=== PATIENT | male | born 1970 | race Caucasian/White ===

== ENCOUNTER 2016-04-29 11:42 | Emergency (ER) | payer BC ==
[2016-04-29] MEDS ORDERED: NORCO, ANEXSIA 5/325MG TABLET (HYDROcodone/ACETAMINOPHEN) As Ordered ONE ×3 (12:31→17:37)
--- NOTE | 2016-04-29 12:50 | REP ---
Clinical: Cough and chest pain . Comparison: 04/16/2012 . Technique: PA and lateral. Findings: The mediastinum and cardiac silhouette are normal. The lung dawson are clear and without acute consolidation, effusion, or pneumothorax. The skeletal structures are intact and normal. Impression: 1. No acute cardiopulmonary process. Signed by Murali Hauser MD 04/29/2016 12:42 P
--- NOTE | 2016-04-29 12:52 | REP ---
Clinical: Right rib pain with cough . Technique: Multiple views of the right hemithorax. Findings: Multiple views of the right hemithorax demonstrates no obvious acute rib fracture or pathology. Impression: Normal right rib series Signed by Murali Hauser MD 04/29/2016 12:44 P
[2016-04-29 12:59] LABS: BASO % 0.5 % (0.0-1.0); EOS # 0.1 K/mm3 (0.0-0.50); EOS % 1.9 % (0.0-3.0); LARGE UNSTAINED CELL # 0.1 K/mm3 (0.0-0.4); LARGE UNSTAINED CELL % 1.7 % (0.0-4.0); LYMPH # 1.2 K/mm3 (1.5-4.5); LYMPH % 15.5 % (24.0-44.0); MEAN CORPUSCULAR HEMOGLOBIN 34.4 pg (27.0-33.0); MEAN CORPUSCULAR HGB CONC 34.3 g/dl (32.0-36.5); MEAN CORPUSCULAR VOLUME 100.4 fl (80.0-96.0); MONO # 0.6 K/mm3 (0.0-0.8); NEUTROPHILS # 5.4 K/mm3 (1.8-7.7); NEUTROPHILS % 72.3 % (36.0-66.0); PLATELET COUNT, AUTOMATED 157 k/mm3 (150-450); RED CELL DISTRIBUTION WIDTH 12.1 % (11.5-14.5); WHITE BLOOD COUNT 7.5 K/mm3 (4.0-10.0)
[2016-04-29 13:07] LABS: INR 1.95
[2016-04-29 13:19] LABS: ALBUMIN 3.4 GM/DL (3.2-5.2); ALBUMIN/GLOBULIN RATIO 0.77 (1.00-1.93); ALKALINE PHOSPHATASE 129 U/L (45-117); ALT/SGPT 53 U/L (12-78); ANION GAP 7 MEQ/L (8-16); AST/SGOT 45 U/L (15-37); BILIRUBIN,TOTAL 1.6 MG/DL (0.2-1.0); BLOOD UREA NITROGEN 6 MG/DL (7-18); CALCIUM LEVEL 8.2 MG/DL (8.5-10.1); CARBON DIOXIDE LEVEL 27 MEQ/L (21-32); CHLORIDE LEVEL 104 MEQ/L (98-107); CREATININE FOR GFR 0.68 MG/DL (0.70-1.30); GLOMERULAR FILTRATION RATE > 60.0 (>60); GLUCOSE, FASTING 217 MG/DL (70-105); POTASSIUM SERUM 4.1 MEQ/L (3.5-5.1); SODIUM LEVEL 138 MEQ/L (136-145); TOTAL PROTEIN 7.8 GM/DL (6.4-8.2)
[2016-04-29] MEDS ORDERED: ISOVUE-370 76% 100ML VIAL (Q9967) As Ordered ONE (14:21)
--- NOTE | 2016-04-29 15:04 | REP ---
Clinical: Acute chest pain. Technique: Axial contrast enhanced images from the thoracic inlet to the upper abdomen using 100 ml Isovue 370 intravenous contrast material with coronal and sagittal re-formations. Findings: Suboptimal evaluation of the pulmonary vasculature limits evaluation. No obvious main or first order pulmonary emboli are identified. The lung dawson demonstrate calcified granuloma in the posterior right upper lung zone along with trace right basilar atelectasis. No further consolidation nodule or mass lesion is appreciated. No pleural effusion or pneumothorax. Tracheobronchial tree is patent. Mediastinum demonstrates normal thoracic aorta and heart/pericardium without pericardial effusion or cardiomegaly. No obvious adenopathy is appreciated. The surrounding skeletal structures appear intact. Limited evaluation of the upper abdomen demonstrates inflammatory changes in the right upper quadrant possibly related to acute cholecystitis and correlation with physical examination is recommended. Impression: Limited evaluation for pulmonary embolus. Trace right basilar atelectasis. Mild inflammatory stranding noted in the visualized right upper quadrant possibly related to acute cholecystitis and correlation is recommended. Signed by Murali Hauser MD 04/29/2016 02:55 P
--- NOTE | 2016-04-29 17:04 | REP ---
Clinical: Right upper quadrant pain. Technique: Real time cadet scale ultrasound examination using curved array transducer. Findings: Liver demonstrates diffuse fatty infiltration without obvious focal hepatic lesion identified. Pancreas is incompletely evaluated due to interposed bowel gas and technical factors secondary to body habitus. Gallbladder is without wall thickening or pericholecystic fluid and no obvious gallstones are appreciated. A sonographic Garcia's sign was elicited. There is no evidence for biliary ductal dilatation and the common bile duct measures 4.5 mm diameter. The right kidney is normal in reniform shape with column of Nicolás and no hydronephrosis. Right kidney measures 12.9 x 7.2 x 7.0 cm. No ascites in the visualized right upper quadrant. Impression: 1. Limited examination demonstrating fatty infiltration to the liver. 2. Sonographic Garcia's sign was elicited without further sonographic evidence for acute cholecystitis and correlation is recommended. Signed by Murali Hauser MD 04/29/2016 04:55 P
[2016-04-29] MEDS ORDERED: NORCO 5/325MG TABLET (BULK) As Ordered ONE (19:32)
--- NOTE | 2016-04-29 19:42 | EDDOCDS ---
Physician Documentation [facility] Name: Hill Salmeron Age: 46 yrs Sex: Male : 1970 Arrival Date: 04/29/2016 Time: 11:42 Bed 12 Private MD: [facility] Disposition: 04/29/16 19:29 Discharged to Home/Self Care. Impression: Cholecystitis - acalculus. - Condition is Stable. - Discharge Instructions: Fat and Cholesterol Restricted Diet, Cholecystitis. - Prescriptions for Christopher 5- 325 mg Oral Tablet - take 1 tablet by ORAL route every 6 hours As needed MDD: 4 tabs; 20 tablet. - Medication Reconciliation, Local Pharmacy Hours form. - Follow up: Nawaf Denis MD; When: Call to arrange an appointment; Reason: Recheck today's complaints, Continuance of care. - Problem is new. - Symptoms have improved. - Notes: Return to the ED for worsening pain, vomiting, fever, jaundice (yellow skin/eyes) or any other concerns Historical: - Allergies: no known allergies; - Home Meds: 1. Warfarin 7.5mg Tues, Thurs, Sun. and 15mg on Mon, Wed, Fri, Sat Oral once daily 2. atenolol 50 mg Oral tab 1 tab once daily 3. lisinopril 20 mg Oral tab 1 tab once daily 4. hydrocodone-acetaminophen 7.5-325 mg Oral tab 1 tab every 4-6 hours - PMHx: Hypertension; Pulmonary Embolism; DVT; - PSHx: none; - Social history: Smoking status: Patient uses tobacco products, current some day smoker. No barriers to communication noted, The patient speaks fluent [place]. - Family history: Not pertinent. - : The pt / caregiver states he / she is on anticoagulants: coumadin. Home medication list is obtained from the patient. - Exposure Risk Screening:: None identified. Vital Signs: 04/29 11:44 BP 174 / 82; Pulse 122; Resp 24; Temp 97.4; Pulse Ox 95% on R/A; Weight 158.76 kg / elp 350.01 lbs (R); Height 6 ft. 0 in. (182.88 cm) (R); Pain 5/10; 13:58 BP 154 / 70; Pulse 104; Resp 18; Pulse Ox 98% on R/A; Pain 2/10; bcj 14:06 Pain 2/10; bcj 18:21 BP 170 / 84 LA Supine (auto/lg); Pulse 98 RA; Resp 18; Temp 99.2(O); Pulse Ox 93% on tk R/A; Pain 3/10; 19:30 BP 173 / 87 RA Sitting (auto/lg); Pulse 104; Resp 18; Temp 97.2(O); Pulse Ox 93% on rs6 R/A; Pain 3/10; 11:44 Body Mass Index 47.47 (158.76 kg, 182.88 cm) elp MDM: 12:14 Chest, 2 View (pa\E\lat) Ordered. EDMS 12:28 IV Saline Lock ordered. le 12:28 HYDROcodone-acetaminophen 5 mg-325 mg 2 tabs PO once ordered. le 12:30 Ribs-Uni Without PA Chest Ordered. EDMS 12:30 ECG WITH READING ER PHYS+CARDIAG ordered. EDMS 12:30 CBC with Diff Ordered. EDMS 12:30 Complete Comphrensive Metabolic Ordered. EDMS 12:30 INR Ordered. EDMS 12:30 D-Dimer Quant Ordered. EDMS 13:31 [facility] Payment Agreement was scanned into [employer] and attached to record. jp5 13:31 Financial registration complete. jp5 14:00 CBC with Diff Reviewed. le 14:00 Complete Comphrensive Metabolic Reviewed. le 14:00 INR Reviewed. le 14:00 D-Dimer Quant Reviewed. le 14:00 Chest, 2 View (pa\E\lat) Reviewed. le 14:00 Ribs-Uni Without PA Chest Reviewed. le 14:03 CT Chest Angio R/O PE Ordered. EDMS 16:27 US Gallbladder Ordered. EDMS 17:32 US Gallbladder Reviewed. le 17:33 HYDROcodone-acetaminophen 5 mg-325 mg 1 tabs PO once ordered. le 17:34 CT Chest Angio R/O PE Reviewed. le 17:38 CT ABD & PELVIS: No Contrast Ordered. EDMS 19:28 HYDROcodone-acetaminophen 4 pack- 5 mg-325 mg 1 packets PO Per package directions; le Dispense with patient. 1 po q4h prn for pain ordered. Administered Medications: 12:55 Drug: HYDROcodone-acetaminophen 2 tabs [hydrocodone 5 mg-acetaminophen 325 mg tablet (2 bcj tabs)] Route: PO; 14:06 Follow up: Pain 2/10 Adult; Response: Pain is decreased [facility] 17:39 Drug: HYDROcodone-acetaminophen 1 tabs [hydrocodone 5 mg-acetaminophen 325 mg tablet (1 jmb tabs)] Route: PO; 19:37 Drug: HYDROcodone-acetaminophen 4 pack- 1 packets [hydrocodone 5 mg-acetaminophen 325 jmb mg tablet (1 tabs)] {Co-Signature: af2 (Beatrice Galeano RN).} Route: PO; Signatures: Dispatcher [employer] EDEleazar Swanson RN Cary Crowley RN RN mcp Westcott, Lisa, POSTING SPECIALIST POSTING SPECIALIST Raymundo GannRN Ange Coats jp5 Beatrice Galeano RN af2 The chart was reviewed and I authenticate all verbal orders and agree with the evaluation and treatment provided.Attachments: 13:31 [facility] Payment Agreement [email or web address] MTDD
--- NOTE | 2016-04-29 19:42 | EDDOCDS ---
Nurse's Notes [facility] Name: Hill Salmeron Age: 46 yrs Sex: Male : 1970 Arrival Date: 04/29/2016 Time: 11:42 Bed 12 Private MD: [place] Diagnosis: Cholecystitis-acalculus Presentation: 04/29 11:47 Red Flag criteria, patient assessed and is suitable to finish the RCE Process. dls 11:49 Presenting complaint: Patient states: Sharp pain in right rib area, coughing, bloating. mcp Has history of PE. Adult Sepsis Screening: The patient does not have new or worsening altered mentation. Patient's respiratory rate is less than 22. Systolic blood pressure is greater than 100. Patient has a qSOFA score of 0- Negative Sepsis Screen. Suicide/Homicide risk assessment- the patient denies having any suicidal and/or homicidal ideations and does not present with any other emotional, behavioral or mental health complaints. 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 Transition of care: patient was not received from another setting of care. 11:49 Acuity: TERRELL Level 3 [facility] 11:49 Method Of Arrival: Walkin/Carried/Asstd [facility] Triage Assessment: 11:52 General: Appears uncomfortable, Behavior is cooperative. Pain: Location: lower right mcp rib area Pain currently is 5 out of 10 on a pain scale. At worst was 9 out of 10 on a pain scale. HIV screening NA for this visit Offered previously. Neurological: No deficits noted. Respiratory: Airway is patent Respiratory effort is even, unlabored. Derm: Skin is pink, warm & dry. Historical: - Allergies: no known allergies; - Home Meds: 1. Warfarin 7.5mg Tues, Thurs, Sun. and 15mg on Mon, Wed, Fri, Sat Oral once daily 2. atenolol 50 mg Oral tab 1 tab once daily 3. lisinopril 20 mg Oral tab 1 tab once daily 4. hydrocodone-acetaminophen 7.5-325 mg Oral tab 1 tab every 4-6 hours - PMHx: Hypertension; Pulmonary Embolism; DVT; - PSHx: none; - Social history: Smoking status: Patient uses tobacco products, current some day smoker. No barriers to communication noted, The patient speaks fluent [place]. - Family history: Not pertinent. - : The pt / caregiver states he / she is on anticoagulants: coumadin. Home medication list is obtained from the patient. - Exposure Risk Screening:: None identified. Screenin:04 Screening information is obtained from the patient. Fall risk: No risks identified. bcj Assistance ADL's: requires no assistance with activities of daily living. Abuse/DV Screen: The patient / caregiver reports he/she is: not in a situation that causes fear, pain or injury. Nutritional screening: No deficits noted. Advance Directives: Currently, there is no health care proxy. home support is adequate. Assessment: 12:27 General: Appears in no apparent distress, comfortable, Behavior is cooperative. Pain:. bcj 13:04 General: Appears in no apparent distress, comfortable, Behavior is cooperative. Pain: bcj Location: right lateral anterior chest and right lateral posterior chest Pain currently is 6 out of 10 on a pain scale. Respiratory: Airway is patent Respiratory effort is even, unlabored, Respiratory pattern is regular, Breath sounds are clear bilaterally. tender right lateral ribs Denies shortness of breath Parent/caregiver reports the patient having pain with respiration. Derm: Skin is pink, warm & dry. 13:58 Adult Sepsis Screening: The patient does not have new or worsening altered mentation. bcj Patient's respiratory rate is less than 22. Systolic blood pressure is greater than 100. Patient has a qSOFA score of 0- Negative Sepsis Screen. General: Appears in no apparent distress, comfortable, Behavior is cooperative. 15:04 General: Appears in no apparent distress, comfortable, Behavior is appropriate for age, jmb cooperative, Patient laying on stretcher, appears comfortable. Voices no complaints at this time. . Pain: Location: chest and right lateral posterior chest and right lateral anterior chest Pain currently is 2 out of 10 on a pain scale. Neurological: Level of Consciousness is awake, alert, obeys commands, Oriented to person, place, time, Ethnoarchaeologist are equal bilaterally Speech is normal, Facial symmetry appears normal, Facial symmetry: tongue is midline. Cardiovascular: Capillary refill < 3 seconds Heart tones S1 S2 present Pulses are all present. Rhythm is regular. Respiratory: Airway is patent Respiratory effort is even, unlabored, Respiratory pattern is regular, symmetrical, Breath sounds are clear bilaterally. GI: Abdomen is obese, Bowel sounds present X 4 quads. Abd is soft and non tender X 4 quads. Derm: Skin is pink, warm & dry. Musculoskeletal: Range of motion intact in all extremities. 15:43 General: Appears in no apparent distress, comfortable, Behavior is appropriate for age, jmb cooperative. General: Patient laying on stretcher with at bedside. NO voiced complaints at this time,. . Neurological: Level of Consciousness is awake, alert, obeys commands, Oriented to person, place, time. Respiratory: Airway is patent Respiratory effort is even, unlabored, Respiratory pattern is regular, symmetrical. 16:08 General: Appears in no apparent distress, comfortable, Behavior is appropriate for age, jmb cooperative. Neurological: Level of Consciousness is awake, alert, obeys commands, Oriented to person, place, time. Respiratory: Airway is patent Respiratory effort is even, unlabored, Respiratory pattern is regular, symmetrical. 16:52 General: Appears in no apparent distress, comfortable, Behavior is appropriate for age, jmb cooperative, Patient returned from ultrasound. Patient laying on stretcher with at bedside. NO voiced complaints at this time.. Neurological: Level of Consciousness is awake, alert, obeys commands, Oriented to person, place, time. Respiratory: Airway is patent Respiratory effort is even, unlabored, Respiratory pattern is regular, symmetrical. 17:17 General: Patient rang call light, in to see patient. Patient requested more pain jmb medication stating "that ultrasound wilmar really did a number on me". Informed Melvina Lerma MACHINE OILER that patient was in pain and requested more pain medication. . 18:11 General: Appears in no apparent distress, comfortable, Behavior is appropriate for age, jmb cooperative, Patient laying on stretcher, appears comfortable. Patient voices no complaints at this time. . Neurological: Level of Consciousness is awake, alert, obeys commands, Oriented to person, place, time. Respiratory: Airway is patent Respiratory effort is even, unlabored, Respiratory pattern is regular, symmetrical. 18:57 General: Appears in no apparent distress, comfortable, Behavior is appropriate for age, jmb cooperative. Neurological: Level of Consciousness is awake, alert, obeys commands, Oriented to person, place, time. Respiratory: Airway is patent Respiratory effort is even, unlabored, Respiratory pattern is regular, symmetrical. 19:40 General: Patient instructed on discharge instructions. Patient asked if there were any b questions regarding discharge, patient stated no. IV discontinued per hospital policy. Patient signed discharge instructions. Patient discharged in stable condition. . Vital Signs: 11:44 BP 174 / 82; Pulse 122; Resp 24; Temp 97.4; Pulse Ox 95% on R/A; Weight 158.76 kg (R); elp Height 6 ft. 0 in. (182.88 cm) (R); Pain 5/10; 13:58 BP 154 / 70; Pulse 104; Resp 18; Pulse Ox 98% on R/A; Pain 2/10; bcj 14:06 Pain 2/10; bcj 18:21 BP 170 / 84 LA Supine (auto/lg); Pulse 98 RA; Resp 18; Temp 99.2(O); Pulse Ox 93% on tk R/A; Pain 3/10; 19:30 BP 173 / 87 RA Sitting (auto/lg); Pulse 104; Resp 18; Temp 97.2(O); Pulse Ox 93% on rs6 R/A; Pain 3/10; 11:44 Body Mass Index 47.47 (158.76 kg, 182.88 cm) elp Vitals: 11:44 Log In Time: April 29, 2016 at 11:41. RN notified that patient meets Red Flag elp criteria. ED Course: 11:43 Patient visited by Katarzyna Madden PCA. elp 11:43 Patient moved to Waiting elp 11:44 [facility] is Private Physician. elp 11:46 Patient moved to Pre RCE elp 11:49 Triage Initiated mcp 11:52 Patient visited by Cary Sosa RN. [facility] 11:53 Patient moved to 12 rs3 12:13 [facility] le 12:19 Patient visited by Melvina Lerma FNP. le 12:27 Patient visited by Eleazar Mc, CHANEL. bcj 12:55 D-Dimer Quant Sent. bcj 12:55 INR Sent. bcj 12:55 Complete Comphrensive Metabolic Sent. bcj 12:55 CBC with Diff Sent. bcj 13:04 No apparent distress. Resting quietly. awaiting re-evaluation by ER physician. bcj 13:04 The patient / caregiver is instructed regarding the plan of care and ED course. Patient bcj has correct armband on for positive identification. Placed in gown. Bed in low position. Call light in reach. Side rails up X 1. Adult w/ patient. 13:04 Inserted saline lock: 20 gauge in right antecubital area. Labs drawn. (by ED staff). bcj Sent per order to lab. EKG done. (by ED staff). Reviewed by Melvina THAYER. 13:07 Patient visited by Eleazar Mc RN. bcj 13:11 Chest, 2 View (pa\\E\\lat) Returned. EDMS 13:11 Ribs-Uni Without PA Chest Returned. EDMS 13:19 EKG done. (by ED staff). Reviewed by Melvina THAYER. tk 13:20 Patient visited by Milad Carrasco. tk 13:25 Patient name changed from Hill\\S\\C\\S\\Faviola\\S\\ to Hill\\S\\Jose Jer\\S\\[place]. EDMS 13:31 [facility] Payment Agreement was scanned into [employer] and attached to record. jp5 14:07 Patient visited by Eleazar Mc RN. bcj 15:06 Patient visited by Raymundo Méndez RN. jmb 15:06 CT Chest Angio R/O PE Returned. EDMS 15:44 Patient visited by Raymundo Méndez RN. jmb 16:09 Patient visited by Raymundo Méndez RN. jmb 16:31 Patient moved to Ultrasound hgl 16:51 Patient moved to 12 hgl 16:52 Patient visited by Raymundo Méndez RN. jmb 17:09 US Gallbladder Returned. EDMS 17:18 Patient visited by Raymundo Méndez RN. jmb 18:12 Patient visited by Raymundo Méndez RN. jmb 18:22 Patient visited by Milad Carrasco. tk 18:58 Patient visited by Raymundo Méndez RN. jmb 19:29 Nawaf Denis MD is Referral Physician. le 19:31 Patient visited by Rylie Parson PCA. rs6 19:40 Discontinued lock intact, bleeding controlled, pressure dressing applied, No jmb redness/swelling at site. No procedures done that require assistance. Administered Medications: 12:55 Drug: HYDROcodone-acetaminophen 2 tabs [hydrocodone 5 mg-acetaminophen 325 mg tablet (2 bcj tabs)] Route: PO; 14:06 Follow up: Pain 2/10 Adult; Response: Pain is decreased bc 17:39 Drug: HYDROcodone-acetaminophen 1 tabs [hydrocodone 5 mg-acetaminophen 325 mg tablet (1 jmb tabs)] Route: PO; 19:37 Drug: HYDROcodone-acetaminophen 4 pack- 1 packets [hydrocodone 5 mg-acetaminophen 325 jmb mg tablet (1 tabs)] {Co-Signature: af2 (Beatrice Galeano RN).} Route: PO; Order Results: Lab Order: CBC with Diff; SPEC'M 04/29/16 12:52 Test: WHITE BLOOD COUNT; Value: 7.5; Range: 4.0-10.0; Units: K/mm3; Status: F Test: RED BLOOD COUNT; Value: 4.60; Range: 4.30-6.10; Units: M/mm3; Status: F Test: HEMOGLOBIN; Value: 15.8; Range: 14.0-18.0; Units: g/dl; Status: F Test: HEMATOCRIT; Value: 46.1; Range: 42.0-52.0; Units: %; Status: F Test: MEAN CORPUSCULAR VOLUME; Value: 100.4; Range: 80.0-96.0; Abnormal: Above high normal; Units: fl; Status: F Test: MEAN CORPUSCULAR HEMOGLOBIN; Value: 34.4; Range: 27.0-33.0; Abnormal: Above high normal; Units: pg; Status: F Test: MEAN CORPUSCULAR HGB CONC; Value: 34.3; Range: 32.0-36.5; Units: g/dl; Status: F Test: RED CELL DISTRIBUTION WIDTH; Value: 12.1; Range: 11.5-14.5; Units: %; Status: F Test: PLATELET COUNT, AUTOMATED; Value: 157; Range: 150-450; Units: k/mm3; Status: F Test: NEUTROPHILS %; Value: 72.3; Range: 36.0-66.0; Abnormal: Above high normal; Units: %; Status: F Test: LYMPH %; Value: 15.5; Range: 24.0-44.0; Abnormal: Below low normal; Units: %; Status: F Test: MONO %; Value: 8.0; Range: 0.0-5.0; Abnormal: Above high normal; Units: %; Status: F Test: EOS %; Value: 1.9; Range: 0.0-3.0; Units: %; Status: F Test: BASO %; Value: 0.5; Range: 0.0-1.0; Units: %; Status: F Test: LARGE UNSTAINED CELL %; Value: 1.7; Range: 0.0-4.0; Units: %; Status: F Test: NEUTROPHILS #; Value: 5.4; Range: 1.8-7.7; Units: K/mm3; Status: F Test: LYMPH #; Value: 1.2; Range: 1.5-4.5; Abnormal: Below low normal; Units: K/mm3; Status: F Test: MONO #; Value: 0.6; Range: 0.0-0.8; Units: K/mm3; Status: F Test: EOS #; Value: 0.1; Range: 0.0-0.50; Units: K/mm3; Status: F Test: BASO #; Value: 0.0; Range: 0.0-0.2; Units: K/mm3; Status: F Test: LARGE UNSTAINED CELL #; Value: 0.1; Range: 0.0-0.4; Units: K/mm3; Status: F Lab Order: Complete Comphrensive Metabolic; SPEC'M 04/29/16 12:52 Test: GLUCOSE, FASTING; Value: 217; Range: 70-105; Abnormal: Above high normal; Units: MG/DL; Status: F Test: BLOOD UREA NITROGEN; Value: 6; Range: 7-18; Abnormal: Below low normal; Units: MG/DL; Status: F Test: CREATININE FOR GFR; Value: 0.68; Range: 0.70-1.30; Abnormal: Below low normal; Units: MG/DL; Status: F Test: GLOMERULAR FILTRATION RATE; Value: > 60.0; Range: >60; Status: F Test: SODIUM LEVEL; Value: 138; Range: 136-145; Units: MEQ/L; Status: F Test: POTASSIUM SERUM; Value: 4.1; Range: 3.5-5.1; Units: MEQ/L; Status: F Test: CHLORIDE LEVEL; Value: 104; Range: 98-107; Units: MEQ/L; Status: F Test: CARBON DIOXIDE LEVEL; Value: 27; Range: 21-32; Units: MEQ/L; Status: F Test: ANION GAP; Value: 7; Range: 8-16; Abnormal: Below low normal; Units: MEQ/L; Status: F Test: CALCIUM LEVEL; Value: 8.2; Range: 8.5-10.1; Abnormal: Below low normal; Units: MG/DL; Status: F Test: AST/SGOT; Value: 45; Range: 15-37; Abnormal: Above high normal; Units: U/L; Status: F Test: ALT/SGPT; Value: 53; Range: 12-78; Units: U/L; Status: F Test: ALKALINE PHOSPHATASE; Value: 129; Range: 45-117; Abnormal: Above high normal; Units: U/L; Status: F Test: BILIRUBIN,TOTAL; Value: 1.6; Range: 0.2-1.0; Abnormal: Above high normal; Units: MG/DL; Status: F Test: TOTAL PROTEIN; Value: 7.8; Range: 6.4-8.2; Units: GM/DL; Status: F Test: ALBUMIN; Value: 3.4; Range: 3.2-5.2; Units: GM/DL; Status: F Test: ALBUMIN/GLOBULIN RATIO; Value: 0.77; Range: 1.00-1.93; Abnormal: Below low normal; Status: F Test Note: ; Units are mL/min/1.73 m2 Chronic Kidney Disease Staging per NKF: Stage I & II GFR >=60 Normal to Mildly Decreased Stage III GFR 30-59 Moderately Decreased Stage IV GFR 15-29 Severely Decreased Stage V GFR <15 Very Little GFR Left ESRD GFR <15 on MANAGER EMERGENCY DEPARTMENT Lab Order: INR; SPEC'M 04/29/16 12:52 Test: PROTHROMBIN TIME; Value: 22.3; Range: 12.3-14.5; Abnormal: Above high normal; Units: SECONDS; Status: F Test: INR; Value: 1.95; Status: F Test Note: ; THERAPUTIC HUMAN INR VALUES INDICATIONS NORMAL RANGES PROPHYLAXIS/TREATMENT OF: VENOUS THROMBOSIS 2.0-3.0 PULMONARY EMBOLISM 2.0-3.0 PREVENTION OF SYSTEMIC EMBOLISM FROM: TISSUE HEART VALVES 2.0-3.0 ACUTE MYOCARDIAL INFARCTION 2.0-3.0 VALVULAR HEART DISEASE 2.0-3.0 ATRIAL FIBRILLATION 2.0-3.0 MECHANICAL VALVES(HIGH RISK) 2.5-3.5 RECURRENT MYOCARDIAL INFARCTION 2.5-3.5 Lab Order: D-Dimer Quant; SPEC'M 04/29/16 12:52 Test: D-DIMER QUANT; Value: 2057.2; Range: <500; Abnormal: Above high normal; Units: ng/ml; Status: F Radiology Order: Chest, 2 View (pa\\E\\lat) Test: Chest, 2 View (pa\\E\\lat) REASON FOR EXAMINATION: rib pain, cough, hx PE; Clinical: Cough and chest pain .; ; Comparison: 04/16/2012 .; ; Technique: PA and lateral.; ; Findings:; The mediastinum and cardiac silhouette are normal. The lung dawson are clear and; without acute consolidation, effusion, or pneumothorax. The skeletal structures; are intact and normal.; ; Impression:; 1. No acute cardiopulmonary process.; ; ; Signed by; Murali Hauser MD 04/29/2016 12:42 P; Radiology Order: Ribs-Uni Without PA Chest Test: Ribs-Uni Without PA Chest REASON FOR EXAMINATION: lat rib pain, cough; Clinical: Right rib pain with cough .; ; Technique: Multiple views of the right hemithorax.; ; Findings:; Multiple views of the right hemithorax demonstrates no obvious acute rib fracture; or pathology.; ; Impression:; Normal right rib series; ; ; Signed by; Murali Hauser MD 04/29/2016 12:44 P; Radiology Order: CT Chest Angio R/O PE Test: CT Chest Angio R/O PE REASON FOR EXAMINATION: Chest Pain;Shortness of Breath; Clinical: Acute chest pain.; ; Technique: Axial contrast enhanced images from the thoracic inlet to the upper; abdomen using 100 ml Isovue 370 intravenous contrast material with coronal and; sagittal re-formations.; ; Findings: Suboptimal evaluation of the pulmonary vasculature limits evaluation.; No obvious main or first order pulmonary emboli are identified. The lung dawson; demonstrate calcified granuloma in the posterior right upper lung zone along with; trace right basilar atelectasis. No further consolidation nodule or mass lesion; is appreciated. No pleural effusion or pneumothorax. Tracheobronchial tree is; patent. Mediastinum demonstrates normal thoracic aorta and heart/pericardium; without pericardial effusion or cardiomegaly. No obvious adenopathy is; appreciated. The surrounding skeletal structures appear intact.; ; Limited evaluation of the upper abdomen demonstrates inflammatory changes in the; right upper quadrant possibly related to acute cholecystitis and correlation with; physical examination is recommended.; ; Impression:; Limited evaluation for pulmonary embolus.; Trace right basilar atelectasis.; Mild inflammatory stranding noted in the visualized right upper quadrant possibly; related to acute cholecystitis and correlation is recommended.; ; ; Signed by; Murali Hauser MD 04/29/2016 02:55 P; Radiology Order: US Gallbladder Test: US Gallbladder REASON FOR EXAMINATION: Biliary Colic; Clinical: Right upper quadrant pain.; ; Technique: Real time cadet scale ultrasound examination using curved array; transducer.; ; Findings:; Liver demonstrates diffuse fatty infiltration without obvious focal hepatic; lesion identified. Pancreas is incompletely evaluated due to interposed bowel; gas and technical factors secondary to body habitus. Gallbladder is without wall; thickening or pericholecystic fluid and no obvious gallstones are appreciated. A; sonographic Garcia's sign was elicited. There is no evidence for biliary ductal; dilatation and the common bile duct measures 4.5 mm diameter. The right kidney; is normal in reniform shape with column of Nicolás and no hydronephrosis. Right; kidney measures 12.9 x 7.2 x 7.0 cm. No ascites in the visualized right upper; quadrant.; ; Impression:; 1. Limited examination demonstrating fatty infiltration to the liver.; 2. Sonographic Garcia's sign was elicited without further sonographic evidence; for acute cholecystitis and correlation is recommended.; ; ; Signed by; Murali Hauser MD 04/29/2016 04:55 P; Outcome: 19:29 Discharge ordered by Provider. le 19:40 Discharge Assessment: Patient awake, alert and oriented x 3. No cognitive and/or jmb functional deficits noted. Patient verbalized understanding of disposition instructions. Patient awake and alert. obeys commands, Oriented to person, place and time. Patient verbalized understanding of disposition instructions. Patient has no functional deficits. patient administered narcotics - yes. Pt provided with safe discharge. The following High Risk Discharge criteria are identified: None. Discharged to home ambulatory, with significant other. Condition: stable. Discharge instructions given to patient, Instructed on discharge instructions, follow up and referral plans. medication usage, Demonstrated understanding of instructions, medications, Pt was receptive of discharge instructions/ teaching. Prescriptions given X 1. CT Study completed. Ultrasound Study completed. Property sent home with patient. 19:42 Patient left the ED. adilia Signatures: Dispatcher [employer] EDMS Eleazar Mc, RN RN Cary Burch RN Katherine Mcclendon mcp RN Melvina Sheppard, MERGERS AND ACQUISITIONS BANKER MERGERS AND ACQUISITIONS BANKER Anaya JerryRN RN rs3 Ly, Alirio hgKatarzyna Rouse, RELINER RELINER elp Raymundo MéndezRN RN jeannineb Rylie Parson, RELINER RELINER rs6 Ange Stephenson Timothy tk Amber Fulton RN af2 TIBURCIO
--- NOTE | 2016-04-30 08:32 | REP ---
Clinical: Biliary colic and right upper quadrant pain with incomplete ultrasound. Technique: Axial noncontrast images from the lung bases to the pubic symphysis with coronal and sagittal re-formations. Findings: Lung bases are relatively clear. Visualized heart and pericardium normal. The gallbladder appears mildly prominent and inflammatory changes are appreciated in the right upper quadrant adjacent to the gallbladder and right lobe of liver also somewhat inseparable from the underlying hepatic flexure of the colon which itself appears otherwise unremarkable. These findings may reflect acute cholecystitis given the patient's right upper quadrant pain and biliary colic. Hepatomegaly is suggested. Spleen, pancreas, bilateral adrenal glands and kidneys appear relatively normal contrast identified within the renal collecting system secondary to recent CT angiographic chest examination. The enteric system demonstrates scattered colonic diverticula without evidence for acute diverticulitis and no evidence for bowel obstruction or acute inflammatory process. Pelvis demonstrates contrast filled bladder and age appropriate prostate gland. No pelvic fluid or ascites. No significant adenopathy. No free air. Abdominal aorta without evidence for aneurysm. Surrounding musculoskeletal structures demonstrate age-related changes primarily involving the lower lumbar spine. Impression: 1. Mildly distended gallbladder with subtle wall prominence and adjacent inflammatory stranding suggests acute acalculous cholecystitis. Mild hepatomegaly. 2. Scattered colonic diverticula without acute diverticulitis. 3. No ascites. 4. No further acute intra-abdominal or pelvic pathology is appreciated. Signed by Murali Hauser MD 04/30/2016 08:23 A
--- NOTE | 2016-04-30 12:51 | ECGEPIP ---
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
--- NOTE | 2016-05-01 20:42 | EDDOCDS ---
Nurse's Notes [facility] Name: Faizan Manning Age: 46 yrs Sex: Male : 1970 Arrival Date: 04/29/2016 Time: 11:42 Bed 12 Private MD: MN Germán Ida Diagnosis: Cholecystitis-acalculus Presentation: 04/29 11:47 Red Flag criteria, patient assessed and is suitable to finish the RCE Process. dls 11:49 Presenting complaint: Patient states: Sharp pain in right rib area, coughing, bloating. mcp Has history of PE. Adult Sepsis Screening: The patient does not have new or worsening altered mentation. Patient's respiratory rate is less than 22. Systolic blood pressure is greater than 100. Patient has a qSOFA score of 0- Negative Sepsis Screen. Suicide/Homicide risk assessment- the patient denies having any suicidal and/or homicidal ideations and does not present with any other emotional, behavioral or mental health complaints. 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 Transition of care: patient was not received from another setting of care. 11:49 Acuity: TERRELL Level 3 [facility] [place] 11:49 Method Of Arrival: Walkin/Carried/Asstd [facility] [place] Triage Assessment: 11:52 General: Appears uncomfortable, Behavior is cooperative. Pain: Location: lower right mcp rib area Pain currently is 5 out of 10 on a pain scale. At worst was 9 out of 10 on a pain scale. HIV screening NA for this visit Offered previously. Neurological: No deficits noted. Respiratory: Airway is patent Respiratory effort is even, unlabored. Derm: Skin is pink, warm & dry. Historical: - Allergies: no known allergies; - Home Meds: 1. Warfarin 7.5mg Tues, Thurs, Sun. and 15mg on Mon, Wed, Fri, Sat Oral once daily 2. atenolol 50 mg Oral tab 1 tab once daily 3. lisinopril 20 mg Oral tab 1 tab once daily 4. hydrocodone-acetaminophen 7.5-325 mg Oral tab 1 tab every 4-6 hours - PMHx: Hypertension; Pulmonary Embolism; DVT; - PSHx: none; - Social history: Smoking status: Patient uses tobacco products, current some day smoker. No barriers to communication noted, The patient speaks fluent Paraguayan. - Family history: Not pertinent. - : The pt / caregiver states he / she is on anticoagulants: coumadin. Home medication list is obtained from the patient. - Exposure Risk Screening:: None identified. Screenin:04 Screening information is obtained from the patient. Fall risk: No risks identified. bcj Assistance ADL's: requires no assistance with activities of daily living. Abuse/DV Screen: The patient / caregiver reports he/she is: not in a situation that causes fear, pain or injury. Nutritional screening: No deficits noted. Advance Directives: Currently, there is no health care proxy. home support is adequate. Assessment: 12:27 General: Appears in no apparent distress, comfortable, Behavior is cooperative. Pain:. bcj 13:04 General: Appears in no apparent distress, comfortable, Behavior is cooperative. Pain: bcj Location: right lateral anterior chest and right lateral posterior chest Pain currently is 6 out of 10 on a pain scale. Respiratory: Airway is patent Respiratory effort is even, unlabored, Respiratory pattern is regular, Breath sounds are clear bilaterally. tender right lateral ribs Denies shortness of breath Parent/caregiver reports the patient having pain with respiration. Derm: Skin is pink, warm & dry. 13:58 Adult Sepsis Screening: The patient does not have new or worsening altered mentation. bcj Patient's respiratory rate is less than 22. Systolic blood pressure is greater than 100. Patient has a qSOFA score of 0- Negative Sepsis Screen. General: Appears in no apparent distress, comfortable, Behavior is cooperative. 15:04 General: Appears in no apparent distress, comfortable, Behavior is appropriate for age, jmb cooperative, Patient laying on stretcher, appears comfortable. Voices no complaints at this time. . Pain: Location: chest and right lateral posterior chest and right lateral anterior chest Pain currently is 2 out of 10 on a pain scale. Neurological: Level of Consciousness is awake, alert, obeys commands, Oriented to person, place, time, Mortgage Coordinator are equal bilaterally Speech is normal, Facial symmetry appears normal, Facial symmetry: tongue is midline. Cardiovascular: Capillary refill < 3 seconds Heart tones S1 S2 present Pulses are all present. Rhythm is regular. Respiratory: Airway is patent Respiratory effort is even, unlabored, Respiratory pattern is regular, symmetrical, Breath sounds are clear bilaterally. GI: Abdomen is obese, Bowel sounds present X 4 quads. Abd is soft and non tender X 4 quads. Derm: Skin is pink, warm & dry. Musculoskeletal: Range of motion intact in all extremities. 15:43 General: Appears in no apparent distress, comfortable, Behavior is appropriate for age, jmb cooperative. General: Patient laying on stretcher with at bedside. NO voiced complaints at this time,. . Neurological: Level of Consciousness is awake, alert, obeys commands, Oriented to person, place, time. Respiratory: Airway is patent Respiratory effort is even, unlabored, Respiratory pattern is regular, symmetrical. 16:08 General: Appears in no apparent distress, comfortable, Behavior is appropriate for age, jmb cooperative. Neurological: Level of Consciousness is awake, alert, obeys commands, Oriented to person, place, time. Respiratory: Airway is patent Respiratory effort is even, unlabored, Respiratory pattern is regular, symmetrical. 16:52 General: Appears in no apparent distress, comfortable, Behavior is appropriate for age, jmb cooperative, Patient returned from ultrasound. Patient laying on stretcher with at bedside. NO voiced complaints at this time.. Neurological: Level of Consciousness is awake, alert, obeys commands, Oriented to person, place, time. Respiratory: Airway is patent Respiratory effort is even, unlabored, Respiratory pattern is regular, symmetrical. 17:17 General: Patient rang call light, in to see patient. Patient requested more pain jmb medication stating "that ultrasound wilmar really did a number on me". Informed Melvina Lerma RN DIABETES EDUCATOR that patient was in pain and requested more pain medication. . 18:11 General: Appears in no apparent distress, comfortable, Behavior is appropriate for age, jmb cooperative, Patient laying on stretcher, appears comfortable. Patient voices no complaints at this time. . Neurological: Level of Consciousness is awake, alert, obeys commands, Oriented to person, place, time. Respiratory: Airway is patent Respiratory effort is even, unlabored, Respiratory pattern is regular, symmetrical. 18:57 General: Appears in no apparent distress, comfortable, Behavior is appropriate for age, jmb cooperative. Neurological: Level of Consciousness is awake, alert, obeys commands, Oriented to person, place, time. Respiratory: Airway is patent Respiratory effort is even, unlabored, Respiratory pattern is regular, symmetrical. 19:40 General: Patient instructed on discharge instructions. Patient asked if there were any b questions regarding discharge, patient stated no. IV discontinued per hospital policy. Patient signed discharge instructions. Patient discharged in stable condition. . Vital Signs: 11:44 BP 174 / 82; Pulse 122; Resp 24; Temp 97.4; Pulse Ox 95% on R/A; Weight 158.76 kg (R); elp Height 6 ft. 0 in. (182.88 cm) (R); Pain 5/10; 13:58 BP 154 / 70; Pulse 104; Resp 18; Pulse Ox 98% on R/A; Pain 2/10; bcj 14:06 Pain 2/10; bcj 18:21 BP 170 / 84 LA Supine (auto/lg); Pulse 98 RA; Resp 18; Temp 99.2(O); Pulse Ox 93% on tk R/A; Pain 3/10; 19:30 BP 173 / 87 RA Sitting (auto/lg); Pulse 104; Resp 18; Temp 97.2(O); Pulse Ox 93% on rs6 R/A; Pain 3/10; 11:44 Body Mass Index 47.47 (158.76 kg, 182.88 cm) elp Vitals: 11:44 Log In Time: April 29, 2016 at 11:41. RN notified that patient meets Red Flag elp criteria. ED Course: 11:43 Patient visited by Katarzyna Madden PCA. elp 11:43 Patient moved to Waiting elp 11:44 [facility] is Private Physician. elp 11:46 Patient moved to Pre RCE elp 11:49 Triage Initiated mcp 11:52 Patient visited by Cary Sosa RN. [facility] [place] 11:53 Patient moved to 12 rs3 12:13 [facility] le 12:19 Patient visited by Melvina Lerma FNP. le 12:27 Patient visited by Eleazar Mc, CHANEL. bcj 12:55 D-Dimer Quant Sent. bcj 12:55 INR Sent. bcj 12:55 Complete Comphrensive Metabolic Sent. bcj 12:55 CBC with Diff Sent. bcj 13:04 No apparent distress. Resting quietly. awaiting re-evaluation by ER physician. bcj 13:04 The patient / caregiver is instructed regarding the plan of care and ED course. Patient bcj has correct armband on for positive identification. Placed in gown. Bed in low position. Call light in reach. Side rails up X 1. Adult w/ patient. 13:04 Inserted saline lock: 20 gauge in right antecubital area. Labs drawn. (by ED staff). bcj Sent per order to lab. EKG done. (by ED staff). Reviewed by Melvina THAYER. 13:07 Patient visited by Eleazar Mc RN. bcj 13:11 Chest, 2 View (pa\\E\\lat) Returned. EDMS 13:11 Ribs-Uni Without PA Chest Returned. EDMS 13:19 EKG done. (by ED staff). Reviewed by Melvina THAYER. tk 13:20 Patient visited by Milad Carrasco. tk 13:25 Patient name changed from Faizan\\S\\C\\S\\Faviola\\S\\ to Faizan\\S\\Jose Jer\\S\\Hays. EDMS 13:31 [facility] Payment Agreement was scanned into [employer] and attached to record. jp5 14:07 Patient visited by Eleazar Mc RN. bcj 15:06 Patient visited by Raymundo Méndez RN. jmb 15:06 CT Chest Angio R/O PE Returned. EDMS 15:44 Patient visited by Raymundo Méndez RN. jmb 16:09 Patient visited by Raymundo Méndez RN. jmb 16:31 Patient moved to Ultrasound hgl 16:51 Patient moved to 12 hgl 16:52 Patient visited by Raymundo Méndez RN. jmb 17:09 US Gallbladder Returned. EDMS 17:18 Patient visited by Raymundo Méndez RN. jmb 18:12 Patient visited by Raymundo Méndez RN. jmb 18:22 Patient visited by Milad Carrasco. tk 18:58 Patient visited by Raymundo Méndez RN. jmb 19:29 Nawaf Denis MD is Referral Physician. le 19:31 Patient visited by Rylie Parson PCA. rs6 19:40 Discontinued lock intact, bleeding controlled, pressure dressing applied, No jmb redness/swelling at site. No procedures done that require assistance. 22:50 T-Sheet-- Draft Copy was scanned into [employer] and attached to record. klr 04/30 09:03 CT ABD & PELVIS: No Contrast Returned. EDMS 13:06 ECG/EKG was scanned into [employer] and attached to record. 13:09 EKG-ADULT Returned. EDMS Administered Medications: 04/29 12:55 Drug: HYDROcodone-acetaminophen 2 tabs [hydrocodone 5 mg-acetaminophen 325 mg tablet (2 bcj tabs)] Route: PO; 14:06 Follow up: Pain 2/10 Adult; Response: Pain is decreased bcj 17:39 Drug: HYDROcodone-acetaminophen 1 tabs [hydrocodone 5 mg-acetaminophen 325 mg tablet (1 jmb tabs)] Route: PO; 19:37 Drug: HYDROcodone-acetaminophen 4 pack- 1 packets [hydrocodone 5 mg-acetaminophen 325 jmb mg tablet (1 tabs)] {Co-Signature: af2 (Beatrice Galeano RN).} Route: PO; Order Results: Lab Order: CBC with Diff; SPEC'M 04/29/16 12:52 Test: WHITE BLOOD COUNT; Value: 7.5; Range: 4.0-10.0; Units: K/mm3; Status: F Test: RED BLOOD COUNT; Value: 4.60; Range: 4.30-6.10; Units: M/mm3; Status: F Test: HEMOGLOBIN; Value: 15.8; Range: 14.0-18.0; Units: g/dl; Status: F Test: HEMATOCRIT; Value: 46.1; Range: 42.0-52.0; Units: %; Status: F Test: MEAN CORPUSCULAR VOLUME; Value: 100.4; Range: 80.0-96.0; Abnormal: Above high normal; Units: fl; Status: F Test: MEAN CORPUSCULAR HEMOGLOBIN; Value: 34.4; Range: 27.0-33.0; Abnormal: Above high normal; Units: pg; Status: F Test: MEAN CORPUSCULAR HGB CONC; Value: 34.3; Range: 32.0-36.5; Units: g/dl; Status: F Test: RED CELL DISTRIBUTION WIDTH; Value: 12.1; Range: 11.5-14.5; Units: %; Status: F Test: PLATELET COUNT, AUTOMATED; Value: 157; Range: 150-450; Units: k/mm3; Status: F Test: NEUTROPHILS %; Value: 72.3; Range: 36.0-66.0; Abnormal: Above high normal; Units: %; Status: F Test: LYMPH %; Value: 15.5; Range: 24.0-44.0; Abnormal: Below low normal; Units: %; Status: F Test: MONO %; Value: 8.0; Range: 0.0-5.0; Abnormal: Above high normal; Units: %; Status: F Test: EOS %; Value: 1.9; Range: 0.0-3.0; Units: %; Status: F Test: BASO %; Value: 0.5; Range: 0.0-1.0; Units: %; Status: F Test: LARGE UNSTAINED CELL %; Value: 1.7; Range: 0.0-4.0; Units: %; Status: F Test: NEUTROPHILS #; Value: 5.4; Range: 1.8-7.7; Units: K/mm3; Status: F Test: LYMPH #; Value: 1.2; Range: 1.5-4.5; Abnormal: Below low normal; Units: K/mm3; Status: F Test: MONO #; Value: 0.6; Range: 0.0-0.8; Units: K/mm3; Status: F Test: EOS #; Value: 0.1; Range: 0.0-0.50; Units: K/mm3; Status: F Test: BASO #; Value: 0.0; Range: 0.0-0.2; Units: K/mm3; Status: F Test: LARGE UNSTAINED CELL #; Value: 0.1; Range: 0.0-0.4; Units: K/mm3; Status: F Lab Order: Complete Comphrensive Metabolic; SPEC'M 04/29/16 12:52 Test: GLUCOSE, FASTING; Value: 217; Range: 70-105; Abnormal: Above high normal; Units: MG/DL; Status: F Test: BLOOD UREA NITROGEN; Value: 6; Range: 7-18; Abnormal: Below low normal; Units: MG/DL; Status: F Test: CREATININE FOR GFR; Value: 0.68; Range: 0.70-1.30; Abnormal: Below low normal; Units: MG/DL; Status: F Test: GLOMERULAR FILTRATION RATE; Value: > 60.0; Range: >60; Status: F Test: SODIUM LEVEL; Value: 138; Range: 136-145; Units: MEQ/L; Status: F Test: POTASSIUM SERUM; Value: 4.1; Range: 3.5-5.1; Units: MEQ/L; Status: F Test: CHLORIDE LEVEL; Value: 104; Range: 98-107; Units: MEQ/L; Status: F Test: CARBON DIOXIDE LEVEL; Value: 27; Range: 21-32; Units: MEQ/L; Status: F Test: ANION GAP; Value: 7; Range: 8-16; Abnormal: Below low normal; Units: MEQ/L; Status: F Test: CALCIUM LEVEL; Value: 8.2; Range: 8.5-10.1; Abnormal: Below low normal; Units: MG/DL; Status: F Test: AST/SGOT; Value: 45; Range: 15-37; Abnormal: Above high normal; Units: U/L; Status: F Test: ALT/SGPT; Value: 53; Range: 12-78; Units: U/L; Status: F Test: ALKALINE PHOSPHATASE; Value: 129; Range: 45-117; Abnormal: Above high normal; Units: U/L; Status: F Test: BILIRUBIN,TOTAL; Value: 1.6; Range: 0.2-1.0; Abnormal: Above high normal; Units: MG/DL; Status: F Test: TOTAL PROTEIN; Value: 7.8; Range: 6.4-8.2; Units: GM/DL; Status: F Test: ALBUMIN; Value: 3.4; Range: 3.2-5.2; Units: GM/DL; Status: F Test: ALBUMIN/GLOBULIN RATIO; Value: 0.77; Range: 1.00-1.93; Abnormal: Below low normal; Status: F Test Note: ; Units are mL/min/1.73 m2 Chronic Kidney Disease Staging per NKF: Stage I & II GFR >=60 Normal to Mildly Decreased Stage III GFR 30-59 Moderately Decreased Stage IV GFR 15-29 Severely Decreased Stage V GFR <15 Very Little GFR Left ESRD GFR <15 on SCULLION CHIEF Lab Order: INR; SPEC'M 04/29/16 12:52 Test: PROTHROMBIN TIME; Value: 22.3; Range: 12.3-14.5; Abnormal: Above high normal; Units: SECONDS; Status: F Test: INR; Value: 1.95; Status: F Test Note: ; THERAPUTIC HUMAN INR VALUES INDICATIONS NORMAL RANGES PROPHYLAXIS/TREATMENT OF: VENOUS THROMBOSIS 2.0-3.0 PULMONARY EMBOLISM 2.0-3.0 PREVENTION OF SYSTEMIC EMBOLISM FROM: TISSUE HEART VALVES 2.0-3.0 ACUTE MYOCARDIAL INFARCTION 2.0-3.0 VALVULAR HEART DISEASE 2.0-3.0 ATRIAL FIBRILLATION 2.0-3.0 MECHANICAL VALVES(HIGH RISK) 2.5-3.5 RECURRENT MYOCARDIAL INFARCTION 2.5-3.5 Lab Order: D-Dimer Quant; SPEC'M 04/29/16 12:52 Test: D-DIMER QUANT; Value: 2057.2; Range: <500; Abnormal: Above high normal; Units: ng/ml; Status: F Radiology Order: Chest, 2 View (pa\\E\\lat) Test: Chest, 2 View (pa\\E\\lat) REASON FOR EXAMINATION: rib pain, cough, hx PE; Clinical: Cough and chest pain .; ; Comparison: 04/16/2012 .; ; Technique: PA and lateral.; ; Findings:; The mediastinum and cardiac silhouette are normal. The lung dawson are clear and; without acute consolidation, effusion, or pneumothorax. The skeletal structures; are intact and normal.; ; Impression:; 1. No acute cardiopulmonary process.; ; ; Signed by; Murali Hauser MD 04/29/2016 12:42 P; Radiology Order: Ribs-Uni Without PA Chest Test: Ribs-Uni Without PA Chest REASON FOR EXAMINATION: lat rib pain, cough; Clinical: Right rib pain with cough .; ; Technique: Multiple views of the right hemithorax.; ; Findings:; Multiple views of the right hemithorax demonstrates no obvious acute rib fracture; or pathology.; ; Impression:; Normal right rib series; ; ; Signed by; Murali Hauser MD 04/29/2016 12:44 P; Radiology Order: EKG-ADULT Test: EKG-ADULT REASON FOR EXAMINATION: tachycardia; Stationary ECG Study; [facility] - ED; ; Test Date: 2016-04-29; Pat Name: FAIZAN MANNING Department:; Room: -; Gender: 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; : 1970 Requested By: MELVINA THAYER; Order Number: [id number] Reading MD: Beth Rowell; Measurements; Intervals [place]; Rate: 109 P: 33; [place]: 161 QRS: -19; QRSD: 91 T: 42; QT: 321; QTc: 433; Interpretive Statements; SINUS TACHYCARDIA; MINIMAL VOLTAGE CRITERIA FOR LVH, CONSIDER NORMAL VARIANT; ABNORMAL RHYTHM ECG; DELAYED R PROGRESSION; INCREASED RATE 09/03/12; Electronically Signed On 04-30-2016 12:51:26 EST by Beth Rowell; Radiology Order: CT Chest Angio R/O PE Test: CT Chest Angio R/O PE REASON FOR EXAMINATION: Chest Pain;Shortness of Breath; Clinical: Acute chest pain.; ; Technique: Axial contrast enhanced images from the thoracic inlet to the upper; abdomen using 100 ml Isovue 370 intravenous contrast material with coronal and; sagittal re-formations.; ; Findings: Suboptimal evaluation of the pulmonary vasculature limits evaluation.; No obvious main or first order pulmonary emboli are identified. The lung dawson; demonstrate calcified granuloma in the posterior right upper lung zone along with; trace right basilar atelectasis. No further consolidation nodule or mass lesion; is appreciated. No pleural effusion or pneumothorax. Tracheobronchial tree is; patent. Mediastinum demonstrates normal thoracic aorta and heart/pericardium; without pericardial effusion or cardiomegaly. No obvious adenopathy is; appreciated. The surrounding skeletal structures appear intact.; ; Limited evaluation of the upper abdomen demonstrates inflammatory changes in the; right upper quadrant possibly related to acute cholecystitis and correlation with; physical examination is recommended.; ; Impression:; Limited evaluation for pulmonary embolus.; Trace right basilar atelectasis.; Mild inflammatory stranding noted in the visualized right upper quadrant possibly; related to acute cholecystitis and correlation is recommended.; ; ; Signed by; Murali Hauser MD 04/29/2016 02:55 P; Radiology Order: US Gallbladder Test: US Gallbladder REASON FOR EXAMINATION: Biliary Colic; Clinical: Right upper quadrant pain.; ; Technique: Real time cadet scale ultrasound examination using curved array; transducer.; ; Findings:; Liver demonstrates diffuse fatty infiltration without obvious focal hepatic; lesion identified. Pancreas is incompletely evaluated due to interposed bowel; gas and technical factors secondary to body habitus. Gallbladder is without wall; thickening or pericholecystic fluid and no obvious gallstones are appreciated. A; sonographic Garcia's sign was elicited. There is no evidence for biliary ductal; dilatation and the common bile duct measures 4.5 mm diameter. The right kidney; is normal in reniform shape with column of Nicolás and no hydronephrosis. Right; kidney measures 12.9 x 7.2 x 7.0 cm. No ascites in the visualized right upper; quadrant.; ; Impression:; 1. Limited examination demonstrating fatty infiltration to the liver.; 2. Sonographic Garcia's sign was elicited without further sonographic evidence; for acute cholecystitis and correlation is recommended.; ; ; Signed by; Murali Hauser MD 04/29/2016 04:55 P; Radiology Order: CT ABD & PELVIS: No Contrast Test: CT ABD & PELVIS: No Contrast REASON FOR EXAMINATION: GB poorly visualized on US;Biliary Colic/RUQ pain; Clinical: Biliary colic and right upper quadrant pain with incomplete; ultrasound.; ; Technique: Axial noncontrast images from the lung bases to the pubic symphysis; with coronal and sagittal re-formations.; ; Findings:; Lung bases are relatively clear. Visualized heart and pericardium normal.; ; The gallbladder appears mildly prominent and inflammatory changes are appreciated; in the right upper quadrant adjacent to the gallbladder and right lobe of liver; also somewhat inseparable from the underlying hepatic flexure of the colon which; itself appears otherwise unremarkable. These findings may reflect acute; cholecystitis given the patient's right upper quadrant pain and biliary colic.; Hepatomegaly is suggested. Spleen, pancreas, bilateral adrenal glands and; kidneys appear relatively normal contrast identified within the renal collecting; system secondary to recent CT angiographic chest examination. The enteric system; demonstrates scattered colonic diverticula without evidence for acute; diverticulitis and no evidence for bowel obstruction or acute inflammatory; process. Pelvis demonstrates contrast filled bladder and age appropriate; prostate gland. No pelvic fluid or ascites. No significant adenopathy. No free; air. Abdominal aorta without evidence for aneurysm. Surrounding musculoskeletal; structures demonstrate age-related changes primarily involving the lower lumbar; spine.; ; Impression:; 1. Mildly distended gallbladder with subtle wall prominence and adjacent; inflammatory stranding suggests acute acalculous cholecystitis. Mild; hepatomegaly.; 2. Scattered colonic diverticula without acute diverticulitis.; 3. No ascites.; 4. No further acute intra-abdominal or pelvic pathology is appreciated.; ; ; Signed by; Murali Hauser MD 04/30/2016 08:23 A; Outcome: 19:29 Discharge ordered by Provider. le 19:40 Discharge Assessment: Patient awake, alert and oriented x 3. No cognitive and/or jmb functional deficits noted. Patient verbalized understanding of disposition instructions. Patient awake and alert. obeys commands, Oriented to person, place and time. Patient verbalized understanding of disposition instructions. Patient has no functional deficits. patient administered narcotics - yes. Pt provided with safe discharge. The following High Risk Discharge criteria are identified: None. Discharged to home ambulatory, with significant other. Condition: stable. Discharge instructions given to patient, Instructed on discharge instructions, follow up and referral plans. medication usage, Demonstrated understanding of instructions, medications, Pt was receptive of discharge instructions/ teaching. Prescriptions given X 1. CT Study completed. Ultrasound Study completed. Property sent home with patient. 19:42 Patient left the ED. adilia Signatures: Dispatcher [employer] EDMS Eleazar Mc, RN RN Cary Burch, RN RN Katherine Ingram, RN RN dls Yi, Ivon, Reg Reg gb Maria Guadalupe, Melvina, GIS GEOGRAPHER GIS GEOGRAPHER Anaya Jerry,RN RN rs3 Dayana, Katarzyna Rodríguez, OPTICAL INSTRUMENT REPAIRER OPTICAL INSTRUMENT REPAIRER elp Raymundo Méndez RN RN jmb Schmitt, Rebecca, OPTICAL INSTRUMENT REPAIRER OPTICAL INSTRUMENT REPAIRER rs6 Ange Stephenson Timothy tk Redder, Kathie klr Amber Fulton RN af2 Chart Complete MTDD
--- NOTE | 2016-05-01 20:42 | EDDOCDS ---
Physician Documentation [facility] Name: Hill Salmeron Age: 46 yrs Sex: Male : 1970 Arrival Date: 04/29/2016 Time: 11:42 Bed 12 Private MD: [facility] Disposition: 04/29/16 19:29 Discharged to Home/Self Care. Impression: Cholecystitis - acalculus. - Condition is Stable. - Discharge Instructions: Fat and Cholesterol Restricted Diet, Cholecystitis. - Prescriptions for [place] 5- 325 mg Oral Tablet - take 1 tablet by ORAL route every 6 hours As needed MDD: 4 tabs; 20 tablet. - Medication Reconciliation, Local Pharmacy Hours form. - Follow up: Nawaf Denis MD; When: Call to arrange an appointment; Reason: Recheck today's complaints, Continuance of care. - Problem is new. - Symptoms have improved. - Notes: Return to the ED for worsening pain, vomiting, fever, jaundice (yellow skin/eyes) or any other concerns Historical: - Allergies: no known allergies; - Home Meds: 1. Warfarin 7.5mg Tues, Thurs, Sun. and 15mg on Mon, Wed, Fri, Sat Oral once daily 2. atenolol 50 mg Oral tab 1 tab once daily 3. lisinopril 20 mg Oral tab 1 tab once daily 4. hydrocodone-acetaminophen 7.5-325 mg Oral tab 1 tab every 4-6 hours - PMHx: Hypertension; Pulmonary Embolism; DVT; - PSHx: none; - Social history: Smoking status: Patient uses tobacco products, current some day smoker. No barriers to communication noted, The patient speaks fluent [place]alander. - Family history: Not pertinent. - : The pt / caregiver states he / she is on anticoagulants: coumadin. Home medication list is obtained from the patient. - Exposure Risk Screening:: None identified. Vital Signs: 04/29 11:44 BP 174 / 82; Pulse 122; Resp 24; Temp 97.4; Pulse Ox 95% on R/A; Weight 158.76 kg / elp 350.01 lbs (R); Height 6 ft. 0 in. (182.88 cm) (R); Pain 5/10; 13:58 BP 154 / 70; Pulse 104; Resp 18; Pulse Ox 98% on R/A; Pain 2/10; bcj 14:06 Pain 2/10; bcj 18:21 BP 170 / 84 LA Supine (auto/lg); Pulse 98 RA; Resp 18; Temp 99.2(O); Pulse Ox 93% on tk R/A; Pain 3/10; 19:30 BP 173 / 87 RA Sitting (auto/lg); Pulse 104; Resp 18; Temp 97.2(O); Pulse Ox 93% on rs6 R/A; Pain 3/10; 11:44 Body Mass Index 47.47 (158.76 kg, 182.88 cm) elp MDM: 12:14 Chest, 2 View (pa\E\lat) Ordered. EDMS 12:28 IV Saline Lock ordered. le 12:28 HYDROcodone-acetaminophen 5 mg-325 mg 2 tabs PO once ordered. le 12:30 Ribs-Uni Without PA Chest Ordered. EDMS 12:30 ECG WITH READING ER PHYS+CARDIAG ordered. EDMS 12:30 CBC with Diff Ordered. EDMS 12:30 Complete Comphrensive Metabolic Ordered. EDMS 12:30 INR Ordered. EDMS 12:30 D-Dimer Quant Ordered. EDMS 13:31 [facility] Payment Agreement was scanned into [email or web address] and attached to record. jp5 13:31 Financial registration complete. jp5 14:00 CBC with Diff Reviewed. le 14:00 Complete Comphrensive Metabolic Reviewed. le 14:00 INR Reviewed. le 14:00 D-Dimer Quant Reviewed. le 14:00 Chest, 2 View (pa\E\lat) Reviewed. le 14:00 Ribs-Uni Without PA Chest Reviewed. le 14:03 CT Chest Angio R/O PE Ordered. EDMS 16:27 US Gallbladder Ordered. EDMS 17:32 US Gallbladder Reviewed. le 17:33 HYDROcodone-acetaminophen 5 mg-325 mg 1 tabs PO once ordered. le 17:34 CT Chest Angio R/O PE Reviewed. le 17:38 CT ABD & PELVIS: No Contrast Ordered. EDMS 19:28 HYDROcodone-acetaminophen 4 pack- 5 mg-325 mg 1 packets PO Per package directions; le Dispense with patient. 1 po q4h prn for pain ordered. 22:50 T-Sheet-- Draft Copy was scanned into [email or web address] and attached to record. klr 04/30 13:06 ECG/EKG was scanned into [email or web address] and attached to record. gb Administered Medications: 04/29 12:55 Drug: HYDROcodone-acetaminophen 2 tabs [hydrocodone 5 mg-acetaminophen 325 mg tablet (2 bcj tabs)] Route: PO; 14:06 Follow up: Pain /10 Adult; Response: Pain is decreased [facility] 17:39 Drug: HYDROcodone-acetaminophen 1 tabs [hydrocodone 5 mg-acetaminophen 325 mg tablet (1 jmb tabs)] Route: PO; 19:37 Drug: HYDROcodone-acetaminophen 4 pack- 1 packets [hydrocodone 5 mg-acetaminophen 325 jmb mg tablet (1 tabs)] {Co-Signature: af2 (Beatrice Galeano RN).} Route: PO; Signatures: Dispatcher [employer] EDEleazar Swanson RN Cary Crowley RN RN Ivon Manrique, Reg Reg gb Melvina Lerma, WET SUIT GLUER WET SUIT GLUER Raymundo Gann RN RN jmb Price, Jennalee jp5 Tasha Mcleod RN af2 The chart was reviewed and I authenticate all verbal orders and agree with the evaluation and treatment provided.Attachments: 13:31 [facility] Payment Agreement jp5 22:50 T-Sheet-- Draft Copy r 04/30 13:06 ECG/EKG Chart Complete MTDD
--- NOTE | 2016-05-01 20:42 | EDDOCDS ---
Physician Documentation [facility] Name: Hill Salmeron Age: 46 yrs Sex: Male : 1970 Arrival Date: 04/29/2016 Time: 11:42 Bed 12 Private MD: [facility] Disposition: 04/29/16 19:29 Discharged to Home/Self Care. Impression: Cholecystitis - acalculus. - Condition is Stable. - Discharge Instructions: Fat and Cholesterol Restricted Diet, Cholecystitis. - Prescriptions for [place] 5- 325 mg Oral Tablet - take 1 tablet by ORAL route every 6 hours As needed MDD: 4 tabs; 20 tablet. - Medication Reconciliation, Local Pharmacy Hours form. - Follow up: Nawaf Denis MD; When: Call to arrange an appointment; Reason: Recheck today's complaints, Continuance of care. - Problem is new. - Symptoms have improved. - Notes: Return to the ED for worsening pain, vomiting, fever, jaundice (yellow skin/eyes) or any other concerns Historical: - Allergies: no known allergies; - Home Meds: 1. Warfarin 7.5mg Tues, Thurs, Sun. and 15mg on Mon, Wed, Fri, Sat Oral once daily 2. atenolol 50 mg Oral tab 1 tab once daily 3. lisinopril 20 mg Oral tab 1 tab once daily 4. hydrocodone-acetaminophen 7.5-325 mg Oral tab 1 tab every 4-6 hours - PMHx: Hypertension; Pulmonary Embolism; DVT; - PSHx: none; - Social history: Smoking status: Patient uses tobacco products, current some day smoker. No barriers to communication noted, The patient speaks fluent Ethiopian. - Family history: Not pertinent. - : The pt / caregiver states he / she is on anticoagulants: coumadin. Home medication list is obtained from the patient. - Exposure Risk Screening:: None identified. Vital Signs: 04/29 11:44 BP 174 / 82; Pulse 122; Resp 24; Temp 97.4; Pulse Ox 95% on R/A; Weight 158.76 kg / elp 350.01 lbs (R); Height 6 ft. 0 in. (182.88 cm) (R); Pain 5/10; 13:58 BP 154 / 70; Pulse 104; Resp 18; Pulse Ox 98% on R/A; Pain 2/10; bcj 14:06 Pain 2/10; bcj 18:21 BP 170 / 84 LA Supine (auto/lg); Pulse 98 RA; Resp 18; Temp 99.2(O); Pulse Ox 93% on tk R/A; Pain 3/10; 19:30 BP 173 / 87 RA Sitting (auto/lg); Pulse 104; Resp 18; Temp 97.2(O); Pulse Ox 93% on rs6 R/A; Pain 3/10; 11:44 Body Mass Index 47.47 (158.76 kg, 182.88 cm) elp MDM: 12:14 Chest, 2 View (pa\E\lat) Ordered. EDMS 12:28 IV Saline Lock ordered. le 12:28 HYDROcodone-acetaminophen 5 mg-325 mg 2 tabs PO once ordered. le 12:30 Ribs-Uni Without PA Chest Ordered. EDMS 12:30 ECG WITH READING ER PHYS+CARDIAG ordered. EDMS 12:30 CBC with Diff Ordered. EDMS 12:30 Complete Comphrensive Metabolic Ordered. EDMS 12:30 INR Ordered. EDMS 12:30 D-Dimer Quant Ordered. EDMS 13:31 [facility] Payment Agreement was scanned into [employer] and attached to record. jp5 13:31 Financial registration complete. jp5 14:00 CBC with Diff Reviewed. le 14:00 Complete Comphrensive Metabolic Reviewed. le 14:00 INR Reviewed. le 14:00 D-Dimer Quant Reviewed. le 14:00 Chest, 2 View (pa\E\lat) Reviewed. le 14:00 Ribs-Uni Without PA Chest Reviewed. le 14:03 CT Chest Angio R/O PE Ordered. EDMS 16:27 US Gallbladder Ordered. EDMS 17:32 US Gallbladder Reviewed. le 17:33 HYDROcodone-acetaminophen 5 mg-325 mg 1 tabs PO once ordered. le 17:34 CT Chest Angio R/O PE Reviewed. le 17:38 CT ABD & PELVIS: No Contrast Ordered. EDMS 19:28 HYDROcodone-acetaminophen 4 pack- 5 mg-325 mg 1 packets PO Per package directions; le Dispense with patient. 1 po q4h prn for pain ordered. 22:50 T-Sheet-- Draft Copy was scanned into [employer] and attached to record. klr 04/30 13:06 ECG/EKG was scanned into [employer] and attached to record. gb Administered Medications: 04/29 12:55 Drug: HYDROcodone-acetaminophen 2 tabs [hydrocodone 5 mg-acetaminophen 325 mg tablet (2 bcj tabs)] Route: PO; 14:06 Follow up: Pain /10 Adult; Response: Pain is decreased [facility] 17:39 Drug: HYDROcodone-acetaminophen 1 tabs [hydrocodone 5 mg-acetaminophen 325 mg tablet (1 jmb tabs)] Route: PO; 19:37 Drug: HYDROcodone-acetaminophen 4 pack- 1 packets [hydrocodone 5 mg-acetaminophen 325 jmb mg tablet (1 tabs)] {Co-Signature: af2 (Beatrice Galeano RN).} Route: PO; Signatures: Dispatcher [employer] EDEleazar Swanson RN Cary Crowley RN RN Ivon Manrique, Reg Reg gb Melvina Lerma, ART EDUCATOR ART EDUCATOR Raymundo Gann RN RN jmb Price, Jennalee jp5 Tasha Mcleod RN af2 The chart was reviewed and I authenticate all verbal orders and agree with the evaluation and treatment provided.Attachments: 13:31 [facility] Payment Agreement jp5 22:50 T-Sheet-- Draft Copy r 04/30 13:06 ECG/EKG Chart Complete MTDD
== END 2016-04-29 19:42 | disposition home or self-care (01) ==
LOC: M ED 11:42
DX: K80.50 Calculus of bile duct without cholangitis or cholecystitis without obstruction (principal); I10 Essential (primary) hypertension; F17.210 Nicotine dependence, cigarettes, uncomplicated; Z86.711 Personal history of pulmonary embolism; Z86.718 Personal history of other venous thrombosis and embolism; Z79.899 Other long term (current) drug therapy; Z79.01 Long term (current) use of anticoagulants
CPT/HCPCS: 36415; 71020; 71100; 71275; 74176; 76705; 80053; 85025; 85379; 85610; 93005; 99284; Q9967

== ENCOUNTER 2016-06-06 06:51 | Day surgery (SDC) | payer BC ==
[~2016-06-06] VITALS: Ht 182.9 cm; Wt 166.5 kg
[~2016-06-06 06:51] MED LIST: ATEN50TA2 PO; COUM7.5T PO; LISI-538 PO
[2016-06-06] MEDS ORDERED: AMPICILLIN SOD/SULBACTAM SOD 3 GM in D5W MINI-BAG PLUS 100 ML IV ONE (07:00)
[2016-06-06] MEDS ORDERED: LR 1,000 ML IV SCH ×3 (07:00→13:30)
[2016-06-06 07:42] LABS: INR 1.09
[2016-06-06] MEDS ORDERED: LOVE0.8I3 SC (08:44)
[2016-06-06] MEDS ORDERED: MORPHINE 2 MG/ML 1ML SYRINGE As Ordered ONE (09:14)
[2016-06-06] MEDS ORDERED: ATENOLOL 50 MG TAB As Ordered ONE (09:14)
[2016-06-06] MEDS ORDERED: fentaNYL 250 MCG/5 ML INJECTION (J3010) As Ordered ONE (09:15)
[2016-06-06] MEDS ORDERED: MORPHINE 2 MG/ML 1ML SYRINGE IV ONE (09:15)
[2016-06-06] MEDS ORDERED: MIDAZOLAM INJ 2 MG/2 ML VIAL (J2250) As Ordered ONE (09:16)
[2016-06-06] MEDS ORDERED: ATENOLOL 50 MG TAB PO ONE (09:30)
[2016-06-06] MEDS ORDERED: GLYCOPYRROLATE INJ 0.2 MG/ML 2 ML VIAL As Ordered ONE (09:39)
[2016-06-06] MEDS ORDERED: LIDOCAINE 2% INJ 100 MG/5 ML SDV (FOR ANES.) As Ordered ONE (09:39)
[2016-06-06] MEDS ORDERED: PROPOFOL 200 MG/20 ML VIAL As Ordered ONE ×2 (09:39→10:53)
[2016-06-06] MEDS ORDERED: ONDANSETRON 4MG/2ML VIAL (J2405) As Ordered ONE (09:39)
[2016-06-06] MEDS ORDERED: ROCURONIUM BROMIDE 50 MG/5 ML VIAL As Ordered ONE ×3 (09:39→11:53)
[2016-06-06] MEDS ORDERED: KETOROLAC 60 MG/2 ML VIAL (J1885) As Ordered ONE (09:40)
[2016-06-06] MEDS ORDERED: NEOSTIGMINE 1MG/ML 5 ML SYRINGE (J2710) As Ordered ONE (09:45)
[2016-06-06] MEDS ORDERED: LIDOCAINE 1% SDV INJ 30 ML VIAL As Ordered ONE (10:13)
[2016-06-06] MEDS ORDERED: BUPIVACAINE HCL 0.25% 30 ML VIAL As Ordered ONE (10:13)
[2016-06-06] MEDS ORDERED: PHENYLephrine HCL 500 MCG/5 ML (100MCG/ML) SYRINGE (J2370) As Ordered ONE (10:48)
[2016-06-06] MEDS ORDERED: LIDOCAINE 1% SDV INJ 30 ML VIAL XX ONE (11:12)
[2016-06-06] MEDS ORDERED: BUPIVACAINE HCL 0.25% 30 ML VIAL XX ONE (11:12)
[2016-06-06] MEDS: LR 1,000 ML IV SCH ×2 (12:38→20:38)
[2016-06-06] MEDS ORDERED: SIMETHICONE 80 MG CHEW TAB PO PRN (12:45)
[2016-06-06] MEDS ORDERED: ONDANSETRON 4MG/2ML VIAL (J2405) IV PRN ×2 (12:45→13:30)
[2016-06-06] MEDS ORDERED: ACETAMINOPHEN TAB 650MG DOSE (2X325MG) PO PRN (12:45)
[2016-06-06] MEDS ORDERED: MORPHINE 4 MG/ML 1ML SYRINGE IV PRN (12:45)
[2016-06-06] MEDS ORDERED: NORCO, ANEXSIA 5/325MG TABLET (HYDROcodone/ACETAMINOPHEN) PO PRN (12:45)
[2016-06-06] MEDS ORDERED: PERCOCET 5MG/325MG TAB As Ordered ONE ×2 (12:57→13:13)
[2016-06-06] MEDS ORDERED: fentaNYL 100 MCG/2 ML INJECTION (J3010) As Ordered ONE (12:57)
[2016-06-06] MEDS: fentaNYL 100 MCG/2 ML INJECTION (J3010) IV PRN ×4 (13:00→13:15)
[2016-06-06] MEDS: PERCOCET 5MG/325MG TAB PO PRN ×2 (13:00→13:20)
[2016-06-06] MEDS ORDERED: MORPHINE 2 MG/ML 1ML SYRINGE IV PRN (13:30)
[2016-06-06 14:00] VITALS: BP 136/66
[2016-06-06 14:30] VITALS: BP 122/56
[2016-06-06] MEDS: NORCO, ANEXSIA 5/325MG TABLET (HYDROcodone/ACETAMINOPHEN) PO PRN ×2 (17:10→20:56)
[2016-06-06] MEDS: LISINOPRIL 20 MG TAB PO SCH (17:10)
[2016-06-06 20:00] VITALS: BP 128/59
[2016-06-06] MEDS: SENOKOT S TAB PO SCH (20:55)
[2016-06-06 22:00] VITALS: BP 132/59
[2016-06-07 02:00] VITALS: BP 135/63
[2016-06-07 06:00] VITALS: BP 145/79
[2016-06-07 06:44] LABS: MEAN CORPUSCULAR HGB CONC 33.9 g/dl (32.0-36.5); MEAN CORPUSCULAR VOLUME 103.1 fl (80.0-96.0); RED CELL DISTRIBUTION WIDTH 12.9 % (11.5-14.5); WHITE BLOOD COUNT 7.3 K/mm3 (4.0-10.0)
[2016-06-07 06:58] LABS: ALBUMIN/GLOBULIN RATIO 0.77 (1.00-1.93); ALKALINE PHOSPHATASE 101 U/L (45-117); ALT/SGPT 53 U/L (12-78); ANION GAP 8 MEQ/L (8-16); AST/SGOT 53 U/L (15-37); BILIRUBIN,TOTAL 1.9 MG/DL (0.2-1.0); BLOOD UREA NITROGEN 11 MG/DL (7-18); CALCIUM LEVEL 8.6 MG/DL (8.5-10.1); CARBON DIOXIDE LEVEL 28 MEQ/L (21-32); CHLORIDE LEVEL 103 MEQ/L (98-107); CREATININE FOR GFR 0.74 MG/DL (0.70-1.30); GLOMERULAR FILTRATION RATE > 60.0 (>60); GLUCOSE, FASTING 161 MG/DL (70-105); POTASSIUM SERUM 4.1 MEQ/L (3.5-5.1); SODIUM LEVEL 139 MEQ/L (136-145); TOTAL PROTEIN 6.9 GM/DL (6.4-8.2)
[2016-06-07] MEDS: NORCO, ANEXSIA 5/325MG TABLET (HYDROcodone/ACETAMINOPHEN) PO PRN ×2 (07:20→12:14)
[2016-06-07] MEDS ORDERED: PRAVASTATIN 20 MG TAB PO SCH (09:00)
[2016-06-07] MEDS ORDERED: PANTOPRAZOLE 40MG INJ (PROTONIX) (C9113) IV SCH (09:00)
[2016-06-07] MEDS ORDERED: ENOXAPARIN 150 MG/ML SYR (J1650) SC SCH (09:00)
[2016-06-07] MEDS ORDERED: ATENOLOL 50 MG TAB PO SCH (09:00)
[2016-06-07 09:05] VITALS: BP 131/70
[2016-06-07] MEDS: LISINOPRIL 20 MG TAB PO SCH (09:05)
[2016-06-07] MEDS: SENOKOT S TAB PO SCH (09:05)
[2016-06-07 10:00] VITALS: BP 151/73
[2016-06-07 14:00] VITALS: BP 125/58
[2016-06-07] MEDS ORDERED: KETOROLAC 30 MG/ML VIAL (J1885) IV ONE (16:00)
== END 2016-06-07 16:20 | disposition home or self-care (01) ==
LOC: M SDC 06:51 → M MS5PR 14:00 → M SDC 06-07 16:20
PROVIDERS: ATTEND Surgery
DX: K80.18 Calculus of gallbladder with other cholecystitis without obstruction (principal); K74.69 Other cirrhosis of liver; I10 Essential (primary) hypertension; Z86.711 Personal history of pulmonary embolism; D68.2 Hereditary deficiency of other clotting factors; E11.9 Type 2 diabetes mellitus without complications; G47.30 Sleep apnea, unspecified; Z87.891 Personal history of nicotine dependence; E66.2 Morbid (severe) obesity with alveolar hypoventilation; E78.5 Hyperlipidemia, unspecified; Z79.01 Long term (current) use of anticoagulants; Z79.899 Other long term (current) drug therapy; F17.220 Nicotine dependence, chewing tobacco, uncomplicated
CPT/HCPCS: 36415; 47001; 47562; 80053; 85027; 85610; 88304; 88307; 96372; 96374; 96375; 96376; A6024; C9113; J1650; J1885; J2250; J2370; J2405; J2710; J3010

== ENCOUNTER → 2016-06-15 | Outpatient (CLI) | payer BC ==
[~2016-06-15] MED LIST changes: +LOVE0.8I3 SC
[2016-06-15 10:31] LABS: ALBUMIN 3.3 GM/DL (3.2-5.2); ALBUMIN/GLOBULIN RATIO 0.83 (1.00-1.93); BILIRUBIN,DIRECT 0.3 MG/DL (0.0-0.2); BILIRUBIN,TOTAL 1.1 MG/DL (0.2-1.0); TOTAL PROTEIN 7.3 GM/DL (6.4-8.2)
--- NOTE | 2016-06-15 12:02 | REP ---
RIGHT UPPER QUADRANT ULTRASOUND: Real-time sonographic evaluation of right upper quadrant performed. Patient has had a recent cholecystectomy 1-2 weeks ago. There is no definite evidence of intrahepatic or extrahepatic biliary dilatation. The common bile duct measures 6 mm. Echotexture of the liver is diffusely heterogeneous with possibly some degree of fibrofatty infiltration. No gross mass is seen. There is increased echogenicity in the katheryn hepatis, which may be related to postsurgical air. Visualized pancreas is grossly unremarkable but not optimally seen due to overlying bowel gas. Right kidney demonstrates no hydronephrosis or nephrolithiasis with normal size at 14.6 cm in length. No free fluid is seen. IMPRESSION: Status post cholecystectomy. No biliary dilatation or free fluid identified. There appears to be some degree of diffuse fibrofatty infiltration of the liver. Increased echogenicity in the region of the katheryn hepatis may be related to postsurgical air in the biliary system or in this region of the katheryn hepatis. Signed by Dallin Murrieta MD 06/15/2016 08:31 P
== END ==
LOC: M RAD 08:43 → M LAB 08:43
PROVIDERS: ATTEND Surgery
DX: K74.60 Unspecified cirrhosis of liver (principal)

== ENCOUNTER → 2016-07-31 | Day surgery (SDC) | payer OTHER, BC ==
[~2016-07-31] VITALS: Ht 182.9 cm; Wt 165.6 kg
[~2016-07-31] MED LIST changes: +ENOXAPARIN 150 MG/ML SYR (J1650) SC SCH; +GLYCOPYRROLATE INJ 0.2 MG/ML 2 ML VIAL As Ordered ONE; +HYDR-3716 PO; +LIDOCAINE 2% INJ 100 MG/5 ML SDV (FOR ANES.) As Ordered ONE; +LR 1,000 ML IV ONE; +LR 1,000 ML IV SCH; +MELO15TA4 PO; +METF500T PO; +MIDAZOLAM INJ 2 MG/2 ML VIAL (J2250) As Ordered ONE; +MORPHINE 4 MG/ML 1ML SYRINGE IV PRN; +NEOSTIGMINE 1MG/ML 5 ML SYRINGE (J2710) As Ordered ONE; +NORCO, ANEXSIA 5/325MG TABLET (HYDROcodone/ACETAMINOPHEN) PO PRN; +ONDANSETRON 4MG/2ML VIAL (J2405) As Ordered ONE; +ONDANSETRON 4MG/2ML VIAL (J2405) IV PRN; +PRAV40TA2 PO; +PROPOFOL 200 MG/20 ML VIAL As Ordered ONE; +ROCURONIUM BROMIDE 50 MG/5 ML VIAL As Ordered ONE; +ROPIvacaine 0.5% 30 ML INJECTION (J2795) As Ordered ONE; +SULF-216; +WARFARIN SOD 7.5 MG TAB PO ONE; +fentaNYL 100 MCG/2 ML INJECTION (J3010) As Ordered ONE
[2016-07-31 07:31] LABS: INR 1.22
[2016-07-31] MEDS: fentaNYL 100 MCG/2 ML INJECTION (J3010) IV PRN ×4 (09:38→10:03)
--- NOTE | 2016-07-31 11:12 | RO ---
DATE OF PROCEDURE: 07/31/2016 PREPROCEDURE DIAGNOSIS: Left knee medial meniscus tear with degenerative arthritis. POSTPROCEDURE DIAGNOSES: 1. Left knee medial meniscus tear. 2. Left knee lateral meniscus tear. 3. Extensive degenerative arthritis. PROCEDURES: 1. Left knee partial medial meniscectomy. 2. Left knee partial lateral meniscectomy. 3. Chondroplasty of the medial and lateral condyles and the patella and the trochlea. SURGEON: Dawn Mariano MD CREDIT COLLECTOR: Naif Rodriguez PA-C ANESTHESIA: General endotracheal anesthesia. COMPLICATIONS: None. FINDINGS: He had extensive degenerative arthritis throughout the knee but also had significant lateral and medial and meniscus tears. DESCRIPTION OF PROCEDURE: After antibiotics were given intravenously preoperatively and then a successful general endotracheal anesthetic had been established, no tourniquet was utilized because of his history of deep venous thrombosis. His left lower extremity was then prepped and draped in the usual sterile fashion. Then, after appropriate time-out, insufflation portal was established superomedially. Scope was introduced anterolaterally, and working port was anteromedial, we introduced the arthroscope and explored the joint. Upon entering the joint, the trochlea and patella were noted to be very arthritic with essentially extensive grade 3 chondromalacia with some small areas of full thickness chondral defects were noted. In the lateral compartment, he had a radial lateral meniscus tear and a full thickness chondral defect in the central portion of the lateral tibial condyle and an additional kissing lesion on the lateral femoral condyle. The anterior cruciate ligament (ACL) and posterior cruciate ligament (PCL) were intact. In the medial compartment, there was extensive grade 3 chondromalacia with a degenerative tearing of the posterior horn of the medial meniscus. All of this was photographed, and I first addressed the medial compartment by debriding the medial meniscus tear back to good stable rim with a 4.0 curved shaver. The chondroplasty of the unstable articular cartilage fragments was done along the medial femoral condyle. Then, I addressed the lateral compartment. I debrided a large chondral defect in the lateral femoral condyle down to a smooth rim. Then, the lateral meniscus tear was debrided back with a 4-0 curved shaver. I did also lightly debride and shave the unstable portion at the periphery of the lateral tibial chondral defect. Then, at this point, I did a chondroplasty of the unstable articular cartilage fragmenting from the patella and somewhat on the trochlea as much as I could do with the shaver. At this point, finding no other treatable arthroscopic pathology, I copiously irrigated out the joint and instilled approximately 30 mL of ropivacaine, and then the wounds were closed with a 3-0 nylon suture, covered by Adaptic dry sterile bulky dressing. He was then awakened from general endotracheal anesthesia after having tolerated the procedure well, transferred to the recovery room in stable condition. There were no intraoperative complications. Mr. Naif Rodriguez, my physician railways assistant, was the railways assistant for the surgery. He is a 350-pound male with a large leg. He helped to manipulate the knee, helped to close the wound, helped to prepare the patient for surgery.
[2016-07-31 12:00] VITALS: BP 126/64
== END | disposition home or self-care (01) ==
LOC: M SDC 06:59
PROVIDERS: ATTEND Orthopaedic Surgery
DX: S83.242A Other tear of medial meniscus, current injury, left knee, initial encounter (principal); M17.12 Unilateral primary osteoarthritis, left knee; I10 Essential (primary) hypertension; E11.9 Type 2 diabetes mellitus without complications; E78.5 Hyperlipidemia, unspecified; K58.8 Other irritable bowel syndrome; Z86.79 Personal history of other diseases of the circulatory system; Z86.711 Personal history of pulmonary embolism; Z79.899 Other long term (current) drug therapy; Z79.01 Long term (current) use of anticoagulants; G47.30 Sleep apnea, unspecified
CPT/HCPCS: 29880; 36415; 85610; 97116; J0690; J2250; J2405; J2710; J2795; J3010

== ENCOUNTER → 2019-04-20 | Outpatient (CLI) | payer OTHER ==
[~2019-04-20] MED LIST changes: -ENOXAPARIN 150 MG/ML SYR (J1650) SC SCH; -GLYCOPYRROLATE INJ 0.2 MG/ML 2 ML VIAL As Ordered ONE; -LIDOCAINE 2% INJ 100 MG/5 ML SDV (FOR ANES.) As Ordered ONE; -LR 1,000 ML IV ONE; -LR 1,000 ML IV SCH; +MELO15TA28 PO; -MELO15TA4 PO; -METF500T PO; +METF500T13 PO; -MIDAZOLAM INJ 2 MG/2 ML VIAL (J2250) As Ordered ONE; -MORPHINE 4 MG/ML 1ML SYRINGE IV PRN; -NEOSTIGMINE 1MG/ML 5 ML SYRINGE (J2710) As Ordered ONE; -NORCO, ANEXSIA 5/325MG TABLET (HYDROcodone/ACETAMINOPHEN) PO PRN; -ONDANSETRON 4MG/2ML VIAL (J2405) As Ordered ONE; -ONDANSETRON 4MG/2ML VIAL (J2405) IV PRN; -PROPOFOL 200 MG/20 ML VIAL As Ordered ONE; -ROCURONIUM BROMIDE 50 MG/5 ML VIAL As Ordered ONE; -ROPIvacaine 0.5% 30 ML INJECTION (J2795) As Ordered ONE; -WARFARIN SOD 7.5 MG TAB PO ONE; -fentaNYL 100 MCG/2 ML INJECTION (J3010) As Ordered ONE
--- NOTE | 2019-04-20 08:25 | REP ---
However quadrant sonography: History: Alcoholic cirrhosis. Comparison sonography June 15, 2016. Comparison CT study April 29, 2016. Findings: Scan quality is inhibited by patient body habitus. The gallbladder surgically absent. Coarse liver parenchyma is seen with increased echogenicity and decreased insonation consistent with fatty infiltration and/or cirrhosis. The common bile duct is normal post cholecystectomy at 0.7 cm. There is a 1.9 cm cyst in the right lobe of the liver. No mass lesion is seen. The pancreas is obscured by abdominal gas. There is no evidence of ascites or right renal abnormality. The right kidney measures 12.7 x 7.0 x 8.0 cm. Impression: Coarse liver texture with increased echogenicity and poor insonation of the liver consistent with fatty infiltration and/or cirrhosis. No hepatic mass lesion is seen. Small liver cyst. Post cholecystectomy. Electronically Signed by Matias Greenwood MD 04/20/2019 09:03 A
== END ==
LOC: M RAD 07:05
PROVIDERS: ATTEND Internal Medicine
DX: K70.30 Alcoholic cirrhosis of liver without ascites (principal); I82.593 Chronic embolism and thrombosis of other specified deep vein of lower extremity, bilateral; K21.9 Gastro-esophageal reflux disease without esophagitis; Z79.01 Long term (current) use of anticoagulants; E78.2 Mixed hyperlipidemia; E66.01 Morbid (severe) obesity due to excess calories; G47.33 Obstructive sleep apnea (adult) (pediatric); K80.80 Other cholelithiasis without obstruction; D68.59 Other primary thrombophilia; Z71.89 Other specified counseling; M25.562 Pain in left knee; Z86.711 Personal history of pulmonary embolism; K76.6 Portal hypertension; E11.8 Type 2 diabetes mellitus with unspecified complications

== ENCOUNTER 2019-05-22 17:02 | Inpatient (IN) | payer OTHER ==
[~2019-05-22] VITALS: Ht 182.9 cm; Wt 162.8 kg
[2019-05-22] MEDS ORDERED: CARV12.5 PO (17:16)
[2019-05-22 17:27] LABS: BASO # 0.1 10^3/uL (0.0-0.2); BASO % 0.6 % (0.0-1.0); EOS # 0.1 10^3/uL (0.0-0.5); EOS % 1.3 % (0.0-3.0); HEMATOCRIT 41.8 % (42.0-52.0); HEMOGLOBIN 13.8 g/dl (13.5-17.5); LYMPH # 1.4 10^3/uL (1.5-5.0); LYMPH % 16.5 % (24.0-44.0); MEAN CORPUSCULAR HEMOGLOBIN 33.7 pg (27.0-33.0); NEUTROPHILS # 5.8 10^3/uL (1.5-8.5); NEUTROPHILS % 69.2 % (36.0-66.0); PLATELET COUNT, AUTOMATED 133 10^3/uL (150-450); WHITE BLOOD COUNT 8.4 10^3/uL (4.0-10.0)
[2019-05-22] MEDS ORDERED: PANTOPRAZOLE 40MG INJ (PROTONIX) (C9113) IV ONE (17:30)
[2019-05-22] MEDS ORDERED: NS 1,000 ML IV ONE (17:30)
[2019-05-22] MEDS ORDERED: OCTREOTIDE ACETATE 100 MCG/ML VIAL (J2354) IV ONE (17:30)
[2019-05-22] MEDS: PANTOPRAZOLE SODIUM 40 MG in D5W 50 ML IV SCH ×2 (17:52→21:50)
[2019-05-22] MEDS: OCTREOTIDE ACETATE 1,200 MCG in NS 238.8 ML IV SCH (17:53)
[2019-05-22 17:59] LABS: ALBUMIN 3.1 GM/DL (3.2-5.2); ALT/SGPT 42 U/L (12-78); BILIRUBIN,DIRECT 0.5 MG/DL (0.0-0.2); BILIRUBIN,TOTAL 1.4 MG/DL (0.2-1.0); BLOOD UREA NITROGEN 6 MG/DL (7-18); CARBON DIOXIDE LEVEL 26 MEQ/L (21-32); CHLORIDE LEVEL 102 MEQ/L (98-107); GLOMERULAR FILTRATION RATE > 60.0 (>60); GLUCOSE, FASTING 310 MG/DL (70-100); LIPASE 373 U/L (73-393); POTASSIUM SERUM 4.3 MEQ/L (3.5-5.1); SODIUM LEVEL 136 MEQ/L (136-145)
[2019-05-22 18:15] LABS: INR 2.86; PROTHROMBIN TIME 29.9 SECONDS (11.8-14.0)
[2019-05-22] MEDS ORDERED: DEXTROSE 50% 50 ML SYRINGE IV PRN (18:15)
[2019-05-22] MEDS ORDERED: GLUCOSE 4 GM CHEW TABLET PO PRN (18:15)
[2019-05-22] MEDS ORDERED: GLUCAGON FOR INJ 1 MG VIAL (J1610) SC PRN (18:15)
[2019-05-22] MEDS ORDERED: METF-791 PO (18:18)
[2019-05-22] MEDS ORDERED: WARF-21 PO (18:18)
--- NOTE | 2019-05-22 18:19 | HPEPDOC ---
[facility] Medical History & Physical Date of Admission May 22, 2019 Date of Service: May 22, 2019 Attending Physician: ELIO PIERRE MD History and Physical CHIEF COMPLAINT: Hematemesis and hematochezia HISTORY OF PRESENT ILLNESS: 49-year-old male with past medical history of cirrhosis, factor V Leiden deficiency, (on Coumadin), DVT/PE, hypertension, hyperlipidemia and diabetes mellitus presents from home with one episode of hematemesis and one episode of hematochezia. Patient was feeling well up until earlier today when he felt nauseous and vomited bright red blood, followed shortly by having a bowel movement with bright red blood per rectum. He has not had any further bleeding since then, no prior history of hematemesis or hematochezia. Patient has had 2 EGDs in the past, last EGD was 6 months ago with banding of his esophageal varices. He had a colonoscopy a few years ago which showed multiple premalignant polyps. Patient is currently comfortable, asymptomatic, denies any shortness of breath, chest pain, nausea, vomiting, abdominal pain or diarrhea. H&H in the ER is stable, Dr. Castle has been consulted by the emergency physician and endoscopies planned later today/tomorrow. 10 point review of system is negative except for above PAST MEDICAL HISTORY: 1. Cirrhosis. 2. Factor V Leiden deficiency. 3. DVT/PE. 4. Hypertension 5. Hyperlipidemia. 6. Diabetes mellitus PAST SURGICAL HISTORY: 1. Cholecystectomy. SOCIAL HISTORY: Smokes half pack per day for the past 10 years. Drinks a sixpack every day. Occasional marijuana use FAMILY HISTORY: Mother has cirrhosis ALLERGIES: Please see below. HOME MEDICATIONS: Please see below. PHYSICAL EXAMINATION: VITAL SIGNS: Please see below. GENERAL: Morbidly obese HEENT: Normocephalic, atraumatic, moist mucous membranes NECK: Supple CARDIOVASCULAR EXAMINATION: S1, S2, no murmurs RESPIRATORY EXAMINATION: Distant, Clear to auscultation, no wheezing ABDOMINAL EXAMINATION: Soft, nontender, nondistended, positive bowel sounds EXTREMITIES: Range of motion intact SKIN: No rash NEUROLOGICAL EXAMINATION: Alert and oriented 3, no focal deficits PSYCHIATRIC EXAMINATION: Calm and cooperative LABORATORY DATA: See below. MICROBIOLOGY: Please see below. ASSESSMENT: 49-year-old male with past medical history of cirrhosis, fact 5 Leiden deficiency on Coumadin, DVT/PE, hypertension, hyperlipidemia and diabetes mellitus is being admitted for hematochezia and hematemesis. PLAN: 1. Hematochezia/hematemesis. History of esophageal varices, status post banding. 6 months ago, no prior history of upper or lower GI bleed, Dr. Castle consulted by emergency room physician, started on Protonix and octreotide, plan for endoscopy later today/tomorrow. Patient is clinically and hemodynamically stable at this time, no further signs of bleeding. Patient is on Coumadin for factor V Leiden deficiency and prior history of DVT/PE, patient has even developed a PE in the past while on Coumadin with an INR of 2.2. Current INR goal is 2.5-3.5. Attempted to contact Dr. Castle regarding Coumadin reversal, unsuccessful, will attempt to contact him again shortly, no hematology/oncology consultation available at this time. 2. Diabetes mellitus. Hold metformin, sliding scale insulin coverage every 6 hours. 3. Hypertension. Continue Coreg and lisinopril 4. Hyperlipidemia. Continue pravastatin DVT prophylaxis: TEDs/SCDs GI prophylaxis: Protonix Vital Signs Vital Signs Date Time Temp Pulse Resp B/P (MAP) Pulse Ox O2 Delivery O2 Flow Rate FiO2 05/22/19 18:00 80 149/66 (93) 93 Room Air 05/22/19 17:07 98.0 20 Laboratory Data Labs 24H Laboratory Tests 2 05/22/19 17:12: Immature Granulocyte % (Auto) 0.4, Neutrophils (%) (Auto) 69.2H, Lymphocytes (%) (Auto) 16.5L, Monocytes (%) (Auto) 12.0H, Eosinophils (%) (Auto) 1.3, Basophils (%) (Auto) 0.6, Neutrophils # (Auto) 5.8, Lymphocytes # (Auto) 1.4L, Monocytes # (Auto) 1.0H, Eosinophils # (Auto) 0.1, Basophils # (Auto) 0.1, Nucleated Red Blood Cells % (auto) 0.0, Anion Gap 8, Glomerular Filtration Rate > 60.0, Calcium Level 9.0, Total Bilirubin 1.4H, Direct Bilirubin 0.5H, Aspartate Amino Transf (AST/SGOT) 47H, Alanine Aminotransferase (ALT/SGPT) 42, Alkaline Phosphatase 142H, Total Protein 7.0, Albumin 3.1L, Albumin/Globulin Ratio 0.79L, Lipase 373 2/7/20 17:15: 05/22/19 17:29: POC Glucose (Misc Panel) 318H, POC Sodium (Misc Panel) 135L, POC Potassium (Misc Panel) 4.2, POC Chloride (Misc Panel) 99, POC Total CO2 (Misc Panel) 24.0, POC Blood Urea Nitrogen (Misc Panel 5L, POC Ionized Calcium (Misc Panel) 4.5, POC Creatinine (Misc Panel) 0.7, POC Hematocrit (Misc Panel) 43.0 CBC/BMP Laboratory Tests 05/22/19 17:12 Home Medications Scheduled Atenolol (Atenolol) 50 Mg Tab, 50 MG PO DAILY Carvedilol (Carvedilol) 12.5 Mg Tablet, 0.5 TAB PO BID Lisinopril (Lisinopril) 20 Mg Tab, 20 MG PO DAILY Metformin HCl (Metformin HCl) 500 Mg Tab, 500 MG PO TID Pravastatin Sodium (Pravastatin Sodium) 40 Mg Tab, 40 MG PO DAILY Warfarin Sodium (Coumadin) 7.5 Mg Tab, 7.5 MG PO ASDIRECTED Allergies Coded Allergies: No Known Allergies (Verified , 01/22/05) A-FIB/CHADSVASC A-FIB History Current/History of A-Fib/PAF?: No ELIO PIERRE MD May 22, 2019 18:19
[2019-05-22] MEDS: D5W/0.45% SODIUM CHLORIDE 1,000 ML IV SCH (19:50)
[2019-05-22] MEDS: HumaLOG INSULIN (NovoLOG) PER UNIT SC SCH (20:00)
[2019-05-22] MEDS ORDERED: ONDANSETRON 4MG/2ML VIAL (J2405) IV PRN (21:30)
[2019-05-22 22:00] VITALS: BP 112/68
--- NOTE | 2019-05-22 22:44 | IPNPDOC ---
Text Note Date of Service The patient was seen on 05/22/19. NOTE Per d/w RN the patient' has had at least 2more episodes of emesis since arriving on PCU desipite receiving zofran 45min ago. BP 133/58 / HR 99, T 99.9, RR 20, O2 94% #check orthostats, accucheck, f/u repeat Hg, BMP, VBG and BHB, increase IVF rate to 150ml/H, give trail of metaclopramide. VS,Fishbone, I+O VS, Fishbone, I+O Laboratory Tests 05/22/19 17:12 Vital Signs Date Time Temp Pulse Resp B/P (MAP) Pulse Ox O2 Delivery O2 Flow Rate FiO2 05/22/19 22:00 99.9 91 18 112/68 (83) 95 Room Air MELISSA PETERSEN MD May 22, 2019 22:43
[2019-05-22 22:45] VITALS: BP_SYST 118; BP_SYST 127; BP_SYST 133; BP_DIAS 57; BP_DIAS 58; BP_DIAS 60
[2019-05-22] MEDS ORDERED: METOCLOPRAMIDE INJ 10MG/2ML VIAL (J2765) IV PRN (22:45)
[2019-05-23] VITALS (20 sets, daily range): BP systolic 106–140; BP diastolic 52–79
[2019-05-23 00:17] LABS: VENOUS O2 SATURATION 98.9 % (60.0-80.0); VENOUS PARTIAL PRESSURE CO2 34.5 mmHg (38.0-50.0); VENOUS PARTIAL PRESSURE O2 163.4 mmHg (30.0-50.0); VENOUS PH 7.402 UNITS (7.330-7.430)
[2019-05-23 00:43] LABS: OSMOLALITY SERUM 301 MOSM/KG (275-295)
[2019-05-23 00:46] LABS: ACETONE/KETONE 2.32 MG/DL (<2.81); BLOOD UREA NITROGEN 11 MG/DL (7-18); CALCIUM LEVEL 8.5 MG/DL (8.5-10.1); CARBON DIOXIDE LEVEL 26 MEQ/L (21-32); CHLORIDE LEVEL 104 MEQ/L (98-107); CREATININE FOR GFR 0.61 MG/DL (0.70-1.30); GLOMERULAR FILTRATION RATE > 60.0 (>60); GLUCOSE, FASTING 267 MG/DL (70-100); POTASSIUM SERUM 4.8 MEQ/L (3.5-5.1); SODIUM LEVEL 137 MEQ/L (136-145)
[2019-05-23] MEDS: HumaLOG INSULIN (NovoLOG) PER UNIT SC SCH ×3 (00:53→14:09)
[2019-05-23] MEDS: PANTOPRAZOLE SODIUM 40 MG in D5W 50 ML IV SCH ×3 (02:56→13:48)
[2019-05-23] MEDS: D5W/0.45% SODIUM CHLORIDE 1,000 ML IV SCH ×3 (03:39→14:09)
[2019-05-23 05:30] LABS: HEMATOCRIT 34.5 % (42.0-52.0); HEMOGLOBIN 11.8 g/dl (13.5-17.5); MEAN CORPUSCULAR HEMOGLOBIN 34.4 pg (27.0-33.0); MEAN CORPUSCULAR HGB CONC 34.2 g/dl (32.0-36.5); MEAN CORPUSCULAR VOLUME 100.6 fl (80.0-96.0); PLATELET COUNT, AUTOMATED 116 10^3/uL (150-450); RED BLOOD COUNT 3.43 10^6/uL (4.30-6.10)
[2019-05-23 05:40] LABS: INR 3.16; PROTHROMBIN TIME 32.4 SECONDS (11.8-14.0)
[2019-05-23 05:58] LABS: ALBUMIN 2.7 GM/DL (3.2-5.2); ALT/SGPT 32 U/L (12-78); BILIRUBIN,TOTAL 1.7 MG/DL (0.2-1.0); BLOOD UREA NITROGEN 12 MG/DL (7-18); CALCIUM LEVEL 7.9 MG/DL (8.5-10.1); CARBON DIOXIDE LEVEL 29 MEQ/L (21-32); CHLORIDE LEVEL 107 MEQ/L (98-107); CREATININE FOR GFR 0.67 MG/DL (0.70-1.30); GLOMERULAR FILTRATION RATE > 60.0 (>60); GLUCOSE, FASTING 298 MG/DL (70-100); MAGNESIUM LEVEL 1.7 MG/DL (1.8-2.4); POTASSIUM SERUM 4.5 MEQ/L (3.5-5.1); SODIUM LEVEL 139 MEQ/L (136-145); TOTAL PROTEIN 6.2 GM/DL (6.4-8.2)
[2019-05-23] MEDS ORDERED: PHYTONADIONE INJection 5 MG in NS 50 ML IV STA ×2 (07:54→09:04)
[2019-05-23] MEDS ORDERED: DILUENT IV ONE (08:00)
[2019-05-23] MEDS ORDERED: PROTHROMBIN COMPLEX CONCEN IV ONE (08:00)
[2019-05-23] MEDS ORDERED: PHYTONADIONE 10MG/ML INJECTION (J3430) As Ordered ONE (09:07)
[2019-05-23] MEDS ORDERED: cefTRIAXone SOD 2 GM in D5W MINI-BAG PLUS 50 ML IV SCH (10:00)
[2019-05-23] MEDS: MAG SULF 1GM/100ML (MAG RUN) 1 GM in IV 1 EA IV SCH ×2 (10:07→10:58)
[2019-05-23 10:59] LABS: INR 1.53; PROTHROMBIN TIME 18.1 SECONDS (11.8-14.0)
[2019-05-23] MEDS ORDERED: dexameTHASONE 4 MG/ML 1ML VIAL (J1100) As Ordered ONE (11:34)
[2019-05-23] MEDS ORDERED: LIDOCAINE 2% INJ 100 MG/5 ML SDV (FOR ANES.) As Ordered ONE (11:34)
[2019-05-23] MEDS ORDERED: fentaNYL 100 MCG/2 ML INJECTION (J3010) As Ordered ONE (11:34)
[2019-05-23] MEDS ORDERED: SUCCINYLCHOLINE 100 MG/5 ML SYRINGE (J0330) As Ordered ONE ×2 (11:34→12:46)
[2019-05-23] MEDS ORDERED: ROCURONIUM BROMIDE 50 MG/5 ML VIAL As Ordered ONE (11:34)
[2019-05-23] MEDS ORDERED: MIDAZOLAM INJ 2 MG/2 ML VIAL (J2250) As Ordered ONE (11:34)
[2019-05-23] MEDS ORDERED: propofoL 200 MG/20 ML VIAL As Ordered ONE ×2 (11:34→12:01)
[2019-05-23] MEDS ORDERED: ONDANSETRON 4MG/2ML VIAL (J2405) As Ordered ONE (11:34)
[2019-05-23] MEDS ORDERED: SUGAMMADEX SODIUM 500 MG/5 ML VIAL (BRIDION) As Ordered ONE (12:18)
[2019-05-23] MEDS ORDERED: PHENYLephrine HCL 500 MCG/5 ML (100MCG/ML) SYRINGE (J2370) As Ordered ONE (12:20)
[2019-05-23] MEDS ORDERED: propofoL 500 MG/50 ML VIAL As Ordered ONE (12:32)
--- NOTE | 2019-05-23 12:57 | ROOR ---
Patient Name: Hill Salmeron Procedure Date: 05/23/2019 11:41 AM Date of : 1970 Age: 49 Room: Main OR Gender: Male Note Status: Finalized Procedure: Upper GI endoscopy + Banding (5 ands placed) Indications: Hematemesis, Active gastrointestinal bleeding Providers: Cedric Castle MD Referring MD: 2. Inpatient 2. Inpatient Requesting Provider: Medicines: General Anesthesia Complications: No immediate complications. Procedure: Pre-Anesthesia Assessment: - The heart rate, respiratory rate, oxygen saturations, blood pressure, adequacy of pulmonary ventilation, and response to care were monitored throughout the procedure. The Endoscope was introduced through the mouth, and advanced to the second part of duodenum. Findings: Grade II varices were found in the entire esophagus. They were medium in size. Five bands were successfully placed with incomplete eradication of varices. Bleeding had stopped at the end of the procedure. The exam of the stomach was otherwise normal. The exam of the duodenum was otherwise normal. Impression: - Grade II esophageal varices. Incompletely eradicated. Banded. - No specimens collected. - The examination was otherwise normal. Recommendation: - Patient has a contact number available for emergencies. The signs and symptoms of potential delayed complications were discussed with the patient. Return to normal activities tomorrow. Written discharge instructions were provided to the patient. - NPO. - Return patient to ICU for ongoing care. - Continue present medications. - Refer to an interventional radiologist. - The findings and recommendations were discussed with the patient's family. Cedric Castle MD Cedric Castle MD 05/23/2019 12:56:39 PM Electronically signed by Cedric Castle MD Number of Addenda: 0 Note Initiated On: 05/23/2019 11:41 AM Estimated Blood Loss: Estimated blood loss: none.
[2019-05-23] MEDS ORDERED: LR 1,000 ML IV SCH (13:15)
[2019-05-23] MEDS ORDERED: ONDANSETRON 4MG/2ML VIAL (J2405) IV PRN (13:15)
[2019-05-23] MEDS ORDERED: oxyCODONE 5MG TAB PO PRN (13:15)
[2019-05-23 15:29] LABS: CK-MB VALUE MASS 2.3 NG/ML (<3.6); CPK CREATINE PHOSPHOKINASE 125 U/L (39-308); MB/CK RELATIVE INDEX 1.84 (< OR =4); TROPONIN I < 0.02 NG/ML (< 0.10)
--- NOTE | 2019-05-23 15:43 | DS.PDOC ---
Discharge Summary General Date of Admission May 22, 2019 at 18:06 Date of Discharge 05/23/19 Attending Physician: ELIO PIERRE MD Discharge Summary PROCEDURES PERFORMED DURING STAY: None. ADMITTING DIAGNOSES: 1. GI bleed. DISCHARGE DIAGNOSES: 1. GI bleed. COMPLICATIONS/CHIEF COMPLAINT: Cirrhosis,Diabetes Mellitus,Esophageal Varices Wit. HISTORY OF PRESENT ILLNESS: 49-year-old male with past medical history of cirrhosis, factor V Leiden deficiency, (on Coumadin), DVT/PE, diabetes mellitus, hypertension and hyperlipidemia was admitted for multiple episodes of hematemesis and hematochezia. Upon initial presentation, patient had had one episode of hematochezia and hematemesis at home, was hemodynamically stable with a hemoglobin of 13.8, without further episodes in the emergency department. Patient's INR at that time was not reversed given strong history of factor V Lei den deficiency and multiple DVT/PEs, patient has a history of developing PE while being treated with Coumadin with an INR of 2.2. For that reason, patient's target INR was 2.5-3.5. Patient had multiple episodes of hematemesis and hematochezia overnight and in the morning, Coumadin effect was reversed using KCentra and IV vitamin K with improvement of INR to 1.5 prior to EGD which showed esophageal varices which were banded. Patient has not had any bleeding since EGD, has received 1 unit of packed blood cells so far, repeat H&H pending and second unit to be given shortly. Given patient's history and inability to get anticoagulation due to GI bleed. Patient will require an IVC filter at the very least, Dr. Castle also reports that patient will benefit from a TIPS procedure. [facility] in [place], was contacted regarding transfer and patient was accepted by Dr. De La Garza. Patient is currently clinically and hemodynamically stable for discharge and transfer to [facility]. HOSPITAL COURSE: As above. DISCHARGE MEDICATIONS: Please see below. ALLERGIES: Please see below. PHYSICAL EXAMINATION: VITAL SIGNS: Please see below. GENERAL: Morbidly obese HEENT: Normocephalic, atraumatic, moist mucous membranes NECK: Supple CARDIOVASCULAR EXAMINATION: S1, S2, no murmurs RESPIRATORY EXAMINATION: Clear to auscultation, no wheezing ABDOMINAL EXAMINATION: Soft, nontender, nondistended, positive bowel sounds EXTREMITIES: Slight lower extremity edema SKIN: No rash NEUROLOGICAL EXAMINATION: Alert and oriented 3, no focal deficits PSYCHIATRIC EXAMINATION: Calm and cooperative LABORATORY DATA: Please see below. PROGNOSIS: Fair ACTIVITY: As tolerated. DIET: Nothing by mouth DISCHARGE PLAN: Follow-up with hospitalist, interventional radiologist, and after school caregiver at [facility] DISPOSITION: [facility]. DISCHARGE INSTRUCTIONS: 1. As above. DISCHARGE CONDITION: Stable. TIME SPENT ON DISCHARGE: Greater than 35 minutes. Vital Signs/I&Os Vital Signs Date Time Temp Pulse Resp B/P (MAP) Pulse Ox O2 Delivery O2 Flow Rate FiO2 05/23/19 13:25 78 20 144/63 (90) 98 Nasal Cannula 4 05/23/19 12:50 97.7 I&O- Last 24 Hours up to 6 AM 05/23/19 06:00 Intake Total 290 ml Output Total 1950 ml Balance -1660 ml Laboratory Data Labs 24H Laboratory Tests 2 05/22/19 17:12: Immature Granulocyte % (Auto) 0.4, Neutrophils (%) (Auto) 69.2H, Lymphocytes (%) (Auto) 16.5L, Monocytes (%) (Auto) 12.0H, Eosinophils (%) (Auto) 1.3, Basophils (%) (Auto) 0.6, Neutrophils # (Auto) 5.8, Lymphocytes # (Auto) 1.4L, Monocytes # (Auto) 1.0H, Eosinophils # (Auto) 0.1, Basophils # (Auto) 0.1, Nucleated Red Blo od Cells % (auto) 0.0, Anion Gap 8, Glomerular Filtration Rate > 60.0, Calcium Level 9.0, Total Bilirubin 1.4H, Direct Bilirubin 0.5H, Aspartate Amino Transf (AST/SGOT) 47H, Alanine Aminotransferase (ALT/SGPT) 42, Alkaline Phosphatase 142H, Total Protein 7.0, Albumin 3.1L, Albumin/Globulin Ratio 0.79L, Lipase 373 05/22/19 17:15: Prothrombin Time 29.9H, Prothromb Time International Ratio 2.86 05/22/19 17:29: POC Glucose (Misc Panel) 318H, POC Sodium (Misc Panel) 135L, POC Potassium (Misc Panel) 4.2, POC Chloride (Misc Panel) 99, POC Total CO2 (Misc Panel) 24.0, POC Blood Urea Nitrogen (Misc Panel 5L, POC Ionized Calcium (Misc Panel) 4.5, POC Creatinine (Misc Panel) 0.7, POC Hematocrit (Misc Panel) 43.0 05/22/19 19:56: Bedside Glucose (Misc Panel) 267H 05/22/19 22:43: Bedside Glucose (Misc Panel) 265H 05/22/19 22:57: Blood Gas Bicarbonate Standard 22.0, Venous Blood pH 7.402, Venous Blood Partial Pressure CO2 34.5L, Venous Blood Partial Pressure O2 163.4H, Venous Blood Total Carbon Dioxide 22.0L, Venous Blood HCO3 21.0L, Venous Blood Oxygen Saturation 98.9H, Venous Blood Base Excess -3.0L, Anion Gap 7L, Glomerular Filtration Rate > 60.0, Osmolality 301H, Calcium Level 8.5, B-Hydroxybutyrate 2.32 05/23/19 00:40: Bedside Glucose (Misc Panel) 284H 05/23/19 05:09: Anion Gap 3L, Glomerular Filtration Rate > 60.0, Calcium Level 7.9L, Nucleated Red Blood Cells % (auto) 0.0, Prothrombin Time 32.4H, Prothromb Time International Ratio 3.16, Magnesium Level 1.7L, Total Bilirubin 1.7H, Aspartate Amino Transf (AST/SGOT) 30, Alanine Aminotransferase (ALT/SGPT) 32, Alkaline Phosphatase 123H, Total Protein 6.2L, Albumin 2.7L, Albumin/Globulin Ratio 0.77L 05/23/19 05:32: Bedside Glucose (Misc Panel) 289H 05/23/19 10:26: Prothrombin Time 18.1H, Prothromb Time International Ratio 1.53 05/23/19 13:50: Bedside Glucose (Misc Panel) 369H 05/23/19 14:41: Total Creatine Kinase 125, Creatine Kinase MB 2.3, Creatine Kinase MB Relative Index 1.84, Troponin I < 0.02 CBC/BMP Laboratory Tests 05/22/19 17:12 05/22/19 22:57 05/23/19 05:09 FSBS Laboratory Tests Test 05/22/19 19:56 05/22/19 22:43 05/23/19 00:40 05/23/19 05:32 Range/Units Bedside Glucose (Misc Panel) 267 265 284 289 70-105 MG/DL Test 05/23/19 13:50 Range/Units Bedside Glucose (Misc Panel) 369 70-105 MG/DL Discharge Medications Scheduled Atenolol (Atenolol) 50 Mg Tab, 50 MG PO DAILY, (Reported) PATIENT STATES HE IS TAKING BOTH CARVEDILOL AND ATENOLOL. UNABLE TO VERIFY ATENOLOL WITH PHARMACY. Carvedilol (Carvedilol) 12.5 Mg Tablet, 6.25 MG PO BID, (Reported) Lisinopril (Lisinopril) 20 Mg Tab, 20 MG PO DAILY, (Reported) Metformin HCl (Metformin HCl ER) 500 Mg Tab.er.24h, 500 MG PO TID, (Reported) Pravastatin Sodium (Pravastatin Sodium) 40 Mg Tab, 40 MG PO QHS, (Reported) Warfarin Sodium (Coumadin) 7.5 Mg Tab, 7.5 MG PO 4XWK, (Reported) QPM: MON, WED, FRI, SAT Warfarin Sodium (Warfarin Sodium) 7.5 Mg Tablet, 15 MG PO 3XW, (Reported) QPM: SUN, TUES, THCESAR Allergies Coded Allergies: No Known Allergies (Verified , 01/22/05) ELIO PIERRE MD May 23, 2019 15:43
[2019-05-23 15:59] LABS: HEMATOCRIT 37.4 % (42.0-52.0); HEMOGLOBIN 12.1 g/dl (13.5-17.5)
[2019-05-23] MEDS: OCTREOTIDE ACETATE 1,200 MCG in NS 238.8 ML IV SCH (16:32)
--- NOTE | 2019-05-23 16:48 | ECGEPIP ---
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
--- NOTE | 2019-05-23 18:51 | CR ---
DATE OF CONSULTATION: 05/23/2019 This is a 49-year-old white male who was admitted to [facility] ([facility]) for evaluation of gastrointestinal (GI) bleeding. The patient has a pertinent past history of cirrhosis, most likely secondary to a combination of nonalcoholic steatohepatitis and alcohol. The patient is somewhat obese. He also has factor V Leiden deficiency. He is on Coumadin. The patient has had previous pulmonary embolism (PE) and deep vein thrombosis (DVT), hypertension, hyperlipidemia, and diabetes mellitus. The patient had apparently an upper endoscopy with banding, approximately five bands per patient, 8 months ago at [facility]. He now presents with a single episode of hematemesis and hematochezia. The patient was apparently feeling well up until the day of admission, when he felt nauseous and had hematemesis. No weight loss. No fevers, night sweats, or shaking chills. Last colonoscopy was several years ago. It only showed some small polyps. The patient has no complaints of abdominal pain. No chest pain or shortness of breath. A 10-point review of systems was negative for negative for the above problem. PAST MEDICAL HISTORY: 1. Cirrhosis. 2. Factor V Leiden deficiency. 3. DVT, PE. 4. Hypertension. 5. Hyperlipidemia. 6. Diabetes mellitus. PAST SURGICAL HISTORY: Status post cholecystectomy. SOCIAL HISTORY: Cigarettes. The patient smokes about a half a pack a day for the past 10 years, and he drinks at least a six pack every day. Occasional marijuana use. FAMILY HISTORY: Positive for his mother having cirrhosis of the liver of unclear etiology. PHYSICAL EXAMINATION: GENERAL: He is a well-developed, slightly obese male in no acute distress. Appears stated age. CHEST: Clear to auscultation. CARDIOVASCULAR: Showed a regular rhythm. No murmurs or gallops. Normal physiological split, S1, S2. ABDOMEN: Soft, nontender. No masses, guarding, rebound, hepatosplenomegaly. Bowel sounds positive. EXTREMITIES: No cyanosis, clubbing, edema. Tata's negative. LABORATORY STUDIES ON ADMISSION: Includes a CBC showing a white count of 8400, hemoglobin and hematocrit of 13.8 41.8. The patient's blood count the 8th is 11.8 and 34.5. The patient has had at least four to five bouts of hematemesis throughout the night and hematochezia. The patient's Coumadin has now been stopped. His INR on admission was 2.86, and on the 8th, this morning, it was it was 3.166. They have been giving him IV PTC (prothrombin complex) to try and reverse the effects with the Coumadin on the INR. Chemistry on admission essentially normal. Albumin is 3.1-2.7. Liver functions are normal. Lipase is normal. IMAGING STUDIES ON ADMISSION: No obvious imaging was done at this admission. ANALYSIS: Upper gastrointestinal (GI) bleeding, possibly of varices versus portal gastropathy. PLAN: 1. Set the patient up for an upper endoscopy with consideration for a possible banding of varices. 2. The patient is on chronic Coumadin and will definitely probably need to be transferred to [place] for a inferior vena cava (IVC) filter since the patient cannot be maintained on Coumadin anticoagulation due to the risks of acute upper GI bleeding and his liver disease. 3. Anemia, GI bleeding. Blood transfusions will be given. 4. Hypercoagulable state secondary to Coumadin. Will be reversed with PTC and if necessary fresh frozen plasma.
[2019-05-23] MEDS ORDERED: PANTOPRAZOLE 40MG INJ (PROTONIX) (C9113) IV SCH (21:00)
[2019-05-24] MEDS ORDERED: INFLUENZA QUADRIVALENT PF VACCINE 0.5ML SYRINGE (90686) IM SCH (09:00)
== END 2019-05-23 17:32 | disposition short-term general hospital (02) | DRG 432 ==
LOC: EDBD 17:02 → M ED 17:02 → M ED INP 18:06 → ENRESERV 20:57 → M PCU 21:39 → M ICU 05-23 08:39
PROVIDERS: ADMIT Internal Medicine; ATTEND Internal Medicine
PROC: 0W3P8ZZ Control Bleeding in Gastrointestinal Tract, Via Natural or Artificial Opening Endoscopic (ICD-10-PCS; 2019-05-23)
PROC: 30233N1 Transfusion of Nonautologous Red Blood Cells into Peripheral Vein, Percutaneous Approach (ICD-10-PCS; principal; 2019-05-23 13:00)
DX: K70.30 Alcoholic cirrhosis of liver without ascites (principal); I85.11 Secondary esophageal varices with bleeding; D68.2 Hereditary deficiency of other clotting factors; K92.1 Melena; K92.0 Hematemesis; E11.9 Type 2 diabetes mellitus without complications; Z79.01 Long term (current) use of anticoagulants; Z86.711 Personal history of pulmonary embolism; Z86.718 Personal history of other venous thrombosis and embolism; I10 Essential (primary) hypertension; E78.5 Hyperlipidemia, unspecified; Z79.899 Other long term (current) drug therapy; F17.200 Nicotine dependence, unspecified, uncomplicated; E66.01 Morbid (severe) obesity due to excess calories; F12.90 Cannabis use, unspecified, uncomplicated

== ENCOUNTER 2019-06-07 03:23 | Inpatient (IN) | payer BC, OTHER ==
[~2019-06-07] VITALS: Ht 182.9 cm; Wt 156.0 kg
[~2019-06-07 03:23] MED LIST changes: +CARV12.5 PO; +METF-791 PO; +WARF-21 PO
[2019-06-07 04:19] LABS: INR 1.3; PROTHROMBIN TIME 15.9 SECONDS (11.8-14.0)
[2019-06-07 04:20] LABS: PARTIAL THROMBOPLASTIN TIME 26.5 SECONDS (25.0-38.4)
[2019-06-07 04:25] LABS: BASO # 0.1 10^3/uL (0.0-0.2); BASO % 0.7 % (0.0-1.0); EOS # 0.1 10^3/uL (0.0-0.5); EOS % 0.9 % (0.0-3.0); HEMATOCRIT 31.7 % (42.0-52.0); HEMOGLOBIN 10.8 g/dl (13.5-17.5); LYMPH # 0.9 10^3/uL (1.5-5.0); LYMPH % 11.5 % (24.0-44.0); MEAN CORPUSCULAR HEMOGLOBIN 33.6 pg (27.0-33.0); MEAN CORPUSCULAR HGB CONC 34.1 g/dl (32.0-36.5); MEAN CORPUSCULAR VOLUME 98.8 fl (80.0-96.0); MONO # 1.1 10^3/uL (0.0-0.8); MONO % 14.6 % (0.0-5.0); NEUTROPHILS # 5.4 10^3/uL (1.5-8.5); NEUTROPHILS % 71.9 % (36.0-66.0); PLATELET COUNT, AUTOMATED 179 10^3/uL (150-450); RED BLOOD COUNT 3.21 10^6/uL (4.30-6.10); WHITE BLOOD COUNT 7.5 10^3/uL (4.0-10.0)
[2019-06-07 04:37] LABS: ALT/SGPT 30 U/L (12-78); BILIRUBIN,DIRECT 0.3 MG/DL (0.0-0.2); BILIRUBIN,TOTAL 1.4 MG/DL (0.2-1.0); CK-MB VALUE MASS < 1.0 NG/ML (<3.6); CPK CREATINE PHOSPHOKINASE 165 U/L (39-308); LIPASE 138 U/L (73-393); MB/CK RELATIVE INDEX 0.61 (< OR =4); TOTAL PROTEIN 7.1 GM/DL (6.4-8.2); TROPONIN I < 0.02 NG/ML (< 0.10)
[2019-06-07] MEDS ORDERED: ONDANSETRON 4MG/2ML VIAL (J2405) IV ONE (05:45)
[2019-06-07] MEDS: MORPHINE 4 MG/ML 1ML VIAL/SYRINGE (J2270) IV PRN ×2 (05:47→06:03)
[2019-06-07] MEDS ORDERED: ISOVUE-370 76% 100ML VIAL (Q9967) As Ordered ONE (05:51)
[2019-06-07 05:52] LABS: ETHYL ALCOHOL (ETHANOL) < 0.003 % (0.000-0.010)
--- NOTE | 2019-06-07 07:08 | REPVR ---
PROCEDURE INFORMATION: Exam: CT Abdomen And Pelvis With Contrast Exam date and time: 06/07/2019 6:18 AM Age: 49 years old Clinical indication: Abdominal pain; Generalized; Additional info: Chest pain, abd pain TECHNIQUE: Imaging protocol: Computed tomography of the abdomen and pelvis with intravenous contrast. Radiation optimization: All CT scans at this facility use at least one of these dose optimization techniques: automated exposure control; mA and/or kV adjustment per patient size (includes targeted exams where dose is matched to clinical indication); or iterative reconstruction. Contrast material: ISOVUE 370; Contrast volume: 100 ml; Contrast route: IV; COMPARISON: CT ABD PELVIS W/O CONTRAST 04/29/2016 5:40 PM FINDINGS: Lungs: Minimal infiltrates in the anterior lingula. Minimal dependent atelectasis in the right lower lobe. Liver: Nodular surface of the liver. Small hyperenhancing focus in the lateral right hepatic lobe measuring 19 mm which is nonspecific. Gallbladder and bile ducts: Status post cholecystectomy. Pancreas: Normal. No ductal dilation. Spleen: The spleen measures 14.5 cm. Portal venous collaterals are noted anterior to the splenic tip and there is minimal recanalization of ligamentum teres. Adrenals: Normal. No mass. Kidneys and ureters: Normal. No hydronephrosis. Stomach and bowel: Unremarkable. No obstruction. No mucosal thickening. Appendix: There are no changes of appendicitis. A normal appendix is not seen. Intraperitoneal space: Mild large volume peritoneal ascites with a Hounsfield measurement of 6. Vasculature: There is an IVC filter in position. Incidental note of an accessory retroaortic left renal vein. Lymph nodes: Unremarkable. No enlarged lymph nodes. Bladder: Unremarkable as visualized. Reproductive: Calcification of the vas deferens, right greater than left. Bones/joints: Slight anterior wedge configuration of T11 and T12 which appear to be chronic. Soft tissues: Unremarkable. IMPRESSION: 1. Interval cholecystectomy since 04/29/2016. 2. Hepatic cirrhosis with mild splenomegaly and some portal venous collateralization which is similar to the prior study. There is mild large volume peritoneal ascites which is new. 3. Minimal infiltrates in the anterior lingula. 4. IVC filter in position which is new since the prior study. 5. Small 19 mm hyperenhancing focus in the right hepatic lobe which is nonspecific. 6. There is calcification of the vas deferens suggesting diabetes. Electronically signed by: Ashu Nick On 06/07/2019 07:07:52 AM
--- NOTE | 2019-06-07 07:12 | REPVR ---
PROCEDURE INFORMATION: Exam: CT Angiography Chest With Contrast Exam date and time: 06/07/2019 6:18 AM Age: 49 years old Clinical indication: Chest pain; Additional info: Chest pain, abd pain TECHNIQUE: Imaging protocol: Computed tomographic angiography of the chest with intravenous contrast. 3D rendering: MIP and/or 3D reconstructed images were created by the technologist. Radiation optimization: All CT scans at this facility use at least one of these dose optimization techniques: automated exposure control; mA and/or kV adjustment per patient size (includes targeted exams where dose is matched to clinical indication); or iterative reconstruction. Contrast material: ISOVUE 370; Contrast volume: 100 ml; Contrast route: IV; COMPARISON: CT ANGIO CHEST 04/29/2016 2:23 PM FINDINGS: Pulmonary arteries: The main pulmonary artery measures 26 mm. Aorta: The ascending thoracic aorta measures 33 mm. Lungs: Minimal infiltrates in the anterior left upper lobe and lingula. Minimal dependent atelectasis in the right lower lobe. Calcified granuloma in the posterior medial right upper lobe. Pleural space: Unremarkable. No pneumothorax. No pleural effusion. Heart: Unremarkable. No cardiomegaly. No pericardial effusion. Lymph nodes: Unremarkable. No enlarged lymph nodes. Bones/joints: Slight anterior wedge configuration of T11 and T12 which appear to be chronic. Sclerotic focus in the lateral left 8th rib which is nonspecific. Soft tissues: Unremarkable. IMPRESSION: 1. Minimal infiltrates in the anterior left upper lobe and lingula, new since 04/29/2016. 2. Old granulomatous disease which is unchanged from the prior study. 3. Nonspecific small focus of sclerosis in the lateral 8th rib which is unchanged from the prior study. 4. Otherwise negative CT chest. Electronically signed by: Ashu Nick On 06/07/2019 07:12:31 AM
[2019-06-07] MEDS ORDERED: PIPERACILLIN/TAZOBACTAM SOD 3.375 GM in D5W MINI-BAG PLUS 50 ML IV ONE (07:45)
[2019-06-07] MEDS: HYDROMORPHONE HCL 0.5 MG/ 0.5 ML SYRINGE (J1170 PER 1) IV PRN ×2 (07:48→09:20)
[2019-06-07] MEDS ORDERED: PROBCAP14 PO (08:20)
[2019-06-07] MEDS ORDERED: LACT10SO29 PO (08:20)
[2019-06-07] MEDS ORDERED: VITA50005 PO (08:20)
[2019-06-07] MEDS ORDERED: PANT40TA3 PO (08:20)
[2019-06-07] MEDS ORDERED: CRES40TA PO (08:20)
[2019-06-07] MEDS ORDERED: HYDROMORPHONE HCL 0.5 MG/ 0.5 ML SYRINGE (J1170 PER 1) IV ONE ×2 (12:00→20:00)
[2019-06-07 12:53] VITALS: BP 151/78
[2019-06-07] MEDS ORDERED: MORPHINE 4 MG/ML 1ML VIAL/SYRINGE (J2270) IV ONE (14:00)
--- NOTE | 2019-06-07 14:27 | HPEPDOC ---
General Date of Admission Jun 07, 2019 at 03:24 Date of Service: Jun 07, 2019 Chief Complaint The patient is a 49-year-old male admitted with a reason for visit of Spontaneous Bacterial Peritonitis. History of Present Illness 49 year old male presents with abdominal pain. States symptoms started Serv[place] night with generalized abdominal pain/cramping, states 10/10 in intensity. Denies fever/chills, N/V/D, shortness of breath, urinary complaints. Presents to the ED due to worsening symptoms. VSS, CTA chest negative, CT A/P with hepatic cirrhosis/large volume peritoneal ascites. Started on IV zosyn, admission for paracentesis/cultures. Home Medications Scheduled Atenolol (Atenolol) 50 Mg Tab, 50 MG PO DAILY, (Reported) [facility]OLOL AND CARVEDILOL Carvedilol (Carvedilol) 12.5 Mg Tablet, 6.25 MG PO BID, (Reported) Ergocalciferol (Vitamin D2) (Vitamin D2) 50,000 Units Cap, 50,000 UNITS PO 1XWK, (Reported) SUNDAYS Lactobacillus Acidophilus (Probiotic) 1 Each Capsule, 2 CAP PO DAILY, (Reported) BEFORE BREAKFAST Lactulose (Lactulose) 10 Gm/15 Ml Solution, 15 ML PO BID, (Reported) Lisinopril (Lisinopril) 20 Mg Tab, 20 MG PO DAILY, (Reported) Metformin HCl (Metformin HCl ER) 500 Mg Tab.er.24h, 500 MG PO TID, (Reported) Pantoprazole Sodium (Pantoprazole Sodium) 40 Mg Tablet.dr, 40 MG PO DAILY, (Reported) Rosuvastatin Calcium (Crestor) 40 Mg Tablet, 40 MG PO QHS, (Reported) Warfarin Sodium (Coumadin) 7.5 Mg Tab, 7.5 MG PO 4XWK, (Reported) QPM: MON, WED, FRI, SAT Warfarin Sodium (Warfarin Sodium) 7.5 Mg Tablet, 15 MG PO 3XW, (Reported) QPM: SUN, TUES, THURS Allergies Coded Allergies: No Known Allergies (Verified , 01/22/05) Past Medical History Medical History 1. Cirrhosis. 2. Factor V Leiden deficiency. 3. DVT/PE. 4. Hypertension 5. Hyperlipidemia. 6. Diabetes mellitus Surgical History 1. Cholecystectomy. 2. IVC filter A-FIB/CHADSVASC A-FIB History Current/History of A-Fib/PAF?: No Review of Systems Constitutional: Reports: Weakness, Fatigue Eyes: Denies: Pain, Vision change ENT: Denies: Head Aches, Ear Pain, Dysphagia Skin: Denies: Rash, Lesions, Breakdown Pulmonary: Denies: Dyspnea, Cough Cardiovascular: Denies: Chest Pain, Palpitations, Orthopnea, Paroxysmal Noc. Dyspnea, Lt Headedness Gastrointestinal: Reports: Abdominal Pain; Denies: Nausea, Vomiting, Diarrhea Genitourinary: Denies: Dysuria, Frequency, Incontinence, Retention Hematologic: Denies: Bruising, Bleeding Excessively Musculoskeletal: Denies: Neck Pain, Back Pain, Joint Pain, Muscle Pain, Spasms Neurological: Denies: Weakness, Numbness, Change in speech, Confusion Psych: Reports: Mood Normal; Denies: Depression, Memory Issues Physical Examination General Exam: Positive: Alert, No Acute Distress, Mild Distress Eye Exam: Positive: PERRLA, Conjunctiva & lids normal, EOMI; Negative: Sclera icteric ENT Exam: Positive: Atraumatic, Mucous membr. moist/pink, Pharynx Normal Neck Exam: Positive: Supple; Negative: JVD, thyromegaly Chest Exam: Positive: Clear to auscultation, Normal air movement Heart Exam: Positive: Rate Normal, Regular Rhythm, Normal S1, Normal S2; Negative: Murmurs, Rubs Telemetry: Positive: No significant arrhythmia Abdomen Exam: Positive: Normal bowel sounds, Soft, Tenderness (generalized across abdomen, no rebound/guarding/peritoneal signs); Negative: Hepatospenomegaly Extremity Exam: Positive: Normal pulses; Negative: Clubbing, Cyanosis, Edema Skin Exam: Positive: Nl turgor and temperature; Negative: Breakdown, Lesion Neuro Exam: Positive: Normal Gait, Normal Speech, Cranial Nerves 3-12 NL, Reflexes 2+ Psych Exam: Positive: Mental status NL, Mood NL, Oriented x 3 Vital Signs Vital Signs Date Time Temp Pulse Resp B/P (MAP) Pulse Ox O2 Delivery O2 Flow Rate FiO2 06/07/19 13:54 20 Nasal Cannula 2.0 06/07/19 12:53 97.2 90 151/78 (102) 96 Laboratory Data Labs 24H Laboratory Tests 2 06/07/19 04:02: Prothrombin Time 15.9H, Prothromb Time International Ratio 1.30, Activated Partial Thromboplast Time 26.5, Total Bilirubin 1.4H, Direct Bilirubin 0.3H, Aspartate Amino Transf (AST/SGOT) 48H, Alanine Aminotransferase (ALT/SGPT) 30, Alkaline Phosphatase 113, Total Creatine Kinase 165, Creatine Kinase MB < 1.0, Creatine Kinase MB Relative Index 0.61, Troponin I < 0.02, Total Protein 7.1, Albumin 3.0L, Albumin/Globulin Ratio 0.73L, Lipase 138, Ethyl Alcohol Level < 0.003 06/07/19 04:11: POC Glucose (Misc Panel) 180H, POC Sodium (Misc Panel) 134L, POC Potassium (Misc Panel) 4.2, POC Chloride (Misc Panel) 101, POC Total CO2 (Misc Panel) 24.0, POC Blood Urea Nitrogen (Misc Panel 5L, POC Ionized Calcium (Misc Panel) 4.0L, POC Creatinine (Misc Panel) 0.5L, POC Hematocrit (Misc Panel) 32.0L 06/07/19 04:19: Immature Granulocyte % (Auto) 0.4, Neutrophils (%) (Auto) 71.9H, Lymphocytes (%) (Auto) 11.5L, Monocytes (%) (Auto) 14.6H, Eosinophils (%) (Auto) 0.9, Basophils (%) (Auto) 0.7, Neutrophils # (Auto) 5.4, Lymphocytes # (Auto) 0.9L, Monocytes # (Auto) 1.1H, Eosinophils # (Auto) 0.1, Basophils # (Auto) 0.1, Nucleated Red Blood Cells % (auto) 0.0, Lactic Acid Level 1.6 CBC/BMP Laboratory Tests 06/07/19 04:19 Microbiology Microbiology 06/07/19 Blood Culture, Received Pending 06/07/19 Blood Culture, Received Pending Assessment/Plan 1. intractable abdominal pain - CT A/P with large volume peritoneal ascites. - will require paracentesis. - started on IV zosyn (concern for SBP), f/u abdominal ascitic fluid studies. - pain control prn. 2. HTN - continue lisinopril, coreg. 3. hyperlipidemia - continue statin. 4. liver cirrhosis/esophageal varices - continue lactulose, atenolol. - has appointment at [place] this week with transplant and for possible TIPS procedure. 5. DM2 - FSBS/SSI coverage. 6. hx recurrent DVT/PE s/p IVC filter - recent admission for bleeding esophageal varices. - patient subsequently transferred to [facility] for IVC filter placement. 7. factor V Leiden deficiency - s/p IVC filter placement. Plan / VTE VTE Prophylaxis Ordered?: Yes ELOY HENDRICKS MD Jun 07, 2019 14:27
[2019-06-07] MEDS ORDERED: GLUCOSE 4 GM CHEW TABLET PO PRN (14:30)
[2019-06-07] MEDS ORDERED: GLUCAGON FOR INJ 1 MG VIAL (J1610) SC PRN (14:30)
[2019-06-07] MEDS ORDERED: HYDROMORPHONE HCL 0.5 MG/ 0.5 ML SYRINGE (J1170 PER 1) IV PRN (14:30)
[2019-06-07] MEDS ORDERED: DEXTROSE 50% 50 ML SYRINGE IV PRN (14:30)
[2019-06-07] MEDS: PANTOPRAZOLE 40MG TAB (PROTONIX) PO SCH (15:29)
[2019-06-07] MEDS: lisinopriL 20 MG TAB PO SCH (15:29)
[2019-06-07] MEDS: atenoloL 50 MG TAB PO SCH (15:29)
[2019-06-07] MEDS: cefTRIAXone SOD 2 GM in D5W MINI-BAG PLUS 50 ML IV SCH (15:30)
[2019-06-07 15:55] VITALS: BP 140/63
[2019-06-07] MEDS: MORPHINE 2 MG/ML 1ML VIAL (J2270) IV PRN ×2 (16:12→22:57)
[2019-06-07] MEDS: HumaLOG INSULIN (NovoLOG) PER UNIT SC SCH (17:30)
[2019-06-07] MEDS ORDERED: MORPHINE 2 MG/ML 1ML VIAL (J2270) IV ONE (19:00)
[2019-06-07] MEDS: ROSUVASTATIN 10 MG TAB (CRESTOR) PO SCH (20:20)
[2019-06-07] MEDS: CARVedilol 6.25 MG TAB PO SCH (20:21)
[2019-06-07] MEDS: LACTULOSE 20 GM/30 ML SYRUP UD PO SCH (20:21)
--- NOTE | 2019-06-07 20:55 | ECGEPIP ---
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
[2019-06-07 22:00] VITALS: BP 144/92
[2019-06-08] MEDS: MORPHINE 2 MG/ML 1ML VIAL (J2270) IV PRN ×5 (03:12→20:36)
[2019-06-08 06:00] VITALS: BP 145/73
[2019-06-08 06:35] LABS: ALBUMIN 2.8 GM/DL (3.2-5.2); ALT/SGPT 24 U/L (12-78); BILIRUBIN,TOTAL 2.1 MG/DL (0.2-1.0); BLOOD UREA NITROGEN 7 MG/DL (7-18); CALCIUM LEVEL 8.6 MG/DL (8.5-10.1); CARBON DIOXIDE LEVEL 27 MEQ/L (21-32); CHLORIDE LEVEL 98 MEQ/L (98-107); CREATININE FOR GFR 0.57 MG/DL (0.70-1.30); GLOMERULAR FILTRATION RATE > 60.0 (>60); GLUCOSE, FASTING 189 MG/DL (70-100); SODIUM LEVEL 130 MEQ/L (136-145); TOTAL PROTEIN 6.9 GM/DL (6.4-8.2)
[2019-06-08] MEDS: HumaLOG INSULIN (NovoLOG) PER UNIT SC SCH ×4 (07:54→20:51)
[2019-06-08] MEDS: lisinopriL 20 MG TAB PO SCH (07:55)
[2019-06-08] MEDS: PANTOPRAZOLE 40MG TAB (PROTONIX) PO SCH (07:55)
[2019-06-08] MEDS: LACTULOSE 20 GM/30 ML SYRUP UD PO SCH ×2 (07:55→20:33)
[2019-06-08] MEDS: CARVedilol 6.25 MG TAB PO SCH ×2 (07:56→20:35)
[2019-06-08] MEDS: atenoloL 50 MG TAB PO SCH (07:56)
--- NOTE | 2019-06-08 08:49 | IPNPDOC ---
Subjective Date Seen The patient was seen on 06/08/19. Subjective Chief Complaint/HPI Seen and examined at bedside, pain better controlled today, denies n/v, fever/chills, sob. General: Reports: Normal Appetite; Denies: Chills, Night Sweats, Fatigue, Malaise Constitutional: Denies: Chills, Fever, Night Sweats Eyes: Denies: Pain, Vision change ENT: Denies: Head Aches, Ear Pain, Dysphagia Skin: Denies: Rash, Lesions, Breakdown Pulmonary: Denies: Dyspnea, Cough Cardiovascular: Denies: Chest Pain, Palpitations, Orthopnea, Paroxysmal Noc. Dyspnea, Lt Headedness Gastrointestinal: Reports: Abdominal Pain; Denies: Nausea, Vomiting, Diarrhea, Constipation Genitourinary: Denies: Dysuria, Frequency, Incontinence, Retention Hematologic: Denies: Bruising, Bleeding Excessively Musculoskeletal: Denies: Neck Pain, Back Pain, Joint Pain, Muscle Pain, Spasms Neurological: Denies: Weakness, Numbness, Change in speech, Confusion Psych: Reports: Mood Normal; Denies: Depression, Memory Issues Objective Physical Examination General Exam: Positive: Alert, No Acute Distress, Mild Distress Eye Exam: Positive: PERRLA, Conjunctiva & lids normal, EOMI; Negative: Sclera icteric ENT Exam: Positive: Atraumatic, Mucous membr. moist/pink, Pharynx Normal Neck Exam: Positive: Supple; Negative: JVD, thyromegaly Chest Exam: Positive: Clear to auscultation, Normal air movement Heart Exam: Positive: Rate Normal, Regular Rhythm, Normal S1, Normal S2; Negative: Murmurs, Rubs Telemetry: Positive: No significant arrhythmia Abdomen Exam: Positive: Normal bowel sounds, Soft, Tenderness (generalized across abdomen, no rebound/guarding/peritoneal signs); Negative: Hepatospenomegaly Male Exam: Positive: Normal Genital Exam Extremity Exam: Positive: Normal pulses; Negative: Clubbing, Cyanosis, Edema Skin Exam: Positive: Nl turgor and temperature; Negative: Breakdown, Lesion Neuro Exam: Positive: Normal Gait, Normal Speech, Cranial Nerves 3-12 NL, Refle xes 2+ Psych Exam: Positive: Mental status NL, Mood NL, Oriented x 3 Assessment /Plan Assessment 1. intractable abdominal pain - CT A/P with large volume peritoneal ascites. - s/p paracentesis with 3350cc fluid removed, WBC 1355 (PMN 1016). - continue IV ceftriaxone 2gm IV daily. - f/u ascitic fluid cultures. - pain control prn. 2. HTN - continue lisinopril, coreg. 3. hyperlipidemia - continue statin. 4. liver cirrhosis/esophageal varices - continue lactulose, atenolol. 5. DM2 - FSBS/SSI coverage. 6. hx recurrent DVT/PE s/p IVC filter - recent admission for bleeding esophageal varices. - patient subsequently transferred to [facility] for IVC filter placement. Plan/VTE VTE Prophylaxis Ordered?: Yes VS, I&O, 24H, Fishbone Vital Signs/I&O Vital Signs Date Time Temp Pulse Resp B/P (MAP) Pulse Ox O2 Delivery O2 Flow Rate FiO2 06/08/19 07:56 92 145/73 06/08/19 07:52 20 06/08/19 06:00 98.3 93 Nasal Cannula 2.0 I&O- Last 24 Hours up to 6 AM 06/08/19 06:00 Intake Total 3250 ml Output Total 0 ml Balance 3250 ml Laboratory Data 24H LABS Laboratory Tests 2 06/07/19 16:41: Bedside Glucose (Misc Panel) 207H 06/07/19 20:46: Bedside Glucose (Misc Panel) 191H 06/08/19 05:41: Anion Gap 5L, Glomerular Filtration Rate > 60.0, Calcium Level 8.6, Total Bilirubin 2.1H, Aspartate Amino Transf (AST/SGOT) 21, Alanine Aminotransferase (ALT/SGPT) 24, Alkaline Phosphatase 102, Total Protein 6.9, Albumin 2.8L, Albumin/Globulin Ratio 0.68L CBC/BMP Laboratory Tests 06/08/19 05:41 Microbiology Microbiology 06/07/19 Blood Culture - Preliminary, Resulted No growth after 24 hours . All specim... 06/07/19 Blood Culture - Preliminary, Resulted No growth after 24 hours . All specim... ELOY HENDRICKS MD Jun 08, 2019 08:49
[2019-06-08 13:10] LABS: SOURCE, BODY FLUID ASCITES
[2019-06-08 13:11] LABS: APPEARANCE, BODY FLUID HAZY (CLEAR); ASCITES FL COLOR YELLOW (COLORLESS)
[2019-06-08 13:20] VITALS: BP 120/67
[2019-06-08 13:40] LABS: LDH, BODY FLUID 77 U/L (NOT ESTABLISHED); SOURCE, BODY FLUID ALBUMIN PERITONEAL; SOURCE, BODY FLUID LDH PERITONEAL; SOURCE, BODY FLUID TOT PROTEIN PERITONEAL; TOTAL PROTEIN, BODY FLUID 1.6 G/DL (NOT ESTABLISHED)
[2019-06-08] MEDS: cefTRIAXone SOD 2 GM in D5W MINI-BAG PLUS 50 ML IV SCH (15:56)
[2019-06-08] MEDS ORDERED: ACETAMINOPHEN TAB 650MG DOSE (2X325MG) PO PRN (16:00)
[2019-06-08] MEDS ORDERED: ACETAMINOPHEN TAB 650MG DOSE (2X325MG) PO ONE (16:15)
--- NOTE | 2019-06-08 16:39 | REP ---
Ultrasound-guided paracentesis The procedure was performed by LULU Esquivel, under the direct supervision of Dr. Greenwood. The risks and benefits of the procedure were explained to the patient and informed consent was obtained both verbally and written. Directly prior to the start of the procedure, a formal timeout was completed in the procedure room. Under ultrasound guidance, the largest pocket of fluid in the left flank was localized and skin was marked. The skin was then prepped and draped in a sterile fashion. 10 ml of 1% lidocaine 10 mg/ml was used as a local anesthetic. Using ultrasound guidance, an 8-Spanish multi side-hole catheter was inserted using trocar technique. 3,350 mL of clear yellow colored fluid was withdrawn, 200 ml was sent to the laboratory for further analysis and the rest was discarded. The patient tolerated the procedure well and there were no immediate complications. After the appropriate monitored convalescence the patient was discharged from the department. Reviewed by LULU Lloyd 06/08/2019 12:48 P Electronically Signed by Matias Greenwood MD 06/08/2019 04:31 P
[2019-06-08] MEDS: ROSUVASTATIN 10 MG TAB (CRESTOR) PO SCH (20:33)
[2019-06-08 22:00] VITALS: BP 143/88
[2019-06-09] MEDS: MORPHINE 2 MG/ML 1ML VIAL (J2270) IV PRN ×8 (00:50→22:56)
[2019-06-09] MEDS ORDERED: HYDROMORPHONE HCL 0.5 MG/ 0.5 ML SYRINGE (J1170 PER 1) IV ONE (03:15)
[2019-06-09 06:00] VITALS: BP 149/85
[2019-06-09 06:20] LABS: HEMATOCRIT 33.3 % (42.0-52.0); HEMOGLOBIN 11.3 g/dl (13.5-17.5); MEAN CORPUSCULAR HEMOGLOBIN 33.8 pg (27.0-33.0); MEAN CORPUSCULAR HGB CONC 33.9 g/dl (32.0-36.5); MEAN CORPUSCULAR VOLUME 99.7 fl (80.0-96.0); PLATELET COUNT, AUTOMATED 205 10^3/uL (150-450); RED BLOOD COUNT 3.34 10^6/uL (4.30-6.10); WHITE BLOOD COUNT 13.1 10^3/uL (4.0-10.0)
[2019-06-09 06:27] LABS: BLOOD UREA NITROGEN 6 MG/DL (7-18); CALCIUM LEVEL 8.2 MG/DL (8.5-10.1); CARBON DIOXIDE LEVEL 26 MEQ/L (21-32); CHLORIDE LEVEL 98 MEQ/L (98-107); CREATININE FOR GFR 0.48 MG/DL (0.70-1.30); GLOMERULAR FILTRATION RATE > 60.0 (>60); GLUCOSE, FASTING 199 MG/DL (70-100); POTASSIUM SERUM 3.8 MEQ/L (3.5-5.1); SODIUM LEVEL 131 MEQ/L (136-145)
[2019-06-09] MEDS: ONDANSETRON 4MG/2ML VIAL (J2405) IV PRN ×2 (06:45→20:38)
[2019-06-09] MEDS: HumaLOG INSULIN (NovoLOG) PER UNIT SC SCH ×4 (07:30→21:00)
[2019-06-09] MEDS: FUROSEMIDE 40 MG/4 ML VIAL (J1940) IV SCH ×2 (10:16→17:21)
[2019-06-09] MEDS: atenoloL 50 MG TAB PO SCH (10:16)
[2019-06-09] MEDS: CARVedilol 6.25 MG TAB PO SCH (10:16)
[2019-06-09] MEDS: SPIRONOLACTONE 50 MG TAB PO SCH (10:16)
[2019-06-09] MEDS: lisinopriL 20 MG TAB PO SCH (10:16)
[2019-06-09] MEDS: LACTULOSE 20 GM/30 ML SYRUP UD PO SCH ×2 (10:18→17:21)
[2019-06-09] MEDS: PANTOPRAZOLE 40MG TAB (PROTONIX) PO SCH (10:18)
--- NOTE | 2019-06-09 10:49 | REP ---
Abdominal ultrasound for ascites: All quadrants of the abdomen are evaluated. There is a small volume of ascites adjacent to the liver and a small volume of ascites in the right lower quadrant. Electronically Signed by Dallin Aayla MD 06/09/2019 10:42 A
[2019-06-09] MEDS ORDERED: LACTULOSE 20 GM/30 ML SYRUP UD PO SCH (12:00)
--- NOTE | 2019-06-09 13:33 | IPNPDOC ---
Text Note Date of Service The patient was seen on 06/09/19. NOTE Subjective: Patient is a 49-year-old male with a PMHx of Cirrhosis, Esophageal varices, Hx of DVT & PE 2/2 Factor V Leiden deficiency (s/p Coumadin - now with IVC filter), HTN, DLP, DM2 , who presented to the emergency room with abdominal pain. In the emergency room, patient was found to have a distended abdomen with imaging suggesting ascites. Patient appears NT completed on 06/08/2019 3400 mL of fluid removed and consistent with spontaneous bacterial peritonitis. Patient has been admitted to hospitalist service for further evaluation and treatment. Patient was seen and examined at the bedside. Currently, denies any chest pain, shortness breath or palpitations. They do report abdominal pain associated with nausea. He has not had any bowel movements. Limited urine output. Objective: Vitals (See below) General: Lying in bed, complaining of abdominal discomfort, AAOx3 HEENT: NC, AT CVS: +S1S2 Lungs: Fair air entry b/l, -w/r/r Abdomen: Soft, distended, diffusely tender Extremities: - Edema, - Calf tenderness Assessment and plan: Intractable abdominal pain - likely 2/2 spontaneous bacterial peritonititis - Presented to the emergency room with complaints of abdominal pain associated with distention - Patient has received a paracentesis on 06/08 with 3400 mL fluid removed consistent with infection - Repeat ultrasound 06/09 revealed small amounts of ascites - Will continue with ceftriaxone 2 g IV for intraabdominal coverage - c/w Pain control - regimen adjusted HTN - c/w lisinopril - Will discontinue Carvedilol and Atenolol - Will start Propranolol DLP - c/w Rosuvastatin Liver cirrhosis / Esophageal varices - Will adjust beta khoi therapy to Propranolol alone for esophageal varices bleeding risk reduction - c/w lactulose - will adjust dose - has appointment at [facility] this week with transplant and for possible TIPS procedure DM2 - c/w ISS Hx of DVT & PE 2/2 Factor V Leiden deficiency - Has been off anticoagulation 2/2 variceal bleeding - s/p IVC filter placement GI prophylaxis - c/w Protonix DVT prophylaxis - c/w TEDs/Sequentials VS,Fishbone, I+O VS, Fishbone, I+O Laboratory Tests 06/09/19 05:42 Vital Signs Date Time Temp Pulse Resp B/P (MAP) Pulse Ox O2 Delivery O2 Flow Rate FiO2 06/09/19 12:34 18 06/09/19 06:00 98.3 94 149/85 (106) 95 Room Air 06/08/19 06:00 2.0 I&O- Last 24 Hours up to 6 AM 06/09/19 06:00 Intake Total 900 ml Output Total 325 ml Balance 575 ml TREASURE HENDRICKS MD Jun 09, 2019 13:33
[2019-06-09 13:54] LABS: HEMOGLOBIN 11.4 g/dl (13.5-17.5); MEAN CORPUSCULAR HEMOGLOBIN 33.5 pg (27.0-33.0); MEAN CORPUSCULAR HGB CONC 33.5 g/dl (32.0-36.5); PLATELET COUNT, AUTOMATED 218 10^3/uL (150-450); WHITE BLOOD COUNT 12.5 10^3/uL (4.0-10.0)
[2019-06-09] MEDS: cefTRIAXone SOD 2 GM in D5W MINI-BAG PLUS 50 ML IV SCH (15:00)
[2019-06-09] MEDS: PROPRANOLOL 10 MG TAB PO SCH ×2 (15:00→17:21)
[2019-06-09] MEDS: ROSUVASTATIN 10 MG TAB (CRESTOR) PO SCH (21:50)
[2019-06-09 22:00] VITALS: BP 110/66
[2019-06-10] MEDS: LACTULOSE 20 GM/30 ML SYRUP UD PO SCH ×3 (00:36→12:00)
[2019-06-10] MEDS: MORPHINE 2 MG/ML 1ML VIAL (J2270) IV PRN ×8 (01:31→21:33)
[2019-06-10] MEDS: PROPRANOLOL 10 MG TAB PO SCH ×3 (05:55→12:00)
[2019-06-10 06:00] VITALS: BP 113/65
[2019-06-10 08:29] LABS: BASO % 0.4 % (0.0-1.0); EOS % 0.3 % (0.0-3.0); HEMATOCRIT 34.8 % (42.0-52.0); HEMOGLOBIN 11.6 g/dl (13.5-17.5); LYMPH # 0.9 10^3/uL (1.5-5.0); MEAN CORPUSCULAR HGB CONC 33.3 g/dl (32.0-36.5); MEAN CORPUSCULAR VOLUME 98.9 fl (80.0-96.0); MONO # 1.6 10^3/uL (0.0-0.8); MONO % 14.2 % (0.0-5.0); NEUTROPHILS # 8.4 10^3/uL (1.5-8.5); NEUTROPHILS % 76.5 % (36.0-66.0); PLATELET COUNT, AUTOMATED 230 10^3/uL (150-450); RED BLOOD COUNT 3.52 10^6/uL (4.30-6.10)
[2019-06-10] MEDS: ONDANSETRON 4MG/2ML VIAL (J2405) IV PRN ×2 (08:51→14:28)
[2019-06-10 08:52] LABS: ALBUMIN 2.7 GM/DL (3.2-5.2); ALT/SGPT 21 U/L (12-78); BILIRUBIN,TOTAL 1.5 MG/DL (0.2-1.0); BLOOD UREA NITROGEN 15 MG/DL (7-18); CALCIUM LEVEL 8.7 MG/DL (8.5-10.1); CARBON DIOXIDE LEVEL 26 MEQ/L (21-32); CHLORIDE LEVEL 95 MEQ/L (98-107); CREATININE FOR GFR 0.68 MG/DL (0.70-1.30); GLOMERULAR FILTRATION RATE > 60.0 (>60); GLUCOSE, FASTING 222 MG/DL (70-100); MAGNESIUM LEVEL 1.9 MG/DL (1.8-2.4); POTASSIUM SERUM 4.1 MEQ/L (3.5-5.1); SODIUM LEVEL 129 MEQ/L (136-145); TOTAL PROTEIN 6.7 GM/DL (6.4-8.2)
[2019-06-10] MEDS: FUROSEMIDE 40 MG/4 ML VIAL (J1940) IV SCH (08:53)
[2019-06-10] MEDS: PANTOPRAZOLE 40MG TAB (PROTONIX) PO SCH (08:55)
[2019-06-10] MEDS: lisinopriL 20 MG TAB PO SCH (08:55)
[2019-06-10] MEDS: HumaLOG INSULIN (NovoLOG) PER UNIT SC SCH ×3 (08:56→18:30)
[2019-06-10] MEDS: SPIRONOLACTONE 50 MG TAB PO SCH (08:56)
[2019-06-10] MEDS ORDERED: ISOVUE-370 76% 100ML VIAL (Q9967) As Ordered ONE (09:16)
--- NOTE | 2019-06-10 10:14 | REP ---
CT of the abdomen and pelvis with IV contrast, without bowel contrast: Comparison is 06/07/2019. The patient complains of abdominal pain. The visualized lung dawson are unremarkable. The entire small bowel is fluid-filled and and markedly distended except for distal ileal loops. This suggests small bowel obstruction as a change from the prior study. There is no pneumoperitoneum. There is abdominal ascites surrounding the liver and spleen, in the colic gutters and pelvis. This is similar to the prior study. The hepatic margin is nodular compatible with cirrhosis. This is unchanged. There is a 19 mm enhancing nodule in the right hepatic lobe, unchanged. The portal vein measures 18 ml in diameter. This is compatible with portal hypertension. This is unchanged. No hepatic masses are identified. The pancreas is unremarkable. The spleen is enlarged measuring 14 cm craniocaudad diameter. The stomach is distended with ingested material. The adrenals, kidneys and abdominal aorta are unremarkable. There is a vena cava filter, unchanged. Pelvis: There is pelvic f ascites. The bladder is unremarkable. Impression: Small bowel obstruction as described. Cirrhosis, portal hypertension and ascites, unchanged. Vena cava filter. 19 mm enhancing nodule in the right hepatic lobe, unchanged. Results are telephoned to the attending nurse on the patient's nursing floor. Electronically Signed by Dallin Ayala MD 06/10/2019 10:05 A
--- NOTE | 2019-06-10 12:23 | IPNPDOC ---
Text Note Date of Service The patient was seen on 06/10/19. NOTE Subjective: Patient is a 49-year-old male with a PMHx of Cirrhosis, Esophageal varices, Hx of DVT & PE 2/2 Factor V Leiden deficiency (s/p Coumadin - now with IVC filter), HTN, DLP, DM2 , who presented to the emergency room with abdominal pain. In the emergency room, patient was found to have a distended abdomen with imaging suggesting ascites. Patient appears NT completed on 06/08/2019 3400 mL of fluid removed and consistent with spontaneous bacterial peritonitis. Patient has been admitted to hospitalist service for further evaluation and treatment. Patient was seen and examined at the bedside. Currently patient still reports abdominal discomfort. Denies chest pain, palpitation. Has reported episodes of nausea and vomiting this morning has not yet expense any bowel movements. Limited urine output. Objective: Vitals (See below) General: Lying in bed, complaining of abdominal discomfort, AAOx3 HEENT: NC, AT CVS: +S1S2 Lungs: Fair air entry b/l, no appreciable wheezing / rhonchi / rales Abdomen: Remains soft, but with distention, mild diffuse tenderness Extremities: No evidence of edema, - Calf tenderness Assessment and plan: Intractable abdominal pain - likely 2/2 spontaneous bacterial peritonitis; likely 2/2 SBO - Presented to the emergency room with complaints of abdominal pain associated with distention - Patient has received a paracentesis on 06/08 with 3400 mL fluid removed consistent with infection - Repeat ultrasound 06/09 revealed small amounts of ascites - CT abdomen / pelvis 06/10: Small bowel obstruction as described. Cirrhosis, portal hypertension and ascites, unchanged. Vena cava filter. 19 mm enhancing nodule in the right hepatic lobe, unchanged. Results are telephoned to the attending nurse on the patient's nursing floor. - c/w Ceftriaxone 2 g IV for intraabdominal coverage (SBP coverage) - c/w Pain control - regimen adjusted - Consulted general surgery, Dr. Brooks; appreciate their input HTN - c/w lisinopril - c/w Propranolol; s/p Carvedilol and Atenolol DLP - c/w Rosuvastatin Liver cirrhosis / Esophageal varices - c/w Propranolol - c/w adjusted dose of Lactulose - Has appointment at [facility] this week with transplant and for possible TIPS procedure DM2 - c/w ISS Hx of DVT & PE 2/2 Factor V Leiden deficiency - Has been off anticoagulation 2/2 variceal bleeding - s/p IVC filter placement GI prophylaxis - c/w Protonix DVT prophylaxis - c/w TEDs/Sequentials Disposition: - Consulted Surgery for further recommendations for SBO with Hx of Cirrhosis + Varices VS,Fishbone, I+O VS, Fishbone, I+O Laboratory Tests 06/09/19 13:41 06/10/19 08:00 Vital Signs Date Time Temp Pulse Resp B/P (MAP) Pulse Ox O2 Delivery O2 Flow Rate FiO2 06/10/19 11:54 20 06/10/19 11:32 Room Air 06/10/19 08:55 124/76 06/10/19 06:00 98.7 88 93 06/08/19 06:00 2.0 I&O- Last 24 Hours up to 6 AM 06/10/19 06:00 Intake Total 50 ml Output Total 950 ml Balance -900 ml TREASURE HENDRICKS MD Jun 10, 2019 12:23
[2019-06-10 14:00] VITALS: BP 108/55
[2019-06-10] MEDS: cefTRIAXone SOD 2 GM in D5W MINI-BAG PLUS 50 ML IV SCH (15:34)
[2019-06-10] MEDS: PANTOPRAZOLE 40MG INJ (PROTONIX) (C9113) IV SCH (20:30)
[2019-06-10 22:00] VITALS: BP 110/57
[2019-06-11] MEDS: MORPHINE 2 MG/ML 1ML VIAL (J2270) IV PRN ×6 (00:19→21:20)
[2019-06-11] MEDS: HumaLOG INSULIN (NovoLOG) PER UNIT SC SCH ×4 (05:37→17:57)
[2019-06-11 06:00] VITALS: BP 118/64
[2019-06-11 06:13] LABS: BASO # 0.1 10^3/uL (0.0-0.2); BASO % 0.6 % (0.0-1.0); EOS # 0.1 10^3/uL (0.0-0.5); EOS % 0.7 % (0.0-3.0); HEMATOCRIT 32.6 % (42.0-52.0); HEMOGLOBIN 10.9 g/dl (13.5-17.5); LYMPH # 1.1 10^3/uL (1.5-5.0); LYMPH % 12.8 % (24.0-44.0); MEAN CORPUSCULAR HEMOGLOBIN 33.1 pg (27.0-33.0); MEAN CORPUSCULAR HGB CONC 33.4 g/dl (32.0-36.5); MEAN CORPUSCULAR VOLUME 99.1 fl (80.0-96.0); MONO # 1.6 10^3/uL (0.0-0.8); MONO % 18.4 % (0.0-5.0); NEUTROPHILS # 5.8 10^3/uL (1.5-8.5); NEUTROPHILS % 67.3 % (36.0-66.0); PLATELET COUNT, AUTOMATED 200 10^3/uL (150-450); RED BLOOD COUNT 3.29 10^6/uL (4.30-6.10); WHITE BLOOD COUNT 8.6 10^3/uL (4.0-10.0)
[2019-06-11 06:40] LABS: ALBUMIN 2.7 GM/DL (3.2-5.2); BILIRUBIN,TOTAL 1.7 MG/DL (0.2-1.0); CALCIUM LEVEL 8.9 MG/DL (8.5-10.1); CREATININE FOR GFR 1.61 MG/DL (0.70-1.30); MAGNESIUM LEVEL 1.8 MG/DL (1.8-2.4); POTASSIUM SERUM 3.4 MEQ/L (3.5-5.1); TOTAL PROTEIN 6.7 GM/DL (6.4-8.2)
[2019-06-11] MEDS: NS 1,000 ML IV SCH ×2 (08:10→20:01)
[2019-06-11] MEDS: PANTOPRAZOLE 40MG INJ (PROTONIX) (C9113) IV SCH ×2 (08:10→20:01)
[2019-06-11 09:09] LABS: INR 1.44; PROTHROMBIN TIME 17.3 SECONDS (11.8-14.0)
--- NOTE | 2019-06-11 11:53 | IPNPDOC ---
Text Note Date of Service The patient was seen on 06/11/19. NOTE Subjective: Patient is a 49-year-old male with a PMHx of Cirrhosis, Esophageal varices, Hx of DVT & PE 2/2 Factor V Leiden deficiency (s/p Coumadin - now with IVC filter), HTN, DLP, DM2 , who presented to the emergency room with abdominal pain. In the emergency room, patient was found to have a distended abdomen with imaging suggesting ascites. Patient appears NT completed on 06/08/2019 3400 mL of fluid removed and consistent with spontaneous bacterial peritonitis. Patient has been admitted to hospitalist service for further evaluation and treatment. Patient was seen and examined at the bedside. Patient has not experienced any CP, SOB, Palpitations, nausea or vomiting. He still reports some abdominal discomfort. He has not had any bowel movements nor has he had flatus. Patient has reported some difficulty with urination. Objective: Vitals (See below) General: Lying in bed, complaining of abdominal discomfort, AAOx3 HEENT: NC, AT CVS: +S1S2 Lungs: Again air entry remains fair bilaterally without evidence of rhonchi, rales or wheezing Abdomen: Remains soft, there is significant distention, mild tenderness appre ciated diffusely Extremities: Lower extremity are free of any edema, - Calf tenderness Assessment and plan: Intractable abdominal pain - likely 2/2 spontaneous bacterial peritonitis; likely 2/2 SBO - Presented to the emergency room with complaints of abdominal pain associated with distention - Patient has received a paracentesis on 06/08 with 3400 mL fluid removed consis tent with infection - Repeat ultrasound 06/09 revealed small amounts of ascites - CT abdomen / pelvis 06/10: Small bowel obstruction as described. Cirrhosis, portal hypertension and ascites, unchanged. Vena cava filter. 19 mm enhancing nodule in the right hepatic lobe, unchanged. Results are telephoned to the attending nurse on the patient's nursing floor. - XR abdomen taken today - still reveals dilated SBO - c/w Ceftriaxone 2 g IV for intraabdominal coverage (SBP coverage) - c/w Pain control - Consulted general surgery, Dr. Brooks; appreciate their input - Will remain NPO with NG tube in place to LIS HTN - c/w lisinopril - c/w Propranolol; s/p Carvedilol and Atenolol DLP - c/w Rosuvastatin Liver cirrhosis / Esophageal varices - c/w Propranolol - c/w adjusted dose of Lactulose - Has appointment at [place] for possible evaluation of TIPS procedure DM2 - c/w ISS Hx of DVT & PE 2/2 Factor V Leiden deficiency - Has been off anticoagulation 2/2 variceal bleeding - s/p IVC filter placement GI prophylaxis - c/w Protonix DVT prophylaxis - c/w TEDs/Sequentials Disposition: - c/w NPO status + IV fluids VS,Fishbone, I+O VS, Fishbone, I+O Laboratory Tests 06/11/19 05:21 Vital Signs Date Time Temp Pulse Resp B/P (MAP) Pulse Ox O2 Delivery O2 Flow Rate FiO2 06/11/19 09:37 16 93 06/11/19 09:27 Room Air 06/11/19 06:00 98.3 98 118/64 (82) 06/08/19 06:00 2.0 I&O- Last 24 Hours up to 6 AM 06/11/19 06:00 Intake Total 410 ml Output Total 1420 ml Balance -1010 ml TREASURE HENDRICKS MD Jun 11, 2019 11:52
--- NOTE | 2019-06-11 12:22 | REP ---
ACUTE ABDOMINAL SERIES: Four views. HISTORY: Ileus. NG tube placement. FINDINGS: Upright chest radiograph demonstrates a nasogastric tube entering the left upper quadrant. No infiltrate or free subdiaphragmatic air is seen. Supine erect views of the abdomen show the NG tube in the body of the stomach distal antral region. There are clips in the right upper quadrant. A vena cava filter is noted in place to the right of midline. There are dilated loops of small bowel throughout the central abdomen displaying air-fluid levels on the upright film. There is some right colonic gas and stool without colonic distension. There is some air in the splenic flexure. Question ileus versus partial small bowel obstruction. No free air is seen. Degree of bowel loop distension is similar to that seen on yesterday's CT study. Electronically Signed by Matias Greenwood MD 06/11/2019 02:33 P
[2019-06-11 14:00] VITALS: BP 110/55
[2019-06-11] MEDS: cefTRIAXone SOD 2 GM in D5W MINI-BAG PLUS 50 ML IV SCH (14:28)
[2019-06-11 22:00] VITALS: BP 121/60
[2019-06-12] MEDS: MORPHINE 2 MG/ML 1ML VIAL (J2270) IV PRN ×4 (00:04→09:06)
[2019-06-12] MEDS: HumaLOG INSULIN (NovoLOG) PER UNIT SC SCH ×5 (00:42→23:54)
[2019-06-12] MEDS: NS 1,000 ML IV SCH ×3 (05:35→19:40)
[2019-06-12 06:00] VITALS: BP 122/62
[2019-06-12 07:24] LABS: BASO % 0.5 % (0.0-1.0); EOS # 0.1 10^3/uL (0.0-0.5); EOS % 0.8 % (0.0-3.0); HEMATOCRIT 30.8 % (42.0-52.0); HEMOGLOBIN 10.4 g/dl (13.5-17.5); LYMPH # 0.9 10^3/uL (1.5-5.0); MEAN CORPUSCULAR HEMOGLOBIN 33.1 pg (27.0-33.0); MEAN CORPUSCULAR HGB CONC 33.8 g/dl (32.0-36.5); MEAN CORPUSCULAR VOLUME 98.1 fl (80.0-96.0); MONO # 1.6 10^3/uL (0.0-0.8); MONO % 17.8 % (0.0-5.0); NEUTROPHILS # 6.3 10^3/uL (1.5-8.5); NEUTROPHILS % 70.4 % (36.0-66.0); PLATELET COUNT, AUTOMATED 152 10^3/uL (150-450); RED BLOOD COUNT 3.14 10^6/uL (4.30-6.10); WHITE BLOOD COUNT 8.9 10^3/uL (4.0-10.0)
[2019-06-12 07:58] LABS: ALBUMIN 2.6 GM/DL (3.2-5.2); ALT/SGPT 17 U/L (12-78); BILIRUBIN,TOTAL 1.7 MG/DL (0.2-1.0); BLOOD UREA NITROGEN 20 MG/DL (7-18); CALCIUM LEVEL 8.5 MG/DL (8.5-10.1); CARBON DIOXIDE LEVEL 27 MEQ/L (21-32); CHLORIDE LEVEL 97 MEQ/L (98-107); CREATININE FOR GFR 0.78 MG/DL (0.70-1.30); GLOMERULAR FILTRATION RATE > 60.0 (>60); GLUCOSE, FASTING 161 MG/DL (70-100); MAGNESIUM LEVEL 1.7 MG/DL (1.8-2.4); POTASSIUM SERUM 3.3 MEQ/L (3.5-5.1); SODIUM LEVEL 133 MEQ/L (136-145); TOTAL PROTEIN 6.7 GM/DL (6.4-8.2)
--- NOTE | 2019-06-12 08:27 | REP ---
At abdominal series some for views including PA chest, upright abdomen and two supine views of the abdomen: Comparison is a similar study of 06/11/2019. PA chest: The lung dawson are clear. Cardiac size normal. The doug, mediastinum, skeletal structures are unremarkable. There is no free subdiaphragmatic air. No interval change. Abdomen, supine upright views: There are dilated air-filled small bowel loops, however, there are few in number than on the comparison study. There is a nasogastric tube with the tip terminating in the stomach as previously. There are surgical clips in the right upper quadrant. There is a vena cava filter, unchanged. Impression: There are air-filled distended small bowel loops, however, few in number than on the comparison study. Electronically Signed by Dallin Ayala MD 06/12/2019 08:19 A
[2019-06-12] MEDS: PANTOPRAZOLE 40MG INJ (PROTONIX) (C9113) IV SCH ×2 (09:06→21:04)
[2019-06-12] MEDS ORDERED: MAG SULF 1GM/100ML (MAG RUN) 1 GM in IV 1 EA IV ONE (09:30)
[2019-06-12] MEDS ORDERED: KCL 10MEQ/100ML SWI (KRUN) 10 MEQ in IV 1 EA IV ONE (09:30)
[2019-06-12] MEDS ORDERED: NS 1,000 ML IV SCH (10:48)
[2019-06-12] MEDS ORDERED: diphenhydrAMINE INJ 50MG/ML VIAL (J1200) IV PRN (11:00)
[2019-06-12] MEDS ORDERED: NALBUPHINE HCL 10 MG/ML AMP (J2300) IV PRN (11:00)
[2019-06-12] MEDS ORDERED: NALOXONE INJ 0.4 MG/1 ML VIAL (J2310) IV PRN (11:00)
[2019-06-12] MEDS ORDERED: MORPHINE 1MG/ML IN 0.9% NACL 100ML IV BAG IV PRN (11:00)
[2019-06-12] MEDS ORDERED: EPIDURAL/PCA KEYS XX PRN (11:00)
--- NOTE | 2019-06-12 11:33 | IPN ---
DATE: 06/11/2019 White count has dropped down to normal today, however, he is still quite distended. He is not having any bowel movements. He feels fine from a standpoint of feeling less pain or discomfort along his abdomen, but he still has discomfort. He has had not any bowel movements. He has not had any flatus. When I look at his imaging, he still has some dilated loops of small bowel. However, what I notice is that there is more air in the transverse colon and I feel that this is much more consistent with an ileus versus an obstruction and even more so is consistent with this is bacterial peritonitis that he had. PHYSICAL EXAMINATION: Abdomen is still morbidly obese and distended, but it is not as tight as it was previously. At this point, my recommendation is that we keep the nasogastric tube in overnight, see how he is doing in the morning and if we have some clinical progress, flatus and bowel movements, we may consider removing this; however, I stated in my consultation note is that he is an individual that is really a significant risk for operative intervention and so I would go very slowly with him with progressing the diet, etc.
--- NOTE | 2019-06-12 11:35 | IPN ---
DATE: 06/12/2019 The patient overall seems to be making some good progress. He had a very small bowel movement with some flatus last night and feels less pain and discomfort this morning. His x-rays look improved but he still has some mildly dilated small bowel. The nasogastric (NG) tube output seems to be mostly clear fluid, almost saliva-looking water. Overall on his abdominal exam he is still morbidly obese, mildly distended. IMPRESSION AND PLAN: The patient has continued problems with his ileus but it seems to be resolving/resolved. I do have concern that he still has some NG tube output but more importantly he is such a difficult read given his abdominal distension and morbid obesity that I would like to clamp his tube, check residuals every 4 hours. If he is doing well with this and not having any nausea, he is not having any progressive distension and he is continuing to have some bowel movements, then we will plan on discontinuing the NG tube later on today. Possibly start him on some clear liquids tomorrow if he is doing well with this and get home with plans for outpatient evaluation by [facility] for a possible transjugular intrahepatic portosystemic shunt (TIPS) in the future.
--- NOTE | 2019-06-12 12:05 | CR ---
DATE OF CONSULTATION: 06/10/2019 HISTORY OF PRESENT ILLNESS The patient is a 49-year-old male who has had a history of ascites secondary to cirrhosis and had a large volume paracentesis on his last admission which was just a couple weeks ago. Essentially last admission, he had esophageal varices with bleeding and with the bleeding he had esophageal banding. He had an attempted TIPS procedure performed in [place], they were not able to perform this and he was discharged home. After being discharged home, he developed progressive ascites and the ascites caused progressive abdominal distention. He had what appeared to be infected ascites or spontaneous bacterial peritonitis that was the diagnosis on admission and he has been treated with antibiotics. However, he has had an elevated white count after his initial admission on the and his white count was 13,000 on the and since that time has been gradually coming down and it has come down to 11,000, but he os still quite distended. He has not had bowel movements, he states, for at least 5 days. X-rays were performed, abdominal ultrasound was performed and followup CT scan was performed. In general, the CAT scan revealed evidence of questionable small bowel obstruction, although with markedly distended small bowel with air fluid levels and a distended stomach. He does not complain of severe crampy abdominal pain. Most of his pain is from progressive distention and discomfort. PAST MEDICAL HISTORY: Significant for history of hypertension, cirrhosis factor five Leiden deficiency, deep vein thrombosis (DVT), pulmonary embolism (PE), hyperlipidemia, diabetes mellitus, morbid obesity, previous cholecystectomy, and inferior vena cava (IVC) filter. MEDICATIONS ON ADMISSION: Include atenolol, carvedilol, vitamin D, probiotic, lactulose, lisinopril, metformin, pantoprazole, Crestor, and Coumadin. PHYSICAL EXAMINATION: Reveals a morbidly obese male who looks stated age. HEENT is unremarkable. Lungs are clear anteriorly. Heart is regular. Abdomen is tensely distended, mildly uncomfortable with deep palpation, but no true peritoneal signs are appreciated. On his x-rays, however, he really has significantly dilated small bowel and a distended stomach. With his tensely distended stomach, I anticipate that he probably has several liters of fluid that would be removed with NG tube decompression. Given his current situation, I do have concerns with his esophageal varices and his anticoagulation, that indeed he has a higher risk of bleeding associated with NG tube decompression, but I also am very concerned that with his current situation that he has aspiration risk associated with that distended bowel and he can have some progressive complaints from a GI standpoint. I feel that his most likely diagnosis is ileus secondary to his peritonitis, but there is a chance that this is a small bowel obstruction and given the prolonged presentation of this his best option is NG tube decompression. If we can get his white count down and his bowel less distended and he resolves this issue, that would be his best outcome. Then he can proceed with outpatient evaluation for a possible TIPS in [place]. However, unfortunately, if he does not resolve his ileus/bowel obstruction looking presentation over the next several days, he may need operative intervention. However, with that, as a possibility I would recommend that he have a TIPS prior to his operative intervention. Otherwise, postoperative complications can be relatively significant high, etc., and possibly life-threatening. Thus, will see how he does over the next 24 hours. If he is making some progress and I anticipate he should if this is infection related and we continue with antibiotics, etc., this should start to improve/resolve.
--- NOTE | 2019-06-12 12:17 | IPNPDOC ---
Date Seen The patient was seen on 06/12/19. Progress Note SUBJECTIVE: Patient was seen and examined this morning beside. He still has some abdominal discomfort but it has improved from yesterday. He has had a few small bowel movements, has flatus and is urinating. No events overnight. patient denies chest pain, shortness of breath, hemoptysis, nausea, vomiting. OBJECTIVE PHYSICAL EXAMINATION: VITAL SIGNS: Please see below. GENERAL: Pleasant 49 year old male sitting up in a chair with NG tube in place, in no acute distress. HEENT: Atraumatic, normocephalic, moist mucus membranes. CARDIOVASCULAR: Normal S1 S2 regular rate and rhythm with a 2/6 systolic murmur at L 2nd intercostal space. RESPIRATORY: Clear to auscultation bilaterally with no wheezes, rhonchi or rales. ABDOMINAL: Bowel sounds present, abdomen distended but soft with tenderness to palpation in center of abdomen, no guarding, rebound tenderness or rigidity. NG tube in place and draining almost clear, saliva looking fluid with no blood. EXTREMITIES: no lower extremity edema. NEUROLOGICAL: AOx3, no gross focal deficits PSYCHOLOGICAL: Appropriate. LABORATORY DATA, MICROBIOLOGY: Please see below. IMAGING STUDIES: Abdomen XRay 06/11/19 impression:There are dilated loops of small bowel throughout the central abdomen displaying air-fluid levels on the upright film. There is some right colonic gas and stool without colonic distension. There is some air in the splenic flexure. Question ileus versus partial small bowel obstruction. No free air is seen. Degree of bowel loop distension is similar to that seen on yesterday's CT study. Abdomen XRay 06/12/19 impression: There are air-filled distended small bowel loops, however, few in number than on the comparison study. ASSESSMENT: Patient is a 49-year-old male with a PMHx of Cirrhosis, Esophageal varices, Hx of DVT & PE 2/2 Factor V Leiden deficiency (s/p Coumadin - now with IVC filter) who presented to the ED for abdominal pain and was found to have ascites and small bowel obstruction. PLAN: 1. Intractable Abdominal Pain; likely 2/2 spontaneous bacterial peritonitis likely 2/2 small bowel obstruction - Presented to the emergency room with complaints of abdominal pain associated with distention - Patient has received a paracentesis on 06/08 with 3400 mL fluid removed consistent with infection; Repeat ultrasound 06/09 revealed small amounts of ascites - CT abdomen / pelvis 06/10: Small bowel obstruction as described. Cirrhosis, portal hypertension and ascites, unchanged. Vena cava filter. 19 mm enhancing nodule in the right hepatic lobe, unchanged. Results are telephoned to the attending nurse on the patient's nursing floor. - abdomen xray 06/12/2019: still shows some distended small bowel loops, but less than previous abdomen xray. - c/w Ceftriaxone 2 g IV for intraabdominal coverage (SBP coverage) - c/w Pain control - Consulted general surgery, Dr. Brooks; appreciate their input - Per Dr. Brooks, NG tube will be clapped today, will c/w NPO. 2. Liver cirrhosis with esophageal varices -c/w propranolol -c/w adjusted dose of Lactulose. -Has scheduled appt in [place] for a potential TIPS procedure. 3. New 05/21 systolic murmur at L 2nd intercostal space -echocardiogram pending. 3. HTN -c/w lisinopril -c/w propranolol 4. Dyslipidemia -c/w rosuvastatin 5. Hx of DVT & PE 05/17 Factor V Leiden deficiency -s/p IVC filter placement -anticoagulation was discontinued due to bleeding esophageal varices (05/22/2019) 6. DM type II -c/w insulin sliding scale DVT prophylaxis: TEDS and sequentials DISPOSITION: NPO status, NG tube and IV fluids. VS, I&O, 24H, Fishbone Vital Signs/I&O Vital Signs Date Time Temp Pulse Resp B/P (MAP) Pulse Ox O2 Delivery O2 Flow Rate FiO2 06/12/19 06:45 18 06/12/19 06:27 Room Air 06/12/19 06:00 98.1 98 122/62 (82) 94 06/08/19 06:00 2.0 I&O- Last 24 Hours up to 6 AM 06/12/19 05:59 Intake Total 1410 ml Output Total 1325 ml Balance 85 ml Laboratory Data 24H LABS Laboratory Tests 2 06/11/19 11:46: Bedside Glucose (Misc Panel) 155H 06/11/19 17:50: Bedside Glucose (Misc Panel) 154H 06/12/19 00:07: Bedside Glucose (Misc Panel) 172H 06/12/19 05:22: Bedside Glucose (Misc Panel) 165H 06/12/19 06:57: Immature Granulocyte % (Auto) 0.5, Neutrophils (%) (Auto) 70.4H, Lymphocytes (%) (Auto) 10.0L, Monocytes (%) (Auto) 17.8H, Eosinophils (%) (Auto) 0.8, Basophils (%) (Auto) 0.5, Neutrophils # (Auto) 6.3, Lymphocytes # (Auto) 0.9L, Monocytes # (Auto) 1.6H, Eosinophils # (Auto) 0.1, Basophils # (Auto) 0.0, Nucleated Red Blood Cells % (auto) 0.0, Anion Gap 9, Glomerular Filtration Rate > 60.0, Calcium Level 8.5, Magnesium Level 1.7L, Total Bilirubin 1.7H, Aspartate Amino Transf (AST/SGOT) 30, Alanine Aminotransferase (ALT/SGPT) 17, Alkaline Phosphatase 87, Total Protein 6.7, Albumin 2.6L, Albumin/Globulin Ratio 0.63L CBC/BMP Laboratory Tests 06/12/19 06:57 Microbiology Microbiology 06/08/19 Body Fluid Culture - Final, Complete 06/07/19 Blood Culture - Final, Complete NO GROWTH AFTER 5 DAYS 06/07/19 Blood Culture - Final, Complete NO GROWTH AFTER 5 DAYS GME ATTESTATION GME ATTESTATION My faculty preceptor for this patient encounter was physically present during the encounter and was fully available. All aspects of the patient interview, examination, medical decision making process, and medical care plan development were reviewed and approved by the faculty preceptor. The faculty preceptor is aware and concurs with the plan as stated in the body of this note and will attest to such by his/her cosignature. ATTENDING NOTE I, Hanna Hendricks, have independently examined this patient and performed my own physical exam, as well as reviewed the documentation and edited where necessary. I have discussed in detail with the resident / student the findings and plan of treatment as documented by the resident / student and edited their note. I agree with their findings and treatment plan and have edited their documentation. I will continue to follow the patient during this hospital stay. FLORY HENDRICKS OMS-3 Jun 12, 2019 08:48 HANNA HENDRICKS MD Jun 12, 2019 16:12
[2019-06-12 14:00] VITALS: BP 106/65
[2019-06-12] MEDS: cefTRIAXone SOD 2 GM in D5W MINI-BAG PLUS 50 ML IV SCH (15:37)
[2019-06-12 22:00] VITALS: BP 145/79
[2019-06-13] MEDS: NS 1,000 ML IV SCH (05:47)
[2019-06-13 06:00] VITALS: BP 146/78
[2019-06-13] MEDS: HumaLOG INSULIN (NovoLOG) PER UNIT SC SCH ×3 (06:15→18:34)
[2019-06-13 06:35] LABS: BASO % 0.4 % (0.0-1.0); EOS # 0.1 10^3/uL (0.0-0.5); EOS % 1.1 % (0.0-3.0); HEMATOCRIT 29.5 % (42.0-52.0); HEMOGLOBIN 9.9 g/dl (13.5-17.5); LYMPH % 14.7 % (24.0-44.0); MEAN CORPUSCULAR HEMOGLOBIN 33.4 pg (27.0-33.0); MEAN CORPUSCULAR HGB CONC 33.6 g/dl (32.0-36.5); MEAN CORPUSCULAR VOLUME 99.7 fl (80.0-96.0); MONO # 1.3 10^3/uL (0.0-0.8); MONO % 17.8 % (0.0-5.0); NEUTROPHILS # 4.6 10^3/uL (1.5-8.5); NEUTROPHILS % 65.7 % (36.0-66.0); PLATELET COUNT, AUTOMATED 133 10^3/uL (150-450); RED BLOOD COUNT 2.96 10^6/uL (4.30-6.10)
[2019-06-13 06:55] LABS: ALBUMIN 2.4 GM/DL (3.2-5.2); ALT/SGPT 15 U/L (12-78); BILIRUBIN,TOTAL 1.3 MG/DL (0.2-1.0); BLOOD UREA NITROGEN 6 MG/DL (7-18); CALCIUM LEVEL 8.4 MG/DL (8.5-10.1); CARBON DIOXIDE LEVEL 30 MEQ/L (21-32); CHLORIDE LEVEL 98 MEQ/L (98-107); CREATININE FOR GFR 0.63 MG/DL (0.70-1.30); GLOMERULAR FILTRATION RATE > 60.0 (>60); GLUCOSE, FASTING 144 MG/DL (70-100); MAGNESIUM LEVEL 1.8 MG/DL (1.8-2.4); POTASSIUM SERUM 3.3 MEQ/L (3.5-5.1); SODIUM LEVEL 134 MEQ/L (136-145); TOTAL PROTEIN 6.5 GM/DL (6.4-8.2)
[2019-06-13] MEDS ORDERED: POTASSIUM CHLORIDE 10 MEQ SR TABLET PO ONE (07:45)
[2019-06-13] MEDS: PANTOPRAZOLE 40MG INJ (PROTONIX) (C9113) IV SCH ×2 (08:49→21:16)
[2019-06-13] MEDS: lisinopriL 20 MG TAB PO SCH (08:49)
[2019-06-13] MEDS ORDERED: LACTULOSE 20 GM/30 ML SYRUP UD PO ONE (09:30)
[2019-06-13] MEDS: BACTRIM 160MG/800MG DS TAB PO SCH (10:00)
[2019-06-13] MEDS: MAGNESIUM OXIDE 400 MG TAB (MAG-OX) PO SCH (10:01)
[2019-06-13] MEDS ORDERED: traMADol 50 MG TAB PO PRN (11:30)
[2019-06-13] MEDS ORDERED: ACETAMINOPHEN TAB 650MG DOSE (2X325MG) PO PRN (11:30)
[2019-06-13] MEDS: LACTULOSE 20 GM/30 ML SYRUP UD PO SCH ×2 (12:51→16:53)
[2019-06-13] MEDS: PROPRANOLOL 10 MG TAB PO SCH ×2 (13:39→18:00)
[2019-06-13 14:00] VITALS: BP 107/63
--- NOTE | 2019-06-13 14:17 | DS.PDOC ---
Discharge Summary General Date of Admission Jun 09, 2019 at 09:01 Date of Discharge 06/14/2019 Attending Physician: HANNA HENDRICKS MD Discharge Summary PROCEDURES PERFORMED DURING STAY: Paracentesis. ADMITTING DIAGNOSES: 1. Intractable abdominal pain 2. Ascites 3. Cirrhosis 4. History of esophageal varices DISCHARGE DIAGNOSES: 1. Spontaneous bacterial peritonitis. 2. Small bowel obstruction versus ileus secondary to peritonitis 3. Liver cirrhosis with esophageal varices 4. New 2/6 systolic ejection murmur at the second intercostal space on the left COMPLICATIONS/CHIEF COMPLAINT: Spontaneous Bacterial Peritonitis. HISTORY OF PRESENT ILLNESS: This is a 49-year-old male with past medical history significant for liver cirrhosis who presented to the emergency department on the day of admission complaining of abdominal pain. It had started Saturday night with generalized abdominal pain and cramping, however progressed to pain that was 10/10 in intensity. He denied any fever, chills, nausea, vomiting, diarrhea, shortness of breath, or urinary complaints. In the emergency department, CT abdomen and pelvis showed large volume peritoneal ascites. He was started on IV Zosyn and the hospitalist service was called for admission for suspected spontaneous bacterial peritonitis. HOSPITAL COURSE: The patient was admitted and underwent paracentesis, with 3350 mL of fluid remov ed. Fluid analysis revealed a WBC count of 1355, with 75.4% PMNs. The patient was started on IV ceftriaxone. His abdominal pain did continue, however, and another CT abdomen and pelvis was obtained which suggested small bowel obstruction. Dr. Brooks from general surgery was consulted, and he recommended decompression with NG tube. He was able to be successfully decompressed, and eventually was able to pass flatus and have bowel movements. His abdominal pain and distention improved. He was able to tolerate full liquids, and was meeting all discharge criteria on the day of discharge. Patient has been transitioned over to oral antibiotics for completion of antibiotic course. He's been advised to follow-up with [place] team for liver transplant and possible TIPS procedure. Role of resuming anticoagulation with Coumadin in the setting of esophageal variceal bleeding was discussed. Currently, this is a very high risk consideration. Patient already has an IVC filter in place. His risk of developing pulmonary embolism is reduced, but not eliminated. Patient would like to remain off Coumadin at this time. Risks and benefits discussed - verbalized understanding. He will follow up with his transplant team for TIPS procedure and reevaluation of Coumadin resumption. DISCHARGE MEDICATIONS: Please see below. ALLERGIES: Please see below. PHYSICAL EXAMINATION ON DISCHARGE: Vitals: Please see below. General: Obese, middle-aged male who is in no acute distress. Pleasant and cooperative. HEENT: Atraumatic, normocephalic, moist mucus membranes. NG tube has been removed Heart: Regular rate and rhythm; 2/6 systolic murmur heard best at the 2nd inte rcostal space on the left. No other gallops or rubs Lungs: Clear to auscultation bilaterally; no wheezes, rhonchi or rales. Abdomen: Morbidly obese. Normoactive bowel sounds, abdomen mildly distended but soft with mild tenderness to palpation in center of abdomen, no guarding, rebound tenderness or rigidity. Extremities: No lower extremity edema bilaterally, some hypertonicity noted in the left calf (more-so than the right) Neuro: Answers questions appropriately, sensation intact throughout. No gait abnormalities Psych: Appropriate mood and affect. LABORATORY DATA: Please see below. IMAGING: CT angio of the chest done 06/07/2019: Old granulomatous disease, unchanged from prior study, with minimal infiltrates in the anterior left upper lobe and lingula. CT abdomen and pelvis done on 06/07/2019: Hepatic cirrhosis with mild splenomegaly and some portal venous collateralization, similar to prior study. Mild, large volume peritoneal ascites. IVC filter in position. Small 19 mm hyperenhancing focus in the right hepatic lobe, nonspecific. Ultrasound-guided paracentesis done on 06/08/2019: Ultrasound guidance, using an 8-[place] multi side-holed catheter was inserted using trocar technique. 3.350 mL of clear yellow-colored fluid was withdrawn. Abdominal ultrasound done 06/09/2019: Small volume of ascites adjacent to the liver, small volume of ascites in the right lower quadrant. CT abdomen and pelvis done 06/10/2019: The entire small bowel is fluid-filled and markedly distended except for the distal ileal loops, suggesting small bowel obstruction as a change from the prior study. Abdominal ascites is similar to prior study. Abdominal x-ray done 06/11/2019: NG tube entering the left upper quadrant without infiltrate or subdiaphragmatic free air. Abdominal x-ray done 06/12/2019: Air-filled, distended small bowel loops, fewer in number than on comparison. ECHO : 1. Study is of fair technical quality. 2. The patient is in sinus tachycardia. 3. Normal left ventricular (LV) size with mild left ventricular hypertrophy (LVH), hyperdynamic LV systolic function and normal diastolic function. 4. No significant valvular disease, pulmonic valve was not well seen. 5. Probably normal central venous pressure. Unable to estimate pulmonary artery pressure. 6 . I speculate that the patient's murmur is most likely related to hyperdynamic contractility. PROGNOSIS: Fair ACTIVITY: As tolerated. DIET: Consistent carbohydrate DISCHARGE PLAN: Discharge to home DISPOSITION: Stable. DISCHARGE INSTRUCTIONS: 1. Continue with Bactrim for SBP prophylaxis. 2. Follow up with [place] on 06/22 as scheduled 3. Return to the ER if you experience any problems ITEMS TO FOLLOWUP ON ON OUTPATIENT: 1. Patient started to develop some left lower extremity calf pain. He does have a history of DVT in that leg. Due to his esophageal varices and the risk of bleeding, however, he has been taken off of Coumadin by his environmental services lead in [place]. Currently there are no plans to resume this medication. After extensive discussion with the patient (he does have an IVC filter in place), it was decided not to ultrasound the leg because it would not change the course of management. The patient and his agreed with this plan after all risks and benefits were discussed. Decision for anticoagulation will be left up to the transplant team in [place]. DISCHARGE CONDITION: Stable. TIME SPENT ON DISCHARGE: Greater than 30 minutes. Vital Signs/I&Os Vital Signs Date Time Temp Pulse Resp B/P (MAP) Pulse Ox O2 Delivery O2 Flow Rate FiO2 06/13/19 13:39 116 119/70 06/13/19 13:21 18 Room Air 06/13/19 06:00 98.3 97 06/08/19 06:00 2.0 I&O- Last 24 Hours up to 6 AM 06/13/19 05:59 Intake Total 100 ml Output Total 1900 ml Balance -1800 ml Laboratory Data Labs 24H Laboratory Tests 2 06/12/19 17:28: Bedside Glucose (Misc Panel) 162H 06/12/19 23:32: Bedside Glucose (Misc Panel) 139H 06/13/19 06:06: Bedside Glucose (Misc Panel) 144H 06/13/19 06:10: Immature Granulocyte % (Auto) 0.3, Neutrophils (%) (Auto) 65.7, Lymphocytes (%) (Auto) 14.7L, Monocytes (%) (Auto) 17.8H, Eosinophils (%) (Auto) 1.1, Basophils (%) (Auto) 0.4, Neutrophils # (Auto) 4.6, Lymphocytes # (Auto) 1.0L, Monocytes # (Auto) 1.3H, Eosinophils # (Auto) 0.1, Basophils # (Auto) 0.0, Nucleated Red Blood Cells % (auto) 0.0, Anion Gap 6L, Glomerular Filtration Rate > 60.0, Calcium Level 8.4L, Magnesium Level 1.8, Total Bilirubin 1.3H, Aspartate Amino Transf (AST/SGOT) 27, Alanine Aminotransferase (ALT/SGPT) 15, Alkaline Phosphatase 84, Total Protein 6.5, Albumin 2.4L, Albumin/Globulin Ratio 0.59L 06/13/19 11:48: Bedside Glucose (Misc Panel) 209H CBC/BMP Laboratory Tests 06/13/19 06:10 FSBS Laboratory Tests Test 06/12/19 17:28 06/12/19 23:32 06/13/19 06:06 06/13/19 11:48 Range/Units Bedside Glucose (Misc Panel) 162 139 144 209 70-105 MG/DL Microbiology Microbiology 06/08/19 Body Fluid Culture - Final, Complete 06/07/19 Blood Culture - Final, Complete NO GROWTH AFTER 5 DAYS 06/07/19 Blood Culture - Final, Complete NO GROWTH AFTER 5 DAYS Discharge Medications Scheduled Atenolol (Atenolol) 50 Mg Tab, 50 MG PO DAILY, (Reported) [facility] PRESCRIBED BOTH THE ATENOLOL AND CARVEDILOL Carvedilol (Carvedilol) 12.5 Mg Tablet, 6.25 MG PO BID, (Reported) Ergocalciferol (Vitamin D2) (Vitamin D2) 50,000 Units Cap, 50,000 UNITS PO 1XWK, (Reported) SUNDAYS Lactobacillus Acidophilus (Probiotic) 1 Each Capsule, 2 CAP PO DAILY, (Reported) BEFORE BREAKFAST Lactulose (Lactulose) 10 Gm/15 Ml Solution, 15 ML PO BID, (Reported) Lisinopril (Lisinopril) 20 Mg Tab, 20 MG PO DAILY, (Reported) Metformin HCl (Metformin HCl ER) 500 Mg Tab.er.24h, 500 MG PO TID, (Reported) Pantoprazole Sodium (Pantoprazole Sodium) 40 Mg Tablet.dr, 40 MG PO DAILY, (Reported) Rosuvastatin Calcium (Crestor) 40 Mg Tablet, 40 MG PO QHS, (Reported) Sulfamethoxazole/Trimethoprim (Sulfamethoxazole-Tmp Ds Tablet) 1 Each Tablet, 1 TAB PO DAILY Scheduled PRN Oxycodone HCl (Oxycodone HCl) 5 Mg Tablet, 5 MG PO TIDP PRN for PAIN LEVEL 5-10 Allergies Coded Allergies: No Known Allergies (Verified , 01/22/05) GME ATTESTATION GME ATTESTATION My faculty preceptor for this patient encounter was physically present during the encounter and was fully available. All aspects of the patient interview, examination, medical decision making process, and medical care plan development were reviewed and approved by the faculty preceptor. The faculty preceptor is aware and concurs with the plan as stated in the body of this note and will attest to such by his/her cosignature. ATTENDING NOTE I, Hanna Hendricks, have independently examined this patient and performed my own physical exam, as well as reviewed the documentation and edited where necessary. I have discussed in detail with the resident / student the findings and plan of treatment as documented by the resident / student and edited their note. I agree with their findings and treatment plan and have edited their documentation. I will continue to follow the patient during this hospital stay. Time spent on discharge 35 minutes - Patient remained inpatient for 1 additional day to ensure that he continues to tolerate his diet and have bowel movements - Patient was cleared for surgery and patient was subsequently discharged home with follow-up with his primary care provider and [place] transplant team NERISSA RICE D.O. Jun 13, 2019 14:17 HANNA HENDRICKS MD Jun 13, 2019 17:41
--- NOTE | 2019-06-13 14:21 | ECHO ---
DATE OF PROCEDURE: 06/13/2019 REFERRING PHYSICIAN: Dr. Real INDICATION: Murmur. Height 183 cm, weight 156 kg. DIMENSIONS: IVS: 1.2 LV: 5.2 LVPW: 1.2 LA: 3.8 Aorta: 3.4 IVC: 1.6 Mitral E wave velocity: 79 A wave: 65 E prime septal: 8.7 E prime lateral: 12.9 FINDINGS: The study is of difficult technical quality corresponding to patient's body habitus. The patient is in sinus tachycardia with heart rate between 100 and 110 beats per minute. Left ventricle is normal size. There is hyperdynamic contractility, I estimate ejection fraction (EF) around 70-75%. Mild left ventricular hypertrophy is present. Right ventricle was poorly seen. Both atria appear grossly normal based on limited visualization. Poorly visualized aortic valve appears grossly normal with possibly minimal sclerosis. There are also minimal degenerative abnormalities of mitral valve. Tricuspid valve appears grossly normal. Pulmonic valve was not seen. No pericardial effusion is present. Inferior vena cava is of normal size. Aortic root and aortic arch appear normal. Abdominal aorta was not visualized. Doppler interrogation reveals competent aortic valve. There is also no significant mitral or tricuspid insufficiency. Mitral inflow pattern and tissue Doppler imaging of mitral annulus revealed normal diastolic function. CONCLUSIONS: 1. Study is of fair technical quality. 2. The patient is in sinus tachycardia. 3. Normal left ventricular (LV) size with mild left ventricular hypertrophy (LVH), hyperdynamic LV systolic function and normal diastolic function. 4. No significant valvular disease, pulmonic valve was not well seen. 5. Probably normal central venous pressure. Unable to estimate pulmonary artery pressure. 6. I speculate that the patient's murmur is most likely related to hyperdynamic LV contractility. COMMENT: Subacute bacterial endocarditis (SBE) prophylaxis is not recommended. MTDD
[2019-06-13] MEDS: oxyCODONE 5MG TAB PO PRN ×2 (14:59→21:17)
[2019-06-13] MEDS ORDERED: SULF1TAB93 PO (16:53)
[2019-06-13] MEDS ORDERED: HumaLOG INSULIN (NovoLOG) PER UNIT SC SCH (21:00)
[2019-06-13] MEDS: ROSUVASTATIN 10 MG TAB (CRESTOR) PO SCH (21:16)
[2019-06-13 22:00] VITALS: BP 126/72
[2019-06-14] MEDS: PROPRANOLOL 10 MG TAB PO SCH ×2 (00:09→05:43)
[2019-06-14] MEDS: oxyCODONE 5MG TAB PO PRN ×2 (03:29→10:06)
[2019-06-14] MEDS: LACTULOSE 20 GM/30 ML SYRUP UD PO SCH ×2 (05:43)
[2019-06-14 06:00] VITALS: BP 128/71
[2019-06-14 06:33] LABS: BASO % 0.3 % (0.0-1.0); EOS # 0.1 10^3/uL (0.0-0.5); HEMATOCRIT 30.1 % (42.0-52.0); LYMPH # 1.1 10^3/uL (1.5-5.0); LYMPH % 15.8 % (24.0-44.0); MEAN CORPUSCULAR HEMOGLOBIN 32.7 pg (27.0-33.0); MEAN CORPUSCULAR HGB CONC 33.2 g/dl (32.0-36.5); MEAN CORPUSCULAR VOLUME 98.4 fl (80.0-96.0); MONO # 1.4 10^3/uL (0.0-0.8); MONO % 20.3 % (0.0-5.0); NEUTROPHILS # 4.2 10^3/uL (1.5-8.5); NEUTROPHILS % 61.2 % (36.0-66.0); PLATELET COUNT, AUTOMATED 145 10^3/uL (150-450); RED BLOOD COUNT 3.06 10^6/uL (4.30-6.10); WHITE BLOOD COUNT 6.9 10^3/uL (4.0-10.0)
--- NOTE | 2019-06-14 06:34 | IPN ---
DATE: 06/13/2019 Patient seems to have improved overnight and feeling much better this morning. He has had no nausea, no vomiting, some flatus, a small bowel movement and has tolerated the NG tube removal. He is hoping to have some food today. Otherwise, his abdomen is obese, nontender. IMPRESSION AND PLAN: The patient has evidence of resolving ileus and with a normalizing white count probably the ileus was secondary to the infectious process, i.e. spontaneous bacterial peritonitis and thus at this point, will start him on a clear liquid diet and advance him as tolerated. He can be discharged to home and followup on a p.r.n. basis with myself. However, he should followup with the interventional radiologist for his TIPS procedure in [place] as soon as possible after discharge. Otherwise, I anticipate he will be admitted with recurrent need for paracentesis/GI bleeding, etc.
[2019-06-14 06:50] LABS: ALBUMIN 2.4 GM/DL (3.2-5.2); ALT/SGPT 17 U/L (12-78); BILIRUBIN,TOTAL 1.3 MG/DL (0.2-1.0); BLOOD UREA NITROGEN 7 MG/DL (7-18); CALCIUM LEVEL 8.6 MG/DL (8.5-10.1); CARBON DIOXIDE LEVEL 29 MEQ/L (21-32); CHLORIDE LEVEL 99 MEQ/L (98-107); CREATININE FOR GFR 0.68 MG/DL (0.70-1.30); GLOMERULAR FILTRATION RATE > 60.0 (>60); GLUCOSE, FASTING 176 MG/DL (70-100); MAGNESIUM LEVEL 1.8 MG/DL (1.8-2.4); POTASSIUM SERUM 3.3 MEQ/L (3.5-5.1); SODIUM LEVEL 132 MEQ/L (136-145); TOTAL PROTEIN 6.5 GM/DL (6.4-8.2)
[2019-06-14] MEDS ORDERED: POTASSIUM CHLORIDE 10 MEQ SR TABLET PO ONE (07:30)
[2019-06-14] MEDS ORDERED: OXYC-517 PO (08:49)
[2019-06-14] MEDS: HumaLOG INSULIN (NovoLOG) PER UNIT SC SCH (08:57)
[2019-06-14] MEDS: MAGNESIUM OXIDE 400 MG TAB (MAG-OX) PO SCH (08:59)
[2019-06-14] MEDS: BACTRIM 160MG/800MG DS TAB PO SCH (08:59)
[2019-06-14 09:00] VITALS: BP 101/55
[2019-06-14] MEDS: lisinopriL 20 MG TAB PO SCH (09:00)
[2019-06-14] MEDS: PANTOPRAZOLE 40MG INJ (PROTONIX) (C9113) IV SCH (09:00)
--- NOTE | 2019-06-14 10:15 | IPNPDOC ---
Text Note Date of Service The patient was seen on 06/14/19. NOTE Subjective: Patient is a 49-year-old male with a PMHx of Cirrhosis, Esophageal varices, Hx of DVT & PE 2/2 Factor V Leiden deficiency (s/p Coumadin - now with IVC filter), HTN, DLP, DM2 , who presented to the emergency room with abdominal pain. In the emergency room, patient was found to have a distended abdomen with imaging suggesting ascites. Patient appears NT completed on 06/08/2019 3400 mL of fluid removed and consistent with spontaneous bacterial peritonitis. Patient has been admitted to hospitalist service for further evaluation and treatment. Patient was seen and examined at the bedside. Patient denied nausea, vomiting have reported that he was tolerating his breakfast. Denied any abdominal pain has reported normal bowel movements. Has not experienced any urinary discomfort. Denies chest pain, shortness of breath or palpitations. Objective: Vitals (See below) General: Lying in bed, complaining of abdominal discomfort, AAOx3 HEENT: NC, AT CVS: +S1S2 Lungs: Air entry is fair bilaterally without evidence of rhonchi, rales or wheezing Abdomen: Soft, without any distention or tenderness Extremities: - Calf tenderness Assessment and plan: s/p Intractable abdominal pain - likely 2/2 spontaneous bacterial peritonitis; likely 2/2 SBO - Clinically. Denies any nausea, vomiting, abdominal pain and has reported several bowel movements - Patient has received a paracentesis on 06/08 with 3400 mL fluid removed consistent with infection - Repeat ultrasound 06/09 revealed small amounts of ascites - CT abdomen / pelvis 06/10: Small bowel obstruction as described. Cirrhosis, portal hypertension and ascites, unchanged. Vena cava filter. 19 mm enhancing nodule in the right hepatic lobe, unchanged. Results are telephoned to the attending nurse on the patient's nursing floor. - XR abdomen 06/12: There are air-filled distended small bowel loops, however, few in number than on the comparison study. - s/p NG tube - c/w TMP-SMX; s/p Ceftriaxone for intraabdominal coverage (SBP coverage) - c/w Pain control - Consulted general surgery, Dr. Brooks; appreciate their input HTN - c/w lisinopril - c/w Propranolol; s/p Carvedilol and Atenolol DLP - c/w Rosuvastatin Liver cirrhosis / Esophageal varices - c/w Propranolol - c/w adjusted dose of Lactulose - Has appointment at [facility] for possible evaluation of TIPS procedure DM2 - c/w ISS Hx of DVT & PE 2/2 Factor V Leiden deficiency - Has been off anticoagulation 2/2 variceal bleeding - s/p IVC filter placement GI prophylaxis - c/w Protonix DVT prophylaxis - c/w TEDs/Sequentials Disposition: - Patient remained inpatient for 1 more day to ensure that he was able to tolerate diet and continue bowel movements VS,Fishbone, I+O VS, Fishbone, I+O Laboratory Tests 06/14/19 05:46 Vital Signs Date Time Temp Pulse Resp B/P (MAP) Pulse Ox O2 Delivery O2 Flow Rate FiO2 06/14/19 10:06 18 06/14/19 09:00 101/55 06/14/19 06:00 98.4 85 98 Room Air 06/08/19 06:00 2.0 I&O- Last 24 Hours up to 6 AM 06/14/19 05:59 Intake Total 2775 ml Output Total 1200 ml Balance 1575 ml TREASURE HENDRICKS MD Jun 14, 2019 10:15
== END 2019-06-14 10:46 | disposition home or self-care (01) | DRG 248 ==
LOC: M ED 03:23 → M ED INP 03:24 → ENRESERVDT 14:59 → ENRESERVTM 14:59 → M MSPAV 15:15 → OBSVTOIN 06-09 09:01
PROVIDERS: ADMIT Internal Medicine; ATTEND Internal Medicine
PROC: 0W9G3ZZ Drainage of Peritoneal Cavity, Percutaneous Approach (ICD-10-PCS; principal; 2019-06-08 14:00)
DX: K65.2 Spontaneous bacterial peritonitis (principal); K56.609 Unspecified intestinal obstruction, unspecified as to partial versus complete obstruction; I85.10 Secondary esophageal varices without bleeding; D68.2 Hereditary deficiency of other clotting factors; R18.8 Other ascites; E66.01 Morbid (severe) obesity due to excess calories; K76.6 Portal hypertension; K56.7 Ileus, unspecified; K74.60 Unspecified cirrhosis of liver; I10 Essential (primary) hypertension; Z79.899 Other long term (current) drug therapy; E78.5 Hyperlipidemia, unspecified; E11.9 Type 2 diabetes mellitus without complications; Z87.11 Personal history of peptic ulcer disease; Z86.718 Personal history of other venous thrombosis and embolism; Z79.01 Long term (current) use of anticoagulants; R01.1 Cardiac murmur, unspecified

== ENCOUNTER 2019-06-17 05:32 | Inpatient (IN) | payer BC, OTHER ==
[2019-06-17] VITALS (15 sets, daily range): BP systolic 92–149; BP diastolic 50–82
[~2019-06-17] VITALS: Ht 182.9 cm; Wt 159.6 kg
[~2019-06-17 05:32] MED LIST changes: +CRES40TA PO; +LACT10SO29 PO; +OXYC-517 PO; +PANT40TA3 PO; +PROBCAP14 PO; +SULF1TAB93 PO; +VITA50005 PO
[2019-06-17] MEDS ORDERED: PIPERACILLIN/TAZOBACTAM SOD 3.375 GM in D5W MINI-BAG PLUS 50 ML IV ONE (06:00)
[2019-06-17] MEDS ORDERED: MORPHINE 4 MG/ML 1ML VIAL/SYRINGE (J2270) IV ONE (06:00)
[2019-06-17 06:07] LABS: HEMATOCRIT 33.4 % (42.0-52.0); HEMOGLOBIN 11.1 g/dl (13.5-17.5); MEAN CORPUSCULAR HEMOGLOBIN 32.6 pg (27.0-33.0); MEAN CORPUSCULAR HGB CONC 33.2 g/dl (32.0-36.5); MEAN CORPUSCULAR VOLUME 98.2 fl (80.0-96.0); PLATELET COUNT, AUTOMATED 196 10^3/uL (150-450); WHITE BLOOD COUNT 10.5 10^3/uL (4.0-10.0)
[2019-06-17 06:18] LABS: INR 1.51; PROTHROMBIN TIME 17.9 SECONDS (11.8-14.0)
[2019-06-17] MEDS ORDERED: HYDROMORPHONE HCL 0.5 MG/ 0.5 ML SYRINGE (J1170 PER 1) As Ordered ONE (06:20)
[2019-06-17] MEDS ORDERED: HYDROMORPHONE HCL 0.5 MG/ 0.5 ML SYRINGE (J1170 PER 1) IV ONE (06:30)
[2019-06-17 06:48] LABS: ALBUMIN 2.5 GM/DL (3.2-5.2); ALT/SGPT 18 U/L (12-78); BILIRUBIN,TOTAL 1.9 MG/DL (0.2-1.0); BLOOD UREA NITROGEN 7 MG/DL (7-18); CALCIUM LEVEL 8.6 MG/DL (8.5-10.1); CARBON DIOXIDE LEVEL 23 MEQ/L (21-32); CHLORIDE LEVEL 101 MEQ/L (98-107); CREATININE FOR GFR 0.63 MG/DL (0.70-1.30); GLOMERULAR FILTRATION RATE > 60.0 (>60); GLUCOSE, FASTING 150 MG/DL (70-100); LIPASE 456 U/L (73-393); POTASSIUM SERUM 4.4 MEQ/L (3.5-5.1); SODIUM LEVEL 135 MEQ/L (136-145); TOTAL PROTEIN 6.8 GM/DL (6.4-8.2)
--- NOTE | 2019-06-17 07:23 | REP ---
Chest x-ray: Two views. History: Shortness of breath. Comparison study: June 12, 2019. Findings: EKG monitoring electrodes overlie the chest. Lungs are well inflated and free of infiltrate. Pleural angles are sharp. Pulmonary vasculature is not increased. EKG electrodes are seen. Impression: No infiltrates seen. Electronically Signed by Matias Greenwood MD 06/17/2019 07:14 A
[2019-06-17 07:51] LABS: BASO % 0.3 % (0.0-1.0); EOS # 0.1 10^3/uL (0.0-0.5); EOS % 1.2 % (0.0-3.0); LYMPH # 0.8 10^3/uL (1.5-5.0); LYMPH % 7.8 % (24.0-44.0); MONO # 1.2 10^3/uL (0.0-0.8); MONO % 11.9 % (0.0-5.0); NEUTROPHILS # 8.1 10^3/uL (1.5-8.5); NEUTROPHILS % 78.3 % (36.0-66.0)
[2019-06-17] MEDS ORDERED: ISOVUE-370 76% 100ML VIAL (Q9967) As Ordered ONE (08:01)
[2019-06-17] MEDS: MORPHINE 4 MG/ML 1ML VIAL/SYRINGE (J2270) IV PRN ×2 (08:39→09:32)
[2019-06-17 08:56] LABS: PLATELET ESTIMATE NORMAL (NORMAL)
[2019-06-17] MEDS ORDERED: atenoloL 50 MG TAB PO SCH (09:00)
--- NOTE | 2019-06-17 09:07 | REP ---
CT abdomen and pelvis with IV but without oral contrast: History: Severe pain. Nausea and vomiting. Comparison CT study June 10, 2019. CT contrast dose: 100 mL of intravenous Isovue [address] findings: Preliminary digital football scout radiograph shows nonspecific small bowel air filled loops and an ascites pattern. The lung bases show plate-like atelectasis but are essentially clear. There is mild to moderate diffuse abdominal ascites. This appears somewhat increased from the recent prior study June 10, 2019. There is a hypervascular nodule in the right lobe of the liver 2 cm in diameter unchanged from the comparison study. There is prominence of the left hepatic lobe and a micronodular liver contour is seen consistent with cirrhosis. The spleen is mildly prominent measuring 14 cm in greatest transverse dimension. No focal splenic or other focal hepatic lesion is appreciated. The gallbladder is surgically absent. There is nearly occlusive thrombosis in the portal vein and proximal superior mesenteric vein noted today. Partial thrombosis of the splenic vein is suspected. There are venous collaterals in the abdomen particularly in the left upper quadrant. There is an inferior vena cava filter in place again noted. There is fairly diffuse mural thickening involving the small intestine with borderline caliber small intestinal loops. No obstructive lesion is seen. The colon is not dilated. There are dystrophic calcifications in the prostate. Urinary bladder is unremarkable. The kidneys enhance symmetrically and appear morphologically intact. Impression: 1. Cirrhosis and evidence of portal hypertension. Increased abdominal ascites since June 10, 2019. 2. Nearly occlusive, fairly extensive portal vein, proximal superior mesenteric vein, and splenic vein thrombosis. 3. Diffuse mural thickening in the small bowel. Small bowel loops are improved compared with the June 10, 2019 study. No obstructive lesion seen. 4. Stable 2 cm hypervascular nodule in the right lobe of the liver. Electronically Signed by Matias Greenwood MD 06/17/2019 02:00 P
[2019-06-17] MEDS ORDERED: NS 1,000 ML IV SCH (09:39)
[2019-06-17] MEDS ORDERED: ONDANSETRON 4MG/2ML VIAL (J2405) IV PRN (09:45)
[2019-06-17] MEDS ORDERED: NALBUPHINE HCL 10 MG/ML AMP (J2300) IV PRN (09:45)
[2019-06-17] MEDS ORDERED: diphenhydrAMINE INJ 50MG/ML VIAL (J1200) IV PRN (09:45)
[2019-06-17] MEDS ORDERED: EPIDURAL/PCA KEYS XX PRN (09:45)
[2019-06-17] MEDS ORDERED: MORPHINE 1MG/ML IN 0.9% NACL 100ML IV BAG IV PRN (09:45)
[2019-06-17] MEDS ORDERED: NALOXONE INJ 0.4 MG/1 ML VIAL (J2310) IV PRN (09:45)
[2019-06-17] MEDS ORDERED: VIAG100T PO (09:59)
[2019-06-17] MEDS ORDERED: SIME80TA PO (09:59)
[2019-06-17] MEDS ORDERED: BACT800T5 PO (10:03)
[2019-06-17] MEDS ORDERED: OXYC-517 PO (10:03)
[2019-06-17] MEDS ORDERED: GLUCOSE 4 GM CHEW TABLET PO PRN (10:45)
[2019-06-17] MEDS ORDERED: GLUCAGON FOR INJ 1 MG VIAL (J1610) SC PRN (10:45)
[2019-06-17] MEDS ORDERED: DEXTROSE 50% 50 ML SYRINGE IV PRN (10:45)
[2019-06-17] MEDS: LACTULOSE 20 GM/30 ML SYRUP UD PO SCH ×2 (11:00→21:49)
[2019-06-17] MEDS: HumaLOG INSULIN (NovoLOG) PER UNIT SC SCH ×3 (12:00→23:14)
[2019-06-17] MEDS: PIPERACILLIN/TAZOBACTAM SOD 3.375 GM in D5W MINI-BAG PLUS 50 ML IV SCH ×3 (12:00→23:17)
[2019-06-17] MEDS ORDERED: MIDAZOLAM INJ 2 MG/2 ML VIAL (J2250) As Ordered ONE ×2 (13:22→15:16)
[2019-06-17] MEDS ORDERED: diphenhydrAMINE INJ 50MG/ML VIAL (J1200) As Ordered ONE (13:22)
[2019-06-17] MEDS ORDERED: fentaNYL 100 MCG/2 ML INJECTION (J3010) As Ordered ONE ×2 (13:22→15:16)
[2019-06-17] MEDS ORDERED: LIDOCAINE 1% MDV 20ML VIAL As Ordered ONE ×2 (13:23→14:31)
[2019-06-17] MEDS ORDERED: ISOVUE-300 61% 50ML VIAL (Q9967) As Ordered ONE ×3 (13:23→16:34)
--- NOTE | 2019-06-17 13:28 | IRMSE ---
[facility] IR Moderate Sedation Eval. Date and Time Date: Jun 17, 2019 Time: 13:28 ASA Classification ASA Classification: III-Severe systemic dis. Mallampati Score: II NPO: Yes Obstructive Sleep Apnea: No Interval Plan: moderate sedation CALISTA GAYLE MD Jun 17, 2019 13:28
[2019-06-17] MEDS ORDERED: ZOSYN 3.375 GM VIAL (J2543) As Ordered ONE (14:17)
[2019-06-17] MEDS ORDERED: ALTEPLASE 2 MG/2 ML VIAL (J2997 PER 1MG) As Ordered ONE (15:36)
[2019-06-17] MEDS ORDERED: PROMETHAZINE INJ 25 MG/ML VIAL (J2550) As Ordered ONE (15:36)
--- NOTE | 2019-06-17 17:05 | POST-OPPD ---
Postoperative Procedure Note Date Of Procedure: Jun 17, 2019 Time Of Procedure: 17:04 PREOPERATIVE DIAGNOSIS: Cirrhosis. Portal hypertension. Esophageal varices. Portal, mesenteric and splenic vein thrombosis POSTOPERATIVE DIAGNOSIS: Same FINDINGS: Same PROCEDURE: Splenic portal mesenteric vein thrombolysis, mechanical thrombectomy and angioplasty. SURGEON: mai ANESTHESIA: Moderate sedation ESTIMATED BLOOD LOSS: Less than 5 mL COMPLICATIONS: None POSTOPERATIVE CONDITION: Stable CALISTA GAYLE MD Jun 17, 2019 17:05
--- NOTE | 2019-06-17 18:08 | IPNPDOC ---
Date Seen The patient was seen on 06/17/19. Progress Note INTERVENTIONAL RADIOLOGY RECOMMENDATIONS: S/P THROMBECTOMY OF PORTAL VEIN THROMBOSIS, SUPERIOR MESENTERIC VEIN THROMBOSIS, SPLENIC VEIN THROMBOSIS -NPO AFTER MIDNIGHT FOR TIPS IN AM -REPEAT HGB AT 8PM -IF DECREASED HGB AT 8PM, TRANSFUSE RBC. VS, I&O, 24H, [facility] Vital Signs/I&O Vital Signs Date Time Temp Pulse Resp B/P (MAP) Pulse Ox O2 Delivery O2 Flow Rate FiO2 06/17/19 17:45 98.9 115 17 112/55 (74) 89 Room Air 06/17/19 17:15 2 Laboratory Data 24H LABS Laboratory Tests 2 06/17/19 05:52: Immature Granulocyte % (Auto) 0.5, Neutrophils (%) (Auto) 78.3H, Lymphocytes (%) (Auto) 7.8L, Monocytes (%) (Auto) 11.9H, Eosinophils (%) (Auto) 1.2, Basophils (%) (Auto) 0.3, Immature Granulocyte # (Auto) 0.1H, Neutrophils # (Auto) 8.1, Lymphocytes # (Auto) 0.8L, Monocytes # (Auto) 1.2H, Eosinophils # (Auto) 0.1, Basophils # (Auto) 0.0, Nucleated Red Blood Cells % (auto) 0.0, Platelet Estimate NORMAL, Prothrombin Time 17.9H, Prothromb Time International Ratio 1.51, Anion Gap 11, Glomerular Filtration Rate > 60.0, Calcium Level 8.6, Total Bilirubin 1.9H, Aspartate Amino Transf (AST/SGOT) 27, Alanine Aminotransferase (ALT/SGPT) 18, Alkaline Phosphatase 90, Total Protein 6.8, Albumin 2.5L, Albumin/Globulin Ratio 0.58L, Lipase 456H 06/17/19 05:53: Ammonia 38H 06/17/19 10:52: Lactic Acid Level 2.0 06/17/19 13:16: Bedside Glucose (Misc Panel) 134H 06/17/19 17:11: Bedside Glucose (Misc Panel) 116H CBC/BMP Laboratory Tests 06/17/19 05:52 Microbiology Microbiology 06/17/19 Blood Culture, Received Pending 06/17/19 Blood Culture, Received Pending NESS OJEDA MD Jun 17, 2019 18:08
--- NOTE | 2019-06-17 18:48 | HPE ---
DATE OF ADMISSION: 06/17/2019 CHIEF COMPLAINT: Abdominal pain. HISTORY OF PRESENT ILLNESS: A 49-year-old male with a history of alcoholic liver cirrhosis with recurrent admission for gastrointestinal (GI) bleed, spontaneous bacterial peritonitis and variceal bleeding presented to the emergency room after being released on June 13 with unrelenting, diffuse abdominal pain which started on Saturday, descried as stabbing, rated at 10/10 despite taking Percocet nine tablets for the past 48 hours. Patient has not eaten anything since Saturday. Has had decreased appetite, some diarrhea. No fever, chills, nausea, or vomiting, and a 6-pound weight loss. Patient's last alcoholic drink was 05/21/2019. He was referred to Portal for a post transjugular intrahepatic portosystemic shunt (TIPS) procedure and has not been able to go there. Patient says the pain is worse when he ambulates and moves around, better when he lies still and on his back. He otherwise denies any GI bleeding, hematemesis, bright red blood per rectum, melena, or black, tarry stools. Patient denies any changes in vision, diplopia, sore throat, dysphagia, odynophagia, nausea, vomiting. Had one episode of watery, nonbloody diarrhea times one episode. Denies upper or lower extremity paresthesias. No jaundice. PAST MEDICAL HISTORY: 1. Alcohol liver cirrhosis. 2. Spontaneous bacterial peritonitis. 3. Variceal bleeding. 4. Portal hypertension. 5. Factor V Leiden mutation. 6. Deep vein thrombosis (DVT)/pulmonary embolism (PE). 7. Inferior vena cava (IVC) filter. 8. Diabetes. 9. Hypertension. 10. Hyperlipidemia. PAST SURGICAL HISTORY: 1. IVC filter. 2. Cholecystectomy. SOCIAL HISTORY: Last alcoholic drink was 05/21/2019. Full code. Trial of intubation. Healthcare proxy is the . Denies any cigarette use. 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 FAMILY HISTORY: Mother with fatty liver, causing liver cirrhosis, alive, age 71. Father alive, age 70, with diabetes, factor V mutation. REVIEW OF SYSTEMS: Per history of present illness (HPI). A 12-point system otherwise negative. HOME MEDICATIONS: - atenolol 50 mg daily - Coreg 6.25 twice a day - lactulose 15 mL twice a day - lisinopril 20 daily - metformin 500 mg three times a day - oxycodone 5 mg three times a day as needed - Protonix 40 mg daily - Crestor 40 mg at bedtime - simethicone 80 mg three times a day as needed - Bactrim one tablet daily PHYSICAL EXAMINATION: Temperature 97.9, pulse 116, sinus, tachycardia, respiratory rate 20, blood pressure 143/75, 96% on room air. GENERAL: Patient has mild icterus. No jaundice. No jugular venous distention (JVD). No thyromegaly. No cervical lymphadenopathy. Moist mucous membranes. LUNGS: Clear to auscultation. No wheezing or rales. HEART: S1, S2, sinus tachycardia. No murmurs, rubs, or gallops . ABDOMEN: Distended, hypoactive bowel sounds, positive fluid wave, positive rebound. No guarding. No hepatosplenomegaly. EXTREMITIES: Positive edema. LABORATORY DATA: White count 10.5, hemoglobin 11, hematocrit 33, platelet count 196, 78% neutrophils. Sodium 135, potassium 4.4, chloride 101, bicarbonate 23, BUN 7, creatinine 0.63, glucose 150. Total bilirubin 1.9, AST 27, ALT 18, alkaline phosphatase 90. Ammonia 38. Total protein 6.9, albumin 2.5. Lipase 456. Two sets of blood cultures are pending. CT abdomen and pelvis: Near-complete occlusion of the portal vein, proximal superior mesenteric vein, splenic vein thrombosis. Diffuse mural thickening of the small bowel, cirrhosis, evidence of portal hypertension with increased abdominal ascites since 06/10/2019. Right lower lobe 2 cm hypervascular nodule. ASSESSMENT AND PLAN: This is a 49-year-old male with a history of alcoholic liver cirrhosis, portal hypertension, splenic vein, portal vein thrombosis, proximal superior mesenteric vein thrombosis, variceal bleeding, factor V mutation, PE, DVT, IVC filter, treated in May for spontaneous bacterial peritonitis, variceal bleeding with GI hemorrhage. Recently released June 13, now with ongoing abdominal pain, found to have nearly occlusive portal vein thrombosis, splenic vein thrombosis, and proximal superior mesenteric vein thrombosis. ACTIVE ISSUES: 1. Nearly occlusive extensive portal vein, proximal superior mesenteric vein and splenic vein thrombosis. Per vascular surgery, Dr. Lindsay, no recommendations. Patient cannot be anticoagulation and nothing that she could offer. Per Dr. Boyer, interventional radiology, will attempt a TIPS procedure and will determine what else can be done for the thrombosis. 2. History of alcoholic liver cirrhosis with portal hypertension, history of variceal bleeding. Currently no active GI bleed. Denies hematemesis, bright red blood per rectum, or melena. Hemoglobin is stable at 11, and systolic blood pressure is maintained at 143-[address] 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 This has been discussed extensively with the patient and the patient's at the bedside. 3. Factor V mutation with history of DVT/PE in the past with IVC filter placed due to prior history of variceal bleeding. Could not be anticoagulated. At this time will defer to Dr. Boyer for management of the portal vein, splenic vein, and proximal superior mesenteric vein thrombosis. 4. Hypertension. May resume home dose of atenolol. 5. Hyperlipidemia. Hold on Zocor until patient is back to regular diet. 6. Type 2 diabetes. Sliding scale every 6 hours while nothing by mouth. Hypoglycemic protocol. 7. DVT prophylaxis. Cannot be anticoagulated due to history of variceal bleeding. Compression stockings for now. CODE STATUS: Patient wants cardiopulmonary resuscitation (CPR) and trial of intubation. Healthcare proxy is his .
[2019-06-17] MEDS: NS 1,000 ML IV SCH ×2 (19:41→22:33)
[2019-06-17 19:58] LABS: HEMATOCRIT 29.9 % (42.0-52.0); MEAN CORPUSCULAR HEMOGLOBIN 33.2 pg (27.0-33.0); MEAN CORPUSCULAR HGB CONC 33.4 g/dl (32.0-36.5); MEAN CORPUSCULAR VOLUME 99.3 fl (80.0-96.0); PLATELET COUNT, AUTOMATED 168 10^3/uL (150-450); RED BLOOD COUNT 3.01 10^6/uL (4.30-6.10)
[2019-06-17 20:09] LABS: INR 1.79; PROTHROMBIN TIME 20.5 SECONDS (11.8-14.0)
[2019-06-17 20:10] LABS: PARTIAL THROMBOPLASTIN TIME 44.1 SECONDS (25.0-38.4)
[2019-06-17] MEDS: MORPHINE 2 MG/ML 1ML VIAL (J2270) IV PRN (22:32)
[2019-06-18] VITALS (24 sets, daily range): BP systolic 104–149; BP diastolic 50–77
[2019-06-18] MEDS: MORPHINE 2 MG/ML 1ML VIAL (J2270) IV PRN (03:27)
[2019-06-18 05:18] LABS: BASO % 0.2 % (0.0-1.0); EOS # 0.2 10^3/uL (0.0-0.5); EOS % 2.6 % (0.0-3.0); HEMATOCRIT 29.2 % (42.0-52.0); HEMOGLOBIN 9.5 g/dl (13.5-17.5); LYMPH % 12.6 % (24.0-44.0); MEAN CORPUSCULAR HEMOGLOBIN 32.5 pg (27.0-33.0); MEAN CORPUSCULAR HGB CONC 32.5 g/dl (32.0-36.5); MONO # 1.1 10^3/uL (0.0-0.8); MONO % 13.8 % (0.0-5.0); NEUTROPHILS # 5.6 10^3/uL (1.5-8.5); NEUTROPHILS % 70.3 % (36.0-66.0); PLATELET COUNT, AUTOMATED 143 10^3/uL (150-450); RED BLOOD COUNT 2.92 10^6/uL (4.30-6.10)
[2019-06-18 05:39] LABS: ALBUMIN 2.2 GM/DL (3.2-5.2); ALT/SGPT 18 U/L (12-78); BILIRUBIN,TOTAL 1.7 MG/DL (0.2-1.0); BLOOD UREA NITROGEN 7 MG/DL (7-18); CALCIUM LEVEL 7.8 MG/DL (8.5-10.1); CARBON DIOXIDE LEVEL 27 MEQ/L (21-32); CHLORIDE LEVEL 104 MEQ/L (98-107); CREATININE FOR GFR 0.64 MG/DL (0.70-1.30); GLOMERULAR FILTRATION RATE > 60.0 (>60); GLUCOSE, FASTING 143 MG/DL (70-100); SODIUM LEVEL 136 MEQ/L (136-145); TOTAL PROTEIN 6.2 GM/DL (6.4-8.2)
[2019-06-18] MEDS: PIPERACILLIN/TAZOBACTAM SOD 3.375 GM in D5W MINI-BAG PLUS 50 ML IV SCH ×4 (06:04→23:42)
[2019-06-18] MEDS: HumaLOG INSULIN (NovoLOG) PER UNIT SC SCH (06:04)
[2019-06-18] MEDS ORDERED: ONDANSETRON 4MG/2ML VIAL (J2405) IV PRN (08:00)
[2019-06-18] MEDS ORDERED: NALBUPHINE HCL 10 MG/ML AMP (J2300) IV PRN (08:00)
[2019-06-18] MEDS ORDERED: diphenhydrAMINE INJ 50MG/ML VIAL (J1200) IV PRN (08:00)
[2019-06-18] MEDS ORDERED: NALOXONE INJ 0.4 MG/1 ML VIAL (J2310) IV PRN (08:00)
[2019-06-18] MEDS ORDERED: EPIDURAL/PCA KEYS XX PRN (08:00)
[2019-06-18] MEDS: FUROSEMIDE 20 MG/2 ML VIAL (J1940) IV SCH ×6 (08:47→23:44)
[2019-06-18] MEDS: LACTULOSE 20 GM/30 ML SYRUP UD PO SCH ×2 (08:47→21:10)
[2019-06-18] MEDS ORDERED: NS 1,000 ML IV SCH (09:00)
[2019-06-18] MEDS ORDERED: MORPHINE 1MG/ML IN 0.9% NACL 100ML IV BAG IV PRN (09:00)
--- NOTE | 2019-06-18 20:39 | IPN ---
DATE: 06/18/2019 The patient complains of right upper quadrant abdominal pain, 3 out of 10 last night. He was given Percocet this morning. It is 8 out of 10 and worse with moving, worse when he takes a deep breath. Afebrile. No fever. No signs of hematemesis, bright red blood per rectum, melena, black tarry stools. The patient's hemoglobin is decreased to 9.5 from 11 on admission. Per interventional radiology, transfuse if he drops his hemoglobin. No complaints of chest pain, pressure, tightness, lightheadedness, dizziness. The patient has not been out of bed. No other issues per nursing. PHYSICAL EXAMINATION: VITAL SIGNS: Blood pressure overnight was 104 systolic throughout the night, 91% on room air, no shortness of breath. Temperature 99, pulse 92, respiratory rate 18, blood pressure 110/55, 92% on room air. GENERAL: Awake, alert, oriented times three. Answering questions appropriately. Mild icterus. No jaundice. Moist mucous membranes. No jugular venous distention (JVD) or thyromegaly. LUNGS: Diminished but clear to auscultation. No wheezing or rales. HEART: S1, S2. Sinus rhythm. ABDOMEN: Obese, soft. Tender in the right upper quadrant. Positive fluid wave. No abdominal bruits. EXTREMITIES: 3+ pitting edema in the lower extremities. LABORATORY DATA: White count 8, hemoglobin 9.5, hematocrit 29.2, platelet count 143. Sodium 136, potassium 4, chloride 104, bicarbonate 27, BUN 7, creatinine 0.64, glucose of 143, lactic acid of 2, total bilirubin 1.7, AST 26, ALT 18, alkaline phosphatase 78. Microbiology: Two sets of blood cultures with no growth after 24 hours. IMAGING STUDIES: Evidence of portal hypertension, increased abdominal ascites since 06/10/2019, nearly occlusive fairly extensive portal vein, proximal superior mesenteric vein and splenic vein thrombosis, diffuse mural thickening of the small bowel, small bowel loops are improved compared with 06/10/2019. No lesions. Stable 2 cm hypervascular nodule in the right lobe of the liver. ASSESSMENT AND PLAN: This is a 49-year-old male with a history of alcoholic liver cirrhosis, variceal bleeding, upper gastrointestinal bleed, portal hypertension, spontaneous bacterial peritonitis, factor V Leiden mutation, deep vein thrombosis (DVT), pulmonary embolism, IVC filter, diabetes, hypertension, hyperlipidemia, morbid obesity, obstructive sleep apnea on chronic continuous positive airway pressure (CPAP), Body Mass Index (BMI) of 45.2, presents to the emergency room with worsening abdominal pain, found to have a near complete occlusion of the portal vein, proximal superior mesenteric and splenic veins. Status post thrombectomy by interventional radiology on admission on 06/17/2019. The patient has dropped his hemoglobin by 2 grams with recommendations to transfuse. ACUTE ISSUES: 1. Portal vein, proximal superior mesenteric vein, splenic vein thromboses, status post thrombectomy by interventional radiology, Dr. Boyer, on 06/17/2019. The patient has been stable overnight despite a drop in the hemoglobin from 11 to 9.5. The patient will be transfused 2 units of red blood cell. Plans are for a TIPs procedure by interventional radiology once interventional radiology is available. Continue with full supportive care. May resume back on regular diet, as there are no plans for TIPs today. 2. Alcoholic liver cirrhosis with portal hypertension and history of variceal bleeding, currently with no active gastrointestinal bleed. Denies any bright red blood per rectum, melena, black tarry stools, or hematemesis. There is no Vernonia's sign or Corona Rangel's sign on the abdominal examination. Hemoglobin on admission was 11, current hemoglobin is 9.5. He will be transfused 2 units of red blood cells. Due to pressure of 104, the patient's atenolol has been held. We will transfuse albumin and diurese with Lasix to keep to a net negative balance if possible. Currently has no active gastrointestinal bleed. 3. Factor V Leiden mutation with a history of deep vein thrombosis (DVT) and pulmonary embolus in the past and IVC filter. The patient currently is on no anticoagulation due to acute drop in hemoglobin and history of variceal bleeding. We will check iron studies and stool for blood. 4. Hypertension. Atenolol has been held due to soft blood pressure. 5. Hyperlipidemia. May resume back on home dose of Zocor now that he is back on an oral diet. 6. Type 2 diabetes. Sliding scale before food and nightly with coverage. 7. Deep vein thrombosis (DVT) prophylaxis. Cannot be anticoagulated due to a history of variceal bleeding. Compression stockings for now. 8. Pain control. Per patient's request, the patient will be placed on morphine DIRECTOR OF FOOD AND BEVERAGE SERVICES pump with reduced dosing. 9. Obstructive sleep apnea on chronic CPAP, may resume home CPAP. DISPOSITION: Awaiting TIPS procedure to be done either Saturday or Saturday. The patient will be here most likely over the weekend for the next 3 to 4 days until he is improved. Code status: FULL CODE, trial of intubation, cardiopulmonary resuscitation (CPR).
[2019-06-19] VITALS (11 sets, daily range): BP systolic 101–139; BP diastolic 50–84
[2019-06-19] MEDS: FUROSEMIDE 20 MG/2 ML VIAL (J1940) IV SCH (03:46)
[2019-06-19] MEDS: PIPERACILLIN/TAZOBACTAM SOD 3.375 GM in D5W MINI-BAG PLUS 50 ML IV SCH ×3 (05:50→18:00)
[2019-06-19 06:22] LABS: BASO % 0.2 % (0.0-1.0); EOS # 0.1 10^3/uL (0.0-0.5); EOS % 1.7 % (0.0-3.0); HEMATOCRIT 30.3 % (42.0-52.0); HEMOGLOBIN 10.3 g/dl (13.5-17.5); LYMPH # 0.9 10^3/uL (1.5-5.0); LYMPH % 11.7 % (24.0-44.0); MEAN CORPUSCULAR HEMOGLOBIN 32.4 pg (27.0-33.0); MEAN CORPUSCULAR VOLUME 95.3 fl (80.0-96.0); MONO # 0.9 10^3/uL (0.0-0.8); MONO % 11.7 % (0.0-5.0); NEUTROPHILS % 74.2 % (36.0-66.0); PLATELET COUNT, AUTOMATED 136 10^3/uL (150-450); RED BLOOD COUNT 3.18 10^6/uL (4.30-6.10); WHITE BLOOD COUNT 8.1 10^3/uL (4.0-10.0)
[2019-06-19 06:58] LABS: ALBUMIN 2.3 GM/DL (3.2-5.2); ALT/SGPT 17 U/L (12-78); BLOOD UREA NITROGEN 6 MG/DL (7-18); CALCIUM LEVEL 7.6 MG/DL (8.5-10.1); CARBON DIOXIDE LEVEL 29 MEQ/L (21-32); CHLORIDE LEVEL 97 MEQ/L (98-107); CREATININE FOR GFR 0.62 MG/DL (0.70-1.30); GLOMERULAR FILTRATION RATE > 60.0 (>60); GLUCOSE, FASTING 168 MG/DL (70-100); SODIUM LEVEL 133 MEQ/L (136-145); TOTAL PROTEIN 6.4 GM/DL (6.4-8.2)
[2019-06-19] MEDS ORDERED: MORPHINE 10 MG/ML 1ML VIAL (J2270) IV ONE ×2 (07:30→08:00)
--- NOTE | 2019-06-19 09:00 | REP ---
Emergency left lower extremity duplex venous ultrasound: History: Pain and swelling left lower extremity. Warmth to the touch. History of blood clots. Findings: There is essentially occlusive deep vein thrombosis in the distal femoral vein and popliteal vein in the left lower extremity. Proximal femoral vein is clear. There is echogenic material in the proximal profunda femoral vein which extends into the common femoral vein at its junction. Impression: There is occlusive DVT in the distal femoral vein and popliteal vein on the left. There is deep vein thrombosis in the proximal profunda femoral vein with thrombus seen protruding into the otherwise patent common femoral vein lumen. Electronically Signed by Matias Greenwood MD 06/19/2019 08:52 A
[2019-06-19] MEDS: KCL 10MEQ/100ML SWI (KRUN) 10 MEQ in IV 1 EA IV SCH ×3 (09:33→11:09)
[2019-06-19] MEDS: LACTULOSE 20 GM/30 ML SYRUP UD PO SCH ×2 (10:26→22:39)
[2019-06-19] MEDS ORDERED: LIDOCAINE 1% MDV 20ML VIAL As Ordered ONE (12:58)
[2019-06-19] MEDS ORDERED: ISOVUE-300 61% 50ML VIAL (Q9967) As Ordered ONE ×7 (12:58→18:31)
[2019-06-19] MEDS ORDERED: fentaNYL 100 MCG/2 ML INJECTION (J3010) As Ordered ONE (13:33)
[2019-06-19] MEDS ORDERED: MIDAZOLAM INJ 2 MG/2 ML VIAL (J2250) As Ordered ONE (13:33)
[2019-06-19] MEDS ORDERED: cefTRIAXone SOD 1 GM VIAL (J0696) As Ordered ONE (16:03)
--- NOTE | 2019-06-19 18:35 | IPN ---
DATE: 06/19/2019 The patient complains of calf pain on the left lower extremity. Stat venous Doppler ordered. The patient denies shortness of breath, chest pain, pressure or tightness, pleuritic chest pain, palpitations, lightheadedness, or dizziness. The patient is nothing by mouth for transjugular intrahepatic portosystemic shunt (TIPS) procedure this morning, afebrile. No chills overnight. Temperature 98.2, pulse 111, respiratory rate 19, blood pressure 136/70, 94% on room air. GENERAL: Awake, alert, oriented times three. No jaundice. Slight icterus. No jugular venous distention (JVD) or thyromegaly. Thick neck. No cervical lymphadenopathy. Dry mucous membranes. Lungs are clear to auscultation. No wheezing or rales. HEART: S1, S2, sinus tachycardia. Abdomen is obese, positive fluid wave, nontender, nondistended. Positive bowel sounds times four quadrants. EXTREMITIES: 3+ pitting edema. Left lower extremity with some pain at calf. Calf circumference of bilateral lower extremities are equal. Range of motion, flexion, extension at the knee on the left is intact. LABORATORY DATA: White count 8, hemoglobin 10, hematocrit 30, platelet count 136. Sodium 133, potassium 3, chloride 97, bicarbonate 27, BUN 6, creatinine 0.62, glucose of 168, total bilirubin of 3. MICROBIOLOGY: Two sets of blood cultures are pending. ASSESSMENT AND PLAN: This is a 49-year-old male with a history of alcoholic liver cirrhosis, spontaneous bacterial peritonitis, variceal bleeding, factor V Leiden mutation, deep vein thrombosis (DVT), pulmonary embolism (PE), inferior vena cava (IVC) filter, diabetes, hypertension, hyperlipidemia, morbid obesity, obstructive sleep apnea (ABIGAIL) on chronic continuous positive airway pressure (CPAP), body mass index (BMI) 45, presented to the emergency room after being released on 06/14/2019 for treatment for peritonitis with worsening abdominal pain, found to have a near complete occlusion of the portal vein, superior mesenteric and splenic veins, status post thrombectomy by interventional radiology (IR), on admission on 06/17/2019 with a drop in hemoglobin of two grams, status post two units red blood cell (RBC) transfusion. ACUTE ISSUES: 1. Left lower extremity calf pain with history of factor V Leiden mutation, on no anticoagulation due to recent history of upper gastrointestinal (GI) bleed with variceal bleeding due to portal hypertension from alcoholic liver cirrhosis. The patient does have an inferior vena cava (IVC) filter that has been placed. Since he is going for a transjugular intrahepatic portosystemic shunt (TIPS) procedure, no empiric anticoagulation has been given. The patient is currently ordered a stat lower extremity Doppler. Pain control with IV morphine for now. 2. Portal vein, proximal superior mesenteric vein, splenic vein thromboses, status post thrombectomy by interventional radiology, Dr. Boyer on admission on 06/17/2019. The patient did drop his hemoglobin from 11-9 24 hours after the thrombectomy and has been transfused two units of red blood cells (RBCs). The patient's hemoglobin has remained stable. He has not exhibited any upper or lower GI bleed for the past 48 hours. He is continued on full supportive care, currently on IV morphine patient-controlled analgesia (HEATING AND VENTILATING DRAFTER) pump for comfort. The patient is currently going for a TIPS procedure by interventional radiology this morning. 3. Alcoholic liver cirrhosis with portal hypertension and history of variceal bleeding and upper GI bleed with portal vein, superior mesenteric vein, splenic vein thromboses. Currently undergoing TIPS procedure this morning, nothing by mouth after midnight. Currently, he does not have any acute GI bleed. Hemoglobin went from 11-9 24 hours after thrombectomy and had been transfused two units of RBCs. The patient's last alcoholic drink was 06/10/2019 and not a candidate for liver transplantation but may benefit from referring to [facility] after he has been abstinent for six months. 4. Factor V Leiden mutation, history of deep vein thrombosis (DVT), pulmonary embolus (PE) in the past with IVC filter placed due to history of GI bleed and inability to anticoagulate. He currently complains of left lower extremity pain in the calf. We have obtained a stat Doppler of the lower extremity. Again, we are unable to anticoagulate due to a planned TIPS procedure and history of GI bleed with variceal bleeding. 5. Hypertension. Atenolol has been held due to soft blood pressure. 6. Hyperlipidemia. Holding medications at this time since he is nothing by mouth for a procedure. 7. Type 2 diabetes. Currently on sliding scale, nothing by mouth currently and hypoglycemic protocol. 8. DVT prophylaxis. Has an IVC filter currently. 9. Pain control. The patient had been on morphine HEATING AND VENTILATING DRAFTER pump with reduced dosing due to increased risk of respiratory acidosis, hypercapnic respiratory failure with history of obstructive sleep apnea and morbid obesity with possible obesity hypoventilation syndrome. Therefore, the patient's morphine HEATING AND VENTILATING DRAFTER will be discontinued this morning and he will be given IV morphine every 30 minutes for pain control of the left lower extremity. 10. Obstructive sleep apnea, on chronic continuous positive airway pressure (CPAP). DISPOSITION: 2-3 days pending transjugular intrahepatic portosystemic shunt (TIPS) procedure, monitoring for complications. CODE STATUS: Full code, trial of intubation, cardiopulmonary resuscitation (CPR). MTDD
--- NOTE | 2019-06-19 19:35 | POST-OPPD ---
Postoperative Procedure Note Date Of Procedure: Jun 19, 2019 Time Of Procedure: 19:33 PREOPERATIVE DIAGNOSIS: cirrhosis, portal HTN, PV, splenic vein thrombosis and esophageal varices POSTOPERATIVE DIAGNOSIS: same FINDINGS: same PROCEDURE: successful TIPS placement, successful splenic and portal vein angioplasty with full temple of flow. No further filling of esophageal varices. Portosystemic gradient reduced to 10mmHg SURGEON: Merlin ANESTHESIA: general ESTIMATED BLOOD LOSS: < 15 ml COMPLICATIONS: none POSTOPERATIVE CONDITION: stable CALISTA GAYLE MD Jun 19, 2019 19:35
[2019-06-19] MEDS ORDERED: ONDANSETRON 4MG/2ML VIAL (J2405) IV PRN (20:15)
[2019-06-19] MEDS ORDERED: LR 1,000 ML IV SCH (20:15)
[2019-06-19] MEDS ORDERED: fentaNYL 100 MCG/2 ML INJECTION (J3010) IV PRN (20:15)
[2019-06-19] MEDS: NS 1,000 ML IV SCH (20:15)
[2019-06-20] VITALS (12 sets, daily range): BP systolic 117–143; BP diastolic 60–92; O2SAT 92–93
[2019-06-20] MEDS: PIPERACILLIN/TAZOBACTAM SOD 3.375 GM in D5W MINI-BAG PLUS 50 ML IV SCH ×4 (00:41→17:12)
[2019-06-20] MEDS: MORPHINE 2 MG/ML 1ML VIAL (J2270) IV PRN ×2 (00:59→03:24)
[2019-06-20] MEDS: NS 1,000 ML IV SCH (03:19)
[2019-06-20 04:57] LABS: BASO % 0.2 % (0.0-1.0); HEMATOCRIT 30.8 % (42.0-52.0); LYMPH # 0.5 10^3/uL (1.5-5.0); LYMPH % 3.5 % (24.0-44.0); MEAN CORPUSCULAR HEMOGLOBIN 31.9 pg (27.0-33.0); MEAN CORPUSCULAR HGB CONC 32.5 g/dl (32.0-36.5); MEAN CORPUSCULAR VOLUME 98.4 fl (80.0-96.0); MONO # 0.8 10^3/uL (0.0-0.8); NEUTROPHILS # 11.6 10^3/uL (1.5-8.5); NEUTROPHILS % 89.8 % (36.0-66.0); PLATELET COUNT, AUTOMATED 124 10^3/uL (150-450); RED BLOOD COUNT 3.13 10^6/uL (4.30-6.10); WHITE BLOOD COUNT 12.9 10^3/uL (4.0-10.0)
[2019-06-20 05:21] LABS: ALBUMIN 2.2 GM/DL (3.2-5.2); ALT/SGPT 31 U/L (12-78); BILIRUBIN,TOTAL 1.9 MG/DL (0.2-1.0); BLOOD UREA NITROGEN 6 MG/DL (7-18); CALCIUM LEVEL 7.6 MG/DL (8.5-10.1); CARBON DIOXIDE LEVEL 28 MEQ/L (21-32); CHLORIDE LEVEL 100 MEQ/L (98-107); GLOMERULAR FILTRATION RATE > 60.0 (>60); GLUCOSE, FASTING 260 MG/DL (70-100); POTASSIUM SERUM 3.9 MEQ/L (3.5-5.1); SODIUM LEVEL 135 MEQ/L (136-145); TOTAL PROTEIN 6.3 GM/DL (6.4-8.2)
[2019-06-20] MEDS ORDERED: oxyCODONE 5MG TAB PO ONE (08:00)
[2019-06-20] MEDS: HumaLOG INSULIN (NovoLOG) PER UNIT SC SCH ×4 (08:52→21:00)
[2019-06-20] MEDS: LACTULOSE 20 GM/30 ML SYRUP UD PO SCH ×4 (08:54→21:00)
[2019-06-20] MEDS: oxyCODONE 5MG TAB PO PRN ×3 (12:59→21:56)
--- NOTE | 2019-06-20 14:04 | IPN ---
DATE: 06/20/2019 Patient is status post transjugular intrahepatic portosystemic shunt (TIPS) procedure. Overnight no signs of bleeding. No fever or chills. He is currently complaining of pain with the Christopher catheters. to be removed. Input was 4 liters last night, 1.6 liters out, positive 465. Pain at the left lower extremity and abdomen rated as 6/10 on a pain scale when he is resting not adequately relieved with intravenous (IV) morphine currently on Percocet 2 tablets by mouth every 4 hours. Due to history of liver cirrhosis, we are limiting patient's acetaminophen level. Has been changed to oxycodone 10 mg every 4 as needed and IV morphine for breakthrough pain. The patient's glucose has been slightly elevated and was 260 this morning. The patient otherwise had no issues on telemetry. No signs of upper or gastrointestinal (GI) bleed. Denies hematemesis, bright red blood per rectum, melena or black tarry stools. No shortness of breath, chest pain, pressure or tightness, palpitations, lightheadedness or dizziness. Vital Signs: Temperature 98.5, pulse 101, respiratory rate 19, blood pressure 133/72, 94% on room air. Generally is slightly icteric, no jaundice. No use of respiratory accessory muscles. Answers questions appropriately without conversational dyspnea. No jugular venous distention (JVD) or thyromegaly. Lungs are clear to auscultation. No wheezing, rales or rhonchi. Heart: S1, S2, sinus tachycardia. Abdomen is obese, soft, slightly distended and tender in the epigastric right upper quadrant. No rebound, guarding. Positive fluid wave. Extremities 3+ pitting edema lower extremity, calf tenderness on left leg and popliteal area. LABORATORY DATA: White count 12.9, hemoglobin 10, hematocrit 30, platelet count 124, previous platelet count 136. Sodium 135, potassium 3.9, chloride 100, bicarbonate 28, BUN 6, creatinine 0.6, glucose 260, total bilirubin 1.9, AST 71, total protein 6.3, albumin of 2.2. MICROBIOLOGY: Two sets of blood cultures are pending after 24 hours. ASSESSMENT AND PLAN: This is a 49-year-old male with a history of alcoholic liver cirrhosis, variceal bleeding, factor V Leiden mutation recently discharged on 06/14/2019 after being treated for spontaneous bacterial peritonitis, has had history of deep venous thrombosis (DVT), pulmonary embolism (PE), inferior vena cava (IVC) filter placed, anticoagulation was not given due to a history of gastrointestinal bleed, dyslipidemia, morbid obesity, obstructive sleep apnea (ABIGAIL) on chronic continuous positive airway pressure (CPAP), body mass index 45 presented to the emergency room (ER) with worsening abdominal pain, found to have a near complete occlusion of the portal vein, superior mesenteric and splenic veins, status post thrombectomy by interventional radiology (IR) on admission on 06/17/2019 with drop in hemoglobin of 2 grams from 11 to 9, given 2 units red blood cell (RBC) transfusion. The patient has been found to have an acute left lower extremity DVT status post TIPS procedure currently with plans for IV heparin this evening. IMPRESSION: 1. Left lower extremity DVT with history of factor V Leiden mutation. Will start on heparin drip this evening at 1900 hours and on Saturday will start on warfarin to target international normalized ratio (INR) of 2. Monitor for GI bleed due history of variceal bleeding. 2. Portal vein, proximal superior mesenteric vein, splenic vein thromboses, status post thrombectomy on 06/17/201920, status post 2 units of RBC transfusion and currently stable with improved pain. The patient is currently on as needed oxycodone with breakthrough pain with IV morphine. 3. Alcoholic liver cirrhosis with portal hypertension and history of variceal bleeding and history of upper GI bleed status post TIPS procedure. The patient is to be hydrated, therefore will give albumin transfusions due to third spacing and risk of increasing ascitic fluid despite TIPS procedure and lower extremity edema with normal saline. Urine output will be monitored despite continuation of Christopher catheter. Will continue with albumin infusions to make sure blood pressure is well maintained. 4. Factor V Leiden mutation, left lower extremity DVT, PE in the past with IVC filter. Will start on anticoagulation this evening. Monitor for any gastrointestinal bleed. Consult GI or general surgery for stabilization and hold heparin if bleeding should be seen. 5. Hypertension, currently stable. 6. Hyperlipidemia, stable. 7. Type 2 diabetes, on sliding scale. Resume back on consistent carbohydrate diet and hypoglycemic protocol. 8. Pain control. The patient will be on oxycodone, try to limit his acetaminophen level. DISPOSITION: Await INR to be at 2-3. Given that the patient will be started on warfarin on Saturday, he will be here over the weekend and will most likely need until mid week until therapeutic INR has reached. Code status is FULL CODE.
[2019-06-20] MEDS: HEPARIN DRIP 25,000 UNITS in IV 1 EA IV SCH (19:31)
[2019-06-21] VITALS (13 sets, daily range): BP systolic 106–131; BP diastolic 55–77; O2SAT 93–97
[2019-06-21] MEDS: LACTULOSE 20 GM/30 ML SYRUP UD PO SCH ×6 (00:53→20:03)
[2019-06-21] MEDS: PIPERACILLIN/TAZOBACTAM SOD 3.375 GM in D5W MINI-BAG PLUS 50 ML IV SCH ×4 (00:53→20:03)
[2019-06-21] MEDS: oxyCODONE 5MG TAB PO PRN ×5 (03:27→21:34)
[2019-06-21 03:33] LABS: BASO % 0.1 % (0.0-1.0); EOS % 0.3 % (0.0-3.0); HEMATOCRIT 27.9 % (42.0-52.0); HEMOGLOBIN 9.2 g/dl (13.5-17.5); LYMPH # 0.8 10^3/uL (1.5-5.0); LYMPH % 7.8 % (24.0-44.0); MEAN CORPUSCULAR HEMOGLOBIN 32.6 pg (27.0-33.0); MEAN CORPUSCULAR VOLUME 98.9 fl (80.0-96.0); MONO # 0.9 10^3/uL (0.0-0.8); MONO % 9.3 % (0.0-5.0); NEUTROPHILS # 8.1 10^3/uL (1.5-8.5); NEUTROPHILS % 82.1 % (36.0-66.0); PLATELET COUNT, AUTOMATED 107 10^3/uL (150-450); RED BLOOD COUNT 2.82 10^6/uL (4.30-6.10); WHITE BLOOD COUNT 9.9 10^3/uL (4.0-10.0)
[2019-06-21 03:59] LABS: ALBUMIN 2.3 GM/DL (3.2-5.2); ALT/SGPT 32 U/L (12-78); BILIRUBIN,TOTAL 1.3 MG/DL (0.2-1.0); BLOOD UREA NITROGEN 7 MG/DL (7-18); CARBON DIOXIDE LEVEL 29 MEQ/L (21-32); CHLORIDE LEVEL 102 MEQ/L (98-107); CREATININE FOR GFR 0.63 MG/DL (0.70-1.30); GLOMERULAR FILTRATION RATE > 60.0 (>60); GLUCOSE, FASTING 260 MG/DL (70-100); POTASSIUM SERUM 3.7 MEQ/L (3.5-5.1); SODIUM LEVEL 138 MEQ/L (136-145); TOTAL PROTEIN 5.9 GM/DL (6.4-8.2)
[2019-06-21] MEDS: HEPARIN DRIP 25,000 UNITS in IV 1 EA IV SCH ×3 (04:11→16:45)
[2019-06-21] MEDS: HEPARIN SOD (PORCINE) 5000 UNITS/ML VIAL (J1644 PER 1000UNITS) IV PRN ×2 (04:12→16:51)
[2019-06-21] MEDS: PANTOPRAZOLE 40MG TAB (PROTONIX) PO SCH (07:54)
[2019-06-21] MEDS: HumaLOG INSULIN (NovoLOG) PER UNIT SC SCH ×4 (07:55→20:21)
[2019-06-21] MEDS: lisinopriL 20 MG TAB PO SCH (07:56)
--- NOTE | 2019-06-21 10:51 | REP ---
Portable chest x-ray: Single view. History: Shortness of breath. Comparison chest x-ray: June 17, 2019. Findings: There is a hazy opacity in the left perihilar region consistent with a mild infiltrate. Lung dawson are otherwise clear. Pleural angles are sharp. Heart is not enlarged. Pulmonary vasculature is not increased. Impression: Left upper lobe infiltrate consistent with pneumonia. Electronically Signed by Matias Greenwood MD 06/21/2019 10:43 A
[2019-06-21] MEDS: SIMETHICONE 80 MG CHEW TAB PO PRN (13:38)
[2019-06-21] MEDS: AZITHROMYCIN INJ 500 MG, VIAL MATE ADAPTER 1 EACH in D5W 250 ML IV SCH (15:14)
[2019-06-21 16:26] LABS: INR 1.55; PROTHROMBIN TIME 18.4 SECONDS (11.8-14.0)
[2019-06-21 16:27] LABS: PARTIAL THROMBOPLASTIN TIME 59.3 SECONDS (25.0-38.4)
[2019-06-21] MEDS ORDERED: NS 1,000 ML IV ONE (18:00)
--- NOTE | 2019-06-21 18:04 | IPN ---
DATE: 06/21/2019 Patient had an episode of shortness of breath yesterday. A chest x-ray that is showing pneumonia. Methicillin-resistant Staphylococcus aureus (MRSA) screen is pending. Patient's hemoglobin had dropped 1 gram, currently being transfused. No bright red blood per rectum, melena, or black tarry stools. Has been having three bowel movements daily on chronic lactulose. VITAL SIGNS: Temperature 97.6, pulse 125, respiratory rate 24, blood pressure 122/74, 92% on room air. GENERAL: Awake, alert, oriented to person, place and time. Slight icterus, but with no jaundice. LUNGS: Diminished with crackles at the left base. HEART: S1, S2. Sinus tachycardia. ABDOMEN: Much more distended, soft, tender right flank. No Corona Rangel or Jean Marie sign. EXTREMITIES: 3+ pitting edema. Calf tenderness on left lower extremity. White count 9.9, hemoglobin 9.2, hematocrit 27, platelet count 107. Metabolic panel has been reviewed. IMAGING STUDY: Left upper lobe pneumonia. ASSESSMENT AND PLAN: Hospital-acquired pneumonia, left upper lobe. The patient was started on Zosyn day of admission, on 06/17/2019, developed shortness of breath, now with a left upper lobe pneumonia on x-ray on 06/21/2019. No fever or chills. CURRENT ISSUES: 1. Hospital-acquired left upper lobe pneumonia. Currently on Zosyn. Will add azithromycin for atypical. Check sputum culture. Check MRSA screen. If positive, may need to add vancomycin. 2. Anemia with history of variceal bleeding. Currently being transfused 2 units red blood cells transfusion. Will continue to monitor hemoglobin and hematocrit (H and H). No overt gastrointestinal (GI) bleed. Denies any hematemesis, bright red blood per rectum, melena or black tarry stools at this time. 3. Left lower extremity deep venous thrombosis (DVT) on intravenous (IV) heparin. Will continue to monitor Hemoglobin and hematocrit (H and H) after red blood cells transfusion. No over GI bleed at this time. 4. Alcoholic liver cirrhosis with portal hypertension. 5. History of variceal bleeding. 6. History of upper GI bleed status post transjugular intrahepatic portosystemic shunt (TIPS) procedure. Currently being hydrated, receiving red blood cells transfusion. Make sure that the hemoglobin is plus 10 at all times. 7. Factor V Leiden mutation with left lower extremity deep venous thrombosis (DVT)/pulmonary embolism (PE) in the past. An inferior vena cava (IVC) filter placed. On IV heparin. We will not start warfarin due to decrease in hemoglobin. In case it further decreases, will stop the heparin. Will need to have an esophagogastroduodenoscopy (EGD) to rule active GI bleed. 8. Hypertension. Stable. 9. Hyperlipidemia. Stable. 10. Type 2 diabetes. Consistent carbohydrate diet. 11. 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 Currently now on 4 units red blood cells transfusion. Keep hemoglobin above 10 at all times and hydration.
[2019-06-21 18:36] LABS: HEMATOCRIT 32.8 % (42.0-52.0); HEMOGLOBIN 10.7 g/dl (13.5-17.5)
[2019-06-21] MEDS: ROSUVASTATIN 10 MG TAB (CRESTOR) PO SCH (20:09)
[2019-06-21] MEDS: MORPHINE 2 MG/ML 1ML VIAL (J2270) IV PRN (22:53)
[2019-06-21 23:17] LABS: HEMOGLOBIN 10.4 g/dl (13.5-17.5)
[2019-06-21 23:31] LABS: INR 1.54; PROTHROMBIN TIME 18.2 SECONDS (11.8-14.0)
[2019-06-21 23:32] LABS: PARTIAL THROMBOPLASTIN TIME 78.3 SECONDS (25.0-38.4)
[2019-06-22] VITALS (12 sets, daily range): BP systolic 114–147; BP diastolic 67–86; O2SAT 93–96
[2019-06-22] MEDS: LACTULOSE 20 GM/30 ML SYRUP UD PO SCH ×6 (00:08→21:00)
[2019-06-22] MEDS: PIPERACILLIN/TAZOBACTAM SOD 3.375 GM in D5W MINI-BAG PLUS 50 ML IV SCH ×4 (00:08→19:22)
[2019-06-22] MEDS ORDERED: MORPHINE 2 MG/ML 1ML VIAL (J2270) IV STA (00:17)
[2019-06-22] MEDS ORDERED: ISOVUE-370 76% 100ML VIAL (Q9967) As Ordered ONE (00:32)
[2019-06-22] MEDS: HEPARIN DRIP 25,000 UNITS in IV 1 EA IV SCH ×2 (01:35→19:23)
--- NOTE | 2019-06-22 02:02 | REPVR ---
PROCEDURE INFORMATION: Exam: CT Abdomen And Pelvis With Contrast Exam date and time: 06/22/2019 1:02 AM Age: 49 years old Clinical indication: Abdominal pain; Additional info: Severe abdominal pain TECHNIQUE: Imaging protocol: Computed tomography of the abdomen and pelvis with intravenous contrast. Radiation optimization: All CT scans at this facility use at least one of these dose optimization techniques: automated exposure control; mA and/or kV adjustment per patient size (includes targeted exams where dose is matched to clinical indication); or iterative reconstruction. Contrast material: ISO 370; Contrast volume: 100 ml; Contrast route: IV; COMPARISON: CT ABD/PEL W/IV CONTRAST ONLY 06/17/2019 8:05 AM FINDINGS: Tubes, catheters and devices: There is a TIPS shunt in position. Lungs: Minimal bibasilar fibro-atelectatic change. Mediastinum: Distal paraesophageal portal venous collaterals or varices. Liver: Nodular surface of the liver with heterogeneous parenchyma and small focus of hyperenhancement in the lateral right lobe measuring 14 mm. Gallbladder and bile ducts: Status post cholecystectomy. Pancreas: Normal. No ductal dilation. Spleen: The spleen measures 14.6 cm. Adrenals: Normal. No mass. Kidneys and ureters: Normal. No hydronephrosis. Stomach and bowel: Unremarkable. No obstruction. No mucosal thickening. Appendix: A normal appendix is seen. Intraperitoneal space: Moderate large volume peritoneal ascites. Vasculature: There is an IVC filter in position. Incidental note of an accessory retroaortic left renal vein. Lymph nodes: Unremarkable. No enlarged lymph nodes. Bladder: Unremarkable as visualized. Reproductive: Calcification of the right vas deferens. Bones/joints: Degenerative changes of the lumbar spine. Soft tissues: Unremarkable. IMPRESSION: 1. Interval placement of a TIPS shunt since 06/17/2019. 2. Hepatic cirrhosis with borderline splenomegaly and some portal venous collateralization. There is moderate large volume peritoneal ascites which is slightly increased overall since the prior study. 3. IVC filter in position. 4. Status post cholecystectomy. Electronically signed by: Ashu Nick On 06/22/2019 02:02:00 AM
[2019-06-22] MEDS: oxyCODONE 5MG TAB PO PRN ×3 (05:17→21:10)
[2019-06-22 05:53] LABS: BASO % 0.3 % (0.0-1.0); EOS # 0.1 10^3/uL (0.0-0.5); EOS % 1.3 % (0.0-3.0); HEMATOCRIT 33.5 % (42.0-52.0); HEMOGLOBIN 10.9 g/dl (13.5-17.5); LYMPH % 13.5 % (24.0-44.0); MEAN CORPUSCULAR HEMOGLOBIN 31.8 pg (27.0-33.0); MEAN CORPUSCULAR HGB CONC 32.5 g/dl (32.0-36.5); MEAN CORPUSCULAR VOLUME 97.7 fl (80.0-96.0); MONO # 0.7 10^3/uL (0.0-0.8); MONO % 9.6 % (0.0-5.0); NEUTROPHILS # 5.7 10^3/uL (1.5-8.5); NEUTROPHILS % 74.8 % (36.0-66.0); PLATELET COUNT, AUTOMATED 122 10^3/uL (150-450); RED BLOOD COUNT 3.43 10^6/uL (4.30-6.10); WHITE BLOOD COUNT 7.6 10^3/uL (4.0-10.0)
[2019-06-22 06:03] LABS: INR 1.5; PROTHROMBIN TIME 17.8 SECONDS (11.8-14.0)
[2019-06-22 06:05] LABS: PARTIAL THROMBOPLASTIN TIME 69.5 SECONDS (25.0-38.4)
[2019-06-22 06:19] LABS: ALBUMIN 2.4 GM/DL (3.2-5.2); ALT/SGPT 32 U/L (12-78); BILIRUBIN,TOTAL 2.9 MG/DL (0.2-1.0); BLOOD UREA NITROGEN 5 MG/DL (7-18); CALCIUM LEVEL 8.2 MG/DL (8.5-10.1); CARBON DIOXIDE LEVEL 31 MEQ/L (21-32); CHLORIDE LEVEL 98 MEQ/L (98-107); GLOMERULAR FILTRATION RATE > 60.0 (>60); GLUCOSE, FASTING 180 MG/DL (70-100); SODIUM LEVEL 133 MEQ/L (136-145); TOTAL PROTEIN 6.8 GM/DL (6.4-8.2)
[2019-06-22] MEDS ORDERED: FUROSEMIDE 40 MG/4 ML VIAL (J1940) IV ONE (08:15)
[2019-06-22] MEDS ORDERED: POTASSIUM CHLORIDE 10 MEQ SR TABLET PO ONE (08:15)
--- NOTE | 2019-06-22 08:43 | REP ---
IR percutaneous fluoroscopy guided transhepatic portal venography. IR portal vein catheterization. IR splenic vein catheterization. IR splenic venography. IR mesenteric venography. IR portal venography. IR fluoroscopy guided mechanical portal vein thrombectomy. IR fluoroscopy guided mechanical splenic vein thrombectomy. IR fluoroscopy guided mechanical mesenteric vein thrombectomy. IR portal vein angioplasty. IR splenic vein angioplasty. IR Gelfoam transhepatic tract embolization. IR moderate sedation. Clinical information: Cirrhosis with portal hypertension and complete portal, splenic and mesenteric vein thrombosis. Abdominal pain. Ascites. Physician: Dr. Boyer. Procedure: The patient was advised of the benefits, risks and alternatives of the procedure and informed consent was obtained. The time-out was performed with verification of the patient's name, MRN, site of procedure and type of procedure to be performed. The patient was positioned in the supine position on the angiographic table. The site was prepped and draped in the usual sterile fashion. Moderate sedation was performed by the physician including the presence of an independent trained observer who assisted in monitoring the patient's level of consciousness and physiologic status. Following the administration of fentanyl and Versed, the physician spent 240 minutes of continuous face to face time with the patient. A dredge engineer dredge engineer radiograph reveals cholecystectomy clips in the right upper quadrant. The soft tissues overlying the anticipated right upper quadrant puncture site were anesthetized with lidocaine. A right portal vein was accessed with a 21 gauge Chiba needle under fluoroscopy guidance. A percutaneous portal venogram was performed and demonstrates occluded intra and extrahepatic portal vein. A few branches of the intrahepatic portal vein do opacify. A wire was advanced into the portal vein under fluoroscopy guidance. The needle was exchanged for a non vascular introducer sheath. The inner dilator and wire were removed. Repeat venography demonstrates occluded intra and extrahepatic portal veins. Occlusive thrombus in the main portal vein. The guide wire in conjunction with a diagnostic catheter, was used to catheterize the portal vein and then the splenic vein, under fluoroscopy guidance. The non vascular sheath was removed over the wire and exchanged for a 8-Thai vascular sheath. The splenic venogram was then performed. This demonstrates filling of peripheral splenic vein but no drainage centrally through the splenic vein and no flow in the the portal vein. No reflux into mesenteric veins. The catheter was retracted under fluoroscopy guidance into the proximal splenic vein. A repeat venogram was performed and this demonstrates filling of esophageal varices. No flow within the splenic or portal vein. The catheter was advanced over the wire into the splenic vein. The catheter was removed over the wire. A CAT 8 indigo Penumbra mechanical thrombectomy device was advanced over the wire under fluoroscopy guidance into the splenic vein. This was used to perform mechanical thrombectomy in the splenic and portal vein under fluoroscopy guidance. The catheter was also advanced over the wire into the mesenteric vein for further mechanical thrombectomy. After initial 1-2 minutes of aspiration, a large clot burden was retrieved, followed by rapid free flow. The catheter was then removed over the wire. The diagnostic catheter was advanced over the wire into the main portal vein and a repeat venogram was performed. This demonstrates some flow in the splenic vein and portal vein. Persistent opacification of esophageal varices indicative of high-grade portal hypertension. An 8 x 40 mm [place] balloon was then advanced over the wire under fluoroscopy guidance and used to angioplasty the splenic vein. After prolonged angioplasty, the balloon was deflated and retracted into the main portal vein. Portal vein angioplasty was then performed. The entire splenic vein and portal vein was angioplastied. The balloon was then deflated and removed over the wire. A catheter was re-advanced over the wire into the splenic and portal vein. 4 mg of TPA were administered into the veins. The catheter was advanced over the wire and used under fluoroscopy guidance to catheterize the inferior mesenteric vein. A venogram was performed and this demonstrates flow in the inferior mesenteric vein. The catheter in conjunction with a wire, was used to catheterize the splenic vein. A venogram was performed and this demonstrates flow in the splenic vein. The catheter was removed over the wire. Gelfoam was injected through the vascular sheath, under fluoroscopy guidance, as the vascular sheath was retracted, in order to seal the transhepatic tract. The sheath was removed, pressure held and hemostasis achieved. A sterile dressing was applied to the site. The patient tolerated the procedure well and was returned to the ICU in stable condition. EBL: Approximately 50 ml. Complications: None. Impression: 1. Percutaneous transhepatic portal venography demonstrates complete thrombotic occlusion of the splenic, portal and mesenteric vein. 2. Successful transhepatic portal vein access and catheterization, splenic vein catheterization and mechanical thrombectomy of splenic, mesenteric and portal vein. 3. Successful angioplasty of splenic and portal veins. 4. Patient will return in 2 days for TIPS. Thank you this referral. Electronically Signed by Suzy Boyer MD 06/22/2019 08:40 A
--- NOTE | 2019-06-22 09:12 | REP ---
ACUTE ABDOMINAL SERIES: Four views. HISTORY: Shortness of breath. COMPARISON STUDY: Chest x-ray from June 21, 2019. FINDINGS: Subtle infiltrate persists in the left upper lobe on chest x-ray. There is no evidence of free subdiaphragmatic air. Heart is not enlarged. Supine and erect views of the abdomen demonstrate a vena cava filter in place to the right of midline. There is contrast opacified urine in the urinary bladder from recently performed CT study. Contrast is seen in the collecting systems of each kidney. Bowel gas pattern is normal. No significant air fluid level is seen. No evidence of obstruction or free air. No mass organomegaly. IMPRESSION: Vena cava filter. Normal bowel gas pattern. Subtle left upper lobe infiltrate. Electronically Signed by Matias Greenwood MD 06/22/2019 10:52 A
--- NOTE | 2019-06-22 09:21 | REP ---
IR TIPS. IR Transjugular intrahepatic portosystemic shunt placement. IR Hepatic venography with pressure measurements. IR Portal venography with pressure measurements. IR Right neck ultrasound. Clinical information: Cirrhosis. Portal hypertension. Bleeding esophageal varices. Complete portal, splenic and mesenteric vein thrombosis. Abdominal pain. Physician: Dr. Boyer. Procedure: The patient was advised of the benefits, risks and alternatives of the procedure and informed consent was obtained. The time-out was performed with verification of the patient's name, MRN, site of procedure and type of procedure to be performed. The patient was positioned in the supine position on the angiographic table. The site was prepped and draped in the usual sterile fashion. General anesthesia was administered by the anesthesia team. A aeronautical products sales engineer radiograph reveals cholecystectomy clips in the right upper quadrant. Preliminary ultrasound of the right neck was performed demonstrating a patent and compressible right internal jugular vein. Local anesthesia using lidocaine was administered. Under ultrasound guidance, the right internal jugular vein was accessed with a micropuncture kit. A wire was advanced into the superior vena cava. The micro sheath was exchanged over the wire for serial tract dilators, which are used under fluoroscopy guidance to dilate the tract. Following this, a 10-Norwegian TIPS sheath was advanced over the wire under fluoroscopy guidance into the inferior vena cava. Pressure measurement in the right atrium and IVC was performed. IVC pressure: 14 mmHg. Right atrial pressure: 12 mmHg. A catheter was advanced over the wire under fluoroscopy guidance and used catheterize a second order branch of the right hepatic vein. A free hepatic venogram was performed demonstrating normal appearing hepatic vein. Free hepatic pressure was measured. Hepatic vein : 24 mmHg. A wedge hepatic venogram was not performed nor was CO2 portal venography performed as we have prior portal venography. An Amplatz wire was advanced through the catheter into the peripheral hepatic vein. The catheter was removed over the wire. A [employer] BeeTVida TIPS kit was advanced over the wire under fluoroscopy guidance into the hepatic vein. The tips needle was then advanced through the tip sheath under fluoroscopy guidance, angled posteriorly and use to penetrate the portal vein. After several attempts, contrast injection confirmed location within the portal vein. A Glidewire was manipulated into the portal vein and then into the splenic vein, under fluoroscopy guidance. The needle guide was then exchanged for a pigtail catheter and the glide wire was exchanged for a superstiff Amplatz wire. The calibrated pigtail catheter was then used to catheterize the splenic vein and a portal splenic venogram was performed demonstrating flow in the peripheral splenic vein and filling of esophageal varices. No central splenic, intra or extrahepatic portal venous flow. The tips sheath was then passed through the tract under fluoroscopy guidance into the portal vein. A 10 mm x 7 x 2 cm TIPS stent was deployed in the usual fashion extending from the right portal vein to the distal hepatic vein. The deployment device was removed over the wire. A 10 x 80 mm [place] balloon was advanced over the wire under fluoroscopy guidance into the stent. The angioplasty balloon was used to angioplasty the stent under fluoroscopy guidance. The balloon was deflated and repositioned in the mid and distal stent and used to angioplasty the mid and distal stent. The balloon was then deflated and repositioned over the wire into the portal vein. After portal vein angioplasty, the balloon was deflated and repositioned over the wire into the splenic vein. The balloon was used to angioplasty the main portal vein and the entire splenic vein. The balloon was deflated and removed over the wire. The pigtail catheter was advanced over the wire into the splenic vein. A follow-up venogram was performed and this demonstrates rapid flow within the splenic vein back to the main portal vein through the TIPS shunt and into the right atrium. No further filling of esophageal varices indicating adequate portasystemic gradient reduction. Post TIPS portal vein pressure: 24 mmHg. Port systemic gradient reduced to 10 mmHg. The catheter and sheath was removed, pressure held and hemostasis achieved. A sterile dressing was applied to the neck. The patient tolerated the procedure well and was returned to the ICU in stable condition. EBL: Less than 15 ml. Complications: None. Impression: 1. Successful TIPS placement with reduction of mean portosystemic gradient to 10 mm Hg. No further filling of the esophageal varices. 2. Restored flow in the splenic, mesenteric and portal venous system. 3. Patient to remain on lifelong anticoagulation for factor V Leiden deficiency. 4. Patient to return to IR clinic in 1 month time with follow up imaging which we will order. 5. Patient to start on and titrate lactulose TID for goal 2-3 soft stools per day. Thank you for this referral. Electronically Signed by Suzy Boyer MD 06/22/2019 09:20 A
[2019-06-22] MEDS: lisinopriL 20 MG TAB PO SCH (09:22)
[2019-06-22] MEDS: PANTOPRAZOLE 40MG TAB (PROTONIX) PO SCH (09:22)
[2019-06-22] MEDS: HumaLOG INSULIN (NovoLOG) PER UNIT SC SCH ×4 (09:23→21:00)
--- NOTE | 2019-06-22 12:26 | IRPN ---
[facility] IR Progress Note IR Progress Note DATE: Jun 22, 2019 FOLLOW-UP: Day 4 status post TIPS placement for cirrhosis with portal hype rtension, bleeding esophageal varices and portal vein thrombosis. Patient doing well post procedure. Eating and drinking. Mobilizing. ON EXAMINATION: Abdominal distention with shifting dullness. Alert and oriented. No scleral icterus. Imaging: I personally reviewed the same day CT. There is ascites. IMPRESSION: Doing well status post TIPS placement. Patient will need full heparinization and then lifelong anticoagulation for factor V Leyden deficiency. Paracentesis as and when needed including today. Lactulose 3 times a day. Patient to follow-up with me in clinic in 1 month time for ongoing TIPS surveillance. Allergies Coded Allergies: No Known Allergies (Verified , 01/22/05) Current Medications Current Medications Medications (Trade) Dose Ordered Sig/Ivanna Route PRN Reason Start Time Stop Time Status Last Admin Dose Admin Atenolol (Tenormin) 50 mg DAILY PO 06/17/19 09:00 06/18/19 07:22 DC 06/17/19 18:06 Azithromycin 500 mg/IV Miscellaneous Supplies 1 each/ Dextrose 255 ml @ 255 mls/hr Q24H IV 06/21/19 13:00 06/25/19 13:59 06/21/19 15:14 Dextrose (Dextrose 50%) 25 ml ASDIRECTED PRN IV SEE LABEL COMMENTS 06/17/19 10:45 Diphenhydramine HCl (Benadryl) 12.5 mg Q4HP PRN IV ITCHING 06/17/19 09:45 06/17/19 18:00 DC Diphenhydramine HCl (Benadryl) 12.5 mg Q4HP PRN IV ITCHING 06/18/19 08:00 06/19/19 07:28 DC Fentanyl Citrate (Sublimaze) 25 mcg Q5MP PRN IV PAIN LEVEL 5-10 06/19/19 20:15 06/19/19 21:15 DC Furosemide (LASIX injection) 20 mg Q4H IV 06/18/19 08:00 06/19/19 07:17 DC 06/19/19 03:46 Furosemide (LASIX injection) 40 mg Q6H IV 06/22/19 14:00 06/22/19 20:01 Glucagon (Glucagon) 1 mg ASDIRECTED PRN SC SEE LABEL COMMENTS 06/17/19 10:45 Glucose (Glucose) 16 GM ASDIRECTED PRN PO SEE LABEL COMMENTS 06/17/19 10:45 Heparin Sodium (Porcine) (Heparin) ASDIRECTED PRN IV SEE LABEL COMMENTS 06/20/19 19:00 06/22/19 08:02 DC 06/21/19 16:51 Heparin Sodium (Porcine) 02952 units/IV Miscellaneous Supplies 250 ml @ 0 mls/hr Q0M IV 06/20/19 19:00 06/22/19 08:02 DC 06/22/19 01:35 Home Med (Med Rec Complete!) ASDIRECTED XX 06/17/19 10:15 06/17/19 10:06 DC Insulin Human Lispro (HumaLOG INSULIN) SEE PROTOCOL TABLE AC HI 06/20/19 07:30 06/22/19 12:03 Insulin Human Lispro (HumaLOG INSULIN) SEE PROTOCOL TABLE Q6H HI 06/17/19 12:00 06/18/19 07:57 DC 06/18/19 06:04 Insulin Human Lispro (HumaLOG INSULIN) SEE PROTOCOL TABLE QHS HI 06/20/19 21:00 Lactated Ringer's 1,000 ml @ 75 mls/hr [id number] IV 06/19/19 20:15 06/19/19 21:15 DC Lactulose (Cephulac) 15 ml BID PO 06/17/19 11:00 06/20/19 12:59 DC 06/20/19 08:54 Lactulose (Cephulac) 30 ml Q4H PO 06/20/19 13:00 06/22/19 05:16 Lisinopril (Prinivil) 20 mg DAILY PO 06/21/19 09:00 06/22/19 09:22 Morphine Sulfate (Morphine Sulfate In 0.9%Nacl Iv Bag) Concentration 1 mg/ml ASDIRECTED PRN IV SEE LABEL COMMENTS 06/17/19 09:45 06/17/19 18:00 DC 06/17/19 10:37 Morphine Sulfate (Morphine Sulfate In 0.9%Nacl Iv Bag) Concentration 1 mg/ml ASDIRECTED PRN IV SEE LABEL COMMENTS 06/18/19 09:00 06/19/19 07:28 DC 06/18/19 09:05 Morphine Sulfate (Morphine Sulfate Inj) 2 mg NOW STAT IV 06/22/19 00:17 06/22/19 00:21 DC 06/22/19 00:28 Morphine Sulfate (Morphine Sulfate Inj) 2 mg Q2H PRN IV SEVERE PAIN (PS 8-10) 06/20/19 00:45 06/21/19 22:53 Morphine Sulfate (Morphine Sulfate Inj) 2 mg Q2HP PRN IV SEVERE PAIN (PS 8-10) 06/17/19 18:00 06/18/19 07:57 DC 06/18/19 03:27 Morphine Sulfate (Morphine Sulfate Inj) 4 mg Q30M PRN IV SEVERE PAIN (PS 8-10) 06/17/19 08:30 06/17/19 09:32 DC 06/17/19 09:32 Nalbuphine HCl (Nubain) 2.5 mg Q6HP PRN IV PRURITIS 06/17/19 09:45 06/17/19 18:00 DC Nalbuphine HCl (Nubain) 2.5 mg Q6HP PRN IV PRURITIS 06/18/19 08:00 06/19/19 07:28 DC Naloxone HCl (Narcan) 0.1 mg Q5MP PRN IV SEE LABEL COMMENTS 06/17/19 09:45 06/17/19 18:00 DC Naloxone HCl (Narcan) 0.1 mg Q5MP PRN IV SEE LABEL COMMENTS 06/18/19 08:00 06/19/19 07:28 DC Non-Formulary Medication (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 Q1M PRN XX SEE LABEL COMMENTS 06/18/19 08:00 06/19/19 07:28 DC Non-Formulary Medication (Heparin Iv Rate Change Documentation ml/ Hr) ASDIRECTED XX 06/20/19 19:00 06/22/19 08:02 DC Ondansetron HCl (ZOFRAN INJection) 4 mg Q4HP PRN IV NAUSEA OR VOMITING 06/19/19 20:15 06/19/19 21:15 DC Ondansetron HCl (ZOFRAN INJection) 4 mg Q6HP PRN IV NAUSEA 06/17/19 09:45 06/17/19 18:00 DC Ondansetron HCl (ZOFRAN INJection) 4 mg Q6HP PRN IV NAUSEA 06/18/19 08:00 06/19/19 07:28 DC Oxycodone HCl (Roxicodone, Oxyir) 10 mg Q4HP PRN PO SEVERE PAIN (PS 8-10) 06/20/19 12:00 06/22/19 05:17 Pantoprazole Sodium (Protonix) 40 mg DAILY PO 06/21/19 09:00 06/22/19 09:22 Piperacillin Sod/ Tazobactam Sod 3.375 gm/Dextrose 50 ml @ 50 mls/hr Q6H IV 06/17/19 12:00 06/22/19 12:02 Potassium Chloride 10 meq/ IV Miscellaneous Supplies 100 ml @ 100 mls/hr Q1H IV 06/19/19 08:00 06/19/19 10:59 DC 06/19/19 11:09 Rosuvastatin Calcium (Crestor) 40 mg QHS PO 06/21/19 21:00 06/21/19 20:09 Simethicone (Mylicon) 80 mg TID PRN PO GAS PAIN 06/21/19 07:00 06/21/19 13:38 Sodium Chloride 1,000 ml @ 15 mls/hr Q24H IV 06/17/19 09:39 06/17/19 18:00 DC 06/17/19 10:36 Sodium Chloride 1,000 ml @ 15 mls/hr Q24H IV 06/18/19 09:00 06/19/19 07:28 DC 06/18/19 09:03 Sodium Chloride 1,000 ml @ 150 mls/hr Q6H40M IV 06/19/19 20:15 06/20/19 07:51 DC 06/20/19 03:19 Sodium Chloride 1,000 ml @ 250 mls/hr Q4H IV 06/17/19 18:30 06/18/19 02:29 DC 06/17/19 22:33 VS,Fishbone, I+O VS, Fishbone, I+O Laboratory Tests 06/21/19 18:20 06/21/19 23:06 06/22/19 05:41 Vital Signs Date Time Temp Pulse Resp B/P (MAP) Pulse Ox O2 Delivery O2 Flow Rate FiO2 06/22/19 12:17 96 Room Air 06/22/19 11:39 98.1 120 20 132/78 06/20/19 21:56 1.0 I&O- Last 24 Hours up to 6 AM 06/22/19 06:00 Intake Total 3080 ml Output Total 525 ml Balance 2555 ml CALISTA GAYLE MD Jun 22, 2019 12:26
[2019-06-22] MEDS: MORPHINE 2 MG/ML 1ML VIAL (J2270) IV PRN (12:46)
[2019-06-22] MEDS: AZITHROMYCIN INJ 500 MG, VIAL MATE ADAPTER 1 EACH in D5W 250 ML IV SCH (13:25)
[2019-06-22] MEDS ORDERED: FUROSEMIDE 40 MG/4 ML VIAL (J1940) IV SCH (14:00)
--- NOTE | 2019-06-22 14:33 | IPNPDOC ---
Date Seen The patient was seen on 06/22/19. Progress Note SUBJECTIVE: no hematemesis, brbpr, or melena. sob at rest, and SAM , but not hypoxic. tachycardic. on heparin for DVT, held for 6hrs due to plans for paracentesis. no n/v/d. 3bm to prevent encephalopathy on lactulose. no fever or chills. OBJECTIVE PHYSICAL EXAMINATION VITALS: PLS SEE BELOW GENERAL: Awake, alert, oriented to person, place and time. Slight icterus, but with no jaundice. LUNGS: Diminished bilateral crackles. HEART: S1, S2. Sinus tachycardia. ABDOMEN: Much more distended, soft, tender right flank. No Corona Rangel or [place] sign.positve bowel soudns. fluid wave. no rebound or guarding. EXTREMITIES: 3+ pitting edema. Calf tenderness on left lower extremity. LABORATORY DATA: PLS SEE BELOW IMAGING STUDY: CXR: Left upper lobe pneumonia. CTABD/PELVIS: TIPS, ASCITES. ASSESSMENT AND PLAN: : This is a 49-year-old male with a history of alcoholic liver cirrhosis, variceal bleeding, upper gastrointestinal bleed, portal hypertension, spontaneous bacterial peritonitis, factor V Leiden mutation, deep vein thrombosis (DVT), pulmonary embolism, IVC filter, diabetes, hypertension, hyperlipidemia, morbid obesity, obstructive sleep apnea on chronic continuous positive airway pressure (CPAP), Body Mass Index (BMI) of 45.2, treated in May for spontaneous bacterial peritonitis, variceal bleeding with GI hemorrhage. Recently released June 13, now with ongoing abdominal pain, found to have nearly occlusive portal vein thrombosis, splenic vein thrombosis, and proximal superior mesenteric vein thrombosis Nearly occlusive extensive portal vein, proximal superior mesenteric vein and splenic vein thrombosis s/p thrombectomy on admission, managed by IR, Dr. noeill. Hospital-acquired pneumonia, left upper lobe. The patient was started on Zosyn day of admission, on 06/17/2019, developed shortness of breath, now with a left upper lobe pneumonia on x-ray on 06/21/2019. negative MRSA screen. to complete 5days azithromycin for atypical coverage. no sputum production. Anemia with history of variceal bleeding. s/p rbc transfusion red blood cells transfusion. Will continue to monitor hemoglobin and hematocrit (H and H). No overt gastrointestinal (GI) bleed. Denies any hematemesis, bright red blood per rectum, melena or black tarry stools at this time. Left lower extremity deep venous thrombosis (DVT) /factor v leiden mutation with goal inr 2.5 to 3.5. was on intravenous (IV) heparin, but held due to plans for paracentesis today. resume on heparin post paracentesis, and if no bleed, overlap with warfarin. Will continue to monitor Hemoglobin and hematocrit (H and H) . No overt GI bleed at this time. Alcoholic liver cirrhosis with portal hypertension. status post transjugular intrahepatic portosystemic to prevent encephalopathy, on lactulose for 3bm goal daily. on zosyn to cover pneumonia and intraabdominal organisms fluid restriction. continue monitoring renal function. attempt to diurese if adequate blood pressure,. but may need albumin infusion and lasix for net negative balance, but still maintaining MAP >70. VS, I&O, 24H, Fishbone Vital Signs/I&O Vital Signs Date Time Temp Pulse Resp B/P (MAP) Pulse Ox O2 Delivery O2 Flow Rate FiO2 06/22/19 12:59 20 Room Air 06/22/19 12:17 96 06/22/19 11:39 98.1 120 132/78 06/20/19 21:56 1.0 I&O- Last 24 Hours up to 6 AM 06/22/19 06:00 Intake Total 3080 ml Output Total 525 ml Balance 2555 ml Laboratory Data 24H LABS Laboratory Tests 2 06/21/19 15:40: Methicillin-Resist S.aureus DNA PCR NOT DETECTED 06/21/19 15:56: Bedside Glucose (Misc Panel) 249H 06/21/19 16:01: Prothrombin Time 18.4H, Prothromb Time International Ratio 1.55, Activated Partial Thromboplast Time 59.3H 06/21/19 20:19: Bedside Glucose (Misc Panel) 228H 06/21/19 23:06: Prothrombin Time 18.2H, Prothromb Time International Ratio 1.54, Activated Par tial Thromboplast Time 78.3H 06/22/19 05:41: Prothrombin Time 17.8H, Prothromb Time International Ratio 1.50, Activated Partial Thromboplast Time 69.5H, Immature Granulocyte % (Auto) 0.5, Neutrophils (%) (Auto) 74.8H, Lymphocytes (%) (Auto) 13.5L, Monocytes (%) (Auto) 9.6H, Eosin ophils (%) (Auto) 1.3, Basophils (%) (Auto) 0.3, Neutrophils # (Auto) 5.7, Lymphocytes # (Auto) 1.0L, Monocytes # (Auto) 0.7, Eosinophils # (Auto) 0.1, Basophils # (Auto) 0.0, Nucleated Red Blood Cells % (auto) 0.0, Anion Gap 4L, Glomerular Filtration Rate > 60.0, Calcium Level 8.2L, Total Bilirubin 2.9#H, Aspartate Amino Transf (AST/SGOT) 60H, Alanine Aminotransferase (ALT/SGPT) 32, Alkaline Phosphatase 86, Total Protein 6.8, Albumin 2.4L, Albumin/Globulin Ratio 0.55L 06/22/19 11:38: Bedside Glucose (Misc Panel) 197H 06/22/19 14:10: CBC/BMP Laboratory Tests 06/21/19 18:20 06/21/19 23:06 06/22/19 05:41 Microbiology Microbiology 06/21/19 Stool Occult Blood (ARIEL) - Final, Complete 06/17/19 Blood Culture - Final, Complete NO GROWTH AFTER 5 DAYS 06/17/19 Blood Culture - Final, Complete NO GROWTH AFTER 5 DAYS NESS OJEDA MD Jun 22, 2019 14:24
[2019-06-22 15:45] LABS: APPEARANCE, BODY FLUID CLOUDY (CLEAR); ASCITES FL COLOR RED (COLORLESS); SOURCE, BODY FLUID ASCITES
[2019-06-22 16:04] LABS: SOURCE, BODY FLUID ALBUMIN ASCITES; SOURCE, BODY FLUID GLUCOSE ASCITES; SOURCE, BODY FLUID TOT PROTEIN ASCITES
[2019-06-22 16:16] LABS: SPEC. GRAVITY BODY FLUIDS 1.011 (NOT ESTABLISHED)
--- NOTE | 2019-06-22 17:56 | REP ---
Ultrasound-guided paracentesis The procedure was performed under the direct supervision of Dr. Greenwood. The risks and benefits of the procedure were explained to the patient and informed consent was obtained. The largest pocket of fluid was localized in the right flank using ultrasound guidance. The skin was prepped and draped in a sterile fashion. 1% lidocaine was used as a local anesthetic. An 8-Urdu multi side-hole catheter was inserted using trocar technique. 6250 ml of low viscosity red colored fluid was withdrawn with a sample sent to the lab for analysis. The patient tolerated the procedure well and there were no immediate complications. After the appropriate amount of monitored convalescence the patient was discharged from the department. Electronically Signed by LULU Castro 06/22/2019 04:19 P Electronically Signed by Matias Greenwood MD 06/22/2019 05:47 P
[2019-06-22] MEDS: ROSUVASTATIN 10 MG TAB (CRESTOR) PO SCH (21:09)
[2019-06-23] MEDS: PIPERACILLIN/TAZOBACTAM SOD 3.375 GM in D5W MINI-BAG PLUS 50 ML IV SCH ×5 (00:23→23:46)
[2019-06-23] MEDS: LACTULOSE 20 GM/30 ML SYRUP UD PO SCH ×6 (01:00→20:11)
[2019-06-23] MEDS: HEPARIN SOD (PORCINE) 5000 UNITS/ML VIAL (J1644 PER 1000UNITS) IV PRN ×2 (01:25→05:42)
[2019-06-23] MEDS: HEPARIN DRIP 25,000 UNITS in IV 1 EA IV SCH ×2 (02:45→17:57)
[2019-06-23 04:48] LABS: BASO % 0.4 % (0.0-1.0); EOS # 0.1 10^3/uL (0.0-0.5); EOS % 1.9 % (0.0-3.0); HEMATOCRIT 30.9 % (42.0-52.0); HEMOGLOBIN 10.1 g/dl (13.5-17.5); LYMPH # 0.8 10^3/uL (1.5-5.0); LYMPH % 15.7 % (24.0-44.0); MEAN CORPUSCULAR HEMOGLOBIN 31.8 pg (27.0-33.0); MEAN CORPUSCULAR HGB CONC 32.7 g/dl (32.0-36.5); MEAN CORPUSCULAR VOLUME 97.2 fl (80.0-96.0); MONO # 0.6 10^3/uL (0.0-0.8); MONO % 11.4 % (0.0-5.0); NEUTROPHILS # 3.8 10^3/uL (1.5-8.5); RED BLOOD COUNT 3.18 10^6/uL (4.30-6.10); WHITE BLOOD COUNT 5.4 10^3/uL (4.0-10.0)
[2019-06-23 05:09] LABS: PLATELET COUNT, AUTOMATED 98 10^3/uL (150-450)
[2019-06-23 05:17] LABS: ALBUMIN 2.3 GM/DL (3.2-5.2); ALT/SGPT 28 U/L (12-78); BILIRUBIN,TOTAL 1.8 MG/DL (0.2-1.0); BLOOD UREA NITROGEN 5 MG/DL (7-18); CALCIUM LEVEL 7.9 MG/DL (8.5-10.1); CARBON DIOXIDE LEVEL 29 MEQ/L (21-32); CHLORIDE LEVEL 99 MEQ/L (98-107); CREATININE FOR GFR 0.46 MG/DL (0.70-1.30); GLOMERULAR FILTRATION RATE > 60.0 (>60); GLUCOSE, FASTING 158 MG/DL (70-100); SODIUM LEVEL 135 MEQ/L (136-145); TOTAL PROTEIN 5.8 GM/DL (6.4-8.2)
[2019-06-23 06:00] VITALS: BP 119/47
[2019-06-23] MEDS ORDERED: POTASSIUM CHLORIDE 10 MEQ SR TABLET PO ONE (07:30)
[2019-06-23] MEDS: PANTOPRAZOLE 40MG TAB (PROTONIX) PO SCH (09:00)
[2019-06-23] MEDS: HumaLOG INSULIN (NovoLOG) PER UNIT SC SCH ×4 (09:00→21:00)
[2019-06-23 11:00] VITALS: BP 153/77
[2019-06-23 11:15] VITALS: BP 166/100
[2019-06-23 12:44] VITALS: BP 137/79
[2019-06-23 14:00] VITALS: BP 137/79
[2019-06-23] MEDS: AZITHROMYCIN INJ 500 MG, VIAL MATE ADAPTER 1 EACH in D5W 250 ML IV SCH (14:13)
[2019-06-23] MEDS: FUROSEMIDE 40 MG/4 ML VIAL (J1940) IV SCH ×2 (14:14→20:11)
[2019-06-23] MEDS: oxyCODONE 5MG TAB PO PRN ×2 (16:00→22:01)
--- NOTE | 2019-06-23 17:12 | IPN ---
DATE: 06/23/2019 Patient denies any hematemesis, bright red blood per rectum, melena, or black, tarry stools. Patient's hemoglobin remains stable at 10.4 to 10.1 to 10.9. He is afebrile. He complains of pain at the right flank where the post transjugular intrahepatic portosystemic shun (TIPS) was done and stated that it oozed a little where the paracentesis had been performed. Six liters was removed. He remains afebrile. Had a maximal temperature of 100.4. Left lower extremity pain is controlled, rated at 2/10 when he is doing nothing. He has been trying to ambulate but has the heparin drip attached to him, which we have resumed post paracentesis. Patient denies any nausea or vomiting. Abdominal distention is improved. He is tolerating his diet well. No chills. Temperature 98, pulse 113, respiratory rate 20, blood pressure 137/79, 95% on room air. GENERAL: Patient has mild icterus. No jaundice. No jugular venous distention (JVD), thyromegaly. LUNGS: Diminished with crackles bilaterally. HEART: S1, S2, sinus tachycardia. ABDOMEN: Distended. Positive bowel sounds. No fluid wave. No rebound or guarding. EXTREMITIES: There is 3+ edema, left lower extremity larger than the right. Some erythema. White count 5, hemoglobin 10, hematocrit 30, platelet count 98. Previous platelet count was 122. Heparin-induced platelet antibody assay pending. INR previously was 1.5. Sodium 135, potassium 3, chloride 99, bicarbonate 29, BUN 5, creatinine 0.46, glucose 158. Total bilirubin 1.8. Procalcitonin pending. Respiratory panel negative. Ascitic fluid pending. Ascitic fluid Gram stain: No organisms seen. Few WBC. ASSESSMENT AND PLAN: This is a 49-year-old male with history of alcoholic liver cirrhosis, variceal bleeding, upper gastrointestinal (GI) bleeding, portal hypertension, spontaneous bacterial peritonitis (SBP), factor V Leiden mutation, deep vein thrombosis (DVT), pulmonary embolism (PE), inferior vena cava (IVC) filter, diabetes, hypertension, hyperlipidemia, morbid obesity, obstructive sleep apnea (ABIGAIL), on continuous positive airway pressure (CPAP), body mass index of 45, admitted in May for SBP, variceal bleeding with GI bleed. Filter placed. Released in June. Presented with ongoing abdominal pain. Found to have a nearly occlusive portal vein thrombosis, splenic vein thrombosis, and proximal superior mesenteric vein thrombosis. ACUTE ISSUES: 1. Left lower extremity DVT. Patient is resumed back on heparin manager shipping along with warfarin to target INR of 2.5-3.5. We are monitoring for any variceal bleeding or acute GI bleed. Hemoglobin still was negative. Target INR is higher than normal due to history of factor V Leiden mutation. 2. Decompensated liver cirrhosis with anasarca, status post TIPS procedure by Dr. Boyer, interventional radiology, as well as paracentesis yesterday with 6 liters of ascitic fluid removed. Patient is kept on strict intake and output, daily weights, and fluid restriction. We are focusing on the goal of a net-negative balance daily and weight loss,; therefore patient has been placed on daily weights, strict intake and output, trial of Lasix today. Hold off on patient's blood pressure medications. Albumin infusion to prevent hypothyroidism but diuresis with Lasix every 6 hours. 3. Anemia with history of variceal bleeding, status post red blood cells (RBC) transfusion. Patient has negative stool occult blood currently. We are continuing the heparin. 4. Thrombocytopenia. Monitor for heparin-induced thrombocytopenia. Await results. Currently on bridge therapy with warfarin. 5. Alcoholic liver cirrhosis, decompensated, with portal hypertension. To prevent encephalopathy, patient is on lactulose for three bowel movement goal daily. 6. Left upper lobe hospital-acquired pneumonia. Patient is currently on Zosyn. Azithromycin has been added. Methicillin-resistant Staphylococcus aureus (MRSA) screen is negative. 7. Portal vein, proximal superior mesenteric vein, splenic vein thrombosis status post thrombectomy on admission. Patient is managed by Dr. Boyer. Appears to have no worsening of abdominal pain. 8. Hypokalemia secondary to diuresis. Potassium has been supplemented.
[2019-06-23] MEDS: WARFARIN SOD 5 MG TAB PO SCH (17:53)
[2019-06-23] MEDS: MORPHINE 2 MG/ML 1ML VIAL (J2270) IV PRN (17:55)
[2019-06-23] MEDS: ROSUVASTATIN 10 MG TAB (CRESTOR) PO SCH (20:11)
[2019-06-23] MEDS: POTASSIUM CHLORIDE 10 MEQ SR TABLET PO SCH (20:12)
[2019-06-24] MEDS: LACTULOSE 20 GM/30 ML SYRUP UD PO SCH ×6 (00:59→21:00)
[2019-06-24 02:00] VITALS: BP 133/77
[2019-06-24] MEDS: FUROSEMIDE 40 MG/4 ML VIAL (J1940) IV SCH (02:01)
[2019-06-24 04:00] VITALS: O2SAT 97
[2019-06-24 05:48] LABS: BASO % 0.2 % (0.0-1.0); EOS # 0.1 10^3/uL (0.0-0.5); EOS % 2.1 % (0.0-3.0); HEMATOCRIT 33.1 % (42.0-52.0); HEMOGLOBIN 10.8 g/dl (13.5-17.5); LYMPH # 0.8 10^3/uL (1.5-5.0); LYMPH % 16.2 % (24.0-44.0); MEAN CORPUSCULAR HEMOGLOBIN 31.6 pg (27.0-33.0); MEAN CORPUSCULAR HGB CONC 32.6 g/dl (32.0-36.5); MEAN CORPUSCULAR VOLUME 96.8 fl (80.0-96.0); MONO # 0.7 10^3/uL (0.0-0.8); MONO % 13.5 % (0.0-5.0); NEUTROPHILS # 3.3 10^3/uL (1.5-8.5); NEUTROPHILS % 67.4 % (36.0-66.0); PLATELET COUNT, AUTOMATED 109 10^3/uL (150-450); RED BLOOD COUNT 3.42 10^6/uL (4.30-6.10); WHITE BLOOD COUNT 4.8 10^3/uL (4.0-10.0)
[2019-06-24] MEDS: PIPERACILLIN/TAZOBACTAM SOD 3.375 GM in D5W MINI-BAG PLUS 50 ML IV SCH ×4 (05:55→23:51)
[2019-06-24 05:59] LABS: PARTIAL THROMBOPLASTIN TIME 86.4 SECONDS (25.0-38.4)
[2019-06-24 06:00] VITALS: BP 144/79
[2019-06-24 06:19] LABS: ALT/SGPT 28 U/L (12-78); BILIRUBIN,TOTAL 1.6 MG/DL (0.2-1.0); BLOOD UREA NITROGEN 6 MG/DL (7-18); CALCIUM LEVEL 7.9 MG/DL (8.5-10.1); CARBON DIOXIDE LEVEL 31 MEQ/L (21-32); CHLORIDE LEVEL 101 MEQ/L (98-107); CREATININE FOR GFR 0.62 MG/DL (0.70-1.30); GLOMERULAR FILTRATION RATE > 60.0 (>60); GLUCOSE, FASTING 181 MG/DL (70-100); POTASSIUM SERUM 3.1 MEQ/L (3.5-5.1); SODIUM LEVEL 138 MEQ/L (136-145)
[2019-06-24 06:20] LABS: ALBUMIN 2.4 GM/DL (3.2-5.2); TOTAL PROTEIN 6.3 GM/DL (6.4-8.2)
[2019-06-24] MEDS: HEPARIN DRIP 25,000 UNITS in IV 1 EA IV SCH ×2 (07:39→19:13)
[2019-06-24] MEDS: PANTOPRAZOLE 40MG TAB (PROTONIX) PO SCH (08:18)
[2019-06-24] MEDS: HumaLOG INSULIN (NovoLOG) PER UNIT SC SCH ×4 (08:20→21:00)
[2019-06-24] MEDS: POTASSIUM CHLORIDE 10 MEQ SR TABLET PO SCH ×2 (08:20→21:02)
[2019-06-24] MEDS: oxyCODONE 5MG TAB PO PRN ×2 (08:26→21:08)
[2019-06-24] MEDS: SIMETHICONE 80 MG CHEW TAB PO PRN (08:26)
[2019-06-24 08:58] LABS: INR 1.39; PROTHROMBIN TIME 16.8 SECONDS (11.8-14.0)
--- NOTE | 2019-06-24 12:56 | IPNPDOC ---
Subjective Date Seen The patient was seen on 06/24/19. Subjective Chief Complaint/HPI [place] is fine this morning, no reports of bleeding or leg/back pain. Tolerating diet, states his abdomen feels full. Objective Physical Examination General Exam: Positive: Alert, Cooperative, No Acute Distress Eye Exam: Negative: Sclera icteric ENT Exam: Positive: Atraumatic Neck Exam: Positive: Supple Chest Exam: Positive: Clear to auscultation Heart Exam: Positive: Rate Normal Abdomen Exam: Positive: Normal bowel sounds, Other (ascites) Extremity Exam: Negative: Clubbing, Cyanosis, Edema Skin Exam: Negative: Rash Psych Exam: Positive: Mental status NL, Mood NL Assessment /Plan Assessment # Left lower extremity DVT - continue warfarin to target INR of 2.5-3.5. Target INR is higher than normal due to history of factor V Leiden mutation. - continue hep gtt until INR in therapeutic range # Decompensated liver cirrhosis with anasarca # Portal vein, proximal superior mesenteric vein, splenic vein thrombosis # Chronic thrombocytopenia due to ESLD - s/p splenic portal vein thrombolysis. thrombectomy and angioplasty 06/16 - s/p TIPS procedure 06/18 - s/p paracentesis yesterday 06/21 - continue lactulose - PLT count 109 - anticoagulation per above # Acute on Chronic macrocytic anemia - transfused 4 units this hospitalization # Left upper lobe hospital-acquired pneumonia. - can stop zosyn after tomorrow 7/7 days - continue zithromax 3/5 days, can transition to oral # Hypokalemia secondary to IV lasix diuresis - k+ level 3.1 today, continue K tab 40 mEq bid - IV lasix stopped - can transition to oral lasix in am Plan/VTE VTE Prophylaxis Ordered?: No (on hep gtt) VTE Exclusion Mechanical Proph: Other VTE Exclusion Pharmacological: Other VS, I&O, 24H, Fishbone Vital Signs/I&O Vital Signs Date Time Temp Pulse Resp B/P (MAP) Pulse Ox O2 Delivery O2 Flow Rate FiO2 06/24/19 08:56 18 06/24/19 08:26 Room Air 06/24/19 06:00 97.0 113 144/79 (100) 94 06/20/19 21:56 1.0 I&O- Last 24 Hours up to 6 AM 06/24/19 06:00 Intake Total 2350.0 ml Output Total 2300 ml Balance 50.0 ml Laboratory Data 24H LABS Laboratory Tests 2 06/23/19 16:01: Activated Partial Thromboplast Time 73.0H 06/23/19 16:17: Bedside Glucose (Misc Panel) 151H 06/23/19 20:48: Bedside Glucose (Misc Panel) 204H 06/23/19 22:16: Activated Partial Thromboplast Time 76.4H 06/24/19 05:27: Immature Granulocyte % (Auto) 0.6, Neutrophils (%) (Auto) 67.4H, Lymphocytes (%) (Auto) 16.2L, Monocytes (%) (Auto) 13.5H, Eosinophils (%) (Auto) 2.1, Basophils (%) (Auto) 0.2, Neutrophils # (Auto) 3.3, Lymphocytes # (Auto) 0.8L, Monocytes # (Auto) 0.7, Eosinophils # (Auto) 0.1, Basophils # (Auto) 0.0, Nucleated Red Blood Cells % (auto) 0.0, Prothrombin Time 16.8H, Prothromb Time International Ratio 1.39, Activated Partial Thromboplast Time 86.4H, Anion Gap 6L, Glomerular Filtration Rate > 60.0, Calcium Level 7.9L, Total Bilirubin 1.6H, Aspartate Amino Transf (AST/SGOT) 43H, Alanine Aminotransferase (ALT/SGPT) 28, Alkaline Phosphatase 87, Total Protein 6.3L, Albumin 2.4L, Albumin/Globulin Ratio 0.62L 06/24/19 11:12: Bedside Glucose (Misc Panel) 220H CBC/BMP Laboratory Tests 06/24/19 05:27 Microbiology Microbiology 06/23/19 Stool Occult Blood (ARIEL) - Final, Complete 06/22/19 Respiratory Virus Panel (PCR) (ARIEL) - Final, Complete 06/22/19 Blood Culture - Preliminary, Resulted No growth after 24 hours . All specim... 06/22/19 Blood Culture - Preliminary, Resulted No growth after 24 hours . All specim... 06/22/19 Acid Fast Stain, Received Pending 06/22/19 Mycobacterial Culture, Received Pending 06/22/19 Fungal Smear, Received Pending 06/22/19 Fungal Culture, Received Pending 06/22/19 Gram Stain - Final, Complete 06/22/19 Body Fluid Culture - Final, Complete 06/21/19 Stool Occult Blood (ARIEL) - Final, Complete 06/17/19 Blood Culture - Final, Complete NO GROWTH AFTER 5 DAYS 06/17/19 Blood Culture - Final, Complete NO GROWTH AFTER 5 DAYS SULMA COELHO MD Jun 24, 2019 12:42
[2019-06-24] MEDS: AZITHROMYCIN INJ 500 MG, VIAL MATE ADAPTER 1 EACH in D5W 250 ML IV SCH (12:58)
[2019-06-24 14:00] VITALS: BP 149/69
[2019-06-24] MEDS: WARFARIN SOD 5 MG TAB PO SCH (18:06)
[2019-06-24 21:00] VITALS: O2SAT 95
[2019-06-24] MEDS: ROSUVASTATIN 10 MG TAB (CRESTOR) PO SCH (21:02)
[2019-06-24 22:00] VITALS: BP 152/89
[2019-06-25] MEDS: LACTULOSE 20 GM/30 ML SYRUP UD PO SCH ×2 (01:03→05:26)
[2019-06-25] MEDS: PIPERACILLIN/TAZOBACTAM SOD 3.375 GM in D5W MINI-BAG PLUS 50 ML IV SCH ×2 (05:39→12:36)
[2019-06-25 06:00] VITALS: BP 154/89
[2019-06-25 06:05] LABS: MEAN CORPUSCULAR HEMOGLOBIN 31.3 pg (27.0-33.0); MEAN CORPUSCULAR HGB CONC 32.4 g/dl (32.0-36.5); MEAN CORPUSCULAR VOLUME 96.9 fl (80.0-96.0); PLATELET COUNT, AUTOMATED 107 10^3/uL (150-450); RED BLOOD COUNT 3.51 10^6/uL (4.30-6.10); WHITE BLOOD COUNT 4.6 10^3/uL (4.0-10.0)
[2019-06-25 06:21] LABS: INR 1.44; PARTIAL THROMBOPLASTIN TIME 79.1 SECONDS (25.0-38.4); PROTHROMBIN TIME 17.3 SECONDS (11.8-14.0)
[2019-06-25 06:29] LABS: ALBUMIN 2.4 GM/DL (3.2-5.2); ALT/SGPT 23 U/L (12-78); BILIRUBIN,TOTAL 1.5 MG/DL (0.2-1.0); BLOOD UREA NITROGEN 7 MG/DL (7-18); CALCIUM LEVEL 8.1 MG/DL (8.5-10.1); CARBON DIOXIDE LEVEL 29 MEQ/L (21-32); CHLORIDE LEVEL 100 MEQ/L (98-107); CREATININE FOR GFR 0.64 MG/DL (0.70-1.30); GLOMERULAR FILTRATION RATE > 60.0 (>60); GLUCOSE, FASTING 224 MG/DL (70-100); POTASSIUM SERUM 3.4 MEQ/L (3.5-5.1); SODIUM LEVEL 136 MEQ/L (136-145); TOTAL PROTEIN 6.3 GM/DL (6.4-8.2)
[2019-06-25 08:00] VITALS: BP 150/88
[2019-06-25] MEDS: oxyCODONE 5MG TAB PO PRN ×2 (08:32→21:01)
[2019-06-25] MEDS ORDERED: ISOVUE-370 76% 100ML VIAL (Q9967) As Ordered ONE (08:38)
[2019-06-25] MEDS: FUROSEMIDE 40 MG TAB PO SCH (08:45)
[2019-06-25] MEDS: AZITHROMYCIN 250 MG TAB PO SCH (08:45)
[2019-06-25] MEDS: POTASSIUM CHLORIDE 10 MEQ SR TABLET PO SCH ×2 (08:46→20:48)
[2019-06-25] MEDS: PANTOPRAZOLE 40MG TAB (PROTONIX) PO SCH (08:46)
[2019-06-25] MEDS: HumaLOG INSULIN (NovoLOG) PER UNIT SC SCH ×4 (08:47→20:48)
[2019-06-25] MEDS: HEPARIN DRIP 25,000 UNITS in IV 1 EA IV SCH ×2 (09:07→20:46)
--- NOTE | 2019-06-25 12:48 | REP ---
CT PULMONARY ANGIOGRAM: With IV contrast. HISTORY: Shortness of breath, rule out pulmonary embolus. COMPARISON STUDIES: Comparison CT pulmonary angiogram June 07, 2019. CONTRAST DOSE: 75 mL of Isovue [address] TECHNIQUE: Helical scanning is acquired and overlapping 1.5 mm and contiguous 3 mm axial images are reformatted. In addition, maximum intensity projection and multiplanar re-formation images are generated in sagittal and coronal imaging projections. CT PULMONARY ANGIOGRAPHIC FINDINGS: There is good opacification of the thoracic aorta without evidence of aneurysm or dissection. There is less than optimal opacification of the pulmonary arterial tree. No filling defect is perceived but small pulmonary emboli cannot be excluded. There is no evidence of hilar or mediastinal mass or adenopathy. There is no evidence of pleural or pericardial effusion There is a granulomatous calcification in the right upper lobe posteriorly. There are patchy ground-glass opacities in the left upper lobe anteriorly consistent with an infiltrate. Similar peripheral areas of infiltrate are seen in the left lower lobe. These are slightly more extensive than on the June 07, 2019 study. No significant pulmonary nodule is appreciated. In the upper abdomen there is a TIPS shunt in place. A small hypervascular liver nodule is again seen in the right lobe of the liver unchanged. There is upper abdominal ascites again noted. IMPRESSION: Less than optimal opacification of the pulmonary arterial tree. No large pulmonary emboli seen. Small pulmonary emboli cannot be excluded. There are infiltrates in the left upper lobe and left lower lobe which are more extensive than on the June 07 2019 study. Electronically Signed by Matias Greenwood MD 06/25/2019 12:51 P
--- NOTE | 2019-06-25 13:29 | IPNPDOC ---
Subjective Date Seen The patient was seen on 06/25/19. Subjective Chief Complaint/HPI Hill is sitting in cardiac chair w/o dyspnea, his is at the bedside and says he drops his oxygen level and becomes tachycardic with activity Objective Physical Examination General Exam: Positive: Alert, No Acute Distress Eye Exam: Positive: PERRLA; Negative: Sclera icteric ENT Exam: Positive: Atraumatic Neck Exam: Positive: Supple Chest Exam: Positive: Clear to auscultation Heart Exam: Positive: Rate Normal Abdomen Exam: Positive: Normal bowel sounds, Other (ascites) Extremity Exam: Negative: Clubbing, Cyanosis, Edema Skin Exam: Negative: Rash Psych Exam: Positive: Mental status NL, Mood NL Assessment /Plan Assessment # Left lower extremity DVT - continue warfarin to target INR of 2.5-3.5. Target INR is higher than normal due to history of factor V Leiden mutation. - continue hep gtt until INR in therapeutic range # Decompensated liver cirrhosis with anasarca # Portal vein, proximal superior mesenteric vein, splenic vein thrombosis # Chronic thrombocytopenia due to ESLD - s/p splenic portal vein thrombolysis. thrombectomy and angioplasty 06/16 - s/p TIPS procedure 06/18 - s/p paracentesis yesterday 06/21 - continue lactulose but adjust to bid - PLT count stable this am - anticoagulation per above - start lasix 40 mg daily # Acute on Chronic macrocytic anemia - transfused 4 units this hospitalization # Multilobar hospital-acquired pneumonia. - completed zosyn 7/ days - continue zithromax 4/5 days # Hypokalemia secondary to IV lasix diuresis - k+ level 3.4 today, continue K tab 40 mEq bid Plan/VTE VTE Prophylaxis Ordered?: No (on hep gtt) VTE Exclusion Mechanical Proph: Other VTE Exclusion Pharmacological: Other VS, I&O, 24H, Fishbone Vital Signs/I&O Vital Signs Date Time Temp Pulse Resp B/P (MAP) Pulse Ox O2 Delivery O2 Flow Rate FiO2 06/25/19 09:07 18 06/25/19 08:32 Room Air 06/25/19 08:00 97.7 112 150/88 (108) 96 06/20/19 21:56 1.0 I&O- Last 24 Hours up to 6 AM 06/25/19 05:59 Intake Total 2115 ml Output Total 0 ml Balance 2115 ml Laboratory Data 24H LABS Laboratory Tests 2 06/24/19 16:06: Bedside Glucose (Misc Panel) 224H 06/24/19 20:46: Bedside Glucose (Misc Panel) 243H 06/25/19 05:38: Nucleated Red Blood Cells % (auto) 0.0, Prothrombin Time 17.3H, Prothromb Time International Ratio 1.44, Activated Partial Thromboplast Time 79.1H, Anion Gap 7L, Glomerular Filtration Rate > 60.0, Calcium Level 8.1L, Total Bilirubin 1.5H, Aspartate Amino Transf (AST/SGOT) 38H, Alanine Aminotransferase (ALT/SGPT) 23, Alkaline Phosphatase 92, Total Protein 6.3L, Albumin 2.4L, Albumin/Globulin Ratio 0.62L 06/25/19 06:41: Bedside Glucose (Misc Panel) 228H 06/25/19 11:45: Bedside Glucose (Misc Panel) 224H CBC/BMP Laboratory Tests 06/25/19 05:38 Microbiology Microbiology 06/23/19 Stool Occult Blood (ARIEL) - Final, Complete 06/22/19 Respiratory Virus Panel (PCR) (ARIEL) - Final, Complete 06/22/19 Blood Culture - Preliminary, Resulted No Growth after 48 hours. All Specime... 06/22/19 Blood Culture - Preliminary, Resulted No Growth after 48 hours. All Specime... 06/22/19 Acid Fast Stain, Received Pending 06/22/19 Mycobacterial Culture, Received Pending 06/22/19 Fungal Smear, Received Pending 06/22/19 Fungal Culture, Received Pending 06/22/19 Gram Stain - Final, Complete 06/22/19 Body Fluid Culture - Final, Complete 06/21/19 Stool Occult Blood (ARIEL) - Final, Complete 06/17/19 Blood Culture - Final, Complete NO GROWTH AFTER 5 DAYS 06/17/19 Blood Culture - Final, Complete NO GROWTH AFTER 5 DAYS SULMA COELHO MD Jun 25, 2019 13:29
[2019-06-25 14:00] VITALS: BP 142/87
[2019-06-25] MEDS: WARFARIN SOD 5 MG TAB PO SCH (17:40)
[2019-06-25] MEDS: ROSUVASTATIN 10 MG TAB (CRESTOR) PO SCH (20:48)
[2019-06-25] MEDS: TRIPLE PASTE 2OZ OINTMENT TOP SCH (20:49)
[2019-06-25 22:00] VITALS: BP 153/91
[2019-06-26] MEDS: oxyCODONE 5MG TAB PO PRN ×2 (05:30→21:45)
[2019-06-26 06:00] VITALS: BP 147/89
[2019-06-26 06:10] LABS: HEMATOCRIT 32.3 % (42.0-52.0); HEMOGLOBIN 10.9 g/dl (13.5-17.5); MEAN CORPUSCULAR HEMOGLOBIN 32.7 pg (27.0-33.0); MEAN CORPUSCULAR HGB CONC 33.7 g/dl (32.0-36.5); PLATELET COUNT, AUTOMATED 128 10^3/uL (150-450); RED BLOOD COUNT 3.33 10^6/uL (4.30-6.10); WHITE BLOOD COUNT 4.6 10^3/uL (4.0-10.0)
[2019-06-26 06:33] LABS: ALBUMIN 2.3 GM/DL (3.2-5.2); ALT/SGPT 23 U/L (12-78); BILIRUBIN,TOTAL 1.3 MG/DL (0.2-1.0); BLOOD UREA NITROGEN 6 MG/DL (7-18); CALCIUM LEVEL 8.5 MG/DL (8.5-10.1); CARBON DIOXIDE LEVEL 29 MEQ/L (21-32); CHLORIDE LEVEL 99 MEQ/L (98-107); CREATININE FOR GFR 0.56 MG/DL (0.70-1.30); GLOMERULAR FILTRATION RATE > 60.0 (>60); GLUCOSE, FASTING 213 MG/DL (70-100); POTASSIUM SERUM 3.5 MEQ/L (3.5-5.1); SODIUM LEVEL 133 MEQ/L (136-145); TOTAL PROTEIN 6.6 GM/DL (6.4-8.2)
[2019-06-26 06:38] LABS: INR 1.46; PARTIAL THROMBOPLASTIN TIME 101.5 SECONDS (25.0-38.4); PROTHROMBIN TIME 17.5 SECONDS (11.8-14.0)
[2019-06-26] MEDS: AZITHROMYCIN 250 MG TAB PO SCH (08:51)
[2019-06-26] MEDS: FUROSEMIDE 40 MG TAB PO SCH (08:51)
[2019-06-26] MEDS: TRIPLE PASTE 2OZ OINTMENT TOP SCH ×2 (08:51→20:56)
[2019-06-26] MEDS: HumaLOG INSULIN (NovoLOG) PER UNIT SC SCH ×4 (08:51→20:54)
[2019-06-26] MEDS: POTASSIUM CHLORIDE 10 MEQ SR TABLET PO SCH (08:51)
[2019-06-26] MEDS: PANTOPRAZOLE 40MG TAB (PROTONIX) PO SCH (08:51)
[2019-06-26] MEDS ORDERED: FUROSEMIDE 40 MG/4 ML VIAL (J1940) IV SCH (11:00)
--- NOTE | 2019-06-26 11:29 | IPNPDOC ---
Subjective Date Seen The patient was seen on 06/26/19. Subjective Chief Complaint/HPI Right lateral abd wall inflamed from scratching, feels like he filling back up with fluid Objective Physical Examination General Exam: Positive: Alert, No Acute Distress Eye Exam: Positive: PERRLA; Negative: Sclera icteric ENT Exam: Positive: Atraumatic Neck Exam: Positive: Supple Chest Exam: Positive: Clear to auscultation Heart Exam: Positive: Rate Normal Abdomen Exam: Positive: Normal bowel sounds, Other (ascites) Extremity Exam: Negative: Clubbing, Cyanosis, Edema Skin Exam: Positive: Other skin issue (right lateral abd wall with mild erythema from scratching) Psych Exam: Positive: Mental status NL, Mood NL Assessment /Plan Assessment # Left lower extremity DVT - continue warfarin to target INR of 2.5-3.5. Target INR is higher than normal due to history of factor V Leiden mutation. - continue hep gtt until INR in therapeutic range - increase coumadin 7.5 mg daily # Decompensated liver cirrhosis with anasarca # Portal vein, proximal superior mesenteric vein, splenic vein thrombosis # Chronic thrombocytopenia due to ESLD - s/p splenic portal vein thrombolysis. thrombectomy and angioplasty 06/16 - s/p TIPS procedure 06/18 - s/p paracentesis yesterday 06/21 - continue lactulose but adjust to bid - PLT counts continue to improve - anticoagulation per above - change to lasix 40 mg IV - aldactone 25 mg po daily # Acute on Chronic macrocytic anemia - transfused 4 units this hospitalization # Multilobar hospital-acquired pneumonia. - completed zosyn 7/7 days - continue zithromax 5/5 days # Hypokalemia secondary to IV lasix diuresis -resolved - change to K tab 40 mEq daily Plan/VTE VTE Prophylaxis Ordered?: No (on hep gtt) VTE Exclusion Mechanical Proph: Other VTE Exclusion Pharmacological: Other VS, I&O, 24H, Fishbone Vital Signs/I&O Vital Signs Date Time Temp Pulse Resp B/P (MAP) Pulse Ox O2 Delivery O2 Flow Rate FiO2 06/26/19 06:05 19 06/26/19 06:00 98.1 107 147/89 (108) 96 Room Air 06/20/19 21:56 1.0 I&O- Last 24 Hours up to 6 AM 06/26/19 06:00 Intake Total 1795 ml Output Total 1300 ml Balance 495 ml Laboratory Data 24H LABS Laboratory Tests 2 06/25/19 11:45: Bedside Glucose (Misc Panel) 224H 06/25/19 16:46: Bedside Glucose (Misc Panel) 193H 06/25/19 20:23: Bedside Glucose (Misc Panel) 212H 06/26/19 05:45: Nucleated Red Blood Cells % (auto) 0.0, Prothrombin Time 17.5H, Prothromb Time International Ratio 1.46, Activated Partial Thromboplast Time 101.5H, Anion Gap 5L, Glomerular Filtration Rate > 60.0, Calcium Level 8.5, Total Bilirubin 1.3H, Aspartate Amino Transf (AST/SGOT) 38H, Alanine Aminotransferase (ALT/SGPT) 23, Alkaline Phosphatase 85, Total Protein 6.6, Albumin 2.3L, Albumin/Globulin Ratio 0.53L CBC/BMP Laboratory Tests 06/26/19 05:45 Microbiology Microbiology 06/23/19 Stool Occult Blood (ARIEL) - Final, Complete 06/22/19 Respiratory Virus Panel (PCR) (ARIEL) - Final, Complete 06/22/19 Blood Culture - Preliminary, Resulted No Growth after 72 hours. All specime... 06/22/19 Blood Culture - Preliminary, Resulted No Growth after 72 hours. All specime... 06/22/19 Acid Fast Stain, Received Pending 06/22/19 Mycobacterial Culture, Received Pending 06/22/19 Fungal Smear, Received Pending 06/22/19 Fungal Culture, Received Pending 06/22/19 Gram Stain - Final, Complete 06/22/19 Body Fluid Culture - Final, Complete 06/21/19 Stool Occult Blood (ARIEL) - Final, Complete 06/17/19 Blood Culture - Final, Complete NO GROWTH AFTER 5 DAYS 06/17/19 Blood Culture - Final, Complete NO GROWTH AFTER 5 DAYS SULMA COELHO MD Jun 26, 2019 11:29
[2019-06-26] MEDS: HEPARIN DRIP 25,000 UNITS in IV 1 EA IV SCH ×2 (12:16→23:47)
[2019-06-26] MEDS: SPIRONOLACTONE 25 MG TAB PO SCH (12:21)
[2019-06-26] MEDS: BACITRACIN OINT 30GM TOP SCH ×2 (12:21→20:55)
[2019-06-26 14:00] VITALS: BP 146/93
[2019-06-26] MEDS: WARFARIN SOD 7.5 MG TAB PO SCH (17:46)
[2019-06-26] MEDS: LACTULOSE 20 GM/30 ML SYRUP UD PO SCH (20:54)
[2019-06-26] MEDS: ROSUVASTATIN 10 MG TAB (CRESTOR) PO SCH (20:54)
[2019-06-26] MEDS: diphenhydrAMINE CREAM 30GM TOP PRN (20:57)
[2019-06-26 21:00] VITALS: O2SAT 94
[2019-06-26 22:00] VITALS: BP 148/93
[2019-06-27 06:00] VITALS: BP 134/80
[2019-06-27 06:05] LABS: HEMATOCRIT 32.2 % (42.0-52.0); HEMOGLOBIN 10.4 g/dl (13.5-17.5); MEAN CORPUSCULAR HEMOGLOBIN 31.5 pg (27.0-33.0); MEAN CORPUSCULAR HGB CONC 32.3 g/dl (32.0-36.5); MEAN CORPUSCULAR VOLUME 97.6 fl (80.0-96.0); PLATELET COUNT, AUTOMATED 123 10^3/uL (150-450); WHITE BLOOD COUNT 4.2 10^3/uL (4.0-10.0)
[2019-06-27 06:18] LABS: ALBUMIN 2.2 GM/DL (3.2-5.2); ALT/SGPT 23 U/L (12-78); BILIRUBIN,TOTAL 1.3 MG/DL (0.2-1.0); BLOOD UREA NITROGEN 7 MG/DL (7-18); CALCIUM LEVEL 8.3 MG/DL (8.5-10.1); CARBON DIOXIDE LEVEL 28 MEQ/L (21-32); CHLORIDE LEVEL 102 MEQ/L (98-107); CREATININE FOR GFR 0.57 MG/DL (0.70-1.30); GLOMERULAR FILTRATION RATE > 60.0 (>60); GLUCOSE, FASTING 196 MG/DL (70-100); INR 1.43; POTASSIUM SERUM 3.6 MEQ/L (3.5-5.1); PROTHROMBIN TIME 17.1 SECONDS (11.8-14.0); SODIUM LEVEL 136 MEQ/L (136-145); TOTAL PROTEIN 6.5 GM/DL (6.4-8.2)
[2019-06-27 06:20] LABS: PARTIAL THROMBOPLASTIN TIME 97.1 SECONDS (25.0-38.4)
[2019-06-27 08:30] VITALS: O2SAT 97
[2019-06-27] MEDS: TRIPLE PASTE 2OZ OINTMENT TOP SCH ×2 (09:00→20:45)
[2019-06-27] MEDS: PANTOPRAZOLE 40MG TAB (PROTONIX) PO SCH (09:14)
[2019-06-27] MEDS: POTASSIUM CHLORIDE 10 MEQ SR TABLET PO SCH (09:14)
[2019-06-27] MEDS: LACTULOSE 20 GM/30 ML SYRUP UD PO SCH ×2 (09:14→20:41)
[2019-06-27] MEDS: HumaLOG INSULIN (NovoLOG) PER UNIT SC SCH ×4 (09:15→20:44)
[2019-06-27] MEDS: SPIRONOLACTONE 25 MG TAB PO SCH (09:15)
[2019-06-27] MEDS: BACITRACIN OINT 30GM TOP SCH ×2 (09:16→20:44)
[2019-06-27] MEDS: CARVedilol 12.5 MG TAB PO SCH ×2 (09:26→20:43)
--- NOTE | 2019-06-27 09:27 | IPNPDOC ---
Subjective Date Seen The patient was seen on 06/27/19. Subjective Chief Complaint/HPI Hill feels his swelling is about the same. No drastic improvement with lasix Iv started yesterday. No symptoms of bleeding noted by him. Objective Physical Examination General Exam: Positive: Alert, Cooperative, No Acute Distress Eye Exam: Positive: Conjunctiva & lids normal; Negative: Sclera icteric ENT Exam: Positive: Atraumatic Neck Exam: Positive: Supple Chest Exam: Positive: Clear to auscultation Heart Exam: Positive: Rate Normal Abdomen Exam: Positive: Normal bowel sounds, Other (ascites) Extremity Exam: Negative: Clubbing, Cyanosis, Edema Skin Exam: Positive: Other skin issue (right lateral abd wall erythema looks better this morning) Psych Exam: Positive: Mental status NL, Mood NL Assessment /Plan Assessment # Left lower extremity DVT - continue warfarin to target INR of 2.5-3.5. Target INR is higher than normal due to history of factor V Leiden mutation. - continue hep gtt until INR in therapeutic range - continue coumadin 7.5 mg daily, if remains low in am increase to 10 mg daily # Decompensated liver cirrhosis with anasarca # Portal vein, proximal superior mesenteric vein, splenic vein thrombosis # Chronic thrombocytopenia due to ESLD - s/p splenic portal vein thrombolysis. thrombectomy and angioplasty 06/16 - s/p TIPS procedure 06/18 - s/p paracentesis yesterday 06/21 - continue lactulose but adjust to bid - PLT counts continue to improve - anticoagulation per above - increase lasix 40 mg IV q8 - aldactone 25 mg po daily - resume coreg # Acute on Chronic macrocytic anemia - transfused 4 units this hospitalization # Multilobar hospital-acquired pneumonia. - completed zosyn 7/7 days - completed zithromax 5/5 days # Hypokalemia secondary to IV lasix diuresis -resolved - change to K tab 40 mEq daily Dispo: - home when INR therapeutic Plan/VTE VTE Prophylaxis Ordered?: No (on hep gtt) VTE Exclusion Mechanical Proph: Other VTE Exclusion Pharmacological: Other VS, I&O, 24H, Fishbone Vital Signs/I&O Vital Signs Date Time Temp Pulse Resp B/P (MAP) Pulse Ox O2 Delivery O2 Flow Rate FiO2 06/27/19 06:00 98.7 103 20 134/80 (98) 95 Room Air I&O- Last 24 Hours up to 6 AM 06/27/19 05:59 Intake Total 1586 ml Output Total 1250 ml Balance 336 ml Laboratory Data 24H LABS Laboratory Tests 2 06/26/19 12:00: Bedside Glucose (Misc Panel) 213H 06/26/19 16:52: Bedside Glucose (Misc Panel) 191H 06/26/19 20:36: Bedside Glucose (Misc Panel) 204H 06/27/19 05:35: Nucleated Red Blood Cells % (auto) 0.0, Prothrombin Time 17.1H, Prothromb Time International Ratio 1.43, Activated Partial Thromboplast Time 97.1H, Anion Gap 6L, Glomerular Filtration Rate > 60.0, Calcium Level 8.3L, Total Bilirubin 1.3H, Aspartate Amino Transf (AST/SGOT) 35, Alanine Aminotransferase (ALT/SGPT) 23, Alkaline Phosphatase 89, Total Protein 6.5, Albumin 2.2L, Albumin/Globulin Ratio 0.51L CBC/BMP Laboratory Tests 06/27/19 05:35 Microbiology Microbiology 06/23/19 Stool Occult Blood (ARIEL) - Final, Complete 06/22/19 Respiratory Virus Panel (PCR) (ARIEL) - Final, Complete 06/22/19 Blood Culture - Preliminary, Resulted No Growth after 72 hours. All specime... 06/22/19 Blood Culture - Preliminary, Resulted No Growth after 72 hours. All specime... 06/22/19 Acid Fast Stain, Received Pending 06/22/19 Mycobacterial Culture, Received Pending 06/22/19 Fungal Smear, Received Pending 06/22/19 Fungal Culture, Received Pending 06/22/19 Gram Stain - Final, Complete 06/22/19 Body Fluid Culture - Final, Complete 06/21/19 Stool Occult Blood (ARIEL) - Final, Complete 06/17/19 Blood Culture - Final, Complete NO GROWTH AFTER 5 DAYS 06/17/19 Blood Culture - Final, Complete NO GROWTH AFTER 5 DAYS SULMA COELHO MD Jun 27, 2019 09:27
[2019-06-27 14:00] VITALS: BP 142/78
[2019-06-27] MEDS: FUROSEMIDE 40 MG/4 ML VIAL (J1940) IV SCH ×2 (15:08→20:44)
[2019-06-27] MEDS: HEPARIN DRIP 25,000 UNITS in IV 1 EA IV SCH (15:14)
[2019-06-27] MEDS: WARFARIN SOD 7.5 MG TAB PO SCH (17:19)
[2019-06-27 20:00] VITALS: O2SAT 94
[2019-06-27] MEDS: ROSUVASTATIN 10 MG TAB (CRESTOR) PO SCH (20:43)
[2019-06-27] MEDS: diphenhydrAMINE CREAM 30GM TOP PRN (20:45)
[2019-06-27] MEDS: oxyCODONE 5MG TAB PO PRN (21:02)
[2019-06-27 22:00] VITALS: BP 132/80
[2019-06-28] MEDS: HEPARIN DRIP 25,000 UNITS in IV 1 EA IV SCH ×2 (03:07→15:42)
[2019-06-28 05:58] LABS: HEMATOCRIT 32.4 % (42.0-52.0); HEMOGLOBIN 10.5 g/dl (13.5-17.5); MEAN CORPUSCULAR HEMOGLOBIN 31.7 pg (27.0-33.0); MEAN CORPUSCULAR HGB CONC 32.4 g/dl (32.0-36.5); MEAN CORPUSCULAR VOLUME 97.9 fl (80.0-96.0); PLATELET COUNT, AUTOMATED 140 10^3/uL (150-450); RED BLOOD COUNT 3.31 10^6/uL (4.30-6.10); WHITE BLOOD COUNT 4.4 10^3/uL (4.0-10.0)
[2019-06-28 06:00] VITALS: BP 127/81
[2019-06-28 06:05] LABS: INR 1.53; PROTHROMBIN TIME 18.1 SECONDS (11.8-14.0)
[2019-06-28 06:08] LABS: PARTIAL THROMBOPLASTIN TIME 101.1 SECONDS (25.0-38.4)
[2019-06-28 06:28] LABS: ALBUMIN 2.2 GM/DL (3.2-5.2); ALT/SGPT 23 U/L (12-78); BILIRUBIN,TOTAL 1.1 MG/DL (0.2-1.0); BLOOD UREA NITROGEN 8 MG/DL (7-18); CALCIUM LEVEL 8.1 MG/DL (8.5-10.1); CARBON DIOXIDE LEVEL 29 MEQ/L (21-32); CHLORIDE LEVEL 103 MEQ/L (98-107); CREATININE FOR GFR 0.64 MG/DL (0.70-1.30); GLOMERULAR FILTRATION RATE > 60.0 (>60); GLUCOSE, FASTING 184 MG/DL (70-100); MAGNESIUM LEVEL 1.7 MG/DL (1.8-2.4); POTASSIUM SERUM 3.6 MEQ/L (3.5-5.1); SODIUM LEVEL 138 MEQ/L (136-145); TOTAL PROTEIN 6.6 GM/DL (6.4-8.2)
[2019-06-28] MEDS: POTASSIUM CHLORIDE 10 MEQ SR TABLET PO SCH (08:04)
[2019-06-28] MEDS: HumaLOG INSULIN (NovoLOG) PER UNIT SC SCH ×4 (08:04→21:00)
[2019-06-28] MEDS: LACTULOSE 20 GM/30 ML SYRUP UD PO SCH ×2 (08:04→21:00)
[2019-06-28] MEDS: FUROSEMIDE 40 MG/4 ML VIAL (J1940) IV SCH ×3 (08:05→21:17)
[2019-06-28] MEDS: PANTOPRAZOLE 40MG TAB (PROTONIX) PO SCH (08:05)
[2019-06-28] MEDS: CARVedilol 12.5 MG TAB PO SCH ×2 (08:06→21:19)
[2019-06-28] MEDS: SPIRONOLACTONE 25 MG TAB PO SCH (08:09)
[2019-06-28] MEDS: TRIPLE PASTE 2OZ OINTMENT TOP SCH ×2 (08:10→21:00)
[2019-06-28] MEDS: BACITRACIN OINT 30GM TOP SCH ×2 (08:10→21:20)
[2019-06-28 09:00] VITALS: O2SAT 99
--- NOTE | 2019-06-28 10:53 | IPNPDOC ---
Subjective Date Seen The patient was seen on 06/28/19. Subjective Chief Complaint/HPI No complaints, doesn't feel that his ascites has improved with IV lasix. LE edema has lessened. No dyspnea with activity. Disappointed that INR has not budged much. Objective Physical Examination General Exam: Positive: No Acute Distress Eye Exam: Positive: Conjunctiva & lids normal; Negative: Sclera icteric ENT Exam: Positive: Atraumatic Neck Exam: Positive: Supple Chest Exam: Positive: Clear to auscultation Heart Exam: Positive: Rate Normal Abdomen Exam: Positive: Normal bowel sounds, Other (ascites) Extremity Exam: Negative: Clubbing, Cyanosis, Edema Skin Exam: Positive: Other skin issue (erythema has resolved) Neuro Exam: Positive: Normal Gait Psych Exam: Positive: Mental status NL, Mood NL Assessment /Plan Assessment # Left lower extremity DVT - continue warfarin to target INR of 2.5-3.5. Target INR is higher than normal due to history of factor V Leiden mutation. - continue hep gtt until INR in therapeutic range - increased coumadin 10 mg daily # Decompensated liver cirrhosis with anasarca # Portal vein, proximal superior mesenteric vein, splenic vein thrombosis # Chronic thrombocytopenia due to ESLD - s/p splenic portal vein thrombolysis. thrombectomy and angioplasty 06/16 - s/p TIPS procedure 06/18 - s/p paracentesis yesterday 06/21 - continue lactulose but adjust to bid - PLT counts continue to improve - anticoagulation per above - continue lasix 40 mg IV q8 - aldactone 25 mg po daily - continue coreg # Acute on Chronic macrocytic anemia - transfused 4 units this hospitalization # Multilobar hospital-acquired pneumonia. - completed zosyn 7/ days - completed zithromax 5/5 days # Hypokalemia secondary to IV lasix diuresis # Hypomagnesia - change to K tab 40 mEq daily, improved with supplementation - Mag oxide 400 mg bid Dispo: - home when INR therapeutic Plan/VTE VTE Prophylaxis Ordered?: No (on hep gtt) VTE Exclusion Mechanical Proph: Other VTE Exclusion Pharmacological: Other VS, I&O, 24H, Fishbone Vital Signs/I&O Vital Signs Date Time Temp Pulse Resp B/P (MAP) Pulse Ox O2 Delivery O2 Flow Rate FiO2 06/28/19 08:06 100 127/81 06/28/19 06:00 98.6 19 98 Room Air I&O- Last 24 Hours up to 6 AM 06/28/19 06:00 Intake Total 1910 ml Output Total 1670 ml Balance 240 ml Laboratory Data 24H LABS Laboratory Tests 2 06/27/19 11:23: Bedside Glucose (Misc Panel) 207H 06/27/19 16:23: Bedside Glucose (Misc Panel) 210H 06/27/19 20:34: Bedside Glucose (Misc Panel) 222H 06/28/19 05:33: Nucleated Red Blood Cells % (auto) 0.0, Prothrombin Time 18.1H, Prothromb Time International Ratio 1.53, Activated Partial Thromboplast Time 101.1H, Anion Gap 6L, Glomerular Filtration Rate > 60.0, Calcium Level 8.1L, Magnesium Level 1.7L, Total Bilirubin 1.1H, Aspartate Amino Transf (AST/SGOT) 35, Alanine A minotransferase (ALT/SGPT) 23, Alkaline Phosphatase 89, Total Protein 6.6, Albumin 2.2L, Albumin/Globulin Ratio 0.50L CBC/BMP Laboratory Tests 06/28/19 05:33 Microbiology Microbiology 06/28/19 Stool Occult Blood (ARIEL), Received Pending 06/23/19 Stool Occult Blood (ARIEL) - Final, Complete 06/22/19 Respiratory Virus Panel (PCR) (ARIEL) - Final, Complete 06/22/19 Blood Culture - Final, Complete NO GROWTH AFTER 5 DAYS 06/22/19 Blood Culture - Final, Complete NO GROWTH AFTER 5 DAYS 06/22/19 Acid Fast Stain, Received Pending 06/22/19 Mycobacterial Culture, Received Pending 06/22/19 Fungal Smear, Received Pending 06/22/19 Fungal Culture, Received Pending 06/22/19 Gram Stain - Final, Complete 06/22/19 Body Fluid Culture - Final, Complete 06/21/19 Stool Occult Blood (ARIEL) - Final, Complete SULMA COELHO MD Jun 28, 2019 10:53
[2019-06-28] MEDS: MAGNESIUM OXIDE 400 MG TAB (MAG-OX) PO SCH ×2 (12:33→21:18)
[2019-06-28 14:00] VITALS: BP 127/86
[2019-06-28] MEDS: WARFARIN SOD 5 MG TAB PO SCH (16:32)
[2019-06-28] MEDS: ROSUVASTATIN 10 MG TAB (CRESTOR) PO SCH (21:18)
[2019-06-28] MEDS: oxyCODONE 5MG TAB PO PRN (21:19)
[2019-06-28] MEDS: diphenhydrAMINE CREAM 30GM TOP PRN (21:20)
[2019-06-28 22:00] VITALS: BP 157/88
[2019-06-28 22:44] VITALS: O2SAT 96
[2019-06-29] MEDS: HEPARIN DRIP 25,000 UNITS in IV 1 EA IV SCH ×2 (03:11→17:31)
[2019-06-29 06:00] VITALS: BP 149/79
[2019-06-29 06:07] LABS: HEMATOCRIT 32.3 % (42.0-52.0); HEMOGLOBIN 10.6 g/dl (13.5-17.5); MEAN CORPUSCULAR HGB CONC 32.8 g/dl (32.0-36.5); MEAN CORPUSCULAR VOLUME 97.6 fl (80.0-96.0); PLATELET COUNT, AUTOMATED 151 10^3/uL (150-450); RED BLOOD COUNT 3.31 10^6/uL (4.30-6.10); WHITE BLOOD COUNT 4.2 10^3/uL (4.0-10.0)
[2019-06-29 06:27] LABS: INR 1.71; PROTHROMBIN TIME 19.8 SECONDS (11.8-14.0)
[2019-06-29 06:31] LABS: ALBUMIN 2.3 GM/DL (3.2-5.2); ALT/SGPT 21 U/L (12-78); BILIRUBIN,TOTAL 1.1 MG/DL (0.2-1.0); BLOOD UREA NITROGEN 8 MG/DL (7-18); CALCIUM LEVEL 8.8 MG/DL (8.5-10.1); CARBON DIOXIDE LEVEL 29 MEQ/L (21-32); CHLORIDE LEVEL 102 MEQ/L (98-107); CREATININE FOR GFR 0.59 MG/DL (0.70-1.30); GLOMERULAR FILTRATION RATE > 60.0 (>60); GLUCOSE, FASTING 184 MG/DL (70-100); MAGNESIUM LEVEL 1.9 MG/DL (1.8-2.4); POTASSIUM SERUM 3.1 MEQ/L (3.5-5.1); SODIUM LEVEL 135 MEQ/L (136-145); TOTAL PROTEIN 6.6 GM/DL (6.4-8.2)
[2019-06-29 07:14] LABS: PARTIAL THROMBOPLASTIN TIME 100.1 SECONDS (25.0-38.4)
[2019-06-29] MEDS: HumaLOG INSULIN (NovoLOG) PER UNIT SC SCH ×4 (09:55→21:00)
[2019-06-29] MEDS: POTASSIUM CHLORIDE 10 MEQ SR TABLET PO SCH ×3 (09:56→21:23)
[2019-06-29] MEDS: PANTOPRAZOLE 40MG TAB (PROTONIX) PO SCH (09:56)
[2019-06-29] MEDS: MAGNESIUM OXIDE 400 MG TAB (MAG-OX) PO SCH ×2 (09:56→21:23)
[2019-06-29] MEDS: CARVedilol 12.5 MG TAB PO SCH ×2 (09:57→21:23)
[2019-06-29] MEDS: SPIRONOLACTONE 25 MG TAB PO SCH (09:57)
[2019-06-29] MEDS: LACTULOSE 20 GM/30 ML SYRUP UD PO SCH ×2 (09:57→21:00)
[2019-06-29] MEDS: FUROSEMIDE 40 MG/4 ML VIAL (J1940) IV SCH ×2 (09:57→21:22)
[2019-06-29] MEDS: BACITRACIN OINT 30GM TOP SCH ×2 (10:01→21:24)
[2019-06-29] MEDS: TRIPLE PASTE 2OZ OINTMENT TOP SCH ×2 (10:01→21:00)
[2019-06-29 11:04] VITALS: O2SAT 99
[2019-06-29 14:00] VITALS: BP 133/75
--- NOTE | 2019-06-29 14:51 | IPNPDOC ---
Subjective Date Seen The patient was seen on 06/29/19. Subjective Chief Complaint/HPI Hill is well this morning, since resuming his beta khoi his tachycardia has decreased. While walking stairs with Pt this morning his HR is 120s, he denies dyspnea or sob. O2 sats > 93% on RA with activity. His lower extremity edema has improved with diuresis, but he feels his ascites is about the same. Objective Physical Examination General Exam: Positive: No Acute Distress Eye Exam: Positive: Conjunctiva & lids normal; Negative: Sclera icteric ENT Exam: Positive: Atraumatic, Mucous membr. moist/pink Neck Exam: Positive: Supple Chest Exam: Positive: Clear to auscultation Heart Exam: Positive: Tachycardic, Normal S1, Normal S2 Telemetry: Positive: No significant arrhythmia, Tachycardia Abdomen Exam: Positive: Normal bowel sounds, Other (ascites) Extremity Exam: Negative: Clubbing, Cyanosis, Edema Skin Exam: Positive: Other skin issue (Right flank erythema has resolved. He is no longer leaking from paracentesis site.); Negative: Rash Neuro Exam: Positive: Normal Gait Psych Exam: Positive: Mental status NL, Mood NL Assessment /Plan Assessment # Left lower extremity DVT - continue warfarin to target INR of 2.5-3.5. Target INR is higher than normal due to history of factor V Leiden mutation. - continue hep gtt until INR in therapeutic range - increased Coumadin 10 mg daily, INR 1.74 this am - stool for occult blood is serially negative # Decompensated liver cirrhosis with anasarca # Portal vein, proximal superior mesenteric vein, splenic vein thrombosis # Chronic thrombocytopenia due to ESLD - s/p splenic portal vein thrombolysis. thrombectomy and angioplasty 06/16 - s/p TIPS procedure 06/18 - s/p paracentesis yesterday 06/21 - continue lactulose but adjust to bid - PLT counts continue to improve - anticoagulation per above - decrease lasix 40 mg IV q12, hopefully can transition to lasix 40 mg daily in next 24-48 hours - aldactone 25 mg po daily - increase coreg 12.5 mg bid # Acute on Chronic macrocytic anemia - transfused 4 units this hospitalization # Multilobar hospital-acquired pneumonia. - completed zosyn 7/7 days - completed zithromax 5/5 days # Hypokalemia secondary to IV lasix diuresis # Hypomagnesia - increase K tab 40 mEq from daily to tid, repeat K this evening - Mag oxide 400 mg bid Dispo: - home when INR therapeutic Plan/VTE VTE Prophylaxis Ordered?: No (on hep gtt) VTE Exclusion Mechanical Proph: Other VTE Exclusion Pharmacological: Other VS, I&O, 24H, Fishbone Vital Signs/I&O Vital Signs Date Time Temp Pulse Resp B/P (MAP) Pulse Ox O2 Delivery O2 Flow Rate FiO2 06/29/19 11:04 99 Room Air 06/29/19 09:57 103 143/80 06/29/19 06:00 97.9 18 06/28/19 22:44 2.0 I&O- Last 24 Hours up to 6 AM 06/29/19 05:59 Intake Total 2080 ml Output Total 2025 ml Balance 55 ml Laboratory Data 24H LABS Laboratory Tests 2 06/28/19 16:27: Bedside Glucose (Misc Panel) 227H 06/28/19 19:47: Bedside Glucose (Misc Panel) 244H 06/29/19 05:41: Nucleated Red Blood Cells % (auto) 0.0, Prothrombin Time 19.8H, Prothromb Time International Ratio 1.71, Activated Partial Thromboplast Time 100.1H, Anion Gap 4L, Glomerular Filtration Rate > 60.0, Calcium Level 8.8, Magnesium Level 1.9, Total Bilirubin 1.1H, Aspartate Amino Transf (AST/SGOT) 36, Alanine Aminotransferase (ALT/SGPT) 21, Alkaline Phosphatase 90, Total Protein 6.6, Albumin 2.3L, Albumin/Globulin Ratio 0.53L 06/29/19 11:48: Bedside Glucose (Misc Panel) 229H CBC/BMP Laboratory Tests 06/29/19 05:41 Microbiology Microbiology 06/29/19 Stool Occult Blood (ARIEL) - Final, Complete 06/28/19 Stool Occult Blood (ARIEL) - Final, Complete 06/23/19 Stool Occult Blood (ARIEL) - Final, Complete 06/22/19 Respiratory Virus Panel (PCR) (ARIEL) - Final, Complete 06/22/19 Blood Culture - Final, Complete NO GROWTH AFTER 5 DAYS 06/22/19 Blood Culture - Final, Complete NO GROWTH AFTER 5 DAYS 06/22/19 Acid Fast Stain, Received Pending 06/22/19 Mycobacterial Culture, Received Pending 06/22/19 Fungal Smear, Received Pending 06/22/19 Fungal Culture, Received Pending 06/22/19 Gram Stain - Final, Complete 06/22/19 Body Fluid Culture - Final, Complete 06/21/19 Stool Occult Blood (ARIEL) - Final, Complete SULMA COELHO MD Jun 29, 2019 14:51
[2019-06-29] MEDS: WARFARIN SOD 5 MG TAB PO SCH (17:27)
[2019-06-29] MEDS: ROSUVASTATIN 10 MG TAB (CRESTOR) PO SCH (21:23)
[2019-06-29] MEDS: diphenhydrAMINE CREAM 30GM TOP PRN (21:24)
[2019-06-29] MEDS: oxyCODONE 5MG TAB PO PRN (21:24)
[2019-06-29 22:00] VITALS: BP 153/86
[2019-06-29 22:32] VITALS: O2SAT 95
[2019-06-30] MEDS: HEPARIN DRIP 25,000 UNITS in IV 1 EA IV SCH ×3 (05:51→23:48)
[2019-06-30 06:00] VITALS: BP 145/82
[2019-06-30 06:16] LABS: HEMATOCRIT 32.4 % (42.0-52.0); HEMOGLOBIN 10.6 g/dl (13.5-17.5); MEAN CORPUSCULAR HGB CONC 32.7 g/dl (32.0-36.5); MEAN CORPUSCULAR VOLUME 97.9 fl (80.0-96.0); PLATELET COUNT, AUTOMATED 163 10^3/uL (150-450); RED BLOOD COUNT 3.31 10^6/uL (4.30-6.10); WHITE BLOOD COUNT 4.4 10^3/uL (4.0-10.0)
[2019-06-30 06:36] LABS: BLOOD UREA NITROGEN 7 MG/DL (7-18); CALCIUM LEVEL 8.4 MG/DL (8.5-10.1); CARBON DIOXIDE LEVEL 28 MEQ/L (21-32); CHLORIDE LEVEL 103 MEQ/L (98-107); CREATININE FOR GFR 0.66 MG/DL (0.70-1.30); GLOMERULAR FILTRATION RATE > 60.0 (>60); GLUCOSE, FASTING 170 MG/DL (70-100); MAGNESIUM LEVEL 1.9 MG/DL (1.8-2.4); POTASSIUM SERUM 3.6 MEQ/L (3.5-5.1); SODIUM LEVEL 137 MEQ/L (136-145)
[2019-06-30 07:16] LABS: PARTIAL THROMBOPLASTIN TIME 167.3 SECONDS (25.0-38.4)
[2019-06-30 08:17] LABS: INR 1.92; PROTHROMBIN TIME 21.7 SECONDS (11.8-14.0)
[2019-06-30] MEDS: FUROSEMIDE 40 MG/4 ML VIAL (J1940) IV SCH ×2 (09:03→20:42)
[2019-06-30] MEDS: diphenhydrAMINE CREAM 30GM TOP PRN (09:03)
[2019-06-30] MEDS: BACITRACIN OINT 30GM TOP SCH ×2 (09:03→20:42)
[2019-06-30] MEDS: SPIRONOLACTONE 25 MG TAB PO SCH (09:04)
[2019-06-30] MEDS: POTASSIUM CHLORIDE 10 MEQ SR TABLET PO SCH ×3 (09:04→20:39)
[2019-06-30] MEDS: MAGNESIUM OXIDE 400 MG TAB (MAG-OX) PO SCH ×2 (09:04→20:40)
[2019-06-30] MEDS: PANTOPRAZOLE 40MG TAB (PROTONIX) PO SCH (09:04)
[2019-06-30] MEDS: LACTULOSE 20 GM/30 ML SYRUP UD PO SCH ×2 (09:04→20:41)
[2019-06-30] MEDS: CARVedilol 12.5 MG TAB PO SCH ×2 (09:04→20:41)
[2019-06-30] MEDS: HumaLOG INSULIN (NovoLOG) PER UNIT SC SCH ×4 (09:05→20:41)
[2019-06-30] MEDS: TRIPLE PASTE 2OZ OINTMENT TOP SCH ×2 (09:05→20:42)
[2019-06-30] MEDS: SIMETHICONE 80 MG CHEW TAB PO PRN (10:17)
--- NOTE | 2019-06-30 10:55 | IPNPDOC ---
Text Note Date of Service The patient was seen on 06/30/19. NOTE S: Patient seen and examined at bedside. No acute overnight events reported, no new medical complaints this morning. O: General: NAD, lying comfortably in bed HEENT: NC/AT, EOMI Lungs: CTA B/L Heart: +S1S2, RRR Abd: obese, soft, NT, +BS Ext: trace edema A/P: #LLE DVT - continue warfarin to target INR of 2.5-3.5 - Target INR is higher than normal due to history of factor V Leiden mutation. - continue hep gtt until INR in therapeutic range - increased Coumadin 10 mg daily, INR 1.9 this am - stool for occult blood is serially negative #Factor V Leiden - as above heparin gtt/coumadin # Decompensated liver cirrhosis with anasarca - o/p follow up with transplant center in [place] # Portal vein, proximal superior mesenteric vein, splenic vein thrombosis - as above hep gtt/coumadin # Chronic thrombocytopenia due to ESLD - s/p splenic portal vein thrombolysis. thrombectomy and angioplasty 06/16 - s/p TIPS procedure 06/18 - s/p paracentesis yesterday 06/21 - continue lactulose but adjust to bid - PLT counts continue to improve - anticoagulation per above - decrease lasix 40 mg IV q12, hopefully can transition to lasix 40 mg daily in next 24-48 hours - aldactone 25 mg po daily - increase coreg 12.5 mg bid # Acute on Chronic macrocytic anemia - transfused 4 units this hospitalization # Multilobar hospital-acquired pneumonia. - completed zosyn 7 days - completed zithromax 5 days # Hypokalemia secondary to IV lasix diuresis - resolved # Hypomagnesia - increase K tab 40 mEq from daily to tid, repeat K this evening - Mag oxide 400 mg bid Dispo: - home when INR therapeutic VS,Fishbone, I+O VS, Fishbone, I+O Laboratory Tests 06/29/19 18:47 06/30/19 05:43 Vital Signs Date Time Temp Pulse Resp B/P (MAP) Pulse Ox O2 Delivery O2 Flow Rate FiO2 06/30/19 09:04 102 146/80 06/30/19 06:00 98.2 17 97 Room Air 06/29/19 22:32 2.0 I&O- Last 24 Hours up to 6 AM 06/30/19 06:00 Intake Total 1610 ml Output Total 1360 ml Balance 250 ml FAIZAN PETERSON MD Jun 30, 2019 10:55
[2019-06-30 14:00] VITALS: BP 106/70
[2019-06-30 14:43] VITALS: O2SAT 96
[2019-06-30] MEDS: WARFARIN SOD 5 MG TAB PO SCH (17:16)
[2019-06-30] MEDS: oxyCODONE 5MG TAB PO PRN (20:40)
[2019-06-30] MEDS: ROSUVASTATIN 10 MG TAB (CRESTOR) PO SCH (20:40)
[2019-06-30 21:00] VITALS: O2SAT 95
[2019-07-01] VITALS: BP 136/89
[2019-07-01] MEDS: HEPARIN DRIP 25,000 UNITS in IV 1 EA IV SCH (03:28)
[2019-07-01 06:00] VITALS: BP 121/76
[2019-07-01 06:08] LABS: HEMATOCRIT 32.2 % (42.0-52.0); HEMOGLOBIN 10.6 g/dl (13.5-17.5); MEAN CORPUSCULAR HEMOGLOBIN 32.3 pg (27.0-33.0); MEAN CORPUSCULAR HGB CONC 32.9 g/dl (32.0-36.5); MEAN CORPUSCULAR VOLUME 98.2 fl (80.0-96.0); PLATELET COUNT, AUTOMATED 168 10^3/uL (150-450); RED BLOOD COUNT 3.28 10^6/uL (4.30-6.10); WHITE BLOOD COUNT 4.3 10^3/uL (4.0-10.0)
[2019-07-01 06:13] LABS: BLOOD UREA NITROGEN 8 MG/DL (7-18); CALCIUM LEVEL 8.5 MG/DL (8.5-10.1); CARBON DIOXIDE LEVEL 29 MEQ/L (21-32); CHLORIDE LEVEL 106 MEQ/L (98-107); CREATININE FOR GFR 0.64 MG/DL (0.70-1.30); GLOMERULAR FILTRATION RATE > 60.0 (>60); GLUCOSE, FASTING 161 MG/DL (70-100); POTASSIUM SERUM 3.9 MEQ/L (3.5-5.1); SODIUM LEVEL 138 MEQ/L (136-145)
[2019-07-01 06:21] LABS: INR 2.13; PROTHROMBIN TIME 23.6 SECONDS (11.8-14.0)
[2019-07-01] MEDS: LACTULOSE 20 GM/30 ML SYRUP UD PO SCH ×2 (08:28→20:06)
[2019-07-01] MEDS: MAGNESIUM OXIDE 400 MG TAB (MAG-OX) PO SCH ×2 (08:28→20:13)
[2019-07-01] MEDS: SPIRONOLACTONE 25 MG TAB PO SCH (08:28)
[2019-07-01] MEDS: HumaLOG INSULIN (NovoLOG) PER UNIT SC SCH ×4 (08:28→20:57)
[2019-07-01] MEDS: PANTOPRAZOLE 40MG TAB (PROTONIX) PO SCH (08:28)
[2019-07-01] MEDS: POTASSIUM CHLORIDE 10 MEQ SR TABLET PO SCH ×3 (08:29→20:14)
[2019-07-01] MEDS: CARVedilol 12.5 MG TAB PO SCH ×2 (08:29→20:14)
[2019-07-01] MEDS: TRIPLE PASTE 2OZ OINTMENT TOP SCH ×2 (08:29→20:15)
[2019-07-01] MEDS: BACITRACIN OINT 30GM TOP SCH ×2 (08:30→20:14)
[2019-07-01 08:47] LABS: PARTIAL THROMBOPLASTIN TIME 71.1 SECONDS (25.0-38.4)
[2019-07-01 09:00] VITALS: O2SAT 95
[2019-07-01] MEDS: HEPARIN SOD (PORCINE) 5000 UNITS/ML VIAL (J1644 PER 1000UNITS) IV PRN (10:44)
--- NOTE | 2019-07-01 10:49 | IPNPDOC ---
Text Note Date of Service The patient was seen on 07/01/19. NOTE S: Patient seen and examined at bedside. No acute overnight events reported, no new medical complaints this morning. O: General: NAD, sitting comfortably in chair HEENT: NC/AT, EOMI Lungs: CTA B/L Heart: +S1S2, RRR Abd: obese, soft, NT, +BS Ext: trace edema A/P: #LLE DVT - continue warfarin to target INR of 2.5-3.5 (#thromboses, factor V Leiden) - extensive discussion with one of his doctors - dr. frank with the [facility] - continue hep gtt until INR in therapeutic range - increased Coumadin 17 mg tonight - at home alternate 15/7mg qd - stool for occult blood is serially negative #Factor V Leiden - as above heparin gtt/coumadin # Decompensated liver cirrhosis with anasarca - o/p follow up with transplant center in [place] - has appt in [place] on 07/06/19 - s/p TIPS procedure 06/18 - s/p paracentesis 06/21 - continue lactulose - titrate to 4-5 BM / day - dc iv lasix - transition to po lasix - aldactone 25 mg po daily - coreg 12.5 mg bid # Portal vein, proximal superior mesenteric vein, splenic vein thrombosis - as above hep gtt/coumadin # Chronic thrombocytopenia due to ESLD - resolved - s/p splenic portal vein thrombolysis. thrombectomy and angioplasty 06/16 # Acute on Chronic macrocytic anemia - transfused 4 units this hospitalization # Multilobar hospital-acquired pneumonia. - completed zosyn 7 days - completed zithromax 5 days # Hypokalemia secondary to IV lasix diuresis - resolved # Hypomagnesia - increase K tab 40 mEq from daily to tid, repeat K this evening - Mag oxide 400 mg bid Dispo: - home when INR therapeutic, trying to setup homecare for INR checks VS,Eloise, I+O VS, Toritobone, I+O Laboratory Tests 07/01/19 05:38 Vital Signs Date Time Temp Pulse Resp B/P (MAP) Pulse Ox O2 Delivery O2 Flow Rate FiO2 07/01/19 09:00 95 Room Air 07/01/19 06:00 98.3 95 17 121/76 (91) 06/29/19 22:32 2.0 I&O- Last 24 Hours up to 6 AM 07/01/19 06:00 Intake Total 1170 ml Output Total 2025 ml Balance -855 ml FAIZAN PETERSON MD Jul 01, 2019 10:49
[2019-07-01] MEDS ORDERED: MORPHINE 2 MG/ML 1ML VIAL (J2270) IV PRN (13:15)
[2019-07-01] MEDS ORDERED: oxyCODONE 5MG TAB PO PRN (13:15)
[2019-07-01 14:00] VITALS: BP 111/58
[2019-07-01] MEDS ORDERED: WARFARIN SOD 5 MG TAB PO SCH (17:00)
[2019-07-01] MEDS: ROSUVASTATIN 10 MG TAB (CRESTOR) PO SCH (20:13)
[2019-07-01] MEDS: diphenhydrAMINE CREAM 30GM TOP PRN (20:15)
[2019-07-01 21:00] VITALS: O2SAT 95
[2019-07-01 22:00] VITALS: BP 128/75
[2019-07-02] MEDS: HEPARIN SOD (PORCINE) 5000 UNITS/ML VIAL (J1644 PER 1000UNITS) IV PRN (01:03)
[2019-07-02] MEDS: HEPARIN DRIP 25,000 UNITS in IV 1 EA IV SCH (01:05)
[2019-07-02 06:00] VITALS: BP 132/79
[2019-07-02 06:17] LABS: HEMATOCRIT 33.6 % (42.0-52.0); MEAN CORPUSCULAR HEMOGLOBIN 32.4 pg (27.0-33.0); MEAN CORPUSCULAR HGB CONC 32.7 g/dl (32.0-36.5); MEAN CORPUSCULAR VOLUME 98.8 fl (80.0-96.0); PLATELET COUNT, AUTOMATED 178 10^3/uL (150-450); WHITE BLOOD COUNT 4.4 10^3/uL (4.0-10.0)
[2019-07-02 06:34] LABS: INR 2.41; PROTHROMBIN TIME 26.1 SECONDS (11.8-14.0)
[2019-07-02 06:36] LABS: PARTIAL THROMBOPLASTIN TIME 99.7 SECONDS (25.0-38.4)
[2019-07-02 06:43] LABS: BLOOD UREA NITROGEN 7 MG/DL (7-18); CALCIUM LEVEL 8.8 MG/DL (8.5-10.1); CARBON DIOXIDE LEVEL 26 MEQ/L (21-32); CHLORIDE LEVEL 107 MEQ/L (98-107); CREATININE FOR GFR 0.57 MG/DL (0.70-1.30); GLOMERULAR FILTRATION RATE > 60.0 (>60); GLUCOSE, FASTING 173 MG/DL (70-100); POTASSIUM SERUM 4.3 MEQ/L (3.5-5.1); SODIUM LEVEL 138 MEQ/L (136-145)
[2019-07-02] MEDS: HumaLOG INSULIN (NovoLOG) PER UNIT SC SCH ×2 (08:57→12:00)
[2019-07-02 08:58] VITALS: BP 132/79
[2019-07-02] MEDS: PANTOPRAZOLE 40MG TAB (PROTONIX) PO SCH (08:58)
[2019-07-02] MEDS: CARVedilol 12.5 MG TAB PO SCH (08:58)
[2019-07-02] MEDS: SPIRONOLACTONE 25 MG TAB PO SCH (08:58)
[2019-07-02] MEDS: MAGNESIUM OXIDE 400 MG TAB (MAG-OX) PO SCH (08:58)
[2019-07-02] MEDS: POTASSIUM CHLORIDE 10 MEQ SR TABLET PO SCH (08:58)
[2019-07-02] MEDS: TRIPLE PASTE 2OZ OINTMENT TOP SCH (08:59)
[2019-07-02] MEDS: LACTULOSE 20 GM/30 ML SYRUP UD PO SCH (09:00)
[2019-07-02] MEDS: BACITRACIN OINT 30GM TOP SCH (09:00)
[2019-07-02] MEDS ORDERED: CARV12.5 PO (09:02)
[2019-07-02] MEDS ORDERED: BACI50OI TOP (09:02)
[2019-07-02] MEDS ORDERED: COUM1TAB17 PO (11:44)
--- NOTE | 2019-07-02 12:44 | DS.PDOC ---
Discharge Summary General Date of Admission Jun 17, 2019 at 09:34 Date of Discharge 07/02/19 Specialist/Consultants Involve: YANCI AGYLE MD Discharge Summary PROCEDURES PERFORMED DURING STAY: TIPS, paracentesis ADMITTING DIAGNOSES: 1. Alcohol liver cirrhosis. 2. Spontaneous bacterial peritonitis. 3. Variceal bleeding. 4. Portal hypertension. 5. Factor V Leiden mutation. 6. Deep vein thrombosis (DVT)/pulmonary embolism (PE). 7. Inferior vena cava (IVC) filter. 8. Diabetes. 9. Hypertension. 10. Hyperlipidemia. DISCHARGE DIAGNOSES: #LLE DVT #Factor V Leiden # Decompensated liver cirrhosis with anasarca - s/p TIPS # Portal vein, proximal superior mesenteric vein, splenic vein thrombosis # Chronic thrombocytopenia due to ESLD # Acute on Chronic macrocytic anemia - transfused 4 PRBC # Multilobar hospital-acquired pneumonia - s/p Abx # Hypokalemia/Hypomagnesia COMPLICATIONS/CHIEF COMPLAINT: Portal Vein Thrombosis. HISTORY OF PRESENT ILLNESS: 49-year-old male with a history of alcoholic liver cirrhosis with recurrent admission for gastrointestinal (GI) bleed, spontaneous bacterial peritonitis and variceal bleeding presented to the emergency room after being released on June 13 with unrelenting, diffuse abdominal pain, described as stabbing, rated at 10/10 despite taking Percocet nine tablets for the past 48 hours. Patient has not eaten anything since Saturday. Has had decreased appetite, some diarrhea. No fever, chills, nausea, or vomiting, and a 6-pound weight loss. Patient's last alcoholic drink was 05/21/2019. He was referred to [place] for a post transjugular intrahepatic portosystemic shunt (TIPS) procedure and has not been able to go there. Patient says the pain is worse when he ambulates and moves around, better when he lies still and on his back. He otherwise denies any GI bleeding, hematemesis, bright red blood per rectum, melena, or black, tarry stools. Patient denies any changes in vision, diplopia, sore throat, dysphagia, odynophagia, nausea, vomiting. Had one episode of watery, nonbloody diarrhea times one episode. Denies upper or lower extremity paresthesias. HOSPITAL COURSE: #LLE DVT - bridged with heparin gtt - coumadin for target INR 2.5-3.5 - stool for occult blood is serially negative #Factor V Leiden - as above heparin gtt/coumadin # Decompensated liver cirrhosis with anasarca - o/p follow up with transplant center in [place] - has appt in [place] on 07/06/19 - s/p TIPS procedure 06/18 - s/p paracentesis 06/21 - po lasix - aldactone 25 mg po daily - coreg 12.5 mg bid # Portal vein, proximal superior mesenteric vein, splenic vein thrombosis - as above hep gtt/coumadin # Chronic thrombocytopenia due to ESLD - resolved - s/p splenic portal vein thrombolysis. thrombectomy and angioplasty 06/16 # Acute on Chronic macrocytic anemia - transfused 4 units this hospitalization # Multilobar hospital-acquired pneumonia. - completed zosyn 7 days - completed zithromax 5 days # Hypokalemia secondary to IV lasix diuresis - resolved # Hypomagnesia - increase K tab 40 mEq from daily to tid, repeat K this evening - Mag oxide 400 mg bid DISCHARGE MEDICATIONS: Please see below. ALLERGIES: Please see below. PHYSICAL EXAMINATION ON DISCHARGE: VITAL SIGNS: Please see below. General: NAD, sitting comfortably in chair HEENT: NC/AT, EOMI Lungs: CTA B/L Heart: +S1S2, RRR Abd: obese, soft, NT, +BS Ext: trace edema LABORATORY DATA: Please see below. ACTIVITY: [As tolerated]. DISPOSITION: Discharge home. DISCHARGE INSTRUCTIONS: 1. Medications as directed. 2. Follow up with Dr. Jha at [facility] as scheduled 07/06/19. 3. Blood work for INR as instructed 4. Follow up liver specialist as scheduled 07/06/19. DISCHARGE CONDITION: [Stable]. TIME SPENT ON DISCHARGE: 40 minutes. Vital Signs/I&Os Vital Signs Date Time Temp Pulse Resp B/P (MAP) Pulse Ox O2 Delivery O2 Flow Rate FiO2 07/02/19 08:58 89 132/79 07/02/19 06:00 97.9 20 97 07/01/19 22:33 NIPPV (BIPAP/CPAP) 07/01/19 21:00 2.0 I&O- Last 24 Hours up to 6 AM 07/02/19 06:00 Intake Total 820 ml Output Total 875 ml Balance -55 ml Laboratory Data Labs 24H Laboratory Tests 2 07/01/19 16:39: Bedside Glucose (Misc Panel) 164H 07/01/19 16:59: Activated Partial Thromboplast Time 125.6*H 07/01/19 20:55: Bedside Glucose (Misc Panel) 217H 07/02/19 00:14: Activated Partial Thromboplast Time 54.5H 07/02/19 05:57: Bedside Glucose (Misc Panel) 168H 07/02/19 06:07: Nucleated Red Blood Cells % (auto) 0.0, Prothrombin Time 26.1H, Prothromb Time International Ratio 2.41, Activated Partial Thromboplast Time 99.7H, Anion Gap 5L, Glomerular Filtration Rate > 60.0, Calcium Level 8.8 CBC/BMP Laboratory Tests 07/02/19 06:07 FSBS Laboratory Tests Test 07/01/19 16:39 07/01/19 20:55 07/02/19 05:57 Range/Units Bedside Glucose (Misc Panel) 164 217 168 70-105 MG/DL Microbiology Microbiology 06/30/19 Stool Occult Blood (ARIEL) - Final, Complete 06/29/19 Stool Occult Blood (ARIEL) - Final, Complete 06/28/19 Stool Occult Blood (ARIEL) - Final, Complete 06/23/19 Stool Occult Blood (ARIEL) - Final, Complete 06/22/19 Respiratory Virus Panel (PCR) (ARIEL) - Final, Complete 06/22/19 Blood Culture - Final, Complete NO GROWTH AFTER 5 DAYS 06/22/19 Blood Culture - Final, Complete NO GROWTH AFTER 5 DAYS 06/22/19 Acid Fast Stain, Received Pending 06/22/19 Mycobacterial Culture, Received Pending 06/22/19 Fungal Smear, Received Pending 06/22/19 Fungal Culture, Received Pending 06/22/19 Gram Stain - Final, Complete 06/22/19 Body Fluid Culture - Final, Complete Discharge Medications Scheduled Atenolol (Atenolol) 50 Mg Tab, 50 MG PO DAILY, (Reported) [facility] B[facility] ATENOLOL AND CARVEDILOL Bacitracin (Bacitracin) 28.4 Gm Oint...g., 1 DOSE TOP BID apply to affected area twice daily Carvedilol (Carvedilol) 12.5 Mg Tablet, 12.5 MG PO BID Lactobacillus Acidophilus (Probiotic) 1 Each Capsule, 2 CAP PO DAILY, (Reported) BEFORE BREAKFAST Lactulose (Lactulose) 10 Gm/15 Ml Solution, 15 ML PO BID, (Reported) HOLD FOR LOOSE STOOL Lisinopril (Lisinopril) 20 Mg Tab, 20 MG PO DAILY, (Reported) Metformin HCl (Metformin HCl ER) 500 Mg Tab.er.24h, 500 MG PO TID, (Reported) Pantoprazole Sodium (Pantoprazole Sodium) 40 Mg Tablet.dr, 40 MG PO DAILY, (Reported) Rosuvastatin Calcium (Crestor) 40 Mg Tablet, 40 MG PO QHS, (Reported) Sulfamethoxazole/Trimethoprim (Bactrim Ds Tablet) 1 Each Tablet, 1 TAB PO DAILY, (Reported) TAKE FOR 30 DAYS Warfarin Sodium (Coumadin) 5 Mg Tablet, 15 MG PO DAILY@17 as directed Scheduled PRN Oxycodone HCl (Oxycodone HCl) 5 Mg Tablet, 5 MG PO TID PRN for PAIN, (Reported) Sildenafil Citrate (Viagra) 100 Mg Tablet, 100 MG PO ASDIRECTED PRN for ERECTILE DYSFUNCTION, (Reported) Simethicone (Simethicone) 80 Mg Tab.chew, 80 MG PO TID PRN for GAS PAIN, (Reported) Allergies Coded Allergies: No Known Allergies (Verified , 01/22/05) FAIZAN PETERSON MD Jul 02, 2019 12:44
== END 2019-07-02 12:41 | disposition home or self-care (01) | DRG 169 ==
LOC: M ED 05:32 → EDBD 05:32 → M ED INP 09:34 → ENRESERV 12:08 → M ICU 17:30 → M MSPAV 06-18 11:59 → M ICU 06-19 20:43 → M MSPAV 06-20 13:49
PROVIDERS: ADMIT General Practice; ATTEND Internal Medicine
PROC: B51T1ZZ Fluoroscopy of Portal and Splanchnic Veins using Low Osmolar Contrast (ICD-10-PCS; 2019-06-17)
PROC: 06C Lower Veins, Extirpation (ICD-10-PCS; 2019-06-17)
PROC: 06C Lower Veins, Extirpation (ICD-10-PCS; 2019-06-17)
PROC: 4A0 Measurement and Monitoring, Physiological Systems, Measurement (ICD-10-PCS; 2019-06-17)
PROC: 3E033TZ Introduction of Destructive Agent into Peripheral Vein, Percutaneous Approach (ICD-10-PCS; 2019-06-17)
PROC: 3E03317 Introduction of Other Thrombolytic into Peripheral Vein, Percutaneous Approach (ICD-10-PCS; 2019-06-17)
PROC: 06C83ZZ Extirpation of Matter from Portal Vein, Percutaneous Approach (ICD-10-PCS; principal; 2019-06-17 13:00)
PROC: 30233N1 Transfusion of Nonautologous Red Blood Cells into Peripheral Vein, Percutaneous Approach (ICD-10-PCS; 2019-06-18)
PROC: 06183J4 Bypass Portal Vein to Hepatic Vein with Synthetic Substitute, Percutaneous Approach (ICD-10-PCS; 2019-06-19)
PROC: B51T1ZZ Fluoroscopy of Portal and Splanchnic Veins using Low Osmolar Contrast (ICD-10-PCS; 2019-06-19)
DX: I82.890 Acute embolism and thrombosis of other specified veins (principal); I81 Portal vein thrombosis; I85.11 Secondary esophageal varices with bleeding; J18.9 Pneumonia, unspecified organism; D68.2 Hereditary deficiency of other clotting factors; K76.6 Portal hypertension; D69.6 Thrombocytopenia, unspecified; I85.10 Secondary esophageal varices without bleeding; E83.42 Hypomagnesemia; K70.30 Alcoholic cirrhosis of liver without ascites; E78.5 Hyperlipidemia, unspecified; E87.6 Hypokalemia; D53.9 Nutritional anemia, unspecified; E11.9 Type 2 diabetes mellitus without complications; Z79.899 Other long term (current) drug therapy; G47.33 Obstructive sleep apnea (adult) (pediatric)

== ENCOUNTER → 2019-07-21 | Outpatient (CLI) | payer BC, OTHER ==
[~2019-07-21] MED LIST changes: +BACI50OI TOP; +BACT800T5 PO; +COUM1TAB17 PO; +SIME80TA PO; +VIAG100T PO
--- NOTE | 2019-07-21 09:49 | REP ---
ULTRASOUND ABDOMEN WITH DUPLEX DOPPLER EVALUATION OF TIPS SHUNT: Real-time sonographic evaluation of abdomen performed. Patient has had a prior cholecystectomy. There is no intrahepatic or extrahepatic biliary dilatation, common bile duct measuring 6 mm. Liver has a cirrhotic appearance. Hypoechoic area in the right lobe measures 2.0 x 1.9 x 1.8 cm with internal low level echoes possibly representing a cyst. Pancreas could not be visualized. Spleen is moderately enlarged measuring 16.5 x 15.6 x 6.6 cm, splenic index 1699. Kidneys are normal in size and echotexture, right kidney measuring 13.8 x 7.2 x 7.1 cm and left kidney 16.8 x 7.0 x 6.8 cm. There is no hydronephrosis bilaterally. Abdominal aorta cannot be visualized due to overlying bowel gas. Moderate ascites is seen diffusely. Real-time ultrasound evaluation and duplex Doppler interrogation of the TIPS shunt is attempted. Internal blood flow could not be documented in the TIPS shunt. Both the right and left portal veins demonstrate reversal of flow. Blood flow in the main portal vein proximal to the TIPS shunt could not be documented. Splenic vein and superior mesenteric vein could not be visualized due to overlying bowel gas. IMPRESSION: Status post cholecystectomy. Cirrhotic liver with 2 cm hypoechoic structure in the right lobe possibly representing a complex cyst. Moderate splenomegaly. Moderate ascites. Evaluation of the TIPS shunt could not document internal blood flow. There is reversal of flow in the right and left portal veins with velocities 19 to 20 cm/s. Flow could not be documented in the main portal vein. Electronically Signed by Dallin Murrieta MD 07/21/2019 10:37 A
== END ==
LOC: M RAD 07:05
PROVIDERS: ATTEND Radiology Diagnostic Radiology
DX: Z96.89 Presence of other specified functional implants (principal); Z90.49 Acquired absence of other specified parts of digestive tract; K74.60 Unspecified cirrhosis of liver; R16.1 Splenomegaly, not elsewhere classified; R18.8 Other ascites

== ENCOUNTER → 2019-07-28 | Outpatient (CLI) | payer BC, OTHER | LOC: M LAB 10:50 | PROVIDERS: ATTEND Internal Medicine | DX: I82.409 Acute embolism and thrombosis of unspecified deep veins of unspecified lower extremity (principal); Z79.01 Long term (current) use of anticoagulants ==

== ENCOUNTER 2020-04-12 13:12 | Inpatient (IN) | payer OTHER, BC ==
[~2020-04-12] VITALS: Ht 182.9 cm; Wt 150.5 kg
[~2020-04-12 13:12] MED LIST changes: -COUM7.5T PO; +COUM7.5T6 PO; -LACT10SO29 PO; +LACT20EL PO; -METF-791 PO; +METF-838 PO; +PANT40TA29 PO; -PANT40TA3 PO
[2020-04-12] MEDS ORDERED: GENE10SO PO (13:24)
[2020-04-12] MEDS ORDERED: SPIR100T3 PO (13:24)
[2020-04-12] MEDS ORDERED: FURO20TA2 PO (13:24)
[2020-04-12] MEDS ORDERED: SUCR1SS PO (13:24)
[2020-04-12] MEDS ORDERED: LOVE0.8I3 SC (13:24)
--- NOTE | 2020-04-12 14:44 | REP ---
INDICATION: swelling pain COMPARISON: None. TECHNIQUE: [place] scale and color Doppler evaluation right lower extremity using linear high frequency transducer. FINDINGS: Ultrasound examination of the right lower extremity deep venous structures from the common femoral vein to the popliteal vein demonstrates normal compressibility flow and wave patterns in response to respiration and augmentation. There is no evidence for deep venous thrombosis. Lymph nodes in the right groin measure up to 4.4 x 1.4 x 1.8 cm IMPRESSION: No evidence for deep venous thrombosis. <Electronically signed by Murali Hauser > 04/12/20 [id number]
[2020-04-12] MEDS ORDERED: VANCOMYCIN HCL 2,000 MG in D5W 500 ML IV ONE (15:00)
[2020-04-12] MEDS ORDERED: ONDANSETRON 4MG/2ML VIAL IV ONE (15:15)
[2020-04-12] MEDS ORDERED: VANCOMYCIN HCL 1,000 MG, VIAL MATE ADAPTER 1 EACH in D5W 250 ML IV ONE ×6 (15:30)
[2020-04-12] MEDS: MORPHINE 4 MG/ML 1ML VIAL/SYRINGE (J2270) IV PRN ×2 (15:34→17:26)
[2020-04-12 15:36] LABS: BASO % 0.3 % (0.0-1.0); EOS # 0.1 10^3/uL (0.0-0.5); EOS % 0.7 % (0.0-3.0); HEMATOCRIT 36.4 % (42.0-52.0); HEMOGLOBIN 11.8 g/dl (13.5-17.5); LYMPH # 0.6 10^3/uL (1.5-5.0); LYMPH % 6.6 % (24.0-44.0); MEAN CORPUSCULAR HEMOGLOBIN 34.1 pg (27.0-33.0); MEAN CORPUSCULAR HGB CONC 32.4 g/dl (32.0-36.5); MEAN CORPUSCULAR VOLUME 105.2 fl (80.0-96.0); MONO # 0.9 10^3/uL (0.0-0.8); MONO % 9.8 % (0.0-5.0); NEUTROPHILS # 7.3 10^3/uL (1.5-8.5); NEUTROPHILS % 81.4 % (36.0-66.0); RED BLOOD COUNT 3.46 10^6/uL (4.30-6.10)
[2020-04-12] MEDS ORDERED: LISI40TA PO (15:39)
[2020-04-12] MEDS ORDERED: CARV25TA PO (15:39)
[2020-04-12] MEDS ORDERED: SUCR1TAB56 PO (15:39)
[2020-04-12] MEDS ORDERED: FURO40TA2 PO (15:39)
[2020-04-12] MEDS ORDERED: diphenhydrAMINE 50MG/ML VIAL (J1200) IV STA (15:40)
[2020-04-12 15:50] LABS: PLATELET COUNT, AUTOMATED 98 10^3/uL (150-450)
[2020-04-12 15:55] LABS: ERYTHROCYTE SEDIMENTATION RATE 63 mm/hr (0-15)
[2020-04-12 15:59] LABS: ALBUMIN 3.1 GM/DL (3.2-5.2); ALT/SGPT 56 U/L (12-78); BILIRUBIN,TOTAL 2.3 MG/DL (0.2-1.0); BLOOD UREA NITROGEN 18 MG/DL (7-18); CALCIUM LEVEL 8.9 MG/DL (8.5-10.1); CARBON DIOXIDE LEVEL 28 MEQ/L (21-32); CHLORIDE LEVEL 104 MEQ/L (98-107); CREATININE FOR GFR 1.06 MG/DL (0.70-1.30); GLOMERULAR FILTRATION RATE > 60.0 (>60); GLUCOSE, FASTING 137 MG/DL (70-100); POTASSIUM SERUM 3.5 MEQ/L (3.5-5.1); SODIUM LEVEL 137 MEQ/L (136-145); TOTAL PROTEIN 7.1 GM/DL (6.4-8.2)
[2020-04-12 16:14] LABS: RSV AMPLIFICATION NEGATIVE (NEGATIVE)
--- NOTE | 2020-04-12 18:18 | HPEPDOC ---
General Date of Admission Apr 12, 2020 at 16:50 Date of Service: Apr 12, 2020 Chief Complaint The patient is a 49-year-old male admitted with a reason for visit of Cellulitis,Cirrhosis. Source: Patient History of Present Illness Mr. Salmeron is a 49 year old male with cirrhosis s/p TIPS procedure and diabetes mellitus type 2 who is here for rigors and worsening right leg cellulitis. On April 10, he had chills and rigors with temperature of 102.3F. He also had vomiting and diarrhea. He went to the urgent care where he tested negative for COVID. He is given antiemetics and sent home. The following day, April 11, he started to have erythema, warmth, swelling, and pain in the right leg. Denies any trauma or injury to the right leg. His kaya a l ine around the erythema. Today the erythema spread beyond the line and has become circumferential. He came into the ED. He was afebrile, but ESR and CRP were elevated. Ultrasound of the leg was negative for DVT. Patient was given 2 g of vancomycin and admission was called. Patient will be admitted for cellulitis. Home Medications Scheduled Carvedilol (Carvedilol) 25 Mg Tablet, 12.5 MG PO BID, (Reported) Enoxaparin Sodium (Lovenox) 150 Mg/1 Ml Syringe, 150 MG SC BID, (Reported) Furosemide (Furosemide) 40 Mg Tablet, 60 MG PO DAILY, (Reported) Lactulose (Generlac) 10 Gm/15 Ml Solution, 15 ML PO TID, (Reported) Lisinopril (Lisinopril) 40 Mg Tablet, 20 MG PO DAILY, (Reported) Metformin HCl (Metformin HCl ER) 500 Mg Tab.er.24h, 500 MG PO TID, (Reported) Pantoprazole Sodium (Pantoprazole Sodium) 40 Mg Tablet.dr, 40 MG PO QHS, (Reported) Rosuvastatin Calcium (Crestor) 40 Mg Tablet, 40 MG PO QHS, (Reported) Spironolactone (Spironolactone) 100 Mg Tablet, 200 MG PO DAILY, (Reported) Sucralfate (Sucralfate) 1 Gm Tablet, 1 GM PO ACHS, (Reported) Scheduled PRN Sildenafil Citrate (Viagra) 100 Mg Tablet, 100 MG PO ASDIRECTED PRN for ERECTILE DYSFUNCTION, (Reported) Allergies Coded Allergies: No Known Allergies (Verified , 01/22/05) Past Medical History Medical History 1. Alcohol cirrhosis status post TIPS procedure 2. History of spontaneous bacterial peritonitis 3. History of variceal bleeding 4. Portal hypertension 5. Factor V Leiden mutation 6. History of DVT and PE 7. Placement of inferior vena cava filter 8. Diabetes mellitus 9. Hypertension 10. Hyperlipidemia Surgical History 1. IVC filter placement 2. Costectomy A. TIPS procedure Family History Father: Factor V Leiden mutation Mother: Cirrhosis secondary to fatty liver Social History * Smoker: former Smoker (quit smoking on 05/22/2019. Smoked for 10 years, half a pack per day) Alcohol: sober (last alcohol drink was on 05/21/2019) Drugs: denies A-FIB/CHADSVASC A-FIB History Current/History of A-Fib/PAF?: No Review of Systems Constitutional: Reports: Chills; Denies: Fever Eyes: Denies: Vision change ENT: Denies: Sore Throat Skin: Reports: Rash (right leg) Pulmonary: Reports: Cough (dry); Denies: Dyspnea Cardiovascular: Denies: Chest Pain Gastrointestinal: Reports: Diarrhea (normally has 4-5 BMs a day); Denies: Nausea, Abdominal Pain Genitourinary: Denies: Dysuria Hematologic: Denies: Bruising Neurological: Denies: Numbness Physical Examination General Exam: Positive: Alert, Cooperative Eye Exam: Positive: EOMI, Sclera icteric (mild icterus) ENT Exam: Negative: Atraumatic Neck Exam: Positive: Supple Chest Exam: Positive: Clear to auscultation; Negative: Rales, Rhonchi, Wheezing Heart Exam: Positive: Rate Normal, Regular Rhythm Abdomen Exam: Positive: Normal bowel sounds, Soft; Negative: Tenderness Extremity Exam: Positive: Edema (mild pitting) Skin Exam: Positive: Rash (right lower leg with erythema, warmth, tenderness, and swelling) Neuro Exam: Positive: Normal Speech, Cranial Nerves 3-12 NL Psych Exam: Positive: Mental status NL, Mood NL Vital Signs Vital Signs Date Time Temp Pulse Resp B/P (MAP) Pulse Ox O2 Delivery O2 Flow Rate FiO2 04/12/20 17:49 98.3 76 18 103/54 (70) 96 Room Air Laboratory Data Labs 24H Laboratory Tests 2 04/12/20 14:56: Anion Gap 5L, Glomerular Filtration Rate > 60.0, Lactic Acid Level 1.7, Calcium Level 8.9, Total Bilirubin 2.3H, Aspartate Amino Transf (AST/SGOT) 48H, Alanine Aminotransferase (ALT/SGPT) 56, Alkaline Phosphatase 79, C-Reactive Protein, Quantitative 12.20H, Total Protein 7.1, Albumin 3.1L, Albumin/Globulin Ratio 0.8 04/12/20 15:09: Immature Granulocyte % (Auto) 1.2, Neutrophils (%) (Auto) 81.4H, Lymphocytes (%) (Auto) 6.6L, Monocytes (%) (Auto) 9.8H, Eosinophils (%) (Auto) 0.7, Basophils (%) (Auto) 0.3, Neutrophils # (Auto) 7.3, Lymphocytes # (Auto) 0.6L, Monocytes # (Auto) 0.9H, Eosinophils # (Auto) 0.1, Basophils # (Auto) 0.0, Nucleated Red Blood Cells % (auto) 0.0, Immature Platelet Fraction 7.5, Erythrocyte Sedimentation Rate 63H, Coronavirus (COVID-19)(PCR) NEGATIVE, Influenza Type A (RT-PCR) NEGATIVE, Influenza Type B (RT-PCR) NEGATIVE, Respiratory Syncytial Virus (PCR) NEGATIVE CBC/BMP Laboratory Tests 04/12/20 14:56 04/12/20 15:09 Microbiology Microbiology 04/12/20 Blood Culture, Received Pending 04/12/20 Blood Culture, Received Pending Assessment/Plan Mr. Salmeron is a 49 year old male with cirrhosis s/p TIPS procedure and diabetes mellitus type 2 who is here with rapidly progressing cellulitis. He will be on vancomycin. We'll monitor for progression or regression of the erythema. We will continue following inflammatory markers. Plan / VTE VTE Prophylaxis Ordered?: Yes Plan Plan 1. Cellulitis of the right leg Rapidly progressive to circumferential Blood cultures 2 pending Vancomycin, pharmacy to manage 2. Acute kidney injury Baseline creatinine around 0.5 Admission creatinine at 1 Hold Lasix, spironolactone, and lisinopril Supportive care and monitor renal function 3. Cirrhosis status post TIPS procedure Is sober since May 2019 Continue lactulose Holding Lasix and spironolactone due to acute kidney injury 4. Diabetes mellitus Carb consistent diet Insulin sliding scale 5. Factor V Leiden mutation Denies hemoptysis, hematochezia, hematuria Continue Lovenox 1 mg/kg twice a day 6. DVT prophylaxis Currently on full dose Lovenox DAVID GARCIA DO Apr 12, 2020 18:18
[2020-04-12 19:45] VITALS: BP 117/65
[2020-04-12] MEDS: SUCRALFATE 1 GM TAB PO SCH ×2 (20:00→20:45)
[2020-04-12] MEDS: LACTULOSE 20 GM/30 ML SYRUP UD PO SCH ×2 (20:00→20:46)
[2020-04-12] MEDS ORDERED: IBUPROFEN 600MG TAB PO PRN (20:15)
[2020-04-12] MEDS ORDERED: ACETAMINOPHEN TAB 650MG DOSE (2X325MG) PO PRN (20:15)
[2020-04-12] MEDS ORDERED: MORPHINE 2 MG/ML 1ML VIAL (J2270) IV PRN (20:15)
[2020-04-12] MEDS: CARVedilol 12.5 MG TAB PO SCH (20:45)
[2020-04-12] MEDS: NORCO, ANEXSIA 5/325MG TABLET (HYDROcodone/ACETAMINOPHEN) PO PRN (20:45)
[2020-04-12] MEDS: PANTOPRAZOLE 40MG TAB (PROTONIX) PO SCH (20:45)
[2020-04-12] MEDS: ROSUVASTATIN 10 MG TAB (CRESTOR) PO SCH (20:45)
[2020-04-12] MEDS ORDERED: ENOXAPARIN 150MG/ML SYRINGE (J1650 PER 10MG) SC SCH (21:00)
[2020-04-12] MEDS: VANCOMYCIN HCL 750 MG, VIAL MATE ADAPTER 1 EACH in D5W 250 ML IV SCH (22:13)
[2020-04-13] MEDS: VANCOMYCIN HCL 500 MG in D5W MINI-BAG PLUS 100 ML IV SCH ×4 (00:47→23:47)
[2020-04-13] MEDS ORDERED: VANCOMYCIN HCL 1,000 MG, VIAL MATE ADAPTER 1 EACH in D5W 250 ML IV SCH (03:00)
[2020-04-13 06:00] VITALS: BP 115/65
[2020-04-13 06:17] LABS: HEMATOCRIT 33.5 % (42.0-52.0); MEAN CORPUSCULAR HEMOGLOBIN 34.5 pg (27.0-33.0); MEAN CORPUSCULAR HGB CONC 32.8 g/dl (32.0-36.5); RED BLOOD COUNT 3.19 10^6/uL (4.30-6.10); WHITE BLOOD COUNT 5.6 10^3/uL (4.0-10.0)
[2020-04-13 06:19] LABS: PLATELET COUNT, AUTOMATED 94 10^3/uL (150-450)
[2020-04-13] MEDS: VANCOMYCIN HCL 750 MG, VIAL MATE ADAPTER 1 EACH in D5W 250 ML IV SCH ×3 (06:25→22:08)
[2020-04-13 06:42] LABS: BLOOD UREA NITROGEN 14 MG/DL (7-18); C REACTIVE PROTEIN QUANTITATIV 8.26 MG/DL (0.00-0.30); CALCIUM LEVEL 8.5 MG/DL (8.5-10.1); CARBON DIOXIDE LEVEL 28 MEQ/L (21-32); CHLORIDE LEVEL 104 MEQ/L (98-107); CREATININE FOR GFR 0.83 MG/DL (0.70-1.30); GLOMERULAR FILTRATION RATE > 60.0 (>60); GLUCOSE, FASTING 128 MG/DL (70-100); POTASSIUM SERUM 3.6 MEQ/L (3.5-5.1); SODIUM LEVEL 137 MEQ/L (136-145)
[2020-04-13 07:57] LABS: ERYTHROCYTE SEDIMENTATION RATE 61 mm/hr (0-15)
[2020-04-13] MEDS: SUCRALFATE 1 GM TAB PO SCH ×4 (08:20→21:35)
[2020-04-13] MEDS: SENOKOT S TAB PO SCH (08:21)
[2020-04-13] MEDS: LACTULOSE 20 GM/30 ML SYRUP UD PO SCH ×3 (08:21→21:36)
[2020-04-13] MEDS: LACTOBACILLUS ACIDOPHILUS CAP (BACID) PO SCH (08:21)
[2020-04-13] MEDS: ENOXAPARIN 100MG/1ML SYRINGE (J1650 PER 10MG) SC SCH ×2 (08:22→21:34)
[2020-04-13] MEDS: CARVedilol 12.5 MG TAB PO SCH ×2 (08:22→21:35)
[2020-04-13 14:00] VITALS: BP 142/76
--- NOTE | 2020-04-13 16:18 | IPNPDOC ---
Subjective Date Seen The patient was seen on 04/13/20. Subjective Chief Complaint/HPI Mr. Salmeron is a 49 year old male with cirrhosis s/p TIPS procedure and diabetes mellitus type 2 who is here for rigors and worsening right leg cellulitis. No events overnight. Denies fever, chills, chest pain, dyspnea, or abdominal pain. Leg tender to touch but improved. Not as red as prior and starting to recede. Objective Physical Examination General Exam: Positive: Alert, Cooperative Eye Exam: Positive: EOMI, Sclera icteric (mild icterus) ENT Exam: Negative: Atraumatic Neck Exam: Positive: Supple Chest Exam: Positive: Clear to auscultation; Negative: Rales, Rhonchi, Wheezing Heart Exam: Positive: Rate Normal, Regular Rhythm Abdomen Exam: Positive: Normal bowel sounds, Soft; Negative: Tenderness Extremity Exam: Positive: Edema (mild pitting) Skin Exam: Positive: Rash (right lower leg with erythema, warmth, tenderness, and swelling) Neuro Exam: Positive: Normal Speech, Cranial Nerves 3-12 NL Psych Exam: Positive: Mental status NL, Mood NL Assessment /Plan Assessment Mr. Salmeron is a 49 year old male with cirrhosis s/p TIPS procedure and diabetes mellitus type 2 who is here with rapidly progressing cellulitis. He will be on vancomycin. We'll monitor for progression or regression of the erythema. We will continue following inflammatory markers. If leg continues to improve, anticipate discharge tomorrow Plan/VTE VTE Prophylaxis Ordered?: Yes Plan 1. Cellulitis of the right leg Rapidly progressive to circumferential Blood cultures 2 pending Vancomycin, pharmacy to manage -Anticipate de-escalating to doxycycline tomorrow 2. Acute kidney injury Baseline creatinine around 0.5 Admission creatinine at 1 Hold Lasix, spironolactone, and lisinopril Supportive care and monitor renal function -Anticipate being able to start diuretic and lisinopril tomorrow 3. Cirrhosis status post TIPS procedure Is sober since May 2019 Continue lactulose Holding Lasix and spironolactone due to acute kidney injury 4. Diabetes mellitus Carb consistent diet Insulin sliding scale 5. Factor V Leiden mutation Denies hemoptysis, hematochezia, hematuria Continue Lovenox 1 mg/kg twice a day 6. DVT prophylaxis Currently on full dose Lovenox Disposition: If leg continues to improve, anticipate discharge tomorrow with doxycycline VS, I&O, 24H, Fishbone Vital Signs/I&O Vital Signs Date Time Temp Pulse Resp B/P (MAP) Pulse Ox O2 Delivery O2 Flow Rate FiO2 04/13/20 14:00 82 20 142/76 (98) 99 Room Air 04/13/20 06:00 98.0 I&O- Last 24 Hours up to 6 AM 04/13/20 06:00 Intake Total 1990 ml Output Total 0 ml Balance 1990 ml Laboratory Data 24H LABS Laboratory Tests 2 04/13/20 05:40: Nucleated Red Blood Cells % (auto) 0.0, Erythrocyte Sedimentation Rate 61H, Anion Gap 5L, Glomerular Filtration Rate > 60.0, Calcium Level 8.5, C-Reactive Protein, Quantitative 8.26H 04/13/20 13:59: Vancomycin Level Trough 11.2 CBC/BMP Laboratory Tests 04/13/20 05:40 Microbiology Microbiology 04/12/20 Blood Culture - Preliminary, Resulted No growth after 24 hours . All specim... 04/12/20 Blood Culture - Preliminary, Resulted No growth after 24 hours . All specim... DAVID GARCIA DO Apr 13, 2020 16:18
[2020-04-13] MEDS: ROSUVASTATIN 10 MG TAB (CRESTOR) PO SCH (21:35)
[2020-04-13] MEDS: PANTOPRAZOLE 40MG TAB (PROTONIX) PO SCH (21:35)
[2020-04-13 22:00] VITALS: BP 138/64
[2020-04-13] MEDS: NORCO, ANEXSIA 5/325MG TABLET (HYDROcodone/ACETAMINOPHEN) PO PRN (22:07)
[2020-04-14 05:54] VITALS: BP 129/67
[2020-04-14 07:09] LABS: HEMATOCRIT 35.1 % (42.0-52.0); HEMOGLOBIN 11.2 g/dl (13.5-17.5); MEAN CORPUSCULAR HEMOGLOBIN 33.8 pg (27.0-33.0); MEAN CORPUSCULAR HGB CONC 31.9 g/dl (32.0-36.5); RED BLOOD COUNT 3.31 10^6/uL (4.30-6.10); WHITE BLOOD COUNT 3.2 10^3/uL (4.0-10.0)
[2020-04-14 07:13] LABS: PLATELET COUNT, AUTOMATED 96 10^3/uL (150-450)
[2020-04-14] MEDS: VANCOMYCIN HCL 750 MG, VIAL MATE ADAPTER 1 EACH in D5W 250 ML IV SCH (07:18)
[2020-04-14 07:35] LABS: BLOOD UREA NITROGEN 11 MG/DL (7-18); C REACTIVE PROTEIN QUANTITATIV 4.87 MG/DL (0.00-0.30); CALCIUM LEVEL 8.4 MG/DL (8.5-10.1); CARBON DIOXIDE LEVEL 28 MEQ/L (21-32); CHLORIDE LEVEL 106 MEQ/L (98-107); CREATININE FOR GFR 0.69 MG/DL (0.70-1.30); GLOMERULAR FILTRATION RATE > 60.0 (>60); GLUCOSE, FASTING 125 MG/DL (70-100); POTASSIUM SERUM 3.5 MEQ/L (3.5-5.1); SODIUM LEVEL 138 MEQ/L (136-145)
[2020-04-14 07:43] LABS: ERYTHROCYTE SEDIMENTATION RATE 65 mm/hr (0-15)
[2020-04-14 08:18] VITALS: BP 129/67
[2020-04-14] MEDS: SUCRALFATE 1 GM TAB PO SCH (08:18)
[2020-04-14] MEDS: CARVedilol 12.5 MG TAB PO SCH (08:18)
[2020-04-14] MEDS: LACTULOSE 20 GM/30 ML SYRUP UD PO SCH (08:18)
[2020-04-14] MEDS: VANCOMYCIN HCL 500 MG in D5W MINI-BAG PLUS 100 ML IV SCH (08:18)
[2020-04-14] MEDS: LACTOBACILLUS ACIDOPHILUS CAP (BACID) PO SCH (08:18)
[2020-04-14] MEDS: SENOKOT S TAB PO SCH (08:19)
[2020-04-14] MEDS: ENOXAPARIN 100MG/1ML SYRINGE (J1650 PER 10MG) SC SCH (08:19)
[2020-04-14] MEDS ORDERED: DOXY-350 PO (09:28)
--- NOTE | 2020-04-15 00:01 | DS.PDOC ---
Discharge Summary General Date of Admission Apr 12, 2020 at 16:50 Date of Discharge Apr 14, 2020 Attending Physician: DAVID GARCIA DO Discharge Summary PROCEDURES PERFORMED DURING STAY: None ADMITTING DIAGNOSES: 1. Cellulitis of right leg 2. Acute kidney injury 3. Cirrhosis s/p TIPS procedure 4. DM 5. Factor V Leiden mutation DISCHARGE DIAGNOSES: 1. Cellulitis of right leg 2. Acute kidney injury 3. Cirrhosis s/p TIPS procedure 4. DM 5. Factor V Leiden mutation COMPLICATIONS/CHIEF COMPLAINT: Cellulitis,Cirrhosis. HISTORY OF PRESENT ILLNESS: Mr. Salmeron is a 49 year old male with cirrhosis s/p TIPS procedure and diabetes mellitus type 2 who is here for rigors and worsening right leg cellulitis. On April 10, he had chills and rigors with temperature of 102.3F. He also had vomiting and diarrhea. He went to the urgent care where he tested negative for COVID. He is given antiemetics and sent home. The following day, April 11, he started to have erythema, warmth, swelling, and pain in the right leg. Denies any trauma or injury to the right leg. His kaya a line around the erythema. Today the erythema spread beyond the line and has become circumferential. He came into the ED. He was afebrile, but ESR and CRP were elevated. Ultrasound of the leg was negative for DVT. Patient was given 2 g of vancomycin and admission was called. Patient will be admitted for cellulitis. HOSPITAL COURSE: Mr. Salmeron tolerated the Vancomycin well. The erythema lightened and the pain and tenderness resolved today. CRP declined from 12 to 4. Otherwise, NATALIA resolved with holding nephrotoxic agents and IVF. Patient denied any fever, chest pain, dyspnea, or dysuria. He felt ready for home and was subsequently discharged home DISCHARGE MEDICATIONS: Please see below. ALLERGIES: Please see below. PHYSICAL EXAMINATION ON DISCHARGE: VITAL SIGNS: Please see below. GENERAL: Comfortable, in no apparent distress HEENT: Head normocephalic, atraumatic, EOMI, sclera clear NECK: Supple CARDIOVASCULAR EXAMINATION: Regular rate and rhythm RESPIRATORY EXAMINATION: Lungs clear to auscultation bilaterally ABDOMINAL EXAMINATION: Soft, non-tender, normal bowel sounds EXTREMITIES: Right leg mild redness, pain and tenderness resolved NEUROLOGICAL EXAMINATION: CN 3-12 grossly intact PSYCHIATRIC EXAMINATION: Normal mood and affect LABORATORY DATA: Please see below. IMAGING: US of right leg No evidence for deep venous thrombosis. PROGNOSIS: Good ACTIVITY: As tolerated. DIET: Carbohydrate consistent diet DISCHARGE PLAN: Home DISPOSITION: 01 Home, Self-Care. DISCHARGE INSTRUCTIONS: 1. Follow up with your PCP within 1 week 2. Take antibiotics to completion DISCHARGE CONDITION: Stable. Total time spent on discharge planning, discharge summary, and medication reconciliation: 40 minutes Vital Signs/I&Os Vital Signs Date Time Temp Pulse Resp B/P (MAP) Pulse Ox O2 Delivery O2 Flow Rate FiO2 04/14/20 08:18 83 129/67 04/14/20 05:54 97.9 18 98 Room Air I&O- Last 24 Hours up to 6 AM 04/14/20 06:00 Intake Total 3290 ml Output Total 0 ml Balance 3290 ml Laboratory Data Labs 24H Laboratory Tests 2 04/14/20 06:33: Nucleated Red Blood Cells % (auto) 0.0, Immature Platelet Fraction 6.9, Erythrocyte Sedimentation Rate 65H, Anion Gap 4L, Glomerular Filtration Rate > 60.0, Calcium Level 8.4L, C-Reactive Protein, Quantitative 4.87H CBC/BMP Laboratory Tests 04/14/20 06:33 Microbiology Microbiology 04/12/20 Blood Culture - Preliminary, Resulted No Growth after 48 hours. All Specime... 04/12/20 Blood Culture - Preliminary, Resulted No Growth after 48 hours. All Specime... Discharge Medications Scheduled Carvedilol (Carvedilol) 25 Mg Tablet, 12.5 MG PO BID, (Reported) Doxycycline Monohydrate (Doxycycline) 100 Mg Capsule, 100 MG PO BID Enoxaparin Sodium (Lovenox) 150 Mg/1 Ml Syringe, 150 MG SC BID, (Reported) Furosemide (Furosemide) 40 Mg Tablet, 60 MG PO DAILY, (Reported) Lactulose (Generlac) 10 Gm/15 Ml Solution, 15 ML PO TID, (Reported) Lisinopril (Lisinopril) 40 Mg Tablet, 20 MG PO DAILY, (Reported) Metformin HCl (Metformin HCl ER) 500 Mg Tab.er.24h, 500 MG PO TID, (Reported) Pantoprazole Sodium (Pantoprazole Sodium) 40 Mg Tablet.dr, 40 MG PO QHS, (Reported) Rosuvastatin Calcium (Crestor) 40 Mg Tablet, 40 MG PO QHS, (Reported) Spironolactone (Spironolactone) 100 Mg Tablet, 200 MG PO DAILY, (Reported) Sucralfate (Sucralfate) 1 Gm Tablet, 1 GM PO ACHS, (Reported) Scheduled PRN Sildenafil Citrate (Viagra) 100 Mg Tablet, 100 MG PO ASDIRECTED PRN for ERECTILE DYSFUNCTION, (Reported) Allergies Coded Allergies: No Known Allergies (Verified , 01/22/05) DAVID GARCIA DO Apr 15, 2020 00:01
== END 2020-04-14 11:15 | disposition home or self-care (01) | DRG 603 ==
LOC: M ED 13:12 → M ED INP 16:50 → M MS5PR 19:43
PROVIDERS: ADMIT Internal Medicine; ATTEND Internal Medicine
DX: L03.115 Cellulitis of right lower limb (principal); D68.51 Activated protein C resistance; K76.6 Portal hypertension; N17.9 Acute kidney failure, unspecified; K70.30 Alcoholic cirrhosis of liver without ascites; E11.9 Type 2 diabetes mellitus without complications; Z79.899 Other long term (current) drug therapy; Z86.718 Personal history of other venous thrombosis and embolism; Z86.711 Personal history of pulmonary embolism; E78.5 Hyperlipidemia, unspecified; Z87.891 Personal history of nicotine dependence

== ENCOUNTER 2020-08-09 21:11 | Emergency (ER) | payer OTHER, BC ==
[~2020-08-09] VITALS: Ht 182.9 cm; Wt 151.6 kg
[~2020-08-09 21:11] MED LIST changes: +CARV25TA PO; +DOXY-350 PO; +FURO20TA2 PO; +FURO40TA2 PO; +GENE10SO PO; -LISI-538 PO; +LISI20TA33 PO; +LISI40TA4 PO; +SIME80CH5 PO; -SIME80TA PO; +SPIR100T3 PO; +SUCR1SS PO; +SUCR1TAB56 PO
[2020-08-09 22:19] LABS: BASO % 0.3 % (0.0-1.0); EOS # 0.1 10^3/uL (0.0-0.5); EOS % 1.7 % (0.0-3.0); HEMATOCRIT 39.3 % (42.0-52.0); HEMOGLOBIN 13.3 g/dl (13.5-17.5); LYMPH # 1.1 10^3/uL (1.5-5.0); LYMPH % 15.1 % (24.0-44.0); MEAN CORPUSCULAR HEMOGLOBIN 34.5 pg (27.0-33.0); MEAN CORPUSCULAR HGB CONC 33.8 g/dl (32.0-36.5); MEAN CORPUSCULAR VOLUME 101.8 fl (80.0-96.0); MONO % 13.7 % (2.0-8.0); NEUTROPHILS # 4.9 10^3/uL (1.5-8.5); NEUTROPHILS % 68.9 % (36.0-66.0); PLATELET COUNT, AUTOMATED 119 10^3/uL (150-450); RED BLOOD COUNT 3.86 10^6/uL (4.30-6.10)
[2020-08-09 22:23] LABS: INR 1.17; PROTHROMBIN TIME 15.2 SECONDS (12.5-14.3)
[2020-08-09] MEDS ORDERED: ONDANSETRON 4MG/2ML VIAL IV ONE (22:35)
[2020-08-09] MEDS ORDERED: MORPHINE 4 MG/ML 1ML VIAL/SYRINGE (J2270) IV ONE (22:45)
[2020-08-09 22:47] LABS: ALBUMIN 3.5 GM/DL (3.2-5.2); ALT/SGPT 51 U/L (12-78); BILIRUBIN,DIRECT 0.6 MG/DL (0.0-0.2); BILIRUBIN,TOTAL 1.9 MG/DL (0.2-1.0); BLOOD UREA NITROGEN 8 MG/DL (7-18); CARBON DIOXIDE LEVEL 24 MEQ/L (21-32); CHLORIDE LEVEL 106 MEQ/L (98-107); CREATININE FOR GFR 0.84 MG/DL (0.70-1.30); GLOMERULAR FILTRATION RATE > 60.0 (>60); GLUCOSE, FASTING 132 MG/DL (70-100); LIPASE 210 U/L (73-393); POTASSIUM SERUM 3.8 MEQ/L (3.5-5.1); SODIUM LEVEL 139 MEQ/L (136-145); TOTAL PROTEIN 7.7 GM/DL (6.4-8.2)
[2020-08-10] MEDS ORDERED: MORPHINE 4 MG/ML 1ML VIAL/SYRINGE (J2270) IV ONE ×2 (00:15→01:55)
[2020-08-10 01:02] LABS: RSV AMPLIFICATION NEGATIVE (NEGATIVE)
[2020-08-10 01:30] VITALS: BP 113/56
== END 2020-08-10 01:40 | disposition short-term general hospital (02) ==
LOC: M ED 21:11
DX: I82.90 Acute embolism and thrombosis of unspecified vein (principal); K70.31 Alcoholic cirrhosis of liver with ascites; E11.9 Type 2 diabetes mellitus without complications; I10 Essential (primary) hypertension; Z79.84 Long term (current) use of oral hypoglycemic drugs; Z79.899 Other long term (current) drug therapy; Z87.891 Personal history of nicotine dependence
CPT/HCPCS: 80048; 80076; 83690; 85025; 85610; 87631; 96374; 96375; 99285; J2270; J2405

== ENCOUNTER 2023-03-25 09:31 | Emergency (ER) | payer BC, OTHER ==
[~2023-03-25] VITALS: Ht 188 cm; Wt 159.3 kg
[~2023-03-25 09:31] MED LIST changes: +BACTDSTA PO; -DOXY-350 PO; +DOXY-444 PO; +ERGO500029 PO; -SULF1TAB93 PO; -VITA50005 PO
[2023-03-25] MEDS ORDERED: NS 1,000 ML IV ONE (10:00)
[2023-03-25 10:22] LABS: BASO % 0.3 % (0.0-1.0); EOS % 0.1 % (0.0-3.0); HEMATOCRIT 41.3 % (42.0-52.0); HEMOGLOBIN 14.7 g/dl (13.5-17.5); LYMPH # 0.4 10^3/uL (1.5-5.0); LYMPH % 4.6 % (24.0-44.0); MEAN CORPUSCULAR HEMOGLOBIN 34.8 pg (27.0-33.0); MEAN CORPUSCULAR HGB CONC 35.6 g/dl (32.0-36.5); MEAN CORPUSCULAR VOLUME 97.6 fl (80.0-96.0); MONO # 1.5 10^3/uL (0.0-0.8); MONO % 16.7 % (2.0-8.0); PLATELET COUNT, AUTOMATED 214 10^3/uL (150-450); RED BLOOD COUNT 4.23 10^6/uL (4.30-6.10)
[2023-03-25] MEDS ORDERED: MIDAZOLAM INJ 2MG/2ML VIAL IV STA (10:35)
[2023-03-25 10:38] LABS: INR 3.79; PROTHROMBIN TIME 35.9 SECONDS (12.5-14.5)
[2023-03-25 10:39] LABS: PARTIAL THROMBOPLASTIN TIME 41.7 SECONDS (24.8-34.2)
[2023-03-25 10:48] LABS: ABG BASE EXCESS -1.5 (-2.0-2.0); ABG HCO3 20.9 MMOL/L (22.0-26.0); ABG O2 SATURATION 93.9 % (95.0-99.0); ABG PARTIAL PRESSURE CO2 29.5 mmHg (35.0-45.0); ABG PARTIAL PRESSURE O2 72.5 mmHg (75.0-100.0); ABG STANDARD HCO3 23.2 MMOL/L. (22.0-26.0); ABG TOTAL CO2 21.8 MMOL/L (22.0-29.0); ABG pH (ARTERIAL) 7.469 UNITS (7.350-7.450)
[2023-03-25] MEDS ORDERED: NS 2,466 ML in IV 1 EA IV STA (10:53)
[2023-03-25 10:54] LABS: AMORPHOUS SEDIMENT MODERATE (NEGATIVE); APPEARANCE, URINE CLOUDY (CLEAR); BACTERIA, URINE AUTO NEGATIVE (NEGATIVE); BILIRUBIN, URINE AUTO NEGATIVE (NEGATIVE); BLOOD, URINE BLOOD 2+ (NEGATIVE); COLOR, URINE AMBER (YELLOW); GLUCOSE, URINE (UA) AUTO 3+ mg/dL (NEGATIVE); KETONE, URINE AUTO TRACE mg/dL (NEGATIVE); LEUKOCYTE ESTERASE, URINE AUTO NEGATIVE (NEGATIVE); NITRITE, URINE AUTO NEGATIVE (NEGATIVE); PROTEIN, URINE AUTO 3+ mg/dL (NEGATIVE); RBC, URINE AUTO 7 /HPF (0-3); SPECIFIC GRAVITY URINE AUTO 1.023 (1.002-1.035); SQUAMOUS EPITHELIAL CELL UR AU 3 /HPF (0-6); WBC, URINE AUTO 2 /HPF (0-3)
[2023-03-25] MEDS ORDERED: PIPERACILLIN/TAZOBACTAM SOD 4.5 GM in D5W MINI-BAG PLUS 50 ML IV ONE (10:55)
[2023-03-25 10:57] LABS: C REACTIVE PROTEIN QUANTITATIV 8.5 MG/DL (<1.0)
[2023-03-25 11:05] LABS: PROCALCITONIN 0.83 ng/ml
[2023-03-25 11:20] LABS: ALBUMIN 3.1 G/DL (3.2-5.2); BILIRUBIN,DIRECT 1.6 MG/DL (<0.4); BILIRUBIN,TOTAL 2.9 MG/DL (0.3-1.2); CALCIUM LEVEL 11.4 MG/DL (8.5-10.1); CREATININE FOR GFR 1.94 MG/DL (0.70-1.30); POTASSIUM SERUM 4.6 MMOL/L (3.5-5.1)
[2023-03-25] MEDS ORDERED: LACTULOSE 20GM/30ML SYRUP UDC PR ONE (12:05)
[2023-03-25] MEDS ORDERED: NS 1,000 ML IV SCH (16:55)
[2023-03-25 18:00] VITALS: BP 123/57; O2SAT 97
[2023-03-25] MEDS ORDERED: PIPERACILLIN/TAZOBACTAM SOD 3.375 GM in D5W MINI-BAG PLUS 50 ML IV ONE (18:20)
[2023-03-25 18:28] VITALS: TEMP 96.6
== END 2023-03-25 18:24 | disposition short-term general hospital (02) ==
LOC: EDBD 09:31 → M ED 09:31
DX: K76.82 Hepatic encephalopathy (principal); A41.9 Sepsis, unspecified organism; T82.868A Thrombosis due to vascular prosthetic devices, implants and grafts, initial encounter; I10 Essential (primary) hypertension; E78.5 Hyperlipidemia, unspecified; K70.30 Alcoholic cirrhosis of liver without ascites; Z87.891 Personal history of nicotine dependence; Z79.899 Other long term (current) drug therapy
CPT/HCPCS: 36415; 36600; 51702; 70450; 71045; 80047; 80048; 80076; 81001; 82140; 82150; 82803; 83605; 84145; 85025; 85610; 85730; 86140; 86850; 86900; 86901; 87040; 87086; 87486; 87581; 87633; 87798; 93005; 93041; 94760; 96361; 96365; 96367; 96375; 99285; J2250; J2543

== ENCOUNTER → 2023-08-02 | Outpatient (CLI) | payer OTHER | LOC: M RAD 15:21 | PROVIDERS: ATTEND Internal Medicine | DX: H34.211 Partial retinal artery occlusion, right eye (principal) ==

== ENCOUNTER 2024-06-04 09:14 | Inpatient (IN) | payer OTHER, BC ==
[~2024-06-04] VITALS: Ht 182.9 cm; Wt 144.6 kg
[~2024-06-04 09:14] MED LIST changes: +ACID1CAP5 PO; +DOXY-440 PO; -DOXY-444 PO; +JARD1TAB3 PO; +LACT10SO94 PO; +POTA-151 PO; +VITA100093 PO; +XARE20TA PO
[2024-06-04] MEDS: ONDANSETRON 4MG 2ML VIAL IV ONE (13:10)
[2024-06-04] MEDS: MORPHINE 4 MG/ML 1ML VIAL IV ONE (13:11)
[2024-06-04 13:27] LABS: BASO % 0.5 % (0.0-1.0); EOS % 0.1 % (0.0-3.0); HEMATOCRIT 36.7 % (42.0-52.0); HEMOGLOBIN 12.6 g/dl (13.5-17.5); LYMPH # 0.6 10^3/uL (1.5-5.0); LYMPH % 7.2 % (24.0-44.0); MEAN CORPUSCULAR HEMOGLOBIN 33.9 pg (27.0-33.0); MEAN CORPUSCULAR HGB CONC 34.3 g/dl (32.0-36.5); MEAN CORPUSCULAR VOLUME 98.7 fl (80.0-96.0); MONO # 1.3 10^3/uL (0.0-0.8); NEUTROPHILS # 6.2 10^3/uL (1.5-8.5); PLATELET COUNT, AUTOMATED 149 10^3/uL (150-450); RED BLOOD COUNT 3.72 10^6/uL (4.30-6.10); WHITE BLOOD COUNT 8.4 10^3/uL (4.0-10.0)
[2024-06-04 13:41] LABS: ERYTHROCYTE SEDIMENTATION RATE 121 mm/hr (0-20)
[2024-06-04 14:02] LABS: BLOOD UREA NITROGEN 15 MG/DL (9-23); CALCIUM LEVEL 10.8 MG/DL (8.5-10.1); CARBON DIOXIDE LEVEL 22 MMOL/L (20-31); CHLORIDE LEVEL 98 MMOL/L (98-107); CREATININE FOR GFR 0.63 MG/DL (0.70-1.30); GLOMERULAR FILTRATION RATE > 60.0 (>56); GLUCOSE, FASTING 212 MG/DL (60-100); POTASSIUM SERUM 4.5 MMOL/L (3.5-5.1); SODIUM LEVEL 131 MMOL/L (136-145)
[2024-06-04] MEDS ORDERED: VANCOMYCIN HCL 1,000 MG, VIAL MATE ADAPTER 1 EACH in NS 250 ML IV SCH (15:10)
[2024-06-04] MEDS ORDERED: ISOVUE-370 76% 100ML VIAL As Ordered ONE (15:12)
[2024-06-04 15:15] LABS: LIPASE 59 U/L (12-53)
[2024-06-04] MEDS ORDERED: DEXTROSE 50% 50ML SYRINGE IV PRN (15:15)
[2024-06-04] MEDS ORDERED: GLUCAGON INJ 1MG VIAL SC PRN (15:15)
[2024-06-04] MEDS ORDERED: GLUCOSE 4 GM CHEW PO PRN (15:15)
[2024-06-04 15:30] LABS: ALBUMIN 2.7 G/DL (3.2-5.2); ALKALINE PHOSPHATASE 189 U/L (40-129); ALT/SGPT 63 U/L (7.0-40); AST/SGOT 73 U/L (<34); BILIRUBIN,TOTAL 3.8 MG/DL (0.3-1.2); TOTAL PROTEIN 6.8 G/DL (5.7-8.2)
[2024-06-04 15:57] LABS: PROCALCITONIN 1.19 ng/ml
[2024-06-04] MEDS: cefTRIAXone SOD 2 GM in DEXTROSE 5% (D5W) ADV/MINI-BAG 50 ML IV SCH (15:57)
[2024-06-04] MEDS ORDERED: NALOXONE INJ 0.4MG/1ML VIAL IV PRN (16:15)
[2024-06-04] MEDS: HYDROMORPHONE HCL 0.5 MG/ 0.5 ML SYRINGE IV ONE (16:40)
[2024-06-04] MEDS: KETOROLAC 30 MG/ML 1ML VIAL IV ONE (16:40)
[2024-06-04] MEDS: LR 1,000 ML IV ONE (16:42)
[2024-06-04] MEDS: SUCRALFATE 1 GM TAB PO SCH (17:30)
[2024-06-04] MEDS: INSULIN LISPRO (NovoLOG) PER UNIT SC SCH ×2 (18:22→20:59)
[2024-06-04] MEDS: VANCOMYCIN HCL 2,000 MG, VIAL MATE ADAPTER 1 EACH in NS 500 ML IV ONE (18:23)
[2024-06-04 18:45] VITALS: BP 130/73; TEMP 97.3
[2024-06-04 19:26] VITALS: BP 126/68; TEMP 97.7; O2SAT 93
[2024-06-04] MEDS ORDERED: SIME80CH6 PO (19:39)
[2024-06-04] MEDS ORDERED: HOME MED LIST COMPLETE! XX SCH (19:45)
[2024-06-04 20:19] LABS: INR 1.64; PARTIAL THROMBOPLASTIN TIME 37.9 SECONDS (24.8-34.2); PROTHROMBIN TIME 19.7 SECONDS (12.5-14.5)
[2024-06-04] MEDS: CARVedilol 12.5 MG TAB PO SCH (20:19)
[2024-06-04] MEDS: RIVAROXABAN 20MG TAB (XARELTO) PO SCH (20:57)
[2024-06-04] MEDS: LACTOBACILLUS ACIDOPHILUS CAP (BACID) PO SCH (20:58)
[2024-06-04] MEDS: ROSUVASTATIN 10 MG TAB (CRESTOR) PO SCH (20:58)
[2024-06-04] MEDS: LACTULOSE 20GM/30ML SYRUP UDC PO SCH (20:58)
[2024-06-04] MEDS: LEVEMIR (INSULIN DETEMIR) 1 UNITS/0.01ML SC SCH (20:59)
[2024-06-04] MEDS: oxyCODONE 5MG TAB PO PRN (21:52)
[2024-06-04] MEDS: KETOROLAC 30 MG/ML 1ML VIAL IV SCH (21:52)
[2024-06-05] MEDS: VANCOMYCIN HCL 1,250 MG, VIAL MATE ADAPTER 1 EACH in NS 250 ML IV SCH (00:28)
[2024-06-05 03:21] VITALS: BP 129/71; TEMP 97.9; O2SAT 96
[2024-06-05 07:19] LABS: BASO % 0.6 % (0.0-1.0); EOS # 0.1 10^3/uL (0.0-0.5); EOS % 0.7 % (0.0-3.0); HEMATOCRIT 34.2 % (42.0-52.0); HEMOGLOBIN 11.7 g/dl (13.5-17.5); LYMPH # 0.5 10^3/uL (1.5-5.0); LYMPH % 7.9 % (24.0-44.0); MEAN CORPUSCULAR HEMOGLOBIN 34.4 pg (27.0-33.0); MEAN CORPUSCULAR HGB CONC 34.2 g/dl (32.0-36.5); MEAN CORPUSCULAR VOLUME 100.6 fl (80.0-96.0); MONO # 0.9 10^3/uL (0.0-0.8); MONO % 13.6 % (2.0-8.0); NEUTROPHILS # 5.2 10^3/uL (1.5-8.5); NEUTROPHILS % 75.9 % (36.0-66.0); PLATELET COUNT, AUTOMATED 119 10^3/uL (150-450); WHITE BLOOD COUNT 6.9 10^3/uL (4.0-10.0)
[2024-06-05 07:38] LABS: VANCOMYCIN LEVEL TROUGH 14.4 UG/ML (10.0-20.0)
[2024-06-05 07:42] LABS: THYROID STIMULATING HORMONE 2.427 uIU/ML (0.55-4.78); THYROXINE (T4) 5.2 UG/DL (4.5-10.9)
[2024-06-05 07:50] LABS: BLOOD UREA NITROGEN 14 MG/DL (9-23); CALCIUM LEVEL 10.4 MG/DL (8.5-10.1); CARBON DIOXIDE LEVEL 25 MMOL/L (20-31); CHLORIDE LEVEL 101 MMOL/L (98-107); CHOLESTEROL LEVEL 129 MG/DL (<200); CHOLESTEROL RISK RATIO 9.02 (<5); CREATININE FOR GFR 0.64 MG/DL (0.70-1.30); FREE THYROXINE INDEX 2.6 % (1.4-3.8); GLOMERULAR FILTRATION RATE > 60.0 (>56); GLUCOSE, FASTING 151 MG/DL (60-100); HDL CHOLESTEROL 14.3 MG/DL (>40); LDL CHOLESTEROL 93.5 MG/DL (<100); NON-HDL-C 114.7 MG/DL; POTASSIUM SERUM 4.3 MMOL/L (3.5-5.1); SODIUM LEVEL 135 MMOL/L (136-145); T UPTAKE 50.1 % (22.5-37.0); TRIGLYCERIDES LEVEL 106 MG/DL (<150)
[2024-06-05 08:03] LABS: HEMOGLOBIN A1c 10.4 % (4.0-6.0)
[2024-06-05] MEDS: LACTOBACILLUS ACIDOPHILUS CAP (BACID) PO SCH (08:05)
[2024-06-05 08:33] VITALS: BP 129/83; O2SAT 92
[2024-06-05] MEDS: MORPHINE 4 MG/ML 1ML VIAL IV PRN (08:46)
[2024-06-05 08:53] VITALS: BP 129/83; TEMP 97.7; O2SAT 92
[2024-06-05] MEDS ORDERED: LACTULOSE 20GM/30ML SYRUP UDC PO SCH (09:00)
[2024-06-05] MEDS: VITAMIN D 1,000 INTERNATIONAL UNITS TABLET PO SCH (09:51)
[2024-06-05] MEDS: LACTULOSE 20GM/30ML SYRUP UDC PO SCH (11:34)
[2024-06-05] MEDS: KETOROLAC 30 MG/ML 1ML VIAL IV ONE ×3 (11:34→20:27)
[2024-06-05 12:00] VITALS: BP 134/79; TEMP 96.8; O2SAT 91
[2024-06-05 14:00] VITALS: BP 136/81; TEMP 97.3
[2024-06-05] MEDS: oxyCODONE 5MG TAB PO PRN (20:27)
[2024-06-05] MEDS: LEVEMIR (INSULIN DETEMIR) 1 UNITS/0.01ML SC SCH (20:28)
[2024-06-05 20:29] VITALS: BP 134/73; TEMP 98.1; O2SAT 92
[2024-06-05] MEDS ORDERED: LEVEMIR (INSULIN DETEMIR) 1 UNITS/0.01ML SC SCH (21:00)
[2024-06-06] VITALS (11 sets, daily range): BP systolic 97–179; BP diastolic 52–96; TEMP 97.7–99.7; O2SAT 92–96
[2024-06-06 07:00] LABS: BASO % 0.6 % (0.0-1.0); EOS % 0.4 % (0.0-3.0); HEMATOCRIT 34.9 % (42.0-52.0); HEMOGLOBIN 11.7 g/dl (13.5-17.5); LYMPH # 0.3 10^3/uL (1.5-5.0); LYMPH % 4.3 % (24.0-44.0); MEAN CORPUSCULAR HEMOGLOBIN 34.2 pg (27.0-33.0); MEAN CORPUSCULAR HGB CONC 33.5 g/dl (32.0-36.5); MONO # 0.8 10^3/uL (0.0-0.8); MONO % 11.3 % (2.0-8.0); NEUTROPHILS % 82.7 % (36.0-66.0); PLATELET COUNT, AUTOMATED 125 10^3/uL (150-450); RED BLOOD COUNT 3.42 10^6/uL (4.30-6.10); WHITE BLOOD COUNT 7.3 10^3/uL (4.0-10.0)
[2024-06-06 07:16] LABS: VANCOMYCIN LEVEL TROUGH 17.5 UG/ML (10.0-20.0)
[2024-06-06 07:23] LABS: ALBUMIN 2.3 G/DL (3.2-5.2); ALKALINE PHOSPHATASE 190 U/L (40-129); ALT/SGPT 42 U/L (7.0-40); AST/SGOT 56 U/L (<34); BILIRUBIN,DIRECT 1.1 MG/DL (<0.4); BILIRUBIN,TOTAL 1.9 MG/DL (0.3-1.2); BLOOD UREA NITROGEN 14 MG/DL (9-23); CALCIUM LEVEL 10.6 MG/DL (8.5-10.1); CARBON DIOXIDE LEVEL 24 MMOL/L (20-31); CHLORIDE LEVEL 103 MMOL/L (98-107); CREATININE FOR GFR 0.76 MG/DL (0.70-1.30); GLOMERULAR FILTRATION RATE > 60.0 (>56); GLUCOSE, FASTING 221 MG/DL (60-100); POTASSIUM SERUM 4.3 MMOL/L (3.5-5.1); SODIUM LEVEL 135 MMOL/L (136-145); TOTAL PROTEIN 6.3 G/DL (5.7-8.2)
[2024-06-06] MEDS: VANCOMYCIN HCL 1,000 MG, VIAL MATE ADAPTER 1 EACH in NS 250 ML IV SCH (09:31)
[2024-06-06] MEDS ORDERED: CLINDAMYCIN 600 MG in IV 1 EA IV SCH (12:35)
[2024-06-06] MEDS: NS (Normal Saline) 0.9% 1,000 ML IV ONE (12:49)
[2024-06-06 14:01] LABS: INR 1.86; PARTIAL THROMBOPLASTIN TIME 36.5 SECONDS (24.8-34.2); PROTHROMBIN TIME 21.6 SECONDS (12.5-14.5)
[2024-06-06] MEDS: CLINDAMYCIN 900 MG in IV 1 EA IV SCH (14:01)
[2024-06-06] MEDS: MORPHINE 4 MG/ML 1ML VIAL IV PRN (14:11)
[2024-06-06 14:17] LABS: C REACTIVE PROTEIN QUANTITATIV 12.11 MG/DL (<1.0)
[2024-06-06 14:25] LABS: PROCALCITONIN 0.74 ng/ml
[2024-06-06 17:40] LABS: ANTI-STREPTOLYSIN O QUANT 118.1 IU/ML (<195)
[2024-06-06] MEDS: RIVAROXABAN 20MG TAB (XARELTO) PO SCH (18:04)
[2024-06-06] MEDS: INSULIN LISPRO (NovoLOG) PER UNIT SC STA (18:09)
[2024-06-06] MEDS: KETOROLAC 30 MG/ML 1ML VIAL IV ONE (18:15)
[2024-06-06] MEDS: HYDROMORPHONE HCL 0.5 MG/ 0.5 ML SYRINGE IV ONE (18:16)
[2024-06-06] MEDS: LEVEMIR (INSULIN DETEMIR) 1 UNITS/0.01ML SC ONE (18:17)
[2024-06-06] MEDS ORDERED: INSULIN LISPRO (NovoLOG) PER UNIT SC ONE (20:00)
[2024-06-06 20:39] LABS: BLOOD UREA NITROGEN 12 MG/DL (9-23); CALCIUM LEVEL 10.4 MG/DL (8.5-10.1); CARBON DIOXIDE LEVEL 25 MMOL/L (20-31); CHLORIDE LEVEL 106 MMOL/L (98-107); CREATININE FOR GFR 0.94 MG/DL (0.70-1.30); GLOMERULAR FILTRATION RATE > 60.0 (>56); GLUCOSE, FASTING 306 MG/DL (60-100); POTASSIUM SERUM 4.1 MMOL/L (3.5-5.1); SODIUM LEVEL 138 MMOL/L (136-145)
[2024-06-06] MEDS ORDERED: LEVEMIR (INSULIN DETEMIR) 1 UNITS/0.01ML SC SCH (21:00)
[2024-06-06] MEDS: oxyCODONE 10 MG CR TAB PO SCH (21:14)
[2024-06-06] MEDS: INSULIN LISPRO (NovoLOG) PER UNIT SC SCH (21:15)
[2024-06-07] MEDS: KETOROLAC 30 MG/ML 1ML VIAL IV SCH (01:14)
[2024-06-07 04:48] VITALS: BP 103/82; TEMP 97.4; O2SAT 94
[2024-06-07 04:59] LABS: BASO % 0.5 % (0.0-1.0); EOS # 0.1 10^3/uL (0.0-0.5); EOS % 0.8 % (0.0-3.0); HEMATOCRIT 33.7 % (42.0-52.0); HEMOGLOBIN 11.1 g/dl (13.5-17.5); LYMPH # 0.5 10^3/uL (1.5-5.0); LYMPH % 7.6 % (24.0-44.0); MEAN CORPUSCULAR HEMOGLOBIN 33.9 pg (27.0-33.0); MEAN CORPUSCULAR HGB CONC 32.9 g/dl (32.0-36.5); MEAN CORPUSCULAR VOLUME 103.1 fl (80.0-96.0); MONO # 0.7 10^3/uL (0.0-0.8); MONO % 11.5 % (2.0-8.0); NEUTROPHILS # 4.8 10^3/uL (1.5-8.5); NEUTROPHILS % 79.1 % (36.0-66.0); PLATELET COUNT, AUTOMATED 125 10^3/uL (150-450); RED BLOOD COUNT 3.27 10^6/uL (4.30-6.10)
[2024-06-07] MEDS: oxyCODONE 5MG TAB PO PRN (05:20)
[2024-06-07 05:36] LABS: ALBUMIN 2.1 G/DL (3.2-5.2); ALKALINE PHOSPHATASE 175 U/L (40-129); ALT/SGPT 37 U/L (7.0-40); AST/SGOT 51 U/L (<34); BILIRUBIN,DIRECT 0.9 MG/DL (<0.4); BILIRUBIN,TOTAL 1.5 MG/DL (0.3-1.2); BLOOD UREA NITROGEN 13 MG/DL (9-23); CALCIUM LEVEL 10.8 MG/DL (8.5-10.1); CARBON DIOXIDE LEVEL 25 MMOL/L (20-31); CHLORIDE LEVEL 104 MMOL/L (98-107); CREATININE FOR GFR 0.99 MG/DL (0.70-1.30); GLOMERULAR FILTRATION RATE > 60.0 (>56); GLUCOSE, FASTING 225 MG/DL (60-100); POTASSIUM SERUM 4.2 MMOL/L (3.5-5.1); SODIUM LEVEL 137 MMOL/L (136-145)
[2024-06-07] MEDS ORDERED: INSULIN LISPRO (NovoLOG) PER UNIT SC SCH (07:30)
[2024-06-07] MEDS ORDERED: LR 1,000 ML IV ONE (07:55)
[2024-06-07 08:00] VITALS: BP 133/60; TEMP 97.2; O2SAT 94
[2024-06-07] MEDS ORDERED: MOM 30ML SUSPENSION UDC PO PRN (08:00)
[2024-06-07] MEDS: MIDODRINE 5 MG TAB PO ONE (08:12)
[2024-06-07] MEDS: INSULIN LISPRO (NovoLOG) PER UNIT SC SCH (08:30)
[2024-06-07] MEDS: HYDROMORPHONE HCL 0.5 MG/ 0.5 ML SYRINGE IV ONE (08:30)
[2024-06-07] MEDS: SENOKOT S TAB PO SCH (09:56)
[2024-06-07] MEDS: LEVEMIR (INSULIN DETEMIR) 1 UNITS/0.01ML SC SCH (09:57)
[2024-06-07] MEDS: VANCOMYCIN HCL 1,250 MG, VIAL MATE ADAPTER 1 EACH in NS 250 ML IV SCH (09:57)
[2024-06-07] MEDS: LACTULOSE 20GM/30ML SYRUP UDC PO PRN (10:06)
[2024-06-07 12:00] VITALS: BP 132/60; TEMP 97.5; O2SAT 94
[2024-06-07 16:00] VITALS: BP 120/59
[2024-06-07] MEDS: LACTULOSE 20GM/30ML SYRUP UDC PO ONE (17:33)
[2024-06-07] MEDS: SENOKOT S TAB PO ONE (17:34)
[2024-06-07 20:00] VITALS: BP 112/63; TEMP 98.5; O2SAT 98
[2024-06-08 04:30] VITALS: BP 105/63; TEMP 97; O2SAT 96
[2024-06-08 08:00] VITALS: BP 106/68; TEMP 97.3; O2SAT 97
[2024-06-08 08:04] LABS: BASO % 0.6 % (0.0-1.0); EOS # 0.1 10^3/uL (0.0-0.5); HEMATOCRIT 34.1 % (42.0-52.0); HEMOGLOBIN 11.4 g/dl (13.5-17.5); LYMPH # 0.4 10^3/uL (1.5-5.0); LYMPH % 5.6 % (24.0-44.0); MEAN CORPUSCULAR HEMOGLOBIN 34.5 pg (27.0-33.0); MEAN CORPUSCULAR HGB CONC 33.4 g/dl (32.0-36.5); MEAN CORPUSCULAR VOLUME 103.3 fl (80.0-96.0); MONO # 0.7 10^3/uL (0.0-0.8); MONO % 10.5 % (2.0-8.0); NEUTROPHILS # 5.6 10^3/uL (1.5-8.5); PLATELET COUNT, AUTOMATED 133 10^3/uL (150-450); WHITE BLOOD COUNT 6.8 10^3/uL (4.0-10.0)
[2024-06-08 08:16] VITALS: BP 106/68
[2024-06-08 08:37] LABS: ALBUMIN 2.2 G/DL (3.2-5.2); BILIRUBIN,TOTAL 1.5 MG/DL (0.3-1.2); CALCIUM LEVEL 10.6 MG/DL (8.5-10.1); CREATININE FOR GFR 1.35 MG/DL (0.70-1.30); GLOMERULAR FILTRATION RATE 58.9 (>56); POTASSIUM SERUM 4.1 MMOL/L (3.5-5.1); TOTAL PROTEIN 6.3 G/DL (5.7-8.2)
[2024-06-08] MEDS: LR 1,000 ML IV ONE (09:50)
[2024-06-08] MEDS: LEVEMIR (INSULIN DETEMIR) 1 UNITS/0.01ML SC ONE (09:50)
[2024-06-08] MEDS: VANCOMYCIN HCL 1,000 MG, VIAL MATE ADAPTER 1 EACH in NS 250 ML IV SCH (13:28)
[2024-06-08] MEDS: INSULIN LISPRO (NovoLOG) PER UNIT SC SCH (13:29)
[2024-06-08 14:00] VITALS: BP 116/70; TEMP 98.4; O2SAT 96
[2024-06-08] MEDS: MORPHINE 10 MG/ML 1ML VIAL IV STA (14:19)
[2024-06-08 20:00] VITALS: BP 121/71; TEMP 98.8; O2SAT 94
[2024-06-09 04:00] VITALS: BP 125/66; TEMP 97.6; O2SAT 94
[2024-06-09 06:04] LABS: BASO % 0.6 % (0.0-1.0); EOS # 0.1 10^3/uL (0.0-0.5); EOS % 0.9 % (0.0-3.0); HEMATOCRIT 37.1 % (42.0-52.0); HEMOGLOBIN 12.6 g/dl (13.5-17.5); LYMPH # 0.4 10^3/uL (1.5-5.0); LYMPH % 6.5 % (24.0-44.0); MEAN CORPUSCULAR HEMOGLOBIN 34.3 pg (27.0-33.0); MEAN CORPUSCULAR VOLUME 101.1 fl (80.0-96.0); MONO # 0.7 10^3/uL (0.0-0.8); MONO % 10.9 % (2.0-8.0); NEUTROPHILS # 5.2 10^3/uL (1.5-8.5); NEUTROPHILS % 80.5 % (36.0-66.0); PLATELET COUNT, AUTOMATED 170 10^3/uL (150-450); RED BLOOD COUNT 3.67 10^6/uL (4.30-6.10); WHITE BLOOD COUNT 6.4 10^3/uL (4.0-10.0)
[2024-06-09 06:45] LABS: ALBUMIN 2.4 G/DL (3.2-5.2); BILIRUBIN,DIRECT 0.9 MG/DL (<0.4); BILIRUBIN,TOTAL 1.4 MG/DL (0.3-1.2); CALCIUM LEVEL 11.4 MG/DL (8.5-10.1); CREATININE FOR GFR 1.38 MG/DL (0.70-1.30); GLOMERULAR FILTRATION RATE 57.4 (>56); POTASSIUM SERUM 4.2 MMOL/L (3.5-5.1); TOTAL PROTEIN 6.9 G/DL (5.7-8.2)
[2024-06-09 07:38] VITALS: BP 127/67; TEMP 98.2; O2SAT 98
[2024-06-09] MEDS: LACTULOSE 20GM/30ML SYRUP UDC PO SCH (08:19)
[2024-06-09] MEDS: LanTUS (INSULIN GLARGINE INJ) 1 UNITS/0.01 ML SC SCH (08:20)
[2024-06-09] MEDS ORDERED: LEVEMIR (INSULIN DETEMIR) 1 UNITS/0.01ML SC SCH (09:00)
[2024-06-09 10:45] LABS: PTH INTACT 33.6 PG/ML (18.5-88.0)
[2024-06-09 10:48] LABS: TOTAL 25(OH) VITAMIN D 76.1 NG/ML (20.0-100.0)
[2024-06-09] MEDS: oxyCODONE 5MG TAB PO PRN (12:48)
[2024-06-09 13:22] VITALS: BP 134/75; TEMP 99.1; O2SAT 95
[2024-06-09 15:35] LABS: ALBUMIN 2.3 G/DL (3.2-5.2); CALCIUM LEVEL 11.1 MG/DL (8.5-10.1)
[2024-06-09] MEDS: K-PHOS ORIGINAL (POT.ACID PHOSPHATE) 500MG TAB PO SCH (17:42)
[2024-06-09] MEDS: ZOLEDRONIC ACID 4 MG in IV 1 EA IV ONE (17:43)
[2024-06-09] MEDS: CALCITONIN SALMON (MIACALCIN) 400INTERNATIONAL UNITS/2ML VIAL SQ SCH (17:53)
[2024-06-09] MEDS ORDERED: CALCITONIN SALMON (MIACALCIN) 400INTERNATIONAL UNITS/2ML VIAL IM SCH (17:58)
[2024-06-09] MEDS: ONDANSETRON 4MG 2ML VIAL IV PRN (18:26)
[2024-06-09] MEDS: PANTOPRAZOLE 40MG TAB (PROTONIX) PO SCH (21:34)
[2024-06-09 23:05] LABS: ALBUMIN 2.6 G/DL (3.2-5.2); CALCIUM LEVEL 11.2 MG/DL (8.5-10.1)
[2024-06-10] VITALS (8 sets, daily range): BP systolic 118–147; BP diastolic 69–84; TEMP 96.8–97.9; O2SAT 91–97
[2024-06-10] MEDS: CALCITONIN SALMON (MIACALCIN) 400INTERNATIONAL UNITS/2ML VIAL IM SCH (03:27)
[2024-06-10 06:57] LABS: BASO # 0.1 10^3/uL (0.0-0.2); EOS % 0.6 % (0.0-3.0); HEMATOCRIT 40.6 % (42.0-52.0); HEMOGLOBIN 13.4 g/dl (13.5-17.5); LYMPH # 0.7 10^3/uL (1.5-5.0); LYMPH % 9.5 % (24.0-44.0); MEAN CORPUSCULAR HEMOGLOBIN 33.6 pg (27.0-33.0); MEAN CORPUSCULAR VOLUME 101.8 fl (80.0-96.0); MONO # 0.9 10^3/uL (0.0-0.8); MONO % 12.3 % (2.0-8.0); NEUTROPHILS # 5.4 10^3/uL (1.5-8.5); NEUTROPHILS % 76.2 % (36.0-66.0); PLATELET COUNT, AUTOMATED 220 10^3/uL (150-450); RED BLOOD COUNT 3.99 10^6/uL (4.30-6.10); WHITE BLOOD COUNT 7.1 10^3/uL (4.0-10.0)
[2024-06-10 07:29] LABS: ALBUMIN 2.6 G/DL (3.2-5.2); ALKALINE PHOSPHATASE 263 U/L (40-129); ALT/SGPT 51 U/L (7.0-40); AST/SGOT 72 U/L (<34); BILIRUBIN,TOTAL 1.7 MG/DL (0.3-1.2); BLOOD UREA NITROGEN 9 MG/DL (9-23); CALCIUM LEVEL 10.9 MG/DL (8.5-10.1); CARBON DIOXIDE LEVEL 18 MMOL/L (20-31); CHLORIDE LEVEL 107 MMOL/L (98-107); CREATININE FOR GFR 1.29 MG/DL (0.70-1.30); GLOMERULAR FILTRATION RATE > 60.0 (>56); GLUCOSE, FASTING 230 MG/DL (60-100); PHOSPHORUS LEVEL 3.8 MG/DL (2.5-4.9); POTASSIUM SERUM 3.7 MMOL/L (3.5-5.1); SODIUM LEVEL 139 MMOL/L (136-145); TOTAL PROTEIN 7.6 G/DL (5.7-8.2)
[2024-06-10 08:41] LABS: VANCOMYCIN RANDOM 15.8 UG/ML
[2024-06-10 10:39] LABS: C REACTIVE PROTEIN QUANTITATIV 5.24 MG/DL (<1.0)
[2024-06-10] MEDS ORDERED: MIDAZOLAM INJ 2MG/2ML VIAL As Ordered ONE (11:31)
[2024-06-10] MEDS ORDERED: fentaNYL 100 MCG/2 ML INJECTION As Ordered ONE (11:31)
[2024-06-10] MEDS ORDERED: ONDANSETRON 4MG 2ML VIAL As Ordered ONE (11:31)
[2024-06-10] MEDS ORDERED: LIDOCAINE 2% 100MG/5ML SDV (FOR ANES.) As Ordered ONE (11:31)
[2024-06-10] MEDS ORDERED: propofoL 200 MG/20 ML VIAL As Ordered ONE (11:31)
[2024-06-10] MEDS ORDERED: dexmedeTOMIDine (4MCG/ML)200MCG/50ML BTL (PRECEDEX) As Ordered ONE (11:56)
[2024-06-10] MEDS: INSULIN LISPRO (NovoLOG) PER UNIT SC PRN (12:31)
[2024-06-10] MEDS ORDERED: ESMOLOL INJ 100MG/10ML VIAL As Ordered ONE (12:58)
[2024-06-10] MEDS: VANCOMYCIN 1000MG/20ML VIAL As Ordered ONE (13:30)
[2024-06-10] MEDS: LIDOCAINE 1% SDV 30ML VIAL As Ordered ONE (13:45)
[2024-06-10] MEDS ORDERED: fentaNYL 100 MCG/2 ML INJECTION IV PRN (14:10)
[2024-06-10] MEDS ORDERED: oxyCODONE 5MG TAB PO PRN (14:10)
[2024-06-10] MEDS ORDERED: ONDANSETRON 4MG 2ML VIAL IV PRN (14:10)
[2024-06-10] MEDS: MORPHINE 2 MG/ML 1ML VIAL IV PRN (14:29)
[2024-06-10] MEDS: INSULIN LISPRO (NovoLOG) PER UNIT SC ONE (14:30)
[2024-06-10 15:49] LABS: ALBUMIN 2.5 G/DL (3.2-5.2); CALCIUM LEVEL 10.7 MG/DL (8.5-10.1)
[2024-06-10 23:08] LABS: ALBUMIN 2.8 G/DL (3.2-5.2); CALCIUM LEVEL 11.3 MG/DL (8.5-10.1)
[2024-06-11 00:30] VITALS: BP 132/80; TEMP 97.3; O2SAT 97
[2024-06-11 04:30] VITALS: BP 128/78; TEMP 97.3; O2SAT 96
[2024-06-11 06:01] LABS: BASO # 0.1 10^3/uL (0.0-0.2); BASO % 0.8 % (0.0-1.0); EOS % 0.4 % (0.0-3.0); HEMATOCRIT 42.1 % (42.0-52.0); HEMOGLOBIN 13.9 g/dl (13.5-17.5); LYMPH # 0.5 10^3/uL (1.5-5.0); LYMPH % 5.7 % (24.0-44.0); MEAN CORPUSCULAR HEMOGLOBIN 33.3 pg (27.0-33.0); MEAN CORPUSCULAR VOLUME 100.7 fl (80.0-96.0); MONO # 1.1 10^3/uL (0.0-0.8); MONO % 12.6 % (2.0-8.0); NEUTROPHILS # 6.7 10^3/uL (1.5-8.5); PLATELET COUNT, AUTOMATED 215 10^3/uL (150-450); RED BLOOD COUNT 4.18 10^6/uL (4.30-6.10); WHITE BLOOD COUNT 8.4 10^3/uL (4.0-10.0)
[2024-06-11 06:18] LABS: ALBUMIN 2.7 G/DL (3.2-5.2); BLOOD UREA NITROGEN 11 MG/DL (9-23); C REACTIVE PROTEIN QUANTITATIV 3.97 MG/DL (<1.0); CALCIUM LEVEL 10.9 MG/DL (8.5-10.1); CARBON DIOXIDE LEVEL 17 MMOL/L (20-31); CHLORIDE LEVEL 108 MMOL/L (98-107); CREATININE FOR GFR 1.16 MG/DL (0.70-1.30); GLOMERULAR FILTRATION RATE > 60.0 (>56); GLUCOSE, FASTING 199 MG/DL (60-100); POTASSIUM SERUM 3.3 MMOL/L (3.5-5.1); SODIUM LEVEL 137 MMOL/L (136-145)
[2024-06-11] MEDS: CALCITONIN SALMON (MIACALCIN) 400INTERNATIONAL UNITS/2ML VIAL IM SCH (10:44)
[2024-06-11] MEDS: CEFDINIR 300 MG CAP (OMNICEF) PO SCH (10:45)
[2024-06-11] MEDS: POTASSIUM CHLORIDE 10MEQ SR TABLET PO ONE (10:46)
[2024-06-11 12:00] VITALS: BP 157/94; TEMP 97.2; O2SAT 96
[2024-06-11 15:14] VITALS: BP 138/87; TEMP 97.7; O2SAT 96
[2024-06-11 17:24] LABS: ALBUMIN 2.8 G/DL (3.2-5.2); CALCIUM LEVEL 11.2 MG/DL (8.5-10.1)
[2024-06-11 19:58] VITALS: BP 137/86; TEMP 97; O2SAT 96
[2024-06-11 23:05] LABS: ALBUMIN 2.8 G/DL (3.2-5.2)
[2024-06-12] VITALS: BP 135/86; TEMP 97.2; O2SAT 94
[2024-06-12 03:42] VITALS: BP 132/85; TEMP 97.6; O2SAT 93
[2024-06-12 07:29] LABS: ALBUMIN 2.9 G/DL (3.2-5.2); CALCIUM LEVEL 11.1 MG/DL (8.5-10.1)
[2024-06-12 07:31] LABS: C REACTIVE PROTEIN QUANTITATIV 4.95 MG/DL (<1.0)
[2024-06-12 08:00] VITALS: BP 144/92; TEMP 97; O2SAT 98
[2024-06-12 11:14] LABS: BLOOD UREA NITROGEN 15 MG/DL (9-23); CARBON DIOXIDE LEVEL 15 MMOL/L (20-31); CHLORIDE LEVEL 101 MMOL/L (98-107); CREATININE FOR GFR 1.27 MG/DL (0.70-1.30); GLOMERULAR FILTRATION RATE > 60.0 (>56); GLUCOSE, FASTING 281 MG/DL (60-100); PHOSPHORUS LEVEL 2.9 MG/DL (2.5-4.9); SODIUM LEVEL 130 MMOL/L (136-145)
[2024-06-12 12:00] VITALS: BP 143/92; TEMP 97; O2SAT 96
[2024-06-12] MEDS: POTASSIUM CHLORIDE 10MEQ SR TABLET PO ONE (14:41)
[2024-06-12 16:00] VITALS: BP 148/96; TEMP 97.3; O2SAT 99
[2024-06-12 17:28] LABS: ALBUMIN 2.9 G/DL (3.2-5.2); CALCIUM LEVEL 11.3 MG/DL (8.5-10.1)
[2024-06-12 21:28] VITALS: BP 122/82; TEMP 97.3; O2SAT 96
[2024-06-12] MEDS: SENOKOT S TAB PO SCH (21:32)
[2024-06-13 04:34] VITALS: BP 127/83; TEMP 97.5; O2SAT 98
[2024-06-13 06:04] LABS: BASO # 0.1 10^3/uL (0.0-0.2); BASO % 0.8 % (0.0-1.0); EOS # 0.1 10^3/uL (0.0-0.5); EOS % 0.6 % (0.0-3.0); HEMATOCRIT 44.4 % (42.0-52.0); LYMPH # 0.8 10^3/uL (1.5-5.0); LYMPH % 9.2 % (24.0-44.0); MEAN CORPUSCULAR HEMOGLOBIN 33.3 pg (27.0-33.0); MEAN CORPUSCULAR HGB CONC 33.8 g/dl (32.0-36.5); MEAN CORPUSCULAR VOLUME 98.7 fl (80.0-96.0); MONO # 1.4 10^3/uL (0.0-0.8); MONO % 16.3 % (2.0-8.0); NEUTROPHILS % 72.7 % (36.0-66.0); PLATELET COUNT, AUTOMATED 290 10^3/uL (150-450); WHITE BLOOD COUNT 8.3 10^3/uL (4.0-10.0)
[2024-06-13 06:24] LABS: C REACTIVE PROTEIN QUANTITATIV 4.05 MG/DL (<1.0)
[2024-06-13 06:28] LABS: ALBUMIN 2.8 G/DL (3.2-5.2); BLOOD UREA NITROGEN 13 MG/DL (9-23); CALCIUM LEVEL 11.1 MG/DL (8.5-10.1); CARBON DIOXIDE LEVEL 14 MMOL/L (20-31); CHLORIDE LEVEL 102 MMOL/L (98-107); CREATININE FOR GFR 1.28 MG/DL (0.70-1.30); GLOMERULAR FILTRATION RATE > 60.0 (>56); GLUCOSE, FASTING 226 MG/DL (60-100); PHOSPHORUS LEVEL 2.3 MG/DL (2.5-4.9); POTASSIUM SERUM 2.9 MMOL/L (3.5-5.1); SODIUM LEVEL 131 MMOL/L (136-145)
[2024-06-13] MEDS: POTASSIUM CHLORIDE 10MEQ SR TABLET PO ONE (06:42)
[2024-06-13 08:00] VITALS: BP 140/89; TEMP 94; O2SAT 98
[2024-06-13 08:18] VITALS: BP 139/87; TEMP 97; O2SAT 100
[2024-06-13] MEDS ORDERED: SENOKOT S TAB PO PRN (09:05)
[2024-06-13] MEDS: POTASSIUM CHLORIDE 10MEQ SR TABLET PO SCH (09:41)
[2024-06-13] MEDS: K-PHOS ORIGINAL (POT.ACID PHOSPHATE) 500MG TAB PO ONE (09:41)
[2024-06-13] MEDS: K-PHOS ORIGINAL (POT.ACID PHOSPHATE) 500MG TAB PO SCH (16:24)
[2024-06-13 16:46] LABS: ALBUMIN 2.9 G/DL (3.2-5.2); CALCIUM LEVEL 10.9 MG/DL (8.5-10.1); CREATININE FOR GFR 1.42 MG/DL (0.70-1.30); GLOMERULAR FILTRATION RATE 55.5 (>56); PHOSPHORUS LEVEL 2.4 MG/DL (2.5-4.9); POTASSIUM SERUM 3.1 MMOL/L (3.5-5.1)
[2024-06-13 20:43] VITALS: BP 148/90; TEMP 97.7; O2SAT 98
[2024-06-13] MEDS: LACTULOSE 20GM/30ML SYRUP UDC PO SCH (20:46)
[2024-06-14 04:28] VITALS: BP 129/80; TEMP 97.5; O2SAT 95
[2024-06-14 05:12] LABS: BASO # 0.1 10^3/uL (0.0-0.2); BASO % 0.8 % (0.0-1.0); EOS # 0.1 10^3/uL (0.0-0.5); HEMATOCRIT 42.9 % (42.0-52.0); HEMOGLOBIN 14.8 g/dl (13.5-17.5); LYMPH # 0.8 10^3/uL (1.5-5.0); LYMPH % 9.2 % (24.0-44.0); MEAN CORPUSCULAR HEMOGLOBIN 33.3 pg (27.0-33.0); MEAN CORPUSCULAR HGB CONC 34.5 g/dl (32.0-36.5); MEAN CORPUSCULAR VOLUME 96.6 fl (80.0-96.0); MONO # 1.3 10^3/uL (0.0-0.8); MONO % 15.7 % (2.0-8.0); NEUTROPHILS # 6.1 10^3/uL (1.5-8.5); NEUTROPHILS % 72.8 % (36.0-66.0); PLATELET COUNT, AUTOMATED 260 10^3/uL (150-450); RED BLOOD COUNT 4.44 10^6/uL (4.30-6.10); WHITE BLOOD COUNT 8.3 10^3/uL (4.0-10.0)
[2024-06-14 05:36] LABS: C REACTIVE PROTEIN QUANTITATIV 2.86 MG/DL (<1.0)
[2024-06-14 05:41] LABS: ALBUMIN 2.7 G/DL (3.2-5.2); CALCIUM LEVEL 10.9 MG/DL (8.5-10.1); CREATININE FOR GFR 1.37 MG/DL (0.70-1.30); GLOMERULAR FILTRATION RATE 57.9 (>56); PHOSPHORUS LEVEL 2.3 MG/DL (2.5-4.9); POTASSIUM SERUM 2.8 MMOL/L (3.5-5.1)
[2024-06-14] MEDS: KCL 10MEQ/100ML SWI (KRUN) 10 MEQ in IV 1 EA IV SCH (05:57)
[2024-06-14] MEDS: POTASSIUM CHLORIDE 10MEQ SR TABLET PO SCH ×2 (05:58→18:21)
[2024-06-14 07:15] LABS: MAGNESIUM LEVEL 1.5 MG/DL (1.8-2.4)
[2024-06-14] MEDS: LanTUS (INSULIN GLARGINE INJ) 1 UNITS/0.01 ML SC SCH (08:11)
[2024-06-14] MEDS: MAG SULF 1GM/100ML (MAG RUN) 1 GM in IV 1 EA IV SCH (10:46)
[2024-06-14] MEDS: oxyCODONE 5MG TAB PO ONE (10:49)
[2024-06-14 12:00] VITALS: BP 140/82; TEMP 97; O2SAT 98
[2024-06-14 16:01] LABS: CALCIUM LEVEL 10.4 MG/DL (8.5-10.1); CREATININE FOR GFR 1.57 MG/DL (0.70-1.30); GLOMERULAR FILTRATION RATE 49.4 (>56); POTASSIUM SERUM 3.3 MMOL/L (3.5-5.1)
[2024-06-14] MEDS: INSULIN LISPRO (NovoLOG) PER UNIT SC SCH (18:53)
[2024-06-14 19:42] VITALS: BP 145/86; TEMP 97.2; O2SAT 99
[2024-06-14 23:59] VITALS: BP 141/86; TEMP 97.2; O2SAT 98
[2024-06-15 03:55] VITALS: BP 139/89; TEMP 97; O2SAT 98
[2024-06-15 06:40] LABS: BASO # 0.1 10^3/uL (0.0-0.2); BASO % 0.9 % (0.0-1.0); EOS # 0.1 10^3/uL (0.0-0.5); EOS % 1.2 % (0.0-3.0); HEMATOCRIT 41.8 % (42.0-52.0); HEMOGLOBIN 14.6 g/dl (13.5-17.5); LYMPH # 0.8 10^3/uL (1.5-5.0); LYMPH % 8.9 % (24.0-44.0); MEAN CORPUSCULAR HEMOGLOBIN 33.6 pg (27.0-33.0); MEAN CORPUSCULAR HGB CONC 34.9 g/dl (32.0-36.5); MEAN CORPUSCULAR VOLUME 96.1 fl (80.0-96.0); MONO # 1.3 10^3/uL (0.0-0.8); MONO % 15.5 % (2.0-8.0); NEUTROPHILS # 6.3 10^3/uL (1.5-8.5); PLATELET COUNT, AUTOMATED 246 10^3/uL (150-450); RED BLOOD COUNT 4.35 10^6/uL (4.30-6.10); WHITE BLOOD COUNT 8.6 10^3/uL (4.0-10.0)
[2024-06-15 07:13] LABS: C REACTIVE PROTEIN QUANTITATIV 2.06 MG/DL (<1.0)
[2024-06-15 07:17] LABS: ALBUMIN 2.7 G/DL (3.2-5.2); CALCIUM LEVEL 10.5 MG/DL (8.5-10.1); CREATININE FOR GFR 1.34 MG/DL (0.70-1.30); GLOMERULAR FILTRATION RATE 59.4 (>56); MAGNESIUM LEVEL 1.8 MG/DL (1.8-2.4); PHOSPHORUS LEVEL 2.1 MG/DL (2.5-4.9); POTASSIUM SERUM 2.9 MMOL/L (3.5-5.1)
[2024-06-15 08:05] VITALS: BP 137/90; TEMP 97.2; O2SAT 100
[2024-06-15] MEDS: SPIRONOLACTONE 50 MG TAB PO SCH (09:10)
[2024-06-15] MEDS: LanTUS (INSULIN GLARGINE INJ) 1 UNITS/0.01 ML SC SCH (09:13)
[2024-06-15 12:10] VITALS: BP 140/92; TEMP 97.3; O2SAT 98
[2024-06-15] MEDS: POTASSIUM CHLORIDE 10MEQ SR TABLET PO ONE (12:29)
[2024-06-15 16:15] VITALS: BP 141/92; TEMP 97; O2SAT 99
[2024-06-15] MEDS: POTASSIUM CHLORIDE 10MEQ SR TABLET PO SCH (17:04)
[2024-06-15 20:29] VITALS: BP 119/80; TEMP 97.2; O2SAT 97
[2024-06-15 23:51] VITALS: BP 121/83; TEMP 97.2; O2SAT 96
[2024-06-16 04:11] VITALS: BP 127/81; TEMP 97; O2SAT 96
[2024-06-16 05:26] LABS: BASO # 0.1 10^3/uL (0.0-0.2); BASO % 0.7 % (0.0-1.0); EOS # 0.1 10^3/uL (0.0-0.5); EOS % 1.2 % (0.0-3.0); HEMATOCRIT 40.6 % (42.0-52.0); HEMOGLOBIN 14.4 g/dl (13.5-17.5); LYMPH # 0.7 10^3/uL (1.5-5.0); LYMPH % 9.4 % (24.0-44.0); MEAN CORPUSCULAR HEMOGLOBIN 34.3 pg (27.0-33.0); MEAN CORPUSCULAR HGB CONC 35.5 g/dl (32.0-36.5); MEAN CORPUSCULAR VOLUME 96.7 fl (80.0-96.0); MONO # 1.1 10^3/uL (0.0-0.8); MONO % 15.2 % (2.0-8.0); NEUTROPHILS # 5.1 10^3/uL (1.5-8.5); NEUTROPHILS % 72.9 % (36.0-66.0); PLATELET COUNT, AUTOMATED 202 10^3/uL (150-450); WHITE BLOOD COUNT 6.9 10^3/uL (4.0-10.0)
[2024-06-16 05:49] LABS: ALBUMIN 2.6 G/DL (3.2-5.2); CALCIUM LEVEL 10.1 MG/DL (8.5-10.1); CREATININE FOR GFR 1.33 MG/DL (0.70-1.30); GLOMERULAR FILTRATION RATE 59.9 (>56); MAGNESIUM LEVEL 1.8 MG/DL (1.8-2.4); POTASSIUM SERUM 3.2 MMOL/L (3.5-5.1)
[2024-06-16 09:26] LABS: C REACTIVE PROTEIN QUANTITATIV 1.68 MG/DL (<1.0)
[2024-06-16 12:16] VITALS: BP 110/77; TEMP 97; O2SAT 98
[2024-06-16 16:22] VITALS: BP 146/86; TEMP 97.3; O2SAT 99
[2024-06-16 20:40] VITALS: BP 142/87; TEMP 97.3; O2SAT 97
[2024-06-17 04:11] VITALS: BP 135/83; TEMP 97.3; O2SAT 99
[2024-06-17 05:28] LABS: BASO # 0.1 10^3/uL (0.0-0.2); BASO % 0.9 % (0.0-1.0); EOS # 0.1 10^3/uL (0.0-0.5); EOS % 1.9 % (0.0-3.0); HEMATOCRIT 40.9 % (42.0-52.0); HEMOGLOBIN 14.2 g/dl (13.5-17.5); LYMPH # 0.7 10^3/uL (1.5-5.0); LYMPH % 10.4 % (24.0-44.0); MEAN CORPUSCULAR HEMOGLOBIN 33.6 pg (27.0-33.0); MEAN CORPUSCULAR HGB CONC 34.7 g/dl (32.0-36.5); MEAN CORPUSCULAR VOLUME 96.7 fl (80.0-96.0); MONO # 1.2 10^3/uL (0.0-0.8); MONO % 18.2 % (2.0-8.0); NEUTROPHILS # 4.4 10^3/uL (1.5-8.5); NEUTROPHILS % 68.1 % (36.0-66.0); PLATELET COUNT, AUTOMATED 182 10^3/uL (150-450); RED BLOOD COUNT 4.23 10^6/uL (4.30-6.10); WHITE BLOOD COUNT 6.4 10^3/uL (4.0-10.0)
[2024-06-17 05:35] LABS: ALBUMIN 2.5 G/DL (3.2-5.2); BLOOD UREA NITROGEN 11 MG/DL (9-23); C REACTIVE PROTEIN QUANTITATIV 1.51 MG/DL (<1.0); CALCIUM LEVEL 10.3 MG/DL (8.5-10.1); CARBON DIOXIDE LEVEL 14 MMOL/L (20-31); CHLORIDE LEVEL 107 MMOL/L (98-107); CREATININE FOR GFR 1.22 MG/DL (0.70-1.30); GLOMERULAR FILTRATION RATE > 60.0 (>56); GLUCOSE, FASTING 180 MG/DL (60-100); MAGNESIUM LEVEL 1.7 MG/DL (1.8-2.4); POTASSIUM SERUM 3.3 MMOL/L (3.5-5.1); SODIUM LEVEL 135 MMOL/L (136-145)
[2024-06-17] MEDS: MAG SULF 1GM/100ML (MAG RUN) 1 GM in IV 1 EA IV ONE (08:56)
[2024-06-17 12:00] VITALS: BP 151/89; TEMP 98; O2SAT 98
[2024-06-17] MEDS ORDERED: POTA-136 PO (13:10)
[2024-06-17] MEDS ORDERED: CINA30TA4 PO (13:10)
[2024-06-17] MEDS ORDERED: CEFD300CAP PO (13:10)
[2024-06-17] MEDS ORDERED: POTA-151 PO (15:23)
== END 2024-06-17 15:21 | disposition home or self-care (01) | DRG 501 ==
LOC: M ED 09:14 → M ED INP 15:06 → M MS5PR 18:45 → M ICU 06-06 13:00 → M MSPAV 06-10 15:12
PROVIDERS: ADMIT General Practice; ATTEND Internal Medicine
PROC: 0MBN0ZZ Excision of Right Knee Bursa and Ligament, Open Approach (ICD-10-PCS; principal; 2024-06-10 11:30)
DX: M71.161 Other infective bursitis, right knee (principal); L03.115 Cellulitis of right lower limb; D68.51 Activated protein C resistance; K76.6 Portal hypertension; Z68.42 Body mass index [BMI] 45.0-49.9, adult; N17.9 Acute kidney failure, unspecified; I48.20 Chronic atrial fibrillation, unspecified; E87.1 Hypo-osmolality and hyponatremia; E87.20 Acidosis, unspecified; D53.9 Nutritional anemia, unspecified; K70.31 Alcoholic cirrhosis of liver with ascites; G47.33 Obstructive sleep apnea (adult) (pediatric); I10 Essential (primary) hypertension; E11.9 Type 2 diabetes mellitus without complications; E78.5 Hyperlipidemia, unspecified; E66.01 Morbid (severe) obesity due to excess calories; E87.6 Hypokalemia; E21.0 Primary hyperparathyroidism; E83.39 Other disorders of phosphorus metabolism; E83.52 Hypercalcemia

== ENCOUNTER → 2024-06-24 | Outpatient (CLI) | payer OTHER ==
[~2024-06-24] MED LIST changes: +CEFD300CAP PO; +CINA30TA4 PO; +POTA-136 PO; +SIME80CH6 PO
[2024-06-24 11:58] LABS: BLOOD UREA NITROGEN 15 MG/DL (9-23); CALCIUM LEVEL 9.1 MG/DL (8.5-10.1); CARBON DIOXIDE LEVEL 21 MMOL/L (20-31); CHLORIDE LEVEL 100 MMOL/L (98-107); GLOMERULAR FILTRATION RATE > 60.0 (>56); GLUCOSE, FASTING 400 MG/DL (60-100); MAGNESIUM LEVEL 1.5 MG/DL (1.8-2.4); POTASSIUM SERUM 4.9 MMOL/L (3.5-5.1); SODIUM LEVEL 128 MMOL/L (136-145)
== END ==
LOC: M LAB 09:49
PROVIDERS: ATTEND Internal Medicine
DX: E87.6 Hypokalemia (principal); E83.42 Hypomagnesemia

== ENCOUNTER → 2024-08-19 | Outpatient (CLI) | payer OTHER | LOC: M RAD 07:28 | PROVIDERS: ATTEND Physician Assistant | DX: M25.561 Pain in right knee (principal); S83.241A Other tear of medial meniscus, current injury, right knee, initial encounter; X58.XXXA Exposure to other specified factors, initial encounter; Y93.9 Activity, unspecified; Y99.0 Civilian activity done for income or pay; Y92.9 Unspecified place or not applicable ==

== ENCOUNTER → 2024-11-06 | Outpatient (CLI) | payer OTHER ==
[~2024-11-06] MED LIST changes: +LISI40TA10 PO; -LISI40TA4 PO; -PRAV40TA2 PO; +PRAV40TA85 PO
[2024-11-06 09:30] VITALS: TEMP 98.2
[2024-11-06 10:25] VITALS: BP 176/76; O2SAT 97
== END ==
LOC: M IRPRO 09:13
PROVIDERS: ATTEND Family Medicine
DX: R18.8 Other ascites (principal)

== ENCOUNTER → 2024-11-12 | Outpatient (CLI) | payer OTHER ==
[2024-11-12 11:50] VITALS: TEMP 97.9
[2024-11-12 12:33] VITALS: BP 126/76; O2SAT 97
== END ==
LOC: M IRPRO 10:55
PROVIDERS: ATTEND Family Medicine
DX: R18.8 Other ascites (principal)

== ENCOUNTER → 2024-11-20 | Outpatient (CLI) | payer OTHER ==
[2024-11-20 13:22] VITALS: TEMP 97.2
[2024-11-20 14:10] VITALS: BP 117/62; O2SAT 96
== END ==
LOC: M IRPRO 12:54
PROVIDERS: ATTEND Family Medicine
DX: R18.8 Other ascites (principal)

== ENCOUNTER → 2024-11-26 | Outpatient (CLI) | payer OTHER ==
[2024-11-26 09:25] VITALS: TEMP 97
[2024-11-26 10:20] VITALS: BP 113/71; O2SAT 96
== END ==
LOC: M IRPRO 09:09
PROVIDERS: ATTEND Family Medicine
DX: R18.8 Other ascites (principal)

== ENCOUNTER → 2024-12-03 | Outpatient (CLI) | payer OTHER ==
[2024-12-03 11:55] VITALS: TEMP 97.2
[2024-12-03 13:35] VITALS: BP 100/57; O2SAT 97
== END ==
LOC: M IRPRO 11:43
PROVIDERS: ATTEND Family Medicine
DX: R18.8 Other ascites (principal)

== ENCOUNTER → 2024-12-09 | Outpatient (CLI) | payer OTHER, BC ==
[~2024-12-09] MED LIST changes: +ACETAMINOPHEN 325 MG TAB PO PRN; +CHOL12508 PO; +DICL100G10 TOP; +FURO80TA2 PO; +LIDO1PAD TOP; +MAGN400T2 PO; +POTA10CA70 PO
[2024-12-09 11:23] VITALS: BP 100/54; O2SAT 97
== END ==
LOC: M IRPRO 07:52
PROVIDERS: ATTEND Family Medicine
DX: R18.8 Other ascites (principal); I95.9 Hypotension, unspecified

== ENCOUNTER → 2024-12-09 | Outpatient (CLI) | payer OTHER, BC ==
[~2024-12-09] MED LIST changes: -ACETAMINOPHEN 325 MG TAB PO PRN; -CHOL12508 PO; -DICL100G10 TOP; -FURO80TA2 PO; -LIDO1PAD TOP; -MAGN400T2 PO; -POTA10CA70 PO
== END ==
LOC: M RAD 08:00
PROVIDERS: ATTEND Radiology Diagnostic Radiology
DX: R18.8 Other ascites (principal)

== ENCOUNTER 2024-12-16 08:00 | Inpatient (IN) | payer OTHER, BC ==
[2024-12-16] VITALS (43 sets, daily range): BP systolic 75–113; BP diastolic 45–70; TEMP 97.1–97.7; O2SAT 91–97
[~2024-12-16] VITALS: Ht 182.9 cm; Wt 143.6 kg
[2024-12-16] MEDS: LR 1,000 ML IV SCH (00:49)
[2024-12-16 08:38] LABS: VENOUS BASE EXCESS -5.1 (-2.0-2.0); VENOUS HCO3 19.8 MMOL/L (23.0-27.0); VENOUS O2 SATURATION 78.3 % (60.0-80.0); VENOUS PARTIAL PRESSURE CO2 36.6 mmHg (38.0-50.0); VENOUS PARTIAL PRESSURE O2 50.1 mmHg (30.0-50.0); VENOUS PH 7.351 UNITS (7.330-7.430); VENOUS STANDARD HCO3 19.9 MMOL/L; VENOUS TOTAL CO2 20.9 MMOL/L (24.0-28.0)
[2024-12-16] MEDS: NS (Normal Saline) 0.9% 1,000 ML IV ONE ×2 (08:49→11:45)
[2024-12-16 08:50] LABS: BASO # 0.1 10^3/uL (0.0-0.2); BASO % 0.7 % (0.0-1.0); EOS # 0.1 10^3/uL (0.0-0.5); EOS % 0.9 % (0.0-3.0); LYMPH # 0.9 10^3/uL (1.5-5.0); LYMPH % 13.2 % (24.0-44.0); MONO # 0.9 10^3/uL (0.0-0.8); MONO % 13.5 % (2.0-8.0); NEUTROPHILS # 4.8 10^3/uL (1.5-8.5); NEUTROPHILS % 71.3 % (36.0-66.0); PLATELET COUNT, AUTOMATED 146 10^3/uL (150-450)
[2024-12-16 09:14] LABS: ALT/SGPT 23.0 U/L (7.0-40); AST/SGOT 46.0 U/L (<34)
[2024-12-16 11:15] LABS: OSMOLALITY SERUM 306.0 MOSM/KG (275-295)
[2024-12-16 11:20] LABS: CALCIUM LEVEL 10.1 MG/DL (8.5-10.1); CARBON DIOXIDE LEVEL 20.0 MMOL/L (20-31); CHLORIDE LEVEL 101.0 MMOL/L (98-107); CREATININE FOR GFR 7.42 MG/DL (0.70-1.30); GLOMERULAR FILTRATION RATE 8.1 (>56); POTASSIUM SERUM 5.4 MMOL/L (3.5-5.1); SODIUM LEVEL 134.0 MMOL/L (136-145)
[2024-12-16] MEDS ORDERED: LIDO1PAD TOP (12:04)
[2024-12-16] MEDS ORDERED: DICL100G10 TOP (12:04)
[2024-12-16] MEDS ORDERED: POTA10CA70 PO (12:04)
[2024-12-16] MEDS ORDERED: CHOL12508 PO (12:04)
[2024-12-16] MEDS ORDERED: FURO80TA2 PO (12:04)
[2024-12-16] MEDS ORDERED: MAGN400T2 PO (12:04)
[2024-12-16] MEDS ORDERED: HOME MED LIST COMPLETE! XX SCH (12:05)
[2024-12-16 12:13] LABS: KETONE, URINE AUTO RFX NEGATIVE (NEGATIVE); LEUKOCYTE ESTERASE UR AUTO RFX NEGATIVE (NEGATIVE); NITRITE, URINE AUTO RFX NEGATIVE (NEGATIVE); RBC, URINE AUTO RFX 0 /HPF (0-3); SQUAM EPITHELIAL CELL UR AURFX 1 /HPF (0-6); WBC, URINE AUTO RFX 6 /HPF (0-3)
[2024-12-16] MEDS ORDERED: HEPARIN SOD 5000 UNITS/ML 1 ML VIAL/SYRINGE SC SCH (12:25)
[2024-12-16] MEDS ORDERED: OCTREOTIDE ACETATE 100 MCG/ML VIAL **IV ADMINISTRATION ONLY IV SCH (13:20)
[2024-12-16] MEDS: NOREPINEPHRINE 4MG IN D5 250ML 4 MG in IV 1 EA IV SCH ×2 (13:21→19:17)
[2024-12-16] MEDS: PANTOPRAZOLE 40MG VIAL IV SCH (13:26)
[2024-12-16 14:13] LABS: INR 2.28
[2024-12-16 14:19] LABS: MAGNESIUM LEVEL 1.8 MG/DL (1.8-2.4)
[2024-12-16 14:20] LABS: CALCIUM LEVEL 10.3 MG/DL (8.5-10.1); CARBON DIOXIDE LEVEL 19.0 MMOL/L (20-31); CHLORIDE LEVEL 104.0 MMOL/L (98-107); CREATININE FOR GFR 7.17 MG/DL (0.70-1.30); GLOMERULAR FILTRATION RATE 8.5 (>56); POTASSIUM SERUM 4.8 MMOL/L (3.5-5.1); SODIUM LEVEL 138.0 MMOL/L (136-145)
[2024-12-16] MEDS ORDERED: DEXTROSE 50% 50 ML SYRINGE IV PRN (14:50)
[2024-12-16] MEDS ORDERED: GLUCOSE 4 GM CHEW PO PRN (14:50)
[2024-12-16] MEDS ORDERED: GLUCAGON INJ 1 MG VIAL SC PRN (14:50)
[2024-12-16] MEDS: HEPARIN SOD 5000 UNITS/ML 1 ML VIAL/SYRINGE SQ SCH (14:52)
[2024-12-16] MEDS: OCTREOTIDE ACETATE 100 MCG/ML VIAL **SC ADMINISTRATION ONLY SC SCH (14:52)
[2024-12-16] MEDS: ALPRAZolam 0.5 MG TAB PO PRN (15:05)
[2024-12-16] MEDS: SIMETHICONE 80MG CHEW TAB PO SCH (17:12)
[2024-12-16] MEDS: SUCRALFATE 1 GM TAB PO SCH (18:40)
[2024-12-16] MEDS: INSULIN LISPRO (NovoLOG) PER UNIT SC SCH ×2 (18:53→20:57)
[2024-12-16] MEDS: LACTULOSE 20 GM/30 ML SYRUP UDC PO SCH (21:24)
[2024-12-17] VITALS (92 sets, daily range): BP systolic 76–131; BP diastolic 39–76; TEMP 97–98.2; O2SAT 92–100
[2024-12-17] MEDS: LIDOCAINE 5% PATCH TD ONE (01:01)
[2024-12-17 05:53] LABS: BASO # 0.0 10^3/uL (0.0-0.2); BASO % 0.6 % (0.0-1.0); EOS # 0.1 10^3/uL (0.0-0.5); EOS % 0.8 % (0.0-3.0); LYMPH # 0.8 10^3/uL (1.5-5.0); LYMPH % 12.0 % (24.0-44.0); MONO # 0.8 10^3/uL (0.0-0.8); MONO % 12.8 % (2.0-8.0); NEUTROPHILS # 4.7 10^3/uL (1.5-8.5); NEUTROPHILS % 73.5 % (36.0-66.0); PLATELET COUNT, AUTOMATED 165 10^3/uL (150-450)
[2024-12-17 06:30] LABS: ALT/SGPT 25.0 U/L (7.0-40); AST/SGOT 46.0 U/L (<34); CALCIUM LEVEL 10.8 MG/DL (8.5-10.1); CARBON DIOXIDE LEVEL 18.0 MMOL/L (20-31); CHLORIDE LEVEL 102.0 MMOL/L (98-107); CREATININE FOR GFR 6.34 MG/DL (0.70-1.30); GLOMERULAR FILTRATION RATE 9.8 (>56); PHOSPHORUS LEVEL 6.2 MG/DL (2.5-4.9); POTASSIUM SERUM 4.7 MMOL/L (3.5-5.1); SODIUM LEVEL 137.0 MMOL/L (136-145)
[2024-12-17] MEDS ORDERED: LIDOCAINE 5% PATCH TOP SCH (09:00)
[2024-12-17] MEDS ORDERED: HEPARIN SOD 5000 UNITS/ML 1 ML VIAL/SYRINGE IV PRN (09:00)
[2024-12-17] MEDS ORDERED: ROSUVASTATIN 10 MG TAB PO SCH (09:00)
[2024-12-17 09:15] LABS: INR 1.59
[2024-12-17] MEDS: CINACALCET 30 MG TAB PO SCH (09:18)
[2024-12-17] MEDS: INSULIN GLARGINE-YFGN 1 UNITS/0.01 ML SC SCH (09:18)
[2024-12-17] MEDS: HEPARIN SOD 5000 UNITS/ML 1 ML VIAL/SYRINGE IV ONE (10:03)
[2024-12-17] MEDS: HEPARIN DRIP 25,000 UNITS in IV 1 EA IV SCH (10:10)
[2024-12-17] MEDS: LR 1,000 ML IV SCH (10:29)
[2024-12-17] MEDS: MIDODRINE 5 MG TAB PO SCH (12:18)
[2024-12-17 12:33] LABS: INR 1.58
[2024-12-17 13:33] LABS: ALT/SGPT 25.0 U/L (7.0-40); AST/SGOT 41.0 U/L (<34); CALCIUM LEVEL 10.5 MG/DL (8.5-10.1); CARBON DIOXIDE LEVEL 20.0 MMOL/L (20-31); CHLORIDE LEVEL 102.0 MMOL/L (98-107); CREATININE FOR GFR 5.95 MG/DL (0.70-1.30); GLOMERULAR FILTRATION RATE 10.6 (>56); POTASSIUM SERUM 4.1 MMOL/L (3.5-5.1); SODIUM LEVEL 137.0 MMOL/L (136-145)
[2024-12-17] MEDS: INSULIN GLARGINE-YFGN 1 UNITS/0.01 ML SC STA (13:57)
[2024-12-17] MEDS: LACTULOSE 20 GM/30 ML SYRUP UDC PO STA (13:58)
[2024-12-17] MEDS: LACTULOSE 20 GM/30 ML SYRUP UDC PO SCH (21:47)
[2024-12-18] VITALS (48 sets, daily range): BP systolic 90–129; BP diastolic 50–77; TEMP 96.7–98.8; O2SAT 95–100
[2024-12-18 07:12] LABS: BASO # 0.0 10^3/uL (0.0-0.2); BASO % 0.5 % (0.0-1.0); EOS # 0.1 10^3/uL (0.0-0.5); EOS % 1.7 % (0.0-3.0); LYMPH # 0.6 10^3/uL (1.5-5.0); LYMPH % 9.9 % (24.0-44.0); MONO # 0.8 10^3/uL (0.0-0.8); MONO % 14.3 % (2.0-8.0); NEUTROPHILS # 4.2 10^3/uL (1.5-8.5); NEUTROPHILS % 73.3 % (36.0-66.0); PLATELET COUNT, AUTOMATED 116 10^3/uL (150-450)
[2024-12-18 07:29] LABS: ALT/SGPT 21.0 U/L (7.0-40); AST/SGOT 34.0 U/L (<34); CALCIUM LEVEL 10.4 MG/DL (8.5-10.1); CARBON DIOXIDE LEVEL 22.0 MMOL/L (20-31); CHLORIDE LEVEL 106.0 MMOL/L (98-107); CREATININE FOR GFR 4.53 MG/DL (0.70-1.30); GLOMERULAR FILTRATION RATE 14.7 (>56); POTASSIUM SERUM 3.5 MMOL/L (3.5-5.1); SODIUM LEVEL 142.0 MMOL/L (136-145)
[2024-12-18] MEDS: INSULIN GLARGINE-YFGN 1 UNITS/0.01 ML SC SCH (08:27)
[2024-12-18] MEDS: POTASSIUM CHLORIDE 10MEQ SR TABLET PO SCH (10:44)
[2024-12-18] MEDS: LACTULOSE 20 GM/30 ML SYRUP UDC PR ONE (10:45)
[2024-12-19] VITALS (13 sets, daily range): BP systolic 101–134; BP diastolic 57–74; TEMP 97.5–98.2; O2SAT 93–98
[2024-12-19 04:46] LABS: BASO # 0.0 10^3/uL (0.0-0.2); BASO % 0.4 % (0.0-1.0); EOS # 0.1 10^3/uL (0.0-0.5); EOS % 1.7 % (0.0-3.0); LYMPH # 0.7 10^3/uL (1.5-5.0); LYMPH % 12.6 % (24.0-44.0); MONO # 0.8 10^3/uL (0.0-0.8); MONO % 15.5 % (2.0-8.0); NEUTROPHILS # 3.8 10^3/uL (1.5-8.5); NEUTROPHILS % 69.4 % (36.0-66.0); PLATELET COUNT, AUTOMATED 106 10^3/uL (150-450)
[2024-12-19 04:58] LABS: INR 1.33
[2024-12-19 04:59] LABS: ALT/SGPT 19.0 U/L (7.0-40); AST/SGOT 37.0 U/L (<34); CALCIUM LEVEL 9.9 MG/DL (8.5-10.1); CARBON DIOXIDE LEVEL 19.0 MMOL/L (20-31); CHLORIDE LEVEL 107.0 MMOL/L (98-107); CREATININE FOR GFR 3.11 MG/DL (0.70-1.30); GLOMERULAR FILTRATION RATE 23.1 (>56); MAGNESIUM LEVEL 1.1 MG/DL (1.8-2.4); POTASSIUM SERUM 3.5 MMOL/L (3.5-5.1); SODIUM LEVEL 141.0 MMOL/L (136-145)
[2024-12-19] MEDS: MAGNESIUM OXIDE 400 MG TAB PO ONE (05:28)
[2024-12-19] MEDS: MAG SULF 1GM/100ML (MAG RUN) 1 GM in IV 1 EA IV SCH (05:28)
[2024-12-19] MEDS: LanTUS (INSULIN GLARGINE INJ) 1 UNITS/0.01 ML SC SCH (07:54)
[2024-12-19] MEDS: PANTOPRAZOLE 40MG TAB PO SCH (07:55)
[2024-12-19 12:14] LABS: INR 1.34
[2024-12-19 22:37] LABS: INR 1.29
[2024-12-20] VITALS: BP 126/70; TEMP 98.3; O2SAT 98
[2024-12-20 04:00] VITALS: BP 117/77; TEMP 98.3; O2SAT 96
[2024-12-20 06:13] LABS: BASO # 0.0 10^3/uL (0.0-0.2); BASO % 0.6 % (0.0-1.0); EOS # 0.1 10^3/uL (0.0-0.5); EOS % 1.6 % (0.0-3.0); LYMPH # 0.7 10^3/uL (1.5-5.0); LYMPH % 14.1 % (24.0-44.0); MONO # 0.8 10^3/uL (0.0-0.8); MONO % 15.7 % (2.0-8.0); NEUTROPHILS # 3.4 10^3/uL (1.5-8.5); NEUTROPHILS % 67.4 % (36.0-66.0); PLATELET COUNT, AUTOMATED 120 10^3/uL (150-450)
[2024-12-20 06:41] LABS: ALT/SGPT 18.0 U/L (7.0-40); AST/SGOT 36.0 U/L (<34); CALCIUM LEVEL 9.7 MG/DL (8.5-10.1); CARBON DIOXIDE LEVEL 19.0 MMOL/L (20-31); CHLORIDE LEVEL 106.0 MMOL/L (98-107); CREATININE FOR GFR 2.17 MG/DL (0.70-1.30); GLOMERULAR FILTRATION RATE 35.5 (>56); MAGNESIUM LEVEL 1.3 MG/DL (1.8-2.4); POTASSIUM SERUM 3.1 MMOL/L (3.5-5.1); SODIUM LEVEL 140.0 MMOL/L (136-145)
[2024-12-20 08:00] VITALS: BP 135/55; TEMP 97.7; O2SAT 96
[2024-12-20] MEDS: POTASSIUM CHLORIDE 10MEQ SR TABLET PO ONE ×2 (08:31→10:55)
[2024-12-20] MEDS: MAGNESIUM OXIDE 400 MG TAB PO SCH (08:32)
[2024-12-20] MEDS: MAG SULF 1GM/100ML (MAG RUN) 1 GM in IV 1 EA IV SCH (08:43)
[2024-12-20] MEDS ORDERED: LACTULOSE 20 GM/30 ML SYRUP UDC PR PRN (09:05)
[2024-12-20] MEDS: ROSUVASTATIN 10 MG TAB PO SCH (09:51)
[2024-12-20 12:00] VITALS: BP 123/73; TEMP 98.3; O2SAT 97
[2024-12-20 12:44] LABS: INR 1.36
[2024-12-20] MEDS: LACTULOSE 20 GM/30 ML SYRUP UDC PO SCH (13:09)
[2024-12-20 17:30] VITALS: BP 128/84; TEMP 98.2; O2SAT 98
[2024-12-20 18:55] LABS: INR 1.34
[2024-12-20 19:26] VITALS: BP 123/72; TEMP 98.4; O2SAT 99
[2024-12-20] MEDS: LanTUS (INSULIN GLARGINE INJ) 1 UNITS/0.01 ML SC SCH (20:30)
[2024-12-21 03:31] VITALS: BP 126/77; TEMP 98.1; O2SAT 100
[2024-12-21 06:26] LABS: BASO # 0.0 10^3/uL (0.0-0.2); BASO % 0.6 % (0.0-1.0); EOS # 0.1 10^3/uL (0.0-0.5); EOS % 1.8 % (0.0-3.0); LYMPH # 0.6 10^3/uL (1.5-5.0); LYMPH % 12.3 % (24.0-44.0); MONO # 0.8 10^3/uL (0.0-0.8); MONO % 16.1 % (2.0-8.0); NEUTROPHILS # 3.5 10^3/uL (1.5-8.5); NEUTROPHILS % 68.8 % (36.0-66.0); PLATELET COUNT, AUTOMATED 131 10^3/uL (150-450)
[2024-12-21 06:39] LABS: INR 1.31
[2024-12-21 06:58] LABS: ALT/SGPT 20.0 U/L (7.0-40); AST/SGOT 36.0 U/L (<34); CALCIUM LEVEL 9.2 MG/DL (8.5-10.1); CARBON DIOXIDE LEVEL 20.0 MMOL/L (20-31); CHLORIDE LEVEL 105.0 MMOL/L (98-107); CREATININE FOR GFR 1.61 MG/DL (0.70-1.30); GLOMERULAR FILTRATION RATE 50.8 (>56); MAGNESIUM LEVEL 1.6 MG/DL (1.8-2.4); PHOSPHORUS LEVEL 2.2 MG/DL (2.5-4.9); POTASSIUM SERUM 3.3 MMOL/L (3.5-5.1); SODIUM LEVEL 138.0 MMOL/L (136-145)
[2024-12-21 07:02] LABS: PTH INTACT 33.0 PG/ML (18.5-88.0)
[2024-12-21] MEDS: MAGNESIUM OXIDE 400 MG TAB PO SCH (07:30)
[2024-12-21 08:00] VITALS: BP 137/88; TEMP 97.8; O2SAT 100
[2024-12-21] MEDS: MAG SULF 1GM/100ML (MAG RUN) 1 GM in IV 1 EA IV SCH (09:01)
[2024-12-21] MEDS: POTASSIUM CHLORIDE 10MEQ SR TABLET PO ONE ×2 (09:21→11:27)
[2024-12-21 14:00] VITALS: BP 111/70; TEMP 97.5; O2SAT 95
[2024-12-21 16:00] VITALS: BP 125/71
[2024-12-21 20:00] VITALS: TEMP 98.4
[2024-12-21 21:13] VITALS: BP 119/62; O2SAT 96
[2024-12-22 05:00] LABS: BASO # 0.0 10^3/uL (0.0-0.2); BASO % 0.8 % (0.0-1.0); EOS # 0.1 10^3/uL (0.0-0.5); EOS % 2.7 % (0.0-3.0); LYMPH # 0.6 10^3/uL (1.5-5.0); LYMPH % 11.5 % (24.0-44.0); MONO # 0.8 10^3/uL (0.0-0.8); MONO % 15.5 % (2.0-8.0); NEUTROPHILS # 3.6 10^3/uL (1.5-8.5); NEUTROPHILS % 69.1 % (36.0-66.0); PLATELET COUNT, AUTOMATED 117 10^3/uL (150-450)
[2024-12-22 05:29] VITALS: BP 138/78; TEMP 98.2
[2024-12-22 05:32] LABS: ALT/SGPT 20.0 U/L (7.0-40); AST/SGOT 32.0 U/L (<34); CALCIUM LEVEL 8.4 MG/DL (8.5-10.1); CARBON DIOXIDE LEVEL 21.0 MMOL/L (20-31); CHLORIDE LEVEL 104.0 MMOL/L (98-107); CREATININE FOR GFR 1.3 MG/DL (0.70-1.30); GLOMERULAR FILTRATION RATE 65.7 (>56); MAGNESIUM LEVEL 1.7 MG/DL (1.8-2.4); POTASSIUM SERUM 3.7 MMOL/L (3.5-5.1); SODIUM LEVEL 137.0 MMOL/L (136-145)
[2024-12-22] MEDS: MAG SULF 1GM/100ML (MAG RUN) 1 GM in IV 1 EA IV SCH (07:00)
[2024-12-22 08:00] VITALS: BP 125/70; TEMP 97.8; O2SAT 99
[2024-12-22] MEDS: RIVAROXABAN 20MG TAB PO ONE (11:03)
[2024-12-22] MEDS ORDERED: MAGN400T33 PO (11:13)
[2024-12-22] MEDS ORDERED: MIDO5TA PO (11:13)
[2024-12-22] MEDS ORDERED: LACT10SO94 PO (11:13)
[2024-12-22 11:35] VITALS: BP 118/74
== END 2024-12-22 12:34 | disposition home or self-care (01) | DRG 314 ==
LOC: EDBD 08:00 → M ED 09:03 → M ED INP 12:21 → EDBEDREQ 14:35 → EDBEDREQSVC 14:35 → M ICU 14:46
PROVIDERS: ADMIT Internal Medicine Pulmonary Disease; ATTEND Internal Medicine
DX: T82.868A Thrombosis due to vascular prosthetic devices, implants and grafts, initial encounter (principal); G93.41 Metabolic encephalopathy; R57.1 Hypovolemic shock; N17.9 Acute kidney failure, unspecified; E87.20 Acidosis, unspecified; R18.8 Other ascites; D68.51 Activated protein C resistance; E87.1 Hypo-osmolality and hyponatremia; K76.6 Portal hypertension; I85.00 Esophageal varices without bleeding; K72.10 Chronic hepatic failure without coma; I95.89 Other hypotension; E11.9 Type 2 diabetes mellitus without complications; D69.6 Thrombocytopenia, unspecified; E21.0 Primary hyperparathyroidism; E86.9 Volume depletion, unspecified; E87.5 Hyperkalemia; G47.33 Obstructive sleep apnea (adult) (pediatric); E78.5 Hyperlipidemia, unspecified; K76.82 Hepatic encephalopathy; E87.6 Hypokalemia; R33.9 Retention of urine, unspecified; K21.9 Gastro-esophageal reflux disease without esophagitis; K70.30 Alcoholic cirrhosis of liver without ascites; Z86.718 Personal history of other venous thrombosis and embolism; Z86.711 Personal history of pulmonary embolism; F41.9 Anxiety disorder, unspecified; Z79.899 Other long term (current) drug therapy; K70.0 Alcoholic fatty liver; Y83.1 Surgical operation with implant of artificial internal device as the cause of abnormal reaction of the patient, or of later complication, without mention of misadventure at the time of the procedure

== ENCOUNTER → 2024-12-25 | Outpatient (CLI) | payer BC, OTHER ==
[~2024-12-25] VITALS: Ht 180.3 cm; Wt 142.0 kg
[~2024-12-25] MED LIST changes: +ALTEPLASE 2 MG/2 ML VIAL XX ONE; +DICL100G10 TOP; +FURO80TA2 PO; +KETAMINE HCL 200 MG/20 ML VIAL As Ordered ONE; +LIDO1PAD TOP; +MAGN400T2 PO; +MAGN400T33 PO; +MIDAZOLAM INJ 2 MG/2 ML VIAL As Ordered ONE; +MIDO5TA PO; +NS (Normal Saline) 0.9% 1,000 ML IV SCH; +POTA10CA70 PO; +[UNRECOGNIZED DRUG - CODE] PO; +dexmedeTOMIDine (4 MCG/ML) 200 MCG/50 ML BTL As Ordered ONE
[2024-12-25 12:30] VITALS: TEMP 97.4
[2024-12-25 12:47] LABS: PLATELET COUNT, AUTOMATED 144 10^3/uL (150-450)
[2024-12-25 12:58] LABS: INR 1.46
[2024-12-25 13:16] LABS: ALT/SGPT 24.0 U/L (7.0-40); AST/SGOT 48.0 U/L (<34); CALCIUM LEVEL 7.7 MG/DL (8.5-10.1); CARBON DIOXIDE LEVEL 20.0 MMOL/L (20-31); CHLORIDE LEVEL 104.0 MMOL/L (98-107); CREATININE FOR GFR 1.47 MG/DL (0.70-1.30); GLOMERULAR FILTRATION RATE 56.7 (>56); POTASSIUM SERUM 4.1 MMOL/L (3.5-5.1); SODIUM LEVEL 136.0 MMOL/L (136-145)
[2024-12-25] MEDS: HEPARIN 1,000 UNITS/ML 10 ML VIAL (FOR RADIOLOGY & DIALYSIS ONLY) IV PRN (14:43)
[2024-12-25] MEDS: LIDOCAINE 1% MDV 20 ML VIAL SC SCH (16:15)
[2024-12-25] MEDS: ISOVUE-300 61% 100 ML VIAL IV SCH (16:15)
[2024-12-25 18:00] VITALS: BP 96/52; O2SAT 97
== END ==
LOC: M IRPRO 12:11
PROVIDERS: ATTEND Radiology Diagnostic Radiology
DX: K76.6 Portal hypertension (principal)
CPT/HCPCS: 37183; 80053; 85027; 85610; 86850; 86900; 86901; 96365; C1724; C1729; C1757; C1769; C1887; J2250; P9047; Q9967